=== PATIENT | male | born 1945 | race Caucasian/White ===

== ENCOUNTER → 2017-07-12 | Outpatient (CLI) | payer MEDICARE ==
[~2017-07-12] MED LIST: AMIO400T5 PO; AMLO10TA82; ASP81CT PO; CARV6.252 PO; ENAL20TA PO; FURO40TA4 PO; HYDR-3583 PO; LISI10TA PO; LISI20TA PO; METO-272 PO; METO100T5 PO; METO25TA2 PO; METR500T PO; OMEP-10 PO; OMEP20CA12 PO; POTA20TA15 PO; RANI150T90 PO; SIMV10TA3 PO; SIMV20TA3 PO; SMV20T PO; SULF1TAB38 PO; WRF5T; WRF5T PO
--- NOTE | 2017-07-12 14:45 | Diagnostic Imaging Report ---
PROCEDURE: MR imaging of the brain without contrast. TECHNIQUE: Multiplanar, multisequence MR imaging of the brain was performed without contrast. INDICATION: Behavioral changes. COMPARISON: No prior MRI studies are available for comparison. FINDINGS: The ventricles and sulci are prominent consistent with cerebral atrophy. Moderate periventricular and subcortical white matter changes are noted consistent with chronic microvascular ischemia. No diffusion restriction is identified to suggest acute ischemia. The normal expected flow voids within the carotid siphons are seen. No acute intra-axial or extra-axial hemorrhage is identified. The corpus callosum is unremarkable. The sella and parasellar structures are unremarkable. IMPRESSION: Cerebral atrophy and changes of chronic microvascular ischemia. No other significant abnormality is detected. Dictated by: Dictated on workstation # [id number]
== END ==
LOC: RAD 13:04
PROVIDERS: ATTEND Psychiatry & Neurology Neurology
DX: G93.1 Anoxic brain damage, not elsewhere classified (principal); G30.9 Alzheimer's disease, unspecified
CPT/HCPCS: 70551

== ENCOUNTER → 2017-08-13 | Outpatient (CLI) | payer MEDICARE ==
--- NOTE | 2017-08-13 18:03 | Diagnostic Imaging Report ---
INDICATION: Dementia. TECHNIQUE: Grayscale, color-flow and duplex Doppler evaluation of bilateral carotid systems was performed. FINDINGS: Mild plaquing is identified in the distal common carotid arteries and carotid bifurcations. Velocities are normal bilaterally. No high-grade stenosis or occlusion is identified. Both vertebral arteries demonstrate antegrade flow. IMPRESSION: Mild bilateral carotid plaque. There is no evidence of a hemodynamically significant stenosis. Dictated by: Dictated on workstation # [id number]
== END ==
LOC: RAD 12:16
PROVIDERS: ATTEND Psychiatry & Neurology Neurology
DX: I65.23 Occlusion and stenosis of bilateral carotid arteries (principal); F03.90 Unspecified dementia, unspecified severity, without behavioral disturbance, psychotic disturbance, mood disturbance, and anxiety; R40.1 Stupor
CPT/HCPCS: 93880

== ENCOUNTER 2018-02-20 15:31 | Outpatient (CLI) | payer MEDICARE ==
[~2018-02-20] VITALS: Ht 165.1 cm; Wt 63.5 kg
[2018-02-20] MEDS ORDERED: FURO20TA4 PO (15:40)
[2018-02-20] MEDS ORDERED: ASPI-808 PO (15:40)
[2018-02-20] MEDS ORDERED: CARV12.53 PO (15:40)
[2018-02-20] MEDS ORDERED: RIVA6CAP5 PO (15:40)
[2018-02-20] MEDS ORDERED: METF-397 PO (15:40)
[2018-02-20] MEDS ORDERED: POTA-51 PO (15:40)
[2018-02-20] MEDS ORDERED: ATOR80TA76 PO (15:40)
[2018-02-20] MEDS ORDERED: OMEP20CA12 PO (15:40)
[2018-02-20] MEDS ORDERED: VIT1CAPS5 PO (15:40)
[2018-02-20] MEDS ORDERED: LISI-552 PO (15:40)
[2018-02-20] MEDS ORDERED: MEMA28CA PO (15:40)
== END 2018-02-20 15:43 | disposition home or self-care (01) ==
LOC: PREOP 15:31
PROVIDERS: ATTEND Surgery
DX: Z01.818 Encounter for other preprocedural examination (principal)

== ENCOUNTER 2018-02-24 08:25 | Day surgery (SDC) | payer MEDICARE ==
[~2018-02-24] VITALS: Ht 165.1 cm; Wt 63.5 kg
[~2018-02-24 08:25] MED LIST changes: +ASPI-808 PO; +ATOR80TA76 PO; +CARV12.53 PO; +FURO20TA4 PO; +LISI-552 PO; +MEMA28CA PO; +METF-397 PO; +POTA-51 PO; +RIVA6CAP5 PO; +VIT1CAPS5 PO
--- OUTSIDE RECORDS SUMMARY | 2018-02-24 08:29 | XMS REPORT ---
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
--- OUTSIDE RECORDS SUMMARY | 2018-02-24 08:29 | XMS REPORT ---
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 Problem Pure hypercholesterolemia 272.0 Active Problem Alzheimers disease 331.0 Active Problem Alzheimers disease, unspecified G30.9 Active Problem Unspecified local infection of skin and subcutaneous tissue 686.9 Active Problem 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
--- OUTSIDE RECORDS SUMMARY | 2018-02-24 08:29 | XMS REPORT ---
Author Author ODN FAULKNER [facility] Address [address] [place] [address] Care Team Providers Care Metal Machinist Name Role Phone DON FAULKNER Unavailable PROBLEMS Type Condition ICD9-CM Code NII27-NL Code Onset Dates Condition Status SNOMED Code Problem Obstructive sleep apnea (adult) (pediatric) 327.23 Active 77991114 Problem Pure hypercholesterolemia 272.0 Active 359531984 Problem Other abnormal glucose 790.29 Active 856294236 Problem Type 2 diabetes mellitus without complications E11.9 Active 057446905 Problem Macular degeneration H35.30 Active 129990936 Problem Alzheimers disease, unspecified G30.9 Active 1011383063041 Problem 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 8938523 Problem Hypertension 401.9 Active 11514287 Problem Alzheimers disease 331.0 Active 47791289 Assessment Type 2 diabetes mellitus without complications E11.9 Feb, Active 236737074 Problem Other persistent mental disorders due to conditions classified elsewhere 294.8 Active 598048226 Problem Impacted cerumen 380.4 Active 30596305 Problem Diabetes mellitus without mention of complication, type II or unspecified type, not stated as uncontrolled 250.00 Active 108815954 Problem Memory loss 780.93 Active 03764293 Problem Unspecified local infection of skin and subcutaneous tissue 686.9 Active 63611761 Problem Other malaise and fatigue 780.79 Active 416919350 ALLERGIES Substance Reaction Event Type Date Status N.K.D.A. Unknown Non Drug Allergy Feb, Unknown SOCIAL HISTORY No smoking Hx information available PLAN OF CARE VITAL SIGNS Height 66 in 2016-02-16 Weight 137.6 lbs 2016-02-16 Heart Rate 66 bpm 2016-02-16 Respiratory Rate 18 2016-02-16 BMI 22.21 kg/m2 2016-02-16 Blood pressure systolic 144 mmHg 2016-02-16 Blood pressure diastolic 79 mmHg 2016-02-16 MEDICATIONS Medication Instructions Dosage Frequency Start Date End Date Duration Status Metformin HCl 500 MG Orally Twice a day 0.5 tablet with meals 12h Active Multivitamins Orally Once a day 1 capsule 24h Active Namenda XR 28 MG Orally Once a day per [place] Neuro 1 capsule May, Active Carvedilol Active Aspir-81 81 MG Orally Once a day 1 tablet 24h Active Rivastigmine Tartrate 6 MG Orally Twice a day 1 capsule with food 12h Active Lisinopril 20 MG Orally twice a day 1 tablet 12h Active Omeprazole Active RESULTS Name Result Date Reference Range A1C (IN HOUSE) 2016-02-16 A1C IN HOUSE 5.7 4.3 - 5.6 % Previous A1c 6.0 Lot [id number] Exp date PROCEDURES Procedure Date Ordered Related Diagnosis Body Site GLYCATED HEMOGLOBIN TEST Feb 16, 2016 [facility] VISIT ESTABLISHED PATIENT Feb 16, 2016 Office Visit, Est Pt., Level 3 Feb 16, 2016 IMMUNIZATIONS No Known Immunizations
--- OUTSIDE RECORDS SUMMARY | 2018-02-24 08:29 | XMS REPORT ---
Author Author DON FAULKNER Organization 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 [id number] [place] [address]84 Dec, [facility] [id number] [place] [address] 22029- 1078 Dec, Type 2 diabetes mellitus without complications E11.9 ; Hypokalemia E87.6 and Alzheimers disease, unspecified G30.9 [facility] [id number] [place] [address] 29859- 2957 Jul, Alzheimers disease, unspecified G30.9 [facility] [id number] [place] [address] 26628- 0342 Jul, [facility] [id number] [place] [address]116- 1471 Jul, [facility] [id number] [place] [address] 76750- 4405 Jun, [place] [address] [place] [address] 44373- 9621 Jun, Alzheimers disease, unspecified G30.9 ; Hypokalemia E87.6 and Behavioral change R46.89 [place] [id number] [place] [address] 13732- 0283 Jun, [place] [id number] [place] [address] 16798- 4387 May, [place] [id number] [place] [address] 29124- 3646 Feb, [place] [id number] [place] [address] 59028- 4567 Feb, Type 2 diabetes mellitus without complications E11.9 ; Hypokalemia E87.6 and Alzheimers disease, unspecified G30.9 [place] [id number] [place] [address] 15825- 8455 Feb, Type 2 diabetes mellitus without complications E11.9 ; Alzheimers disease, unspecified G30.9 and Hypokalemia E87.6 [place] [id number] [place] [address] 43472- 5144 October, [place] [address] [place] [address] 12074- 8444 October, Type 2 diabetes mellitus without complications E11.9 ; Hypokalemia E87.6 ; Rhonchi R09.89 and Bilateral impacted cerumen H61.23 [place] [address] [place] [address] 18142- 7259 October, Hypokalemia E87.6 ; Essential (primary) hypertension I10 and Type 2 diabetes mellitus without complications E11.9 [place] [address] [place] [address] 35406- 8861 October, Hypokalemia E87.6 ; Type 2 diabetes mellitus without complications E11.9 and Essential (primary) hypertension I10 [place] [id number] [place] [address] 42260- 9322 Jul, [address] E87.[address] [facility] [id number] [place] [address] 67769- 8801 Jun, Hyp[address]emia E87.6 [facility] [id number] [place] [address] 37677- 6881 Jun, Hyp[address]emia E87.6 [facility] [id number] [place] [address] 56979- 4967 May, Hypokalemia E87.6 [place] [id number] [place] [address] 90201- 1216 May, Type 2 diabetes mellitus without complications E11.9 and Hypokalemia E87.6 [place] [id number] [place] [address] 95741- 8347 Feb, Type 2 diabetes mellitus without complications E11.9 and Alzheimers disease, unspecified G30.9 [place] [id number] [place] [address] 97813- 2026 Jan, Hypokalemia E87.6 [place] [id number] [place] [address] 77800- 7650 Jan, Hypokalemia E87.6 [place] [id number] [place] [address] 64474- 4436 October, Type 2 diabetes mellitus without complications E11.9 ; Hypokalemia E87.6 ; Macular degeneration H35.30 ; Alzheimers disease, unspecified G30.9 and Essential hypertension I10 [place] [id number] [place] [address] 01422- 6945 October, Routine health maintenance Z00.00 and Type 2 diabetes mellitus without complications E11.9 [place] [id number] [place] [address] 76037- 2041 October, Routine health maintenance Z00.00 and Type 2 diabetes mellitus without complications E11.9 [facility] [address] [address]16 18 Jul, 2015 [facility] [id number] [place] [address] 60099 2546 17 Jul, 2015 Hypokalemia E87.6 ; Type 2 diabetes mellitus without complications E11.9 [address].89 [facility] [id number] [place] [address] 24104- 7790 15 Jul, 2015 Hypokalemia E87.6 ; Type 2 diabetes mellitus without complications E11.9 [address] Ab[address] CBC R79.89 [facility] [id number] [place] [address] 35510- 4766 Jul, [facility] [id number] [place] [address] 27409- 0082 08 Jul, 2015 Abnormal CBC R79.89 and Lymphadenopathy of head and neck region R59.9 [facility] [address] [place] [address] 19025- 1012 May, [facility] [id number] [place] [address] 42788- 8101 Apr, [facility] [id number] [place] [address] 44316- 4446 Apr, [facility] [address] [place] [address] 39304- 7595 Apr, [facility] [id number] [place] [address] 38182- 7942 Apr, [facility] [address] [place] [address] 89389- 8139 Mar, Hypokalemia E87.6 [facility] [address] [place] [address] 95330- 6570 Mar, [facility] [address] [place] [address] 02558- 4281 Mar, Hypokalemia E87.6 ; Type 2 diabetes mellitus without complications E11.[address] [facility] [id number] [place] [address] 95078- 1093 Jan, Hypokalemia 276.8 [facility] [id number] [place] [address] 45837- 8297 Jan, Hypertension 401.9 [facility] [id number] [place] [address] 79839- 1130 Jan, [facility] [id number] [place] [address] 80574- 4441 Nov, Diabetes mellitus without mention of complication, type II or unspecified type, not stated as uncontrolled 250.[address] [facility] [id number] [place] [address] 24744- 3406 Nov, [facility] [id number] [place] [address] 03860- 7428 Sep, [facility] [id number] [place] [address] 25568- 0557 Sep, [facility] [id number] [place] [address] 48426- 2330 Jun, [facility] [address] [address]- 7110 Jun, [facility] [address] [place] [address] 38592- 6525 Jan, [facility] [address] [address]- 8482 Jan, [facility] [id number] [place] [address] 50218- 1937 Jan, [facility] [address] [address] 0958 Jan, [facility] [id number] [place] [address] 44061- 2546 Jan, [facility] [place] [facility] [address] [id number] [place] [address]- 8397 Jan, [facility] [place] [facility] [address] [id number] [place] [address]- 7417 Dec, [facility] [place] [facility] [address] [id number] [place] [address]- 0652 Nov, [facility] [place] [facility] [address] [id number] [place] [address]- 2497 Nov, [facility] [place] [facility] [address] [id number] [place] [address]- 1590 Nov, [facility] [place] [facility] [address] [facility] [id number] [place] [address]- 7200 Nov, [facility] [place] [facility] [address] [facility] [id number] [place] [address]- 4800 October, [facility] [place] [facility] [address] [id number] [place] [address]- 4207 Jul, [facility] [place] [facility] [address] [id number] [place] [address]- 2936 Jul, [facility] [place] [facility] [address] [facility] [id number] [place] [address]- 1190 Jul, [facility] [place] [facility] [address] [id number] [place] [address]- 6180 Jul, [facility] [place] [facility] [address] [id number] [place] [address]- 4762 Jul, [facility] [place] [facility] [address] [id number] [place] [address]- 8164 Jul, [facility] [place] [facility] [address] [id number] [place] [address]- 5859 Jun, [facility] [place] [facility] [address] [facility] [id number] [place] [address]- 6949 Jun, [facility] [place] [facility] [address] [id number] [place] [address]- 7139 Jun, [facility] [place] [facility] [address] [id number] [place] [address]- 1490 Jun, [facility] [place] [facility] [address] [id number] [place] [address]- 8699 Jun, [facility] [place] [facility] [address] [id number] [place] [address]- 6505 Jun, [facility] [place] [facility] [address] [id number] [place] [address]- 2843 Jun, [facility] [place] [facility] [address] [id number] [place] [address]- 4219 Apr, [facility] [place] [facility] [address] [id number] [place] [address]- 5815 Apr, [facility] [place] [facility] [address] [id number] [place] [address]- 1847 Mar, [facility] [place] [facility] [address] [id number] [place] [address]- 0735 Mar, [facility] [place] [facility] [address] [id number] [place] [address]- 9441 Mar, [facility] [place] [facility] [address] [id number] [place] [address]- 9074 Mar, [facility] [place] [facility] [address] [id number] [place] [address]- 7995 Feb, [facility] [place] [facility] [address] [id number] [place] [address]- 7619 Feb, [facility] [place] [facility] [address] [id number] [place] [address]- 6781 Dec, [facility] [place] [facility] [address] [id number] [place] [address]- 9836 Aug, [facility] [place] [facility] [address] [id number] [place] [address]- 5536 Aug, [facility] [place] [facility] [address] [id number] [place] [address]- 8427 Aug, [facility] [place] [facility] [address] [id number] [place] [address]- 0840 Jul, [facility] [place] [facility] [address] [id number] [place] [address]- 1527 May, [facility] [place] [facility] [address] [id number] [place] [address]- 4053 May, [facility] [place] [facility] [address] [id number] [place] [address]- 8728 May, [facility] [place] [facility] [address] [id number] [place] [address]- 5983 May, [facility] [place] [facility] [address] [id number] [place] [address]- 8878 Mar, [facility] [place] [facility] [address] [id number] [place] [address]- 5060 Mar, [facility] [place] [facility] [address] [id number] [place] [address]- 1606 Sep, [facility] [place] [facility] [address] [id number] [place] [address]- 6770 Sep, [facility] [place] [facility] [address] [id number] [place] [address]- 6361 Jun, [facility] [place] [facility] [address] [id number] [place] [address]- 1135 May, [facility] [place] [facility] [address] [id number] [place] [address]- 9529 Apr, [facility] [place] [facility] [address] [id number] [place] [address]- 0571 Apr, [facility] [place] [facility] [address] [id number] [place] [address]- 4790 16 Apr, 2011 [facility] [place] [facility] [address] [address]- 9996 16 Apr, 2011 [facility] [address] [address] Mar, [facility] [address] [facility] [id number] [place] [address] 7205 Dec, [facility] [address] [place] [address] 12627- 5424 Nov, [facility] [address] [facility] [id number] [address] 9[address] Mar, [facility] [address] [place] [address] 40434- 4438 Jan, [facility] [address] [address]- 5543 Apr, [facility] [address] [place] [address] 55035- 0665 Apr, [facility] [address] [address]- 4561 Apr, [facility] [address] [address]- 9226 Apr, [facility] [address] [address]- 0950 Mar, [facility] [address] [address]- 4307 Mar, [facility] [address] [address]- 6543 Mar, [facility] [address] Mar, [facility] [address] [address]- 4140 Sep, IMMUNIZATIONS No Known Immunizations SOCIAL HISTORY Never Assessed REASON FOR VISIT Diabetes-MICHELE sandhu PLAN OF CARE Activity Details Follow Up 3 Months Reason:DM VITAL SIGNS Height 66 in 2017-12-30 Weight 133.2 lbs 2017-12-30 Temperature 97.9 degrees Fahrenheit 2017-12-30 Heart Rate 82 bpm 2017-12-30 Respiratory Rate 18 2017-12-30 BMI 21.50 kg/m2 2017-12-30 Blood pressure systolic 102 mmHg 2017-12-30 Blood pressure diastolic 62 mmHg 2017-12-30 MEDICATIONS Medication Instructions Dosage Frequency Start Date End Date Duration Status Atorvastatin Calcium 40 MG Orally Once a day 1 tablet 24h Active Aspirin EC 325 MG Orally Once a day 1 tablet 24h Active Namenda XR 28 MG Orally Once a day per [place] Neuro 1 capsule May, Active Lisinopril 20 MG Orally twice a day 1 tablet 12h Active Potassium Chloride Hanna ER 20 meq Orally 3 times a day 2.5 tablets 8h Active Multivitamins Orally Once a day 1 capsule 24h Active Rivastigmine Tartrate 6 MG Orally Twice a day 1 capsule with food 12h Active Carvedilol Active Metformin HCl 500 MG Orally Twice a day 0.5 tablet with meals 12h Active RESULTS Name Result Date Reference Range A1C (IN HOUSE) 2017-12-30 A1C IN HOUSE 6.2 4.3 - 5.6 % Previous A1c 6.0 Lot [id number] Exp date 08/2019 POTASSIUM 2017-12-30 POTASSIUM 3.7 3.5-5.3 PROCEDURES Procedure Date Ordered Result Body Site GLYCATED HEMOGLOBIN TEST December 30, 2017 [facility] 2017 [facility] VISIT ESTABLISHED PATIENT December 30, 2017 INSTRUCTIONS MEDICATIONS ADMINISTERED No Known Medications MEDICAL (GENERAL) HISTORY Type Description Date Medical History hypertension Medical History sleep apnea-CPAP 8cm [id number] Paykel Eson Nasal Mask Medical History hypokalemia Medical History heart disease-rupture AAA, intrarenal Medical History respiratory disorder 06/16/13 Medical History [place] filter, DVT Medical History hepatitis B Medical History dementia Medical History 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 Medical History Alzheimers disease, unspecified Medical History [facility] - Team 12 Dr. Lang Surgical History cardiothoracic surgery-triple bypass-[place] 12/2009 Surgical History Triple A 09/2006 Surgical History cholecystectomy Surgical History Bleeding ulcer Hospitalization History Hospitalization for surgery only Hospitalization History hypertension 10/2013 Hospitalization History Somewhere in [facility] May 2017
--- OUTSIDE RECORDS SUMMARY | 2018-02-24 08:29 | XMS REPORT ---
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 1830939 Problem Type 2 diabetes mellitus without complications E11.9 Active 991531228 Problem Macular degeneration H35.30 Active 626343488 ALLERGIES Unknown Allergies SOCIAL HISTORY No smoking Hx information available PLAN OF CARE VITAL SIGNS MEDICATIONS Medication Instructions Dosage Frequency Start Date End Date Duration Status Multivitamins Orally Once a day 1 capsule 24h Active Namenda XR 28 MG Orally Once a day per Kee Neuro 1 capsule May, Active Lisinopril 20 MG Orally twice a day 1 tablet 12h Active Potassium Chloride Hanna ER 20 MEQ Orally 3 times a day 2 tablets 8h Active Metformin HCl 500 MG Orally Twice a day 0.5 tablet with meals 12h Active Rivastigmine Tartrate 6 MG Orally Twice a day 1 capsule with food 12h Active Carvedilol Active Omeprazole Active Aspir-81 81 MG Orally Once a day 1 tablet 24h Active RESULTS No Results PROCEDURES No Known procedures IMMUNIZATIONS No Known Immunizations
--- OUTSIDE RECORDS SUMMARY | 2018-02-24 08:29 | XMS REPORT | Clinical Summary ---
Author Author [facility] Organization [facility] Address Unknown Phone Unavailable Care Team Providers Care Windshield Repair Technician Name Role Phone Vt Red Team PP Allergies No Known Allergies Current Medications No known medications Active Problems Not on file Social History Tobacco Use Types Packs/Day Years Used Date Never Smoker Smokeless Tobacco: Never Used Sex Assigned at Date Recorded Not on file Last Filed Vital Signs Vital Sign Reading Time Taken Blood Pressure 170/82 05/21/2017 2:30 AM ROOFING MACHINE TENDER Pulse 73 05/21/2017 2:30 AM ROOFING MACHINE TENDER Temperature 37.1 C (98.7 F) 05/21/2017 12:02 AM ROOFING MACHINE TENDER Respiratory Rate 18 05/21/2017 2:30 AM ROOFING MACHINE TENDER Oxygen Saturation 97% 05/21/2017 2:30 AM ROOFING MACHINE TENDER Inhaled Oxygen - - Concentration Weight 64.4 kg (142 lb) 05/21/2017 12:02 AM ROOFING MACHINE TENDER Height 162.6 cm (5' 4") 05/21/2017 12:02 AM ROOFING MACHINE TENDER Body Mass Index 24.37 05/21/2017 12:02 AM ROOFING MACHINE TENDER Plan of Treatment Health Maintenance Due Date Last Done Comments Annual Wellness Visit 1945 Hepatitis C Screening 1945 DTaP,Tdap,and Td Vaccines 1964 (1 - Tdap) Colon Cancer Screening 10/26/1995 Zoster Recombinant 10/26/1995 Vaccine (RZV,Shingrix) (1 of 2 - [facility] 2 Dose Standard) Pneumo-Adult (1 of 2 - 2010 PCV13) Results Not on filefrom Last 3 Months
--- OUTSIDE RECORDS SUMMARY | 2018-02-24 08:29 | XMS REPORT ---
Author Author DON FAULKNER Organization [employer] Address Unknown Phone Unavailable Care Team Providers Care Stud Beef Cattle Farmer Name Role Phone DON FAULKNER CP Unavailable [...]
[2018-02-24 08:30] VITALS: BP 144/78
[2018-02-24] MEDS ORDERED: NS IV 500 ML 500 ML ONE (08:30)
--- OUTSIDE RECORDS SUMMARY | 2018-02-24 08:30 | XMS REPORT ---
Author Author DON FAULKNER [facility] Address Unknown Phone Unavailable Care Team Providers Care Drip Box Tender Name Role Phone DON FAULKNER CP Unavailable Allergies, Adverse Reactions, Alerts Substance Reaction Event Type N.K.D.A. 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 Active Problem Unspecified local infection of skin and subcutaneous tissue 686.9 Active Assessment Hypokalemia E87.6 Active Problem Pure hypercholesterolemia 272.0 Active Problem Other abnormal glucose 790.29 Active Problem Hypertension 401.9 Active Problem Memory loss 780.93 Active Problem Impacted cerumen 380.4 Active Problem Obstructive sleep apnea (adult) (pediatric) 327.23 Active Problem Other malaise and fatigue 780.79 Active Medications Medication Code System Code Instructions Start Date End Date Status Dosage Multivitamins [facility] 05797-[address]73 Orally Once a day 1 capsule Lisinopril [facility] [address]-50 20 MG Orally twice a day 1 tablet Potassium Chloride ER [facility] [address]-06 20 MEQ Orally, 4 times a day JanOctober 09, 2015 1 capsule Aspir-81 [facility] [address]-94 81 MG Orally Once a day 1 tablet Metformin HCl [facility] [address]-12 500 MG Orally Twice a day 0.5 tablet with meals Rivastigmine Tartrate [facility] [address]-63 6 MG Orally Twice a day 1 capsule with food Procedures Procedure Coding System Code Date Office Visit, Est Pt., Level 3 CPT-4 27105 Apr 12, 2015 [facility] VISIT ESTABLISHED PATIENT CPT-4 G0467 Apr 12, 2015 Vital Signs Date/Time: Apr 12, 2015 Temperature 98.9 F Weight 145.2 lbs Height 66 in BMI 23.43 Index Blood Pressure Diastolic 90 mmHg Blood Pressure Systolic 160 mmHg Cardiac Monitoring Heart Rate 72 bpm Results No Known Results Summary Purpose [employer] Submission
--- OUTSIDE RECORDS SUMMARY | 2018-02-24 08:30 | XMS REPORT ---
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 4478963 Problem Hypercholesterolemia E78.00 Active 85318735 Problem Type 2 diabetes mellitus without complications E11.9 Active 910204890 Problem Macular degeneration H35.30 Active 969848890 ALLERGIES No Information SOCIAL HISTORY Never Assessed PLAN OF CARE VITAL SIGNS MEDICATIONS Unknown Medications RESULTS Name Result Date Reference Range A1C 2016-10-22 Hemoglobin A1c 6.0 4.8-5.6 CMP 2016-10-22 Glucose, Serum 116 65-99 BUN 14 8-27 Creatinine, Serum 0.76 0.76-1.27 eGFR If NonAfricn Am 92 >59 eGFR If Africn Am 107 >59 BUN/Creatinine Ratio 18 10-24 Sodium, Serum 146 134-144 Potassium, Serum 3.6 3.5-5.2 Chloride, Serum 101 96-106 Carbon Dioxide, Total 30 18-29 Calcium, Serum 9.3 8.6-10.2 Protein, Total, Serum 6.8 6.0-8.5 Albumin, Serum 4.1 3.5-4.8 Globulin, Total 2.7 1.5-4.5 A/G Ratio 1.5 1.2-2.2 Bilirubin, Total 0.7 0.0-1.2 Alkaline Phosphatase, S 68 39-117 AST (SGOT) 23 0-40 ALT (SGPT) 13 0-44 LIPID PANEL 2016-10-22 Cholesterol, Total 231 100-199 Triglycerides 64 0-149 HDL Cholesterol 51 >39 VLDL Cholesterol Denzel 13 5-40 LDL Cholesterol Calc 167 0-99 PROCEDURES Procedure Date Ordered Result Body Site [facility] October 22, 2016 GLYCATED HEMOGLOBIN TEST October 22, 2016 VENIPUNCT, ROUTINE* October 22, 2016 IMMUNIZATIONS No Known Immunizations MEDICAL (GENERAL) HISTORY Type Description Date Medical History hypertension Medical History sleep apnea-CPAP 8cm [id number] Paykel Eson Nasal Mask Medical History hypokalemia Medical History heart disease-rupture AAA, intrarenal Medical History respiratory disorder 06/16/13 Medical History Srini filter, DVT Medical History hepatitis B Medical History dementia Medical History 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 Medical History Alzheimers disease, unspecified Medical History [facility] - Team 12 Dr. Lang Surgical History cardiothoracic surgery-triple bypass-Kee 12/2009 Surgical History Triple A 09/2006 Surgical History cholecystectomy Surgical History Bleeding ulcer Hospitalization History Hospitalization for surgery only Hospitalization History hypertension 10/2013
--- OUTSIDE RECORDS SUMMARY | 2018-02-24 08:30 | XMS REPORT ---
Author Author DON FAULKNER [facility] [employer] Address Unknown Phone Unavailable Care Team Providers Care Professor Of Political Science Name Role Phone DON FAULKNER CP Unavailable [...] skin and subcutaneous tissue 686.9 Active Problem Pure hypercholesterolemia 272.0 Active Problem Other abnormal glucose 790.29 Active Problem Hypertension 401.9 Active Problem Memory loss 780.93 Active Problem Impacted cerumen 380.4 Active Problem Obstructive sleep apnea (adult) (pediatric) 327.23 Active Problem Other malaise and fatigue 780.79 Active Assessment Hypokalemia 276.8 Active Assessment Type 2 diabetes mellitus without complications E11.9 Active Assessment Hypokalemia E87.6 Active Medications Medication Code System Code Instructions Start Date End Date Status Dosage Rivastigmine Tartrate [facility] [address]-35 6 MG Orally Twice a day 1 capsule with food Lisinopril [facility] [address]-19 20 MG Orally twice a day 1 tablet Aspir-81 [facility] [address]-90 81 MG Orally Once a day 1 tablet Multivitamins [facility] [address] Orally Once a day 1 capsule Metformin HCl [facility] [address]-98 500 MG Orally Twice a day 0.5 tablet with meals Potassium Chloride ER [facility] [address]-26 20 MEQ Orally daily repeat labs in 2 weeks Feb 04, 2015 as directed Procedures Procedure Coding System Code Date [facility] VISIT ESTABLISHED PATIENT CPT-4 G0467 Mar 24, 2015 Office Visit, Est Pt., Level 3 CPT-4 21833 Mar 24, 2015 GLYCATED HEMOGLOBIN TEST CPT-4 96903 Mar 24, 2015 VENIPUNCT, ROUTINE* CPT-4 86613 Mar 24, 2015 [facility] CPT-4 NOBLL Mar 24, 2015 Vital Signs Date/Time: Mar 24, 2015 Temperature 98.9 F Weight 148 lbs Height 66 in BMI 23.89 Index Blood Pressure Diastolic 82 mmHg Blood Pressure Systolic 160 mmHg Cardiac Monitoring Heart Rate 72 bpm Results Name Result Date Reference Range Unit Abnormality Flag A1C (IN HOUSE) POTASSIUM Summary Purpose [employer] Submission
--- OUTSIDE RECORDS SUMMARY | 2018-02-24 08:30 | XMS REPORT ---
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 2714275 Problem Hypercholesterolemia E78.00 Active 10522418 Problem Type 2 diabetes mellitus without complications E11.9 Active 566721232 Problem Macular degeneration H35.30 Active 487123803 ALLERGIES No Known Allergies SOCIAL HISTORY Never Assessed PLAN OF CARE Activity Details Follow Up 3 Months Reason:hypokalemia VITAL SIGNS Height 66 in 2016-10-24 Weight 133 lbs 2016-10-24 Temperature 98.4 degrees Fahrenheit 2016-10-24 Heart Rate 62 bpm 2016-10-24 Respiratory Rate 18 2016-10-24 BMI 21.46 kg/m2 2016-10-24 Blood pressure systolic 130 mmHg 2016-10-24 Blood pressure diastolic 80 mmHg 2016-10-24 MEDICATIONS Medication Instructions Dosage Frequency Start Date End Date Duration Status Aspir-81 81 MG Orally Once a day 1 tablet 24h Active Rivastigmine Tartrate 6 MG Orally Twice a day 1 capsule with food 12h Active Metformin HCl 500 MG Orally Twice a day 0.5 tablet with meals 12h Active Carvedilol Active Lisinopril 20 MG Orally twice a day 1 tablet 12h Active Multivitamins Orally Once a day 1 capsule 24h Active Namenda XR 28 MG Orally Once a day per Kee Neuro 1 capsule May, Active Potassium Chloride Hanna ER 20 MEQ Orally 3 times a day 2 tablets 8h 90 days Active Omeprazole Active RESULTS No Results PROCEDURES Procedure Date Ordered Result Body Site CHEST X-RAY October 24, 2016 [facility] VISIT ESTABLISHED PATIENT October 24, 2016 IMMUNIZATIONS No Known Immunizations MEDICAL (GENERAL) HISTORY Type Description Date Medical History hypertension Medical History sleep apnea-CPAP 8cm [id number] Paykel Eson Nasal Mask Medical History hypokalemia Medical History heart disease-rupture AAA, intrarenal Medical History respiratory disorder 06/16/13 Medical History [place] filter, DVT Medical History hepatitis B Medical History dementia Medical History 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 Medical History Alzheimers disease, unspecified Medical History [facility] - Team 12 Dr. Lang Surgical History cardiothoracic surgery-triple bypass-Kee 12/2009 Surgical History Triple A 09/2006 Surgical History cholecystectomy Surgical History Bleeding ulcer Hospitalization History Hospitalization for surgery only Hospitalization History hypertension 10/2013
--- OUTSIDE RECORDS SUMMARY | 2018-02-24 08:30 | XMS REPORT ---
Author Author DON FAULKNER Organization [employer] Address Unknown Phone Unavailable Care Team Providers Care Dry Pan Operator Name Role Phone DON FAULKNER CP Unavailable Allergies No Known Allergies Problems Problem Type Condition Code Onset Dates Condition Status Problem Impacted cerumen 380.4 Active Problem Other malaise and fatigue 780.79 Active Problem Memory loss 780.93 Active Problem Alzheimers disease 331.0 Active Problem Alzheimers disease, unspecified G30.9 Active Problem Hypertension 401.9 Active Problem Other abnormal glucose 790.29 Active Problem Obstructive sleep apnea (adult) (pediatric) 327.23 Active Problem 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 Problem Pure hypercholesterolemia 272.0 Active Problem Diabetes mellitus without mention of complication, type II or unspecified type, not stated as uncontrolled 250.00 Active Problem Unspecified local infection of skin and subcutaneous tissue 686.9 Active Problem 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
--- OUTSIDE RECORDS SUMMARY | 2018-02-24 08:30 | XMS REPORT ---
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 0182661 Problem Hypercholesterolemia E78.00 Active 91366864 Problem Type 2 diabetes mellitus without complications E11.9 Active 735248393 Problem Macular degeneration H35.30 Active 972010426 ALLERGIES No Information SOCIAL HISTORY Never Assessed PLAN OF CARE VITAL SIGNS MEDICATIONS Unknown Medications RESULTS No Results PROCEDURES No Known procedures IMMUNIZATIONS No Known Immunizations MEDICAL (GENERAL) HISTORY Type Description Date Medical History hypertension Medical History sleep apnea-CPAP 8cm [id number] Paykel Eson Nasal Mask Medical History hypokalemia Medical History heart disease-rupture AAA, intrarenal Medical History respiratory disorder 06/16/13 Medical History Srini filter, DVT Medical History hepatitis B Medical History dementia Medical History 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 Medical History Alzheimers disease, unspecified Medical History [facility] - Team 12 Dr. Lang Surgical History cardiothoracic surgery-triple bypass-Kee 12/2009 Surgical History Triple A 09/2006 Surgical History cholecystectomy Surgical History Bleeding ulcer Hospitalization History Hospitalization for surgery only Hospitalization History hypertension 10/2013
--- OUTSIDE RECORDS SUMMARY | 2018-02-24 08:30 | XMS REPORT ---
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 Active Problem Unspecified local infection of skin and subcutaneous tissue 686.9 Active Assessment Hypokalemia 276.8 Active Problem Pure hypercholesterolemia 272.0 Active Problem Other abnormal glucose 790.29 Active Problem Hypertension 401.9 Active Problem Memory loss 780.93 Active Problem Impacted cerumen 380.4 Active Problem Obstructive sleep apnea (adult) (pediatric) 327.23 Active Problem Other malaise and fatigue 780.79 Active Medications Medication Code System Code Instructions Start Date End Date Status Dosage Potassium Chloride [facility] [address]-60 20 MEQ Orally daily repeat labs in 2 weeks Feb 04, 2015 as directed Results No Known Results Summary Purpose [employer] Submission
--- OUTSIDE RECORDS SUMMARY | 2018-02-24 08:30 | XMS REPORT ---
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 6479543 Problem Hypercholesterolemia E78.00 Active 78266073 Problem Type 2 diabetes mellitus without complications E11.9 Active 765781648 Problem Macular degeneration H35.30 Active 753741080 ALLERGIES No Known Allergies ENCOUNTERS Encounter Location Date Diagnosis [place] [address] [address] Jul, Alzheimers disease, unspecified G30.9 [place] [address] [place] [id number] [place] [address]19- 4073 Jul, [facility] [address] [address] Jul, [facility] [address] [place] [id number] [place] [address]80- 9396 Jun, [place] [address] [address]- [address] Jun, Alzheimers disease, unspecified G30.9 ; Hypokalemia E87.6 and Behavioral change R46.89 [facility] [address] [address] Jun, [place] [address], [place] [address] May, [place] [address] [place] [id number] [place] [address] 74356- 4449 Feb, [place] [address] [place] [id number] [place] [address] 21088- 8030 Feb, Type 2 diabetes mellitus without complications E11.9 ; Hypokalemia E87.6 and Alzheimers disease, unspecified G30.9 [place] [address] [place] [id number] [place] [address] 60187- 6176 20 Feb, 2017 Type 2 diabetes mellitus without complications E11.9 ; Alzheimers disease, unspecified G30.9 and Hypokalemia E87.6 [place] [address] [place] [id number] [place] [address] 95345- 6416 October, [place] [address] [place] [id number] [place] [address] 75334- 4259 October, Type 2 diabetes mellitus without complications E11.9 ; Hypokalemia E87.6 ; Rhonchi R09.89 and Bilateral impacted cerumen H61.23 [place] [address] [place] [id number] [place] [address] 76532- 1493 October, Hypokalemia E87.6 ; Essential (primary) hypertension I10 and Type 2 diabetes mellitus without complications E11.9 [place] [address] [place] [id number] [place] [address] 29940- 8419 October, Hypokalemia E87.6 ; Type 2 diabetes mellitus without complications E11.9 and Essential (primary) hypertension I10 [place] [address] [place] [id number] [place] [address] 35735- 7554 Jul, Hypokalemia E87.6 [place] [address] [place] [id number] [place] [address] 04308- 6299 Jun, Hypokalemia E87.6 [place] [address] [place] [id number] [place] [address] 36677- 7583 Jun, Hypokalemia E87.6 [place] [address], [place] [address] May, Hypokalemia E87.6 [place] [address] [place] [id number] [place] [address] 44515- 7101 May, Type 2 diabetes mellitus without complications E11.9 and Hypokalemia E87.6 [place] [address] [place] [id number] [place] [address] 39747- 7375 Feb, Type 2 diabetes mellitus without complications E11.9 and Alzheimers disease, unspecified G30.9 [place] [address] [place] [id number] [place] [address] 11423- 2582 Jan, Hypokalemia E87.6 [place] [address] [place] [id number] [place] [address] 97687- 1750 Jan, Hypokalemia E87.6 [place] [address] [place] [id number] [place] [address] 25024- 9102 October, Type 2 diabetes mellitus without complications E11.9 ; Hypokalemia E87.6 ; Macular degeneration H35.30 ; Alzheimers disease, unspecified G30.9 and Essential hypertension I10 [place] [address], [place] [address] October, Routine health maintenance Z00.00 and Type 2 diabetes mellitus without complications E11.9 [place] [id number] [place] [address] 94462- 7721 October, Routine health maintenance Z00.00 and Type 2 diabetes mellitus without complications E11.9 [place] [address] [place] [address] 51706- 3553 Jul, [place] [address] [place] [address] 37145- 9402 Jul, Hypokalemia E87.6 ; Type 2 diabetes mellitus without complications E11.9 and Abnormal CBC R79.89 [facility] [address], [place] [address] 2546 15 Jul, 2015 Hypokalemia E87.6 ; Type 2 diabetes mellitus without complications E11.9 and Abnormal CBC R79.89 [facility] [address], [place] [address] 2546 Jul, [facility] [address] [place] [id number] [place] [address] 54329 2546 Jul, Abnormal CBC R79.89 and Lymphadenopathy of head and neck region R59.9 [facility] [address] [place] [id number] [place] [address] 56094 2546 May, [facility] [address] [place] [id number] [place] [address] 39737 2546 Apr, [facility] [address] [place] [address] [id number] [place] [address] 43027 2546 Apr, [facility] [address] [place] [address] [id number] [place] [address] 05469 2546 Apr, [facility] [address] [place] [id number] [place] [address] 50435 2546 Apr, [facility] [address] [place] [address] 53098 2546 Mar, Hypokalemia E87.6 [facility] [address] [place] [address] 55292 2546 Mar, [facility] [address] [place] [address] 85405 2546 Mar, Hypokalemia E87.6 ; Type 2 diabetes mellitus without complications E11.9 and Hypokalemia 276.8 [facility] [address], [place] [address] 2546 Jan, Hypokalemia 276.8 [facility] [address] [place] [address] [id number]- 2725 Jan, Hypertension 401.9 [facility] [address] [facility] [id number] [place] [address]- 3276 Jan, [facility] [address], [place] [address] 1851 Nov, Diabetes mellitus without mention of complication, type II or unspecified type, not stated as uncontrolled 250.00 and Hypertension 401.9 [facility] [address] [facility] [id number], [place] [address] 5837 Nov, [facility] [address] [facility] [id number], [place] [address]- 9786 Sep, [facility] [address] [place] [id number], [place] [address] 8116 Sep, [facility] [address], [place] [address]- 7038 Jun, [facility] [address] [place] [id number], [place] [address] 6796 Jun, [facility] [address] [place] [id number] [address]- 20[address] Jan, [facility] [address] [place] [address] [id number] [address]- 8787 Jan, [facility] [address] [place] [address] [id number] [address]- 0578 Jan, [facility] [address] [place] [address] [id number] [address]- 5227 Jan, [facility] [address] [facility] [id number], [place] [address]- 2564 Jan, [facility] [address] [facility] [id number], [place] [address]- 8486 Jan, [facility] [address] [place] [address] [id number] [address]- 5860 Dec, [facility] [address] [place] [address] [id number], [place] [address]- 4708 Nov, [facility] [place] [facility] [address] [id number] [place] [address]- 6116 Nov, [facility] [place] [facility] [address] [id number] [place] [address]- 9536 Nov, [facility] [place] [facility] [address] [id number] [place] [address]- 6784 Nov, [facility] [place] [facility] [address] [id number] [place] [address]- 8281 October, [facility] [place] [facility] [address] [id number] [place] [address]- 8237 Jul, [facility] [place] [facility] [address] [id number] [place] [address]- 5438 Jul, [facility] [place] [facility] [address] [id number] [place] [address]- 2614 Jul, [facility] [place] [facility] [address] [id number] [place] [address]- 2547 Jul, [facility] [place] [facility] [address] [id number] [place] [address]- 1829 Jul, [facility] [place] [facility] [address] [id number] [place] [address]- 2020 Jul, [facility] [place] [facility] [address] [id number] [place] [address]- 9782 Jun, [facility] [place] [facility] [address] [id number] [place] [address]- 8398 Jun, [facility] [place] [facility] [address] [id number] [place] [address]- 3277 Jun, [facility] [place] [facility] [address] [id number] [place] [address]- 1563 Jun, [facility] [place] [facility] [address] [id number] [place] [address]- 6175 Jun, [facility] [place] [facility] [address] [id number] [place] [address]- 8549 Jun, [facility] [address] [id number] [place] [address]144 Jun, [facility] [address] [id number] [place] [address]- 5018 Apr, [facility] [place] [facility] [address] [id number] [place] [address]- 6134 Apr, [facility] [address] [id number] [place] [address]- 8587 Mar, [facility] [place] [facility] [address] [id number] [place] [address]- 0045 Mar, [facility] [address] [id number] [place] [address]64 Mar, [facility] [address] [id number] [place] [address]- 9569 Mar, [facility] [address] [id number] [place] [address]- 2992 Feb, [facility] [place] [facility] [address] [id number] [place] [address]- 8173 Feb, [facility] [place] [facility] [address] [id number] [place] [address]- 0521 Dec, [facility] [place] [facility] [address] [id number], [place] [address]- 1865 Aug, [facility] [place] [facility] [address] [id number] [place] [address]- 6587 Aug, [facility] [place] [facility] [address] [id number] [place] [address]- 8163 Aug, [facility] [place] [facility] [address] [id number], [place] [address]- 4653 Jul, [facility] [place] [facility] [address] [id number], [place] [address]- 6263 May, [facility] [place] [facility] [address] [id number] [place] [address]- 3740 May, [facility] [place] [facility] [address] [id number] [place] [address]45 May, [facility] [place] [facility] [address] [id number] [place] [address]- 3745 May, [facility] [place] [facility] [address] [id number] [place] [address]- 1951 Mar, [facility] [place] [facility] [address] [id number] [place] [address]- 8946 Mar, [facility] [place] [facility] [address] [id number] [place] [address]- 8042 Sep, [facility] [place] [facility] [address] [id number] [place] [address]- 1039 Sep, [facility] [place] [facility] [address] [id number] [place] [address]- 0977 Jun, [facility] [place] [facility] [address] [id number], [place] [address]- 0228 May, [facility] [place] [facility] [address] [id number], [place] [address]- 3277 Apr, [facility] [place] [facility] [address] [id number], [place] [address]- 5163 Apr, [facility] [place] [facility] [address] [id number], [place] [address]- 8728 Apr, [facility] [place] [facility] [address] [id number], [place] [address]- 3275 Apr, [facility] [place] [facility] [address] [id number], [place] [address]- 4350 Mar, [facility] [place] [facility] [address] [id number] [place] [address]- 4217 Dec, [facility] [place] [facility] [address], [place] [address]- 8882 Nov, [facility] [address], [place] [address]- 4493 Mar, [facility] [address], [place] [address]- 3964 Jan, [facility] [address] 2043 Apr, [facility] [address], [place] [address]- 7812 Apr, [facility] [address] [place] [address] 803029- 6445 Apr, [facility] [address], [place] [address]- 5387 Apr, [facility] [address] [place] [id number] [place] [address] 92499- 5540 Mar, [facility] [address], [place] [address]- 3776 Mar, [facility] [address], [place] [address]- 3694 Mar, [facility] [address], [place] [address]- 8012 Mar, [facility] [address], [place] [address]- 3985 Sep, IMMUNIZATIONS No Known Immunizations SOCIAL HISTORY Never Assessed REASON FOR VISIT Potassium f/u--Gee Cha MA PLAN OF CARE Activity Details Follow Up 3 Months Reason:hypokalemia VITAL SIGNS Height 66 in 2017-03-06 Weight 143.6 lbs 2017-03-06 Temperature 98.5 degrees Fahrenheit 2017-03-06 Heart Rate 68 bpm 2017-03-06 Respiratory Rate 18 2017-03-06 BMI 23.18 kg/m2 2017-03-06 Blood pressure systolic 132 mmHg 2017-03-06 Blood pressure diastolic 86 mmHg 2017-03-06 MEDICATIONS Medication Instructions Dosage Frequency Start Date End Date Duration Status Lisinopril 20 MG Orally twice a day 1 tablet 12h Active Metformin HCl 500 MG Orally Twice a day 0.5 tablet with meals 12h Active Rivastigmine Tartrate 6 MG Orally Twice a day 1 capsule with food 12h Active Aspir-81 81 MG Orally Once a day 1 tablet 24h Active Multivitamins Orally Once a day 1 capsule 24h Active Potassium Chloride Hanna ER 20 MEQ Orally 3 times a day 2 tablets 8h 90 days Active Carvedilol Active Namenda XR 28 MG Orally Once a day per [place] [facility] 1 capsule May, Active Omeprazole Active Simvastatin 80 MG Orally Once a day 1 tablet in the evening 24h Active RESULTS Name Result Date Reference Range A1C (IN HOUSE) 2017-03-06 A1C IN HOUSE 6.0 4.3 - 5.6 % Previous A1c 6.2 Lot [id number] Exp date MICROALBUMIN, URINE (IN HOUSE) 2017-03-06 MICROALBUMIN Normal Lot # [id number] Exp date 01/14/2018 Clarity clear Color yellow ALB CRE A:C (IN HOUSE) Control Control Lot # Exp date PROCEDURES Procedure Date Ordered Result Body Site GLYCATED HEMOGLOBIN TEST Mar 06, 2017 MICROALBUMIN, SEMIQUANT Mar 06, 2017 [facility] VISIT ESTABLISHED PATIENT Mar 06, 2017 INSTRUCTIONS MEDICATIONS ADMINISTERED No Known Medications MEDICAL (GENERAL) HISTORY Type Description Date Medical History hypertension Medical History sleep apnea-CPAP 8cm A8N-Swmmwr Paykel Eson Nasal Mask Medical History hypokalemia Medical History heart disease-rupture AAA, intrarenal Medical History respiratory disorder 06/16/13 Medical History Srini filter, DVT Medical History hepatitis B Medical History dementia Medical History 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 Medical History Alzheimers disease, unspecified Medical History [facility] - Team 12 Dr. Lang Surgical History cardiothoracic surgery-triple bypass-[place] 12/2009 Surgical History Triple A 09/2006 Surgical History cholecystectomy Surgical History Bleeding ulcer Hospitalization History Hospitalization for surgery only Hospitalization History hypertension 10/2013 Hospitalization History Somewhere in [facility] May 2017
--- OUTSIDE RECORDS SUMMARY | 2018-02-24 08:30 | XMS REPORT ---
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
--- OUTSIDE RECORDS SUMMARY | 2018-02-24 08:31 | XMS REPORT ---
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 6054052 Problem Hypercholesterolemia E78.00 Active 87040144 Problem Type 2 diabetes mellitus without complications E11.9 Active 587044789 Problem Macular degeneration H35.30 Active [id number] ALLERGIES No Information ENCOUNTERS Encounter Location Date Diagnosis [facility] [id number] [place] [address] 90177- 0104 Dec, [facility] [facility] [address] [address]47- [address] Jul, Alzheimers disease, unspecified G30.9 [facility] [id number] [place] [address] 45827- 1514 Jul, [facility] [id number] [place] [address] 61884- 5560 Jul, [facility] [facility] [address] 97534- 9076 Jun, [place] [address] 11957- 5701 Jun, Alzheimers disease, unspecified G30.9 ; Hypokalemia E87.6 and Behavioral change R46.89 [facility] [address], [place] [address] Jun, [facility] [id number] [place] [address] 85276- 4463 May, [facility] [id number] [place] [address] 96992- 1945 Feb, [place] [id number] [place] [address] 64487- 9402 Feb, Type 2 diabetes mellitus without complications E11.9 ; Hypokalemia E87.6 and Alzheimers disease, unspecified G30.9 [facility] [id number] [place] [address] 68130- 0333 Feb, Type 2 diabetes mellitus without complications E11.9 ; Alzheimers disease, unspecified G30.9 and Hypokalemia E87.6 [facility] [id number] [place] [address] 12245- 2464 October, [facility] [id number] [place] [address] 25902- 3077 October, Type 2 diabetes mellitus without complications E11.9 ; Hypokalemia E87.6 ; Rhonchi R09.89 and Bilateral impacted cerumen H61.23 [facility] [id number] [place] [address] 16567- 7964 October, Hypokalemia E87.6 ; Essential (primary) hypertension I10 and Type 2 diabetes mellitus without complications E11.9 [facility] [id number] [place] [address] 78900- 3691 October, Hypokalemia E87.6 ; Type 2 diabetes mellitus without complications E11.9 and Essential (primary) hypertension I10 [facility] [id number] [place] [address] 35747- 5154 Jul, Hypokalemia E87.6 [facility] [id number] [place] [address] 63509- 6189 Jun, Hypokalemia E87.6 [facility] [address], [place] [address] 9356 Jun, Hypokalemia E87.6 [facility] [id number] [place] [address] 24174- 2176 May, Hypokalemia E87.6 [facility] [id number] [place] [address] 78312- 0500 May, Type 2 diabetes mellitus without complications E11.9 and Hypokalemia E87.6 [facility] [id number] [place] [address] 88593- 1787 Feb, Type 2 diabetes mellitus without complications E11.9 and Alzheimers disease, unspecified G30.9 [facility] [id number] [place] [address] 36919- 2879 Jan, Hypokalemia E87.6 [facility] [id number] [place] [address] 47366- 6783 Jan, Hypokalemia E87.6 [facility] [id number] [place] [address] 53596- 9458 October, Type 2 diabetes mellitus without complications E11.9 ; Hypokalemia E87.6 ; Macular degeneration H35.30 ; Alzheimers disease, unspecified G30.9 and Essential hypertension I10 [facility] [id number] [place] [address] 21621- 4327 October, Routine health maintenance Z00.00 and Type 2 diabetes mellitus without complications E11.9 [facility] [address], [place] [address]- 1675 October, Routine health maintenance Z00.00 and Type 2 diabetes mellitus without complications E11.9 [facility] [address], [place] [address]- 6577 Jul, [facility] [id number] [place] [address] 48085- 2712 Jul, Hypokalemia E87.6 ; Type 2 diabetes mellitus without complications E11.9 and Abnormal CBC R79.89 [facility] [id number] [place] [address] 48564- 6787 Jul, Hypokalemia E87.6 ; Type 2 diabetes mellitus without complications E11.9 and Abnormal CBC R79.89 [facility] [id number] [place] [address] 04339- 7286 Jul, [facility] [id number] [place] [address] 29568- 254 Jul, Abnormal CBC R79.89 and Lymphadenopathy of head and neck region R59.9 [facility] [id number] [place] [address] 94819- 6605 May, [facility] [id number] [place] [address] 97197- 5455 Apr, [facility] [id number] [place] [address] 35673- 3252 Apr, [facility] [id number] [place] [address] 93555- 8921 Apr, [facility] [id number] [place] [address] 88220- 0969 Apr, [facility] [id number] [place] [address] 74501- 8959 Mar, Hypokalemia E87.6 [facility] [id number] [place] [address] 79088- 2952 Mar, [facility] [id number] [place] [address] 00407- 2495 Mar, Hypokalemia E87.6 ; Hypokalemia 276.8 and Type 2 diabetes mellitus without complications E11.9 [facility] [id number] [place] [address] 41082- 9950 Jan, Hypokalemia 276.8 [facility] [address] [id number], [place] [address]- 9626 Jan, Hypertension 401.9 [facility] [address] [id number] [place] [address]- 5788 Jan, [facility] [id number] [address]- 3278 Nov, Diabetes mellitus without mention of complication, type II or unspecified type, not stated as uncontrolled 250.00 and Hypertension 401.9 [facility] [address] [id number] [place] [address]- 5570 Nov, [facility] [address] [facility] [id number], [place] [address]- 0511 Sep, [facility] [id number] [address]- 7937 Sep, [facility] [address] [facility] [id number], [place] [address]- 7530 Jun, [facility] [id number] [address]- 6716 Jun, [facility] [id number] [address]- 9712 Jan, [facility] [id number] [address]- 5550 Jan, [facility] [address] [facility] [id number], [place] [address]- 1253 Jan, [facility] [address] [facility] [id number], [place] [address]- 4587 Jan, [facility] [address] [facility] [id number], [place] [address]- 6095 Jan, [facility] [address] [facility] [id number], [place] [address]- 9696 Jan, [facility] [id number] [address]- 6555 Dec, [facility] [place] [facility] [address] [id number] [place] [address]- 5246 Nov, [facility] [place] [facility] [address] [id number] [place] [address]- 3447 Nov, [facility] [place] [facility] [address] [facility] [id number] [place] [address]- 1637 Nov, [facility] [place] [facility] [address] [id number] [place] [address]- 7498 Nov, [facility] [place] [facility] [address] [id number] [place] [address]- 0902 October, [facility] [place] [facility] [address] [id number] [place] [address]- 3497 Jul, [facility] [place] [facility] [address] [facility] [id number] [place] [address]- 8791 Jul, [facility] [place] [facility] [address] [facility] [id number] [place] [address]- 5054 Jul, [facility] [place] [facility] [address] [facility] [id number] [place] [address]- 8316 Jul, [facility] [place] [facility] [address] [facility] [id number] [place] [address]- 0704 Jul, [facility] [place] [facility] [address] [facility] [id number] [place] [address]- 5723 Jul, [facility] [place] [facility] [address] [id number], [place] [address]- 7983 Jun, [facility] [place] [facility] [address] [id number] [place] [address]- 6976 Jun, [facility] [place] [facility] [address] [facility] [id number] [place] [address]- 0530 Jun, [facility] [place] [facility] [address] [facility] [id number], [place] [address]- 6360 Jun, [facility] [place] [facility] [address] [id number] [place] [address]- 2517 Jun, [facility] [place] [facility] [address] [id number] [place] [address]- 5937 Jun, [facility] [place] [facility] [address] [id number] [place] [address]- 2845 Jun, [facility] [address] [id number] [place] [address]- 1077 Apr, [facility] [address] [id number] [place] [address]- 0816 Apr, [facility] [place] [facility] [address] [id number] [place] [address]- 5753 Mar, [facility] [address] [id number] [place] [address]- 0874 Mar, [facility] [address] [id number] [place] [address]- 8740 Mar, [facility] [address] [id number] [place] [address]- 1780 Mar, [facility] [address] [id number] [place] [address]- 4440 Feb, [facility] [place] [facility] [address] [id number] [place] [address]- 6765 Feb, [facility] [place] [facility] [address] [id number] [place] [address]- 3000 Dec, [facility] [place] [facility] [address] [id number] [place] 2702 Aug, [facility] [place] [facility] [address] [id number] [place] [address]- 3085 Aug, [facility] [place] [facility] [address] [id number] [place] [address]- 6672 18 Aug, 2012 [facility] [place] [facility] [address] [id number] [place] [address]- 0550 Jul, [facility] [place] [facility] [address] [id number] [place] [address]- 9627 May, [facility] [place] [facility] [address] [id number] [place] 6742 May, [facility] [place] [facility] [address] [id number] [place] [address]- 3181 May, [facility] [place] [facility] [address] [id number] [place] [address]- 4356 May, [facility] [place] [facility] [address] [id number] [place] [address]- 6556 Mar, [facility] [place] [facility] [address] [id number] [place] [address]- 0704 Mar, [facility] [place] [facility] [address] [id number] [place] [address]- 6249 Sep, [facility] [place] [facility] [address] [id number] [place] [address]- 1977 Sep, [facility] [place] [facility] [address] [id number], [place] [address]- 9574 Jun, [facility] [place] [facility] [address] [id number] [place] [address]- 7452 May, [facility] [place] [facility] [address] [id number], [place] [address]- 9245 Apr, [facility] [place] [facility] [address] [id number], [place] [address]- 8641 Apr, [facility] [place] [facility] [address] [id number] [place] [address]- 0506 Apr, [facility] [place] [facility] [address] [id number] [place] [address]- 7669 Apr, [facility] [place] [facility] [address] [id number] [place] [address]- 9425 Mar, [facility] [place] [facility] [address], [place] [address]- 2532 Dec, [facility] [address], [place] [address]- 8836 Nov, [facility] [address], [place] [address]- 4763 Mar, [facility] [address], [place] [address]- 3609 Jan, [facility] [address], [place] [address]- 2340 Apr, [facility] [address] [place] [address] 477735- 0011 Apr, [facility] [address], [place] [address]- 8958 Apr, [facility] [address], [place] [address]- 0617 Apr, [facility] [address], [place] [address]- 6611 Mar, [facility] [address], [place] [address]- 4880 Mar, [facility] [address], [place] [address]- 1196 Mar, [facility] [id number], [place] [address]- 4394 Mar, [facility] [id number], [place] [address]- 0432 Sep, IMMUNIZATIONS No Known Immunizations SOCIAL HISTORY Never Assessed REASON FOR VISIT FY only PLAN OF CARE VITAL SIGNS MEDICATIONS Unknown Medications RESULTS No Results PROCEDURES No Known procedures INSTRUCTIONS MEDICATIONS ADMINISTERED No Known Medications MEDICAL (GENERAL) HISTORY Type Description Date Medical History hypertension Medical History sleep apnea-CPAP 8cm G7Z-Iyygzy [employer] Eson Nasal Mask Medical History hypokalemia Medical History heart disease-rupture AAA, intrarenal Medical History respiratory disorder 06/16/13 Medical History [place] filter, DVT Medical History hepatitis B Medical History dementia Medical History 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 Medical History Alzheimers disease, unspecified Medical History [facility] - Team 12 Dr. Lang Surgical History cardiothoracic surgery-triple bypass-Kee 12/2009 Surgical History Triple A 09/2006 Surgical History cholecystectomy Surgical History Bleeding ulcer Hospitalization History Hospitalization for surgery only Hospitalization History hypertension 10/2013 Hospitalization History Somewhere in [facility] May 2017
--- OUTSIDE RECORDS SUMMARY | 2018-02-24 08:31 | XMS REPORT ---
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 9988090 Problem Hypercholesterolemia E78.00 Active 13908415 Problem Type 2 diabetes mellitus without complications E11.9 Active 307858052 Problem Macular degeneration H35.30 Active 667212018 ALLERGIES No Information ENCOUNTERS Encounter Location Date Diagnosis [place] [address] [address] Dec, [place] [address] [address] Jul, Alzheimers disease, unspecified G30.9 [place] [address] [place] [id number] [place] [address]05- 5479 Jul, [place] [address] [place] [id number] [place] [address] 89934- 3595 Jul, [place] [address] [address] Jun, [place] [address] [address] Jun, Alzheimers disease, unspecified G30.9 ; Hypokalemia E87.6 and Behavioral change R46.89 [place] [address] [address] Jun, [facility] [address] [place] [id number] [place] [address] 23160- 9556 May, [facility] [address] [place] [id number] [place] [address] 20808- 9038 Feb, [place] [address] [place] [id number] [place] [address] 95781- 9092 Feb, Type 2 diabetes mellitus without complications E11.9 ; Hypokalemia E87.6 and Alzheimers disease, unspecified G30.9 [place] [address] [place] [id number] [place] [address] 93632- 5286 Feb, Type 2 diabetes mellitus without complications E11.9 ; Alzheimers disease, unspecified G30.9 and Hypokalemia E87.6 [place] [address] [place] [id number] [place] [address] 34479- 5174 October, [place] [address] [place] [id number] [place] [address] 72467- 2800 October, Type 2 diabetes mellitus without complications E11.9 ; Hypokalemia E87.6 ; Rhonchi R09.89 and Bilateral impacted cerumen H61.23 [place] [address] [place] [id number] [place] [address] 93575- 8607 October, Hypokalemia E87.6 ; Essential (primary) hypertension I10 and Type 2 diabetes mellitus without complications E11.9 [place] [address] [place] [id number] [place] [address] 97162- 2990 October, Hypokalemia E87.6 ; Type 2 diabetes mellitus without complications E11.9 and Essential (primary) hypertension I10 [place] [address] [place] [id number] [place] [address] 59007- 3381 Jul, Hypokalemia E87.6 [place] [address] [place] [id number] [place] [address] 93169- 1070 Jun, Hypokalemia E87.6 [facility] [address], [place] [address] 7862 Jun, Hypokalemia E87.6 [facility] [address] [place] [id number] [place] [address] 69611- 0379 May, Hypokalemia E87.6 [facility] [address] [place] [id number] [place] [address] 93857- 2135 May, Type 2 diabetes mellitus without complications E11.9 and Hypokalemia E87.6 [facility] [address] [place] [id number] [place] [address] 47997- 4949 Feb, Type 2 diabetes mellitus without complications E11.9 and Alzheimers disease, unspecified G30.9 [place] [address] [place] [id number] [place] [address] 14871- 5425 Jan, Hypokalemia E87.6 [facility] [address] [place] [id number] [place] [address] 75090- 3783 Jan, Hypokalemia E87.6 [facility] [address] [place] [id number] [place] [address] 98615- 6733 October, Type 2 diabetes mellitus without complications E11.9 ; Hypokalemia E87.6 ; Macular degeneration H35.30 ; Alzheimers disease, unspecified G30.9 and Essential hypertension I10 [facility] [id number] [place] [address] 37172- 8882 October, Routine health maintenance Z00.00 and Type 2 diabetes mellitus without complications E11.9 [facility] [address], [place] [address] 8647 October, Routine health maintenance Z00.00 and Type 2 diabetes mellitus without complications E11.9 [facility] [address], [place] [address] Jul, [facility] [address] [place] [id number] [place] [address] 96554- 1280 Jul, Hypokalemia E87.6 ; Type 2 diabetes mellitus without complications E11.9 and Abnormal CBC R79.89 [facility] [address] [place] [id number] [place] [address] 59477- 5603 Jul, Hypokalemia E87.6 ; Type 2 diabetes mellitus without complications E11.9 and Abnormal CBC R79.89 [facility] [address] [place] [id number] [place] [address] 30116- 8866 Jul, [facility] [address] [place] [id number] [place] [address] 95709- 2545 Jul, Abnormal CBC R79.89 and Lymphadenopathy of head and neck region R59.9 [facility] [address] [place] [id number] [place] [address] 81246- 4067 May, [facility] [address] [place] [id number] [place] [address] 47476- 8519 Apr, [facility] [address] [place] [id number] [place] [address] 12218- 0916 Apr, [facility] [address] [place] [id number] [place] [address] 37156- 4622 Apr, [facility] [address] [place] [id number] [place] [address] 70843- 5204 Apr, [facility] [address] [place] [id number] [place] [address] 15300- 2620 Mar, Hypokalemia E87.6 [facility] [address] [place] [id number] [place] [address] 02730- 5593 Mar, [facility] [address] [place] [id number] [place] [address] 35876- 3382 Mar, Hypokalemia E87.6 ; Type 2 diabetes mellitus without complications E11.9 and Hypokalemia 276.8 [facility] [address] [place] [id number] [place] [address] 87567- 9615 Jan, Hypokalemia 276.8 [facility] [address] [id number], [place] [address]39 Jan, Hypertension 401.9 [facility] [address] [id number] [place] [address]- 7242 Jan, [facility] [address] [place] [id number] [address]- 9821 Nov, Diabetes mellitus without mention of complication, type II or unspecified type, not stated as uncontrolled 250.00 and Hypertension 401.9 [facility] [address] [id number] [place] [address]- 1108 Nov, [facility] [address] [facility] [id number], [place] [address]- 0605 Sep, [facility] [address] [place] [id number], [place] [address]- 6997 Sep, [facility] [address] [facility] [id number], [place] [address]- 4637 Jun, [facility] [address] [place] [id number], [place] [address]- 6826 Jun, [facility] [address] [place] [id number], [place] [address]- 9979 Jan, [facility] [address] [place] [id number], [place] [address]- 5460 Jan, [facility] [address] [facility] [id number], [place] [address]- 3226 Jan, [facility] [address] [facility] [id number], [place] [address]- 9075 Jan, [facility] [address] [facility] [id number], [place] [address]- 0640 Jan, [facility] [address] [facility] [id number], [place] [address]- 5891 Jan, [facility] [address] [place] [id number], [place] [address]- 0353 Dec, [facility] [place] [facility] [address] [id number] [place] [address]- 0103 Nov, [facility] [place] [facility] [address] [id number] [place] [address]- 7878 Nov, [facility] [place] [facility] [address] [facility] [id number] [place] [address]- 8246 Nov, [facility] [place] [facility] [address] [id number] [place] [address]- 6598 Nov, [facility] [place] [facility] [address] [id number] [place] [address]- 8866 October, [facility] [place] [facility] [address] [id number] [place] [address]- 0315 Jul, [facility] [place] [facility] [address] [facility] [id number] [place] [address]- 6017 Jul, [facility] [place] [facility] [address] [facility] [id number] [place] [address]- 5046 Jul, [facility] [place] [facility] [address] [facility] [id number] [place] [address]- 0874 Jul, [facility] [place] [facility] [address] [facility] [id number] [place] [address]- 4423 Jul, [facility] [place] [facility] [address] [facility] [id number] [place] [address]- 3194 Jul, [facility] [place] [facility] [address] [id number], [place] [address]- 2662 Jun, [facility] [place] [facility] [address] [id number] [place] [address]- 4414 Jun, [facility] [place] [facility] [address] [facility] [id number] [place] [address]- 4525 Jun, [facility] [place] [facility] [address] [facility] [id number], [place] [address]- 9819 Jun, [facility] [place] [facility] [address] [id number] [place] [address]- 6803 Jun, [facility] [place] [facility] [address] [id number] [place] [address]- 9123 Jun, [facility] [place] [facility] [address] [id number] [place] [address]- 9345 Jun, [facility] [address] [id number] [place] [address]- 4587 Apr, [facility] [address] [id number] [place] [address]- 4789 Apr, [facility] [place] [facility] [address] [id number] [place] [address]- 4159 Mar, [facility] [address] [id number] [place] [address]- 5659 Mar, [facility] [address] [id number] [place] [address]- 8885 Mar, [facility] [address] [id number] [place] [address]- 1780 Mar, [facility] [address] [id number] [place] [address]- 0385 Feb, [facility] [place] [facility] [address] [id number] [place] [address]- 3592 Feb, [facility] [place] [facility] [address] [id number] [place] [address]- 9061 Dec, [facility] [place] [facility] [address] [id number] [place] [address]142 Aug, [facility] [place] [facility] [address] [id number] [place] [address]- 8065 Aug, [facility] [place] [facility] [address] [id number] [place] [address]- 0767 18 Aug, 2012 [facility] [place] [facility] [address] [id number] [place] [address]- 8119 Jul, [facility] [place] [facility] [address] [id number] [place] [address]- 5287 May, [facility] [place] [facility] [address] [id number] [place] 1155 May, [facility] [place] [facility] [address] [id number] [place] [address]- 4257 May, [facility] [place] [facility] [address] [id number] [place] [address]- 9836 May, [facility] [place] [facility] [address] [id number] [place] [address]- 8111 Mar, [facility] [place] [facility] [address] [id number] [place] [address]- 9597 Mar, [facility] [place] [facility] [address] [id number] [place] [address]- 6835 Sep, [facility] [place] [facility] [address] [id number] [place] [address]- 9519 Sep, [facility] [place] [facility] [address] [id number], [place] [address]- 7545 Jun, [facility] [place] [facility] [address] [id number] [place] [address]- 4259 May, [facility] [place] [facility] [address] [id number], [place] [address]- 6932 Apr, [facility] [place] [facility] [address] [id number], [place] [address]- 1366 Apr, [facility] [place] [facility] [address] [id number] [place] [address]- 8507 Apr, [facility] [place] [facility] [address] [id number] [place] [address]- 8275 Apr, [facility] [place] [facility] [address] [id number] [place] [address]- 6196 Mar, [facility] [place] [facility] [address], [place] [address]- 8482 Dec, [facility] [address], [place] [address]- 4721 Nov, [facility] [address], [place] [address]- 3096 Mar, [facility] [address], [place] [address]- 8314 Jan, [facility] [address], [place] [address]- 6093 Apr, [facility] [id number] [place] [address] 129020- 0002 Apr, [facility] [address], [place] [address]- 8091 Apr, [facility] [address], [place] [address]- 7131 Apr, [facility] [address], [place] [address]- 7435 Mar, [facility] [address], [place] [address]- 7301 Mar, [facility] [address], [place] [address]- 5785 Mar, [facility] [address], [place] [address]- 2929 Mar, [facility] [address] [id number], [place] [address]- 1925 Sep, IMMUNIZATIONS No Known Immunizations SOCIAL HISTORY Never Assessed REASON FOR VISIT FY only PLAN OF CARE VITAL SIGNS MEDICATIONS Unknown Medications RESULTS No Results PROCEDURES No Known procedures INSTRUCTIONS MEDICATIONS ADMINISTERED No Known Medications MEDICAL (GENERAL) HISTORY Type Description Date Medical History hypertension Medical History sleep apnea-CPAP 8cm N6J-Xfonom Touch[employer] Eson Nasal Mask Medical History hypokalemia Medical History heart disease-rupture AAA, intrarenal Medical History respiratory disorder 06/16/13 Medical History [facility], DVT Medical History hepatitis B Medical History dementia Medical History 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 Medical History Alzheimers disease, unspecified Medical History [facility] - Team 12 Dr. Lang Surgical History cardiothoracic surgery-triple bypass-Kee 12/2009 Surgical History Triple A 09/2006 Surgical History cholecystectomy Surgical History Bleeding ulcer Hospitalization History Hospitalization for surgery only Hospitalization History hypertension 10/2013 Hospitalization History [facility] May 2017
--- OUTSIDE RECORDS SUMMARY | 2018-02-24 08:31 | XMS REPORT ---
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 2485827 Problem Hypercholesterolemia E78.00 Active 45815805 Problem Type 2 diabetes mellitus without complications E11.9 Active 718008991 Problem Macular degeneration H35.30 Active 924228716 ALLERGIES No Information ENCOUNTERS Encounter Location Date Diagnosis [place] [address] [address] Dec, [place] [address] [address] 14 Jul, 2017 Alzheimers disease, unspecified G30.9 [place] [address] [place] [id number] [place] [address]- 6418 Jul, [place] [address] [place] [id number] [place] [address] 15750- 5867 Jul, [place] [address] [address] Jun, [place] [address] [address] Jun, Alzheimers disease, unspecified G30.9 ; Hypokalemia E87.6 and Behavioral change R46.89 [place] [address], [place] [address] Jun, [facility] [address] [place] [id number] [place] [address] 55451- 5284 May, [facility] [address] [place] [id number] [place] [address] 72924- 0725 Feb, [place] [address] [place] [id number] [place] [address] 71809- 9529 Feb, Type 2 diabetes mellitus without complications E11.9 ; Hypokalemia E87.6 and Alzheimers disease, unspecified G30.9 [place] [address] [place] [id number] [place] [address] 29014- 1346 Feb, Type 2 diabetes mellitus without complications E11.9 ; Alzheimers disease, unspecified G30.9 and Hypokalemia E87.6 [place] [address] [place] [id number] [place] [address] 51245- 4412 October, [place] [address] [place] [id number] [place] [address] 24568- 2672 October, Type 2 diabetes mellitus without complications E11.9 ; Hypokalemia E87.6 ; Rhonchi R09.89 and Bilateral impacted cerumen H61.23 [place] [address] [place] [id number] [place] [address] 23566- 8917 October, Hypokalemia E87.6 ; Essential (primary) hypertension I10 and Type 2 diabetes mellitus without complications E11.9 [place] [address] [place] [id number] [place] [address] 57709- 1713 October, Hypokalemia E87.6 ; Type 2 diabetes mellitus without complications E11.9 and Essential (primary) hypertension I10 [place] [address] [place] [id number] [place] [address] 70791- 7492 Jul, Hypokalemia E87.6 [place] [address] [place] [id number] [place] [address] 40039- 0233 Jun, Hypokalemia E87.6 [facility] [address], [place] [address] 237[address] Jun, Hypokalemia E87.6 [facility] [address] [place] [id number] [place] [address] 20253- 3595 May, Hypokalemia E87.6 [facility] [address] [place] [id number] [place] [address] 28024- 1093 May, Type 2 diabetes mellitus without complications E11.9 and Hypokalemia E87.6 [facility] [address] [place] [id number] [place] [address] 39124- 7939 Feb, Type 2 diabetes mellitus without complications E11.9 and Alzheimers disease, unspecified G30.9 [place] [address] [place] [id number] [place] [address] 45563- 1853 Jan, Hypokalemia E87.6 [facility] [address] [place] [id number] [place] [address] 72222- 5912 Jan, Hypokalemia E87.6 [facility] [address] [place] [id number] [place] [address] 70902- 7607 October, Type 2 diabetes mellitus without complications E11.9 ; Hypokalemia E87.6 ; Macular degeneration H35.30 ; Alzheimers disease, unspecified G30.9 and Essential hypertension I10 [facility] [address] [place] [address] 95193- 5194 October, Routine health maintenance Z00.00 and Type 2 diabetes mellitus without complications E11.9 [facility] [address], [place] [address] 69[address] October, Routine health maintenance Z00.00 and Type 2 diabetes mellitus without complications E11.9 [facility] [address], [place] [address]- 44[address] Jul, [facility] [address] [place] [id number] [place] [address] 66206- 8357 Jul, Hypokalemia E87.6 ; Type 2 diabetes mellitus without complications E11.9 and Abnormal CBC R79.89 [facility] [address] [place] [id number] [place] [address] 86417- 7971 Jul, Hypokalemia E87.6 ; Type 2 diabetes mellitus without complications E11.9 and Abnormal CBC R79.89 [facility] [address] [place] [id number] [place] [address] 13919- 9366 Jul, [facility] [address] [place] [id number] [place] [address] 90449- 2542 Jul, Abnormal CBC R79.89 and Lymphadenopathy of head and neck region R59.9 [facility] [address] [place] [id number] [place] [address] 47875- 4443 May, [facility] [address] [place] [id number] [place] [address] 20393- 1434 Apr, [facility] [address] [place] [id number] [place] [address] 72759- 0906 Apr, [facility] [address] [place] [id number] [place] [address] 39473- 9370 Apr, [facility] [address] [place] [id number] [place] [address] 68806- 8377 Apr, [facility] [address] [place] [id number] [place] [address] 49613- 5859 Mar, Hypokalemia E87.6 [facility] [address] [place] [id number] [place] [address] 91169- 1431 Mar, [facility] [address] [place] [id number] [place] [address] 02633- 8750 Mar, Hypokalemia E87.6 ; Hypokalemia 276.8 and Type 2 diabetes mellitus without complications E11.9 [facility] [address] [place] [id number] [place] [address] 96099- 8003 Jan, Hypokalemia 276.8 [facility] [address] [id number], [place] [address]- 2456 Jan, Hypertension 401.9 [facility] [address] [id number] [place] [address]- 9164 Jan, [facility] [address] [place] [id number] [address] Nov, Diabetes mellitus without mention of complication, type II or unspecified type, not stated as uncontrolled 250.00 and Hypertension 401.9 [facility] [address] [id number] [place] [address]- 5265 Nov, [facility] [address] [facility] [id number], [place] [address]- 8845 Sep, [facility] [address] [place] [id number] [address]- 2959 Sep, [facility] [address] [facility] [id number], [place] [address]- 0699 Jun, [facility] [address] [place] [id number] [address] 8557 Jun, [facility] [address] [place] [id number] [address]- 6089 Jan, [facility] [address] [place] [id number] [address]- 6793 Jan, [facility] [address] [facility] [id number], [place] [address]- 7963 Jan, [facility] [address] [facility] [id number], [place] [address]- 4642 Jan, [facility] [address] [facility] [id number], [place] [address]- 34[address] Jan, [facility] [address] [facility] [id number], [place] [address]- 1659 Jan, [facility] [address] [place] [id number] [address]- 0442 Dec, [facility] [place] [facility] [address] [id number] [place] [address]- 0111 Nov, [facility] [place] [facility] [address] [id number] [place] [address]- 1029 Nov, [facility] [place] [facility] [address] [facility] [id number] [place] [address]- 3735 Nov, [facility] [place] [facility] [address] [id number] [place] [address]- 0986 Nov, [facility] [place] [facility] [address] [id number] [place] [address]- 5263 October, [facility] [place] [facility] [address] [id number] [place] [address]- 8621 Jul, [facility] [place] [facility] [address] [facility] [id number] [place] [address]- 5895 Jul, [facility] [place] [facility] [address] [facility] [id number] [place] [address]- 9968 Jul, [facility] [place] [facility] [address] [facility] [id number] [place] [address]- 1901 Jul, [facility] [place] [facility] [address] [facility] [id number] [place] [address]- 7918 Jul, [facility] [place] [facility] [address] [facility] [id number] [place] [address]- 8261 Jul, [facility] [place] [facility] [address] [id number] [address]- 7938 Jun, [facility] [place] [facility] [address] [id number] [place] [address]- 0313 Jun, [facility] [place] [facility] [address] [facility] [id number] [place] [address]- 3864 Jun, [facility] [place] [facility] [address] [facility] [id number], [place] [address]- 6262 Jun, [facility] [place] [facility] [address] [id number] [place] [address]- 4701 Jun, [facility] [place] [facility] [address] [id number] [place] [address]- 7297 Jun, [facility] [place] [facility] [address] [id number] [place] [address]- 2612 Jun, [facility] [address] [id number] [place] [address]- 2364 Apr, [facility] [address] [id number] [place] [address]- 2121 Apr, [facility] [place] [facility] [address] [id number] [place] [address]- 5694 Mar, [facility] [address] [id number] [place] [address]- 8549 Mar, [facility] [address] [id number] [place] [address]- 6179 Mar, [facility] [address] [id number] [place] [address]- 2426 Mar, [facility] [address] [id number] [place] [address]- 2137 Feb, [facility] [place] [facility] [address] [id number] [place] [address]- 1561 Feb, [facility] [place] [facility] [address] [id number] [place] [address]- 1531 Dec, [facility] [place] [facility] [address] [id number] [place] [address]8 Aug, [facility] [place] [facility] [address] [id number] [place] [address]- 5031 Aug, [facility] [place] [facility] [address] [id number] [place] [address]- 6603 18 Aug, 2012 [facility] [place] [facility] [address] [id number] [place] [address]- 5253 Jul, [facility] [place] [facility] [address] [id number] [place] [address]- 0210 May, [facility] [place] [facility] [address] [id number] [place] [address] May, [facility] [place] [facility] [address] [id number] [place] [address]- 3019 May, [facility] [place] [facility] [address] [id number] [place] [address]- 5682 May, [facility] [place] [facility] [address] [id number] [place] [address]- 4707 Mar, [facility] [place] [facility] [address] [id number] [place] [address]- 8890 Mar, [facility] [place] [facility] [address] [id number] [place] [address]- 4427 Sep, [facility] [place] [facility] [address] [id number] [place] [address]- 6056 Sep, [facility] [place] [facility] [address] [id number], [place] [address]- 1636 Jun, [facility] [place] [facility] [address] [id number] [place] [address]- 0232 May, [facility] [place] [facility] [address] [id number], [place] [address]- 8308 Apr, [facility] [place] [facility] [address] [id number], [place] [address]- 6819 Apr, [facility] [place] [facility] [address] [id number] [place] [address]- 2479 Apr, [facility] [place] [facility] [address] [id number] [place] [address]- 3579 Apr, [facility] [place] [facility] [address] [id number] [place] [address]- 7193 Mar, [facility] [place] [facility] [address], [place] [address]- 7727 Dec, [facility] [address], [place] [address]- 0405 Nov, [facility] [address], [place] [address]- 8787 Mar, [facility] [address] 9862 Jan, [facility] [address], [place] [address]- 9928 Apr, [facility] [address] [place] [address] 056601- 0758 Apr, [facility] [address], [place] [address]- 2792 Apr, [facility] [address] [place] [address] 23303- 8689 Apr, [facility] [address], [place] [address]- 3117 Mar, [facility] [address], [place] [address]- 4478 Mar, [facility] [address], [place] [address]- 1731 Mar, [facility] [address], [place] [address]- 7348 Mar, [facility] [address] [place] [id number], [place] [address]- 6568 Sep, IMMUNIZATIONS No Known Immunizations SOCIAL HISTORY Never Assessed REASON FOR VISIT Requests return call PLAN OF CARE VITAL SIGNS MEDICATIONS Medication Instructions Dosage Frequency Start Date End Date Duration Status Metformin HCl 500 MG Orally Twice a day 0.5 tablet with meals 12h Active Lisinopril 20 MG Orally twice a day 1 tablet 12h Active Namenda XR 28 MG Orally Once a day per Chilango [place] 1 capsule May, Active Rivastigmine Tartrate 6 MG Orally Twice a day 1 capsule with food 12h Active Multivitamins Orally Once a day 1 capsule 24h Active Atorvastatin Calcium 40 MG Orally Once a day 1 tablet 24h Active Potassium Chloride Hanna ER 20 MEQ Orally 3 times a day 2 tablets 8h 90 days Active Omeprazole Unknown Carvedilol Active Aspir-81 81 MG Orally Once a day 1 tablet 24h Active RESULTS No Results PROCEDURES No Known procedures INSTRUCTIONS MEDICATIONS ADMINISTERED No Known Medications MEDICAL (GENERAL) HISTORY Type Description Date Medical History hypertension Medical History sleep apnea-CPAP 8cm P1F-HcgmjlAndigilog Eson Nasal Mask Medical History hypokalemia Medical History heart disease-rupture AAA, intrarenal Medical History respiratory disorder 06/16/13 Medical History [place] filter, DVT Medical History hepatitis B Medical History dementia Medical History 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 Medical History Alzheimers disease, unspecified Medical History [facility] - Team 12 Dr. Lang Surgical History cardiothoracic surgery-triple bypass-Kee 12/2009 Surgical History Triple A 09/2006 Surgical History cholecystectomy Surgical History Bleeding ulcer Hospitalization History Hospitalization for surgery only Hospitalization History hypertension 10/2013 Hospitalization History Somewhere in [facility] May 2017
--- OUTSIDE RECORDS SUMMARY | 2018-02-24 08:31 | XMS REPORT ---
Author Author DON FAULKNER Organization [employer] Address Unknown Phone Unavailable Care Team Providers Care Off Premise Service Representative Name Role Phone DON FAULKNER CP Unavailable [...] loss 780.93 Active Medications No Known Medications Procedures Procedure Coding System Code Date VENIPUNCT, ROUTINE* CPT-4 33412 Feb 15, 2016 [facility] CPT-4 NOBLL Feb 15, 2016 Results No Known Results Summary Purpose [employer] Submission
--- OUTSIDE RECORDS SUMMARY | 2018-02-24 08:32 | XMS REPORT ---
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 Medications Medication Code System Code Instructions Start Date End Date Status Dosage Lisinopril [facility] [address]-05 20 MG Orally twice a day 1 tablet Rivastigmine Tartrate [facility] [address]-19 6 MG Orally Twice a day 1 capsule with food Metformin HCl [facility] [address]-95 500 MG Orally Twice a day 0.5 tablet with meals Multivitamins [facility] [address]387 Orally Once a day 1 capsule Aspir-81 [facility] [address]-50 81 MG Orally Once a day 1 tablet Namenda XR [facility] [address]-36 28 MG Orally Once a day per Chilango Neuro Jun 14, 2015 1 capsule Procedures Procedure Coding System Code Date RBC SED RATE, NONAUTOMATED CPT-4 94067 Jul 25, 2015 VENIPUNCT, ROUTINE* CPT-4 42767 Jul 25, 2015 LAB NOT BILLED BY [facility] CPT-4 NOBLL Jul 25, 2015 Office Visit, Est Pt., Level 3 CPT-4 08743 Jul 25, 2015 [facility] VISIT ESTABLISHED PATIENT CPT-4 G0467 Jul 25, 2015 Vital Signs Date/Time: Jul 25, 2015 Temperature 97.4 F Weight 141.8 lbs Height 66 in BMI 22.88 Index Blood Pressure Diastolic 90 mmHg Blood Pressure Systolic 180 mmHg Cardiac Monitoring Heart Rate 64 bpm Results Name Result Date Reference Range Unit Abnormality Flag ESR/SED RATE (IN HOUSE) ----Exp Date 11/15/2015 [id number] 0 - 20 ----SED/ESR RATE 9 [id number] ----Lot # [id number] ROUTINE VENIPUNCTURE CBC ----MCHC 33.6 38280430 31.5-35.7 g/dL ----MCH 29.1 92910661 26.6-33.0 pg ----Platelets 234 [id number] 150-379 x10E3/uL ----RDW 13.5 21805031 12.3-15.4 % ----Immature Granulocytes 0 81420746 % ----Immature Grans (Abs) 0.0 [id number] 0.0-0.1 x10E3/uL ----Lymphs 36 57996816 % ----Monocytes 11 32000152 % ----Neutrophils 49 94757711 % ----Neutrophils (Absolute) 3.8 29775853 1.4-7.0 x10E3/uL ----Hematocrit 43.4 69521149 37.5-51.0 % ----Lymphs (Absolute) 2.8 24159772 0.7-3.1 x10E3/uL ----MCV 87 55761231 79-97 fL ----RBC 5.02 97275294 4.14-5.80 x10E6/uL ----Eos 3 76129493 % ----Basos 1 03799712 % ----Hemoglobin 14.6 90165603 12.6-17.7 g/dL ----Baso (Absolute) 0.1 [id number] 0.0-0.2 x10E3/uL ----WBC 7.8 78083000 3.4-10.8 x10E3/uL ----Monocytes(Absolute) 0.9 02105924 0.1-0.9 x10E3/uL ----Eos (Absolute) 0.3 [id number] 0.0-0.4 x10E3/uL Summary Purpose [employer] Submission
--- OUTSIDE RECORDS SUMMARY | 2018-02-24 08:32 | XMS REPORT ---
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 8989357 Problem Hypercholesterolemia E78.00 Active 72753286 Problem Type 2 diabetes mellitus without complications E11.9 Active 772274308 Problem Macular degeneration H35.30 Active 164288604 ALLERGIES No Information SOCIAL HISTORY Never Assessed PLAN OF CARE VITAL SIGNS MEDICATIONS Medication Instructions Dosage Frequency Start Date End Date Duration Status Potassium Chloride Hanna ER 20 MEQ Orally 3 times a day 2 tablets 8h 90 days Active RESULTS No Results PROCEDURES No Known procedures IMMUNIZATIONS No Known Immunizations MEDICAL (GENERAL) HISTORY Type Description Date Medical History hypertension Medical History sleep apnea-CPAP 8cm T1X-Hewepm Paykel Eson Nasal Mask Medical History hypokalemia Medical History heart disease-rupture AAA, intrarenal Medical History respiratory disorder 06/16/13 Medical History [place] filter, DVT Medical History hepatitis B Medical History dementia Medical History 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 Medical History Alzheimers disease, unspecified Medical History [facility] - Team 12 Dr. Lang Surgical History cardiothoracic surgery-triple bypass-Kee 12/2009 Surgical History Triple A 09/2006 Surgical History cholecystectomy Surgical History Bleeding ulcer Hospitalization History Hospitalization for surgery only Hospitalization History hypertension 10/2013
--- OUTSIDE RECORDS SUMMARY | 2018-02-24 08:32 | XMS REPORT ---
Author Author DON FAULKNER Organization 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 6122306 Problem Hypercholesterolemia E78.00 Active 89124677 Problem Type 2 diabetes mellitus without complications E11.9 Active 474376654 Problem Macular degeneration H35.30 Active 660704981 ALLERGIES No Information SOCIAL HISTORY Never Assessed PLAN OF CARE VITAL SIGNS MEDICATIONS Medication Instructions Dosage Frequency Start Date End Date Duration Status Simvastatin 80 MG Orally Once a day 1 tablet in the evening 24h Active RESULTS No Results PROCEDURES No Known procedures IMMUNIZATIONS No Known Immunizations MEDICAL (GENERAL) HISTORY Type Description Date Medical History hypertension Medical History sleep apnea-CPAP 8cm F5E-Zeqaey Paykel Eson Nasal Mask Medical History hypokalemia Medical History heart disease-rupture AAA, intrarenal Medical History respiratory disorder 06/16/13 Medical History [place] filter, DVT Medical History hepatitis B Medical History dementia Medical History 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 Medical History Alzheimers disease, unspecified Medical History [facility] - Team 12 Dr. Lang Surgical History cardiothoracic surgery-triple bypass-Kee 12/2009 Surgical History Triple A 09/2006 Surgical History cholecystectomy Surgical History Bleeding ulcer Hospitalization History Hospitalization for surgery only Hospitalization History hypertension 10/2013
--- OUTSIDE RECORDS SUMMARY | 2018-02-24 08:32 | XMS REPORT ---
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 9805314 Problem Hypercholesterolemia E78.00 Active 12276806 Problem Type 2 diabetes mellitus without complications E11.9 Active 035228559 Problem Macular degeneration H35.30 Active [id number] ALLERGIES No Information ENCOUNTERS Encounter Location Date Diagnosis [place] [address] [address] Dec, [place] [address] [address]- [address] Jul, Alzheimers disease, unspecified G30.9 [place] [address] [place] [id number] [place] [address]113- 2080 Jul, [place] [address] [place] [id number] [place] [address] 13245- 2653 Jul, [place] [address] 17388- 2499 Jun, [place] [address] 16[address]- 3511 Jun, Alzheimers disease, unspecified G30.9 ; Hypokalemia E87.6 and Behavioral change R46.89 [place] [address] [address] Jun, [facility] [address] [place] [id number] [place] [address] 98390- 8903 May, [facility] [address] [place] [id number] [place] [address] 79784- 7331 Feb, [place] [address] [place] [id number] [place] [address] 88284- 3526 Feb, Type 2 diabetes mellitus without complications E11.9 ; Hypokalemia E87.6 and Alzheimers disease, unspecified G30.9 [place] [address] [place] [id number] [place] [address] 47973- 7924 Feb, Type 2 diabetes mellitus without complications E11.9 ; Alzheimers disease, unspecified G30.9 and Hypokalemia E87.6 [place] [address] [place] [id number] [place] [address] 35867- 0950 October, [place] [address] [place] [id number] [place] [address] 09781- 0094 October, Type 2 diabetes mellitus without complications E11.9 ; Hypokalemia E87.6 ; Rhonchi R09.89 and Bilateral impacted cerumen H61.23 [place] [address] [place] [id number] [place] [address] 08202- 9111 October, Hypokalemia E87.6 ; Essential (primary) hypertension I10 and Type 2 diabetes mellitus without complications E11.9 [place] [address] [place] [id number] [place] [address] 71328- 5359 October, Hypokalemia E87.6 ; Type 2 diabetes mellitus without complications E11.9 and Essential (primary) hypertension I10 [place] [address] [place] [id number] [place] [address] 17501- 3190 Jul, Hypokalemia E87.6 [place] [address] [place] [id number] [place] [address] 18869- 9588 Jun, Hypokalemia E87.6 [facility] [address] [address] 0836 Jun, Hypokalemia E87.6 [facility] [address] [place] [id number] [place] [address] 38352- 2521 May, Hypokalemia E87.6 [facility] [address] [place] [id number] [place] [address] 99606- 0651 May, Type 2 diabetes mellitus without complications E11.9 and Hypokalemia E87.6 [facility] [address] [place] [id number] [place] [address] 14408- 2682 Feb, Type 2 diabetes mellitus without complications E11.9 and Alzheimers disease, unspecified G30.9 [place] [address] [place] [id number] [place] [address] 46428- 1456 Jan, Hypokalemia E87.6 [facility] [address] [place] [id number] [place] [address] 80836- 9778 Jan, Hypokalemia E87.6 [facility] [address] [place] [id number] [place] [address] 10104- 9339 October, Type 2 diabetes mellitus without complications E11.9 ; Hypokalemia E87.6 ; Macular degeneration H35.30 ; Alzheimers disease, unspecified G30.9 and Essential hypertension I10 [facility] [id number] [place] [address] 08900- 3454 October, Routine health maintenance Z00.00 and Type 2 diabetes mellitus without complications E11.9 [facility] [address] [address] 4902 October, Routine health maintenance Z00.00 and Type 2 diabetes mellitus without complications E11.9 [facility] [address] [address]- 6090 Jul, [facility] [address] [place] [id number] [place] [address] 28200- 6208 Jul, Hypokalemia E87.6 ; Type 2 diabetes mellitus without complications E11.9 and Abnormal CBC R79.89 [facility] [address] [place] [id number] [place] [address] 37688- 8481 Jul, Hypokalemia E87.6 ; Type 2 diabetes mellitus without complications E11.9 and Abnormal CBC R79.89 [facility] [address] [place] [id number] [place] [address] 55497- 0246 Jul, [facility] [address] [place] [id number] [place] [address] 11041- 2547 Jul, Abnormal CBC R79.89 and Lymphadenopathy of head and neck region R59.9 [facility] [address] [place] [id number] [place] [address] 00059- 8836 May, [facility] [address] [place] [id number] [place] [address] 11541- 3724 Apr, [facility] [address] [place] [id number] [place] [address] 01785- 5565 Apr, [facility] [address] [place] [id number] [place] [address] 62805- 9203 Apr, [facility] [address] [place] [id number] [place] [address] 84637- 3255 Apr, [facility] [address] [place] [id number] [place] [address] 22895- 3912 Mar, Hypokalemia E87.6 [facility] [address] [place] [id number] [place] [address] 89051- 6353 Mar, [facility] [address] [place] [id number] [place] [address] 48391- 7944 Mar, Hypokalemia E87.6 ; Type 2 diabetes mellitus without complications E11.9 and Hypokalemia 276.8 [facility] [address] [place] [id number] [place] [address] 00012- 8900 Jan, Hypokalemia 276.8 [facility] [address] [id number] [address]- 4340 Jan, Hypertension 401.9 [facility] [address] [id number] [place] [address]- 1342 Jan, [facility] [address] [place] [id number] [address]- 7097 Nov, Diabetes mellitus without mention of complication, type II or unspecified type, not stated as uncontrolled 250.00 and Hypertension 401.9 [facility] [address] [id number] [place] [address]- 0901 Nov, [facility] [address] [facility] [id number] [address]- 8207 Sep, [facility] [address] [place] [id number] [address]- 6314 Sep, [facility] [address] [facility] [id number], [place] [address]- 5949 Jun, [facility] [address] [place] [id number] [address]- 6835 Jun, [facility] [address] [place] [id number] [address]- 0419 Jan, [facility] [address] [place] [id number] [address]- 5666 Jan, [facility] [address] [facility] [id number], [place] [address]- 4506 Jan, [facility] [address] [facility] [id number], [place] [address]- 9237 Jan, [facility] [address] [facility] [id number], [place] [address]- 0741 Jan, [facility] [address] [facility] [id number] [address]- 5483 Jan, [facility] [address] [place] [id number] [address]- 4508 Dec, [facility] [place] [facility] [address] [id number] [place] [address]- 9217 Nov, [facility] [place] [facility] [address] [id number] [place] [address]- 8430 Nov, [facility] [place] [facility] [address] [facility] [id number] [place] [address]- 2993 Nov, [facility] [place] [facility] [address] [id number] [place] [address]- 9356 Nov, [facility] [place] [facility] [address] [id number] [place] [address]- 0070 October, [facility] [place] [facility] [address] [id number] [place] [address]- 0205 Jul, [facility] [place] [facility] [address] [facility] [id number] [place] [address]- 4240 Jul, [facility] [place] [facility] [address] [facility] [id number] [place] [address]- 6672 Jul, [facility] [place] [facility] [address] [facility] [id number] [place] [address]- 1126 Jul, [facility] [place] [facility] [address] [facility] [id number] [place] [address]- 3072 Jul, [facility] [place] [facility] [address] [facility] [id number] [place] [address]- 6734 Jul, [facility] [place] [facility] [address] [id number], [place] [address]- 9325 Jun, [facility] [place] [facility] [address] [id number] [place] [address]- 3147 Jun, [facility] [place] [facility] [address] [facility] [id number] [place] [address]- 1884 Jun, [facility] [place] [facility] [address] [facility] [id number], [place] [address]- 0901 Jun, [facility] [place] [facility] [address] [id number] [place] [address]- 1871 Jun, [facility] [place] [facility] [address] [id number] [place] [address]- 0769 Jun, [facility] [place] [facility] [address] [id number] [place] [address]- 0831 Jun, [facility] [address] [id number] [place] [address]- 9935 Apr, [facility] [address] [id number] [place] [address]- 6480 Apr, [facility] [place] [facility] [address] [id number] [place] [address]- 8397 Mar, [facility] [address] [id number] [place] [address]- 5456 Mar, [facility] [address] [id number] [place] [address]- 6749 Mar, [facility] [address] [id number] [place] [address]- 7536 Mar, [facility] [address] [id number] [place] [address]- 0715 Feb, [facility] [place] [facility] [address] [id number] [place] [address]- 1530 Feb, [facility] [place] [facility] [address] [id number] [place] [address]- 9357 Dec, [facility] [place] [facility] [address] [id number] [place] 8645 Aug, [facility] [place] [facility] [address] [id number] [place] [address]- 6781 Aug, [facility] [place] [facility] [address] [id number] [place] [address]- 1873 18 Aug, 2012 [facility] [place] [facility] [address] [id number] [place] [address]- 2645 Jul, [facility] [place] [facility] [address] [id number] [place] [address]- 8763 May, [facility] [place] [facility] [address] [id number] [place] 8792 May, [facility] [place] [facility] [address] [id number] [place] [address]- 3002 May, [facility] [place] [facility] [address] [id number] [place] [address]- 9351 May, [facility] [place] [facility] [address] [id number] [place] [address]- 7377 Mar, [facility] [place] [facility] [address] [id number] [place] [address]- 8998 Mar, [facility] [place] [facility] [address] [id number] [place] [address]- 2911 Sep, [facility] [place] [facility] [address] [id number] [place] [address]- 9182 Sep, [facility] [place] [facility] [address] [id number] [address]- 4024 Jun, [facility] [place] [facility] [address] [id number] [place] [address]- 9530 May, [facility] [place] [facility] [address] [id number], [place] [address]- 0818 Apr, [facility] [place] [facility] [address] [id number], [place] [address]- 1424 Apr, [facility] [place] [facility] [address] [id number] [place] [address]- 3035 Apr, [facility] [place] [facility] [address] [id number] [place] [address]- 9534 Apr, [facility] [place] [facility] [address] [id number] [place] [address]- 4495 Mar, [facility] [place] [facility] [address] [address]- 4577 Dec, [facility] [address], [place] [address]- 5438 Nov, [facility] [address], [place] [address]- 7875 Mar, [facility] [address], [place] [address]- 7253 Jan, [facility] [address] [address]- 4868 Apr, [facility] [id number] [place] [address] 764722- 6790 Apr, [facility] [address], [place] [address]- 2336 Apr, [facility] [id number] [place] [address] 96936- 9381 Apr, [facility] [address], [place] [address]- 7172 Mar, [facility] [address] [address]- 6350 Mar, [facility] [address] [address]- 3410 Mar, [facility] [address], [place] [address]- 0019 Mar, [facility] [address] [place] [id number] [address]- 6066 Sep, IMMUNIZATIONS No Known Immunizations SOCIAL HISTORY Never Assessed REASON FOR VISIT Multiple Issues PLAN OF CARE VITAL SIGNS MEDICATIONS Unknown Medications RESULTS No Results PROCEDURES No Known procedures INSTRUCTIONS MEDICATIONS ADMINISTERED No Known Medications MEDICAL (GENERAL) HISTORY Type Description Date Medical History hypertension Medical History sleep apnea-CPAP 8cm O9H-Fhhnre Paykel Eson Nasal Mask Medical History hypokalemia Medical History heart disease-rupture AAA, intrarenal Medical History respiratory disorder 06/16/13 Medical History [place] filter, DVT Medical History hepatitis B Medical History dementia Medical History 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 Medical History Alzheimers disease, unspecified Medical History [facility] - Team 12 Dr. Lang Surgical History cardiothoracic surgery-triple bypass-Kee 12/2009 Surgical History Triple A 09/2006 Surgical History cholecystectomy Surgical History Bleeding ulcer Hospitalization History Hospitalization for surgery only Hospitalization History hypertension 10/2013 Hospitalization History Somewhere in [facility] May 2017
--- OUTSIDE RECORDS SUMMARY | 2018-02-24 08:32 | XMS REPORT ---
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 6717511 Problem Hypercholesterolemia E78.00 Active 02944656 Problem Type 2 diabetes mellitus without complications E11.9 Active 498913520 Problem Macular degeneration H35.30 Active 951146952 ALLERGIES No Information ENCOUNTERS Encounter Location Date Diagnosis [place] [address] [address] Dec, [place] [address] [address]- [address] Jul, Alzheimers disease, unspecified G30.9 [place] [address] [place] [id number] [place] [address]160- 6295 Jul, [place] [address] [place] [id number] [place] [address] 75289- 4070 Jul, [place] [address] [address]- [address] Jun, [place] [address] [address]- [address] Jun, Alzheimers disease, unspecified G30.9 ; Hypokalemia E87.6 and Behavioral change R46.89 [place] [address], [place] [address] Jun, [facility] [address] [place] [id number] [place] [address] 88607- 3115 May, [facility] [address] [place] [id number] [place] [address] 14489- 1514 Feb, [place] [address] [place] [id number] [place] [address] 51959- 2203 Feb, Type 2 diabetes mellitus without complications E11.9 ; Hypokalemia E87.6 and Alzheimers disease, unspecified G30.9 [place] [address] [place] [id number] [place] [address] 24535- 9385 Feb, Type 2 diabetes mellitus without complications E11.9 ; Alzheimers disease, unspecified G30.9 and Hypokalemia E87.6 [place] [address] [place] [id number] [place] [address] 78293- 6847 October, [place] [address] [place] [id number] [place] [address] 28076- 5171 October, Type 2 diabetes mellitus without complications E11.9 ; Hypokalemia E87.6 ; Rhonchi R09.89 and Bilateral impacted cerumen H61.23 [place] [address] [place] [id number] [place] [address] 42391- 4655 October, Hypokalemia E87.6 ; Essential (primary) hypertension I10 and Type 2 diabetes mellitus without complications E11.9 [place] [address] [place] [id number] [place] [address] 46794- 1101 October, Hypokalemia E87.6 ; Type 2 diabetes mellitus without complications E11.9 and Essential (primary) hypertension I10 [place] [address] [place] [id number] [place] [address] 40006- 1130 Jul, Hypokalemia E87.6 [place] [address] [place] [id number] [place] [address] 42491- 1798 Jun, Hypokalemia E87.6 [facility] [address], [place] [address]- 0283 Jun, Hypokalemia E87.6 [facility] [address] [place] [id number] [place] [address] 46493- 0880 May, Hypokalemia E87.6 [facility] [address] [place] [id number] [place] [address] 20038- 0609 May, Type 2 diabetes mellitus without complications E11.9 and Hypokalemia E87.6 [facility] [address] [place] [id number] [place] [address] 90590- 5060 Feb, Type 2 diabetes mellitus without complications E11.9 and Alzheimers disease, unspecified G30.9 [place] [address] [place] [id number] [place] [address] 58955- 3656 Jan, Hypokalemia E87.6 [facility] [address] [place] [id number] [place] [address] 12337- 9657 Jan, Hypokalemia E87.6 [facility] [address] [place] [id number] [place] [address] 90893- 3405 October, Type 2 diabetes mellitus without complications E11.9 ; Hypokalemia E87.6 ; Macular degeneration H35.30 ; Alzheimers disease, unspecified G30.9 and Essential hypertension I10 [facility] [address] [place] [address] 90204- 1278 October, Routine health maintenance Z00.00 and Type 2 diabetes mellitus without complications E11.9 [facility] [address], [place] [address] 4123 October, Routine health maintenance Z00.00 and Type 2 diabetes mellitus without complications E11.9 [facility] [address], [place] [address]- 2137 Jul, [facility] [address] [place] [id number] [place] [address] 38707- 7381 Jul, Hypokalemia E87.6 ; Type 2 diabetes mellitus without complications E11.9 and Abnormal CBC R79.89 [facility] [address] [place] [id number] [place] [address] 85663- 3665 Jul, Hypokalemia E87.6 ; Type 2 diabetes mellitus without complications E11.9 and Abnormal CBC R79.89 [facility] [address] [place] [id number] [place] [address] 57691- 1676 Jul, [facility] [address] [place] [id number] [place] [address] 73799- 2549 Jul, Abnormal CBC R79.89 and Lymphadenopathy of head and neck region R59.9 [facility] [address] [place] [id number] [place] [address] 15322- 0072 May, [facility] [address] [place] [id number] [place] [address] 86337- 1724 Apr, [facility] [address] [place] [id number] [place] [address] 37872- 7870 Apr, [facility] [address] [place] [id number] [place] [address] 62035- 6577 Apr, [facility] [address] [place] [id number] [place] [address] 50481- 2933 Apr, [facility] [address] [place] [id number] [place] [address] 40376- 7900 Mar, Hypokalemia E87.6 [facility] [address] [place] [id number] [place] [address] 50515- 2994 Mar, [facility] [address] [place] [id number] [place] [address] 51621- 8936 Mar, Hypokalemia E87.6 ; Type 2 diabetes mellitus without complications E11.9 and Hypokalemia 276.8 [facility] [address] [place] [id number] [place] [address] 42527- 4006 Jan, Hypokalemia 276.8 [facility] [address] [id number], [place] [address] 9650 Jan, Hypertension 401.9 [facility] [address] [id number] [place] [address]- 2632 Jan, [facility] [address] [place] [id number] [address]- 4683 Nov, Diabetes mellitus without mention of complication, type II or unspecified type, not stated as uncontrolled 250.00 and Hypertension 401.9 [facility] [address] [id number] [place] [address]- 5575 Nov, [facility] [address] [facility] [id number], [place] [address]- 2307 Sep, [facility] [address] [place] [id number], [place] [address]- 1335 Sep, [facility] [address] [facility] [id number], [place] [address]- 5952 Jun, [facility] [address] [place] [id number] [address]- 3191 Jun, [facility] [address] [place] [id number] [address]- 5623 Jan, [facility] [address] [place] [id number] [address]- 1403 Jan, [facility] [address] [facility] [id number], [place] [address]- 0819 Jan, [facility] [address] [facility] [id number], [place] [address]- 5712 Jan, [facility] [address] [facility] [id number], [place] [address]- 7126 Jan, [facility] [address] [facility] [id number], [place] [address]- 0236 Jan, [facility] [address] [place] [id number], [place] [address]- 9626 Dec, [facility] [place] [facility] [address] [id number] [place] [address]- 9014 Nov, [facility] [place] [facility] [address] [id number] [place] [address]- 0448 Nov, [facility] [place] [facility] [address] [facility] [id number] [place] [address]- 5693 Nov, [facility] [place] [facility] [address] [id number] [place] [address]- 5927 Nov, [facility] [place] [facility] [address] [id number] [place] [address]- 6635 October, [facility] [place] [facility] [address] [id number] [place] [address]- 2428 Jul, [facility] [place] [facility] [address] [facility] [id number] [place] [address]- 3998 Jul, [facility] [place] [facility] [address] [facility] [id number] [place] [address]- 1423 Jul, [facility] [place] [facility] [address] [facility] [id number] [place] [address]- 0821 Jul, [facility] [place] [facility] [address] [facility] [id number] [place] [address]- 3152 Jul, [facility] [place] [facility] [address] [facility] [id number] [place] [address]- 7581 Jul, [facility] [place] [facility] [address] [id number], [place] [address]- 9874 Jun, [facility] [place] [facility] [address] [id number] [place] [address]- 1478 Jun, [facility] [place] [facility] [address] [facility] [id number] [place] [address]- 2824 Jun, [facility] [place] [facility] [address] [facility] [id number], [place] [address]- 8333 Jun, [facility] [place] [facility] [address] [id number] [place] [address]- 5007 Jun, [facility] [place] [facility] [address] [id number] [place] [address]- 2392 Jun, [facility] [place] [facility] [address] [id number] [place] [address]- 0107 Jun, [facility] [address] [id number] [place] [address]- 4895 Apr, [facility] [address] [id number] [place] [address]- 2705 Apr, [facility] [place] [facility] [address] [id number] [place] [address]- 2675 Mar, [facility] [address] [id number] [place] [address]- 2113 Mar, [facility] [address] [id number] [place] [address]- 7698 Mar, [facility] [address] [id number] [place] [address]- 2706 Mar, [facility] [address] [id number] [place] [address]- 8480 Feb, [facility] [place] [facility] [address] [id number] [place] [address]- 6065 Feb, [facility] [place] [facility] [address] [id number] [place] [address]- 9237 Dec, [facility] [place] [facility] [address] [id number] [place] 0428 Aug, [facility] [place] [facility] [address] [id number] [place] [address]- 6220 Aug, [facility] [place] [facility] [address] [id number] [place] [address]- 5009 18 Aug, 2012 [facility] [place] [facility] [address] [id number] [place] [address]- 3846 Jul, [facility] [place] [facility] [address] [id number] [place] [address]- 2726 May, [facility] [place] [facility] [address] [id number] [place] [address]44 May, [facility] [place] [facility] [address] [id number] [place] [address]- 7046 May, [facility] [place] [facility] [address] [id number] [place] [address]- 1999 May, [facility] [place] [facility] [address] [id number] [place] [address]- 0903 Mar, [facility] [place] [facility] [address] [id number] [place] [address]- 7039 Mar, [facility] [place] [facility] [address] [id number] [place] [address]- 2714 Sep, [facility] [place] [facility] [address] [id number] [place] [address]- 2313 Sep, [facility] [place] [facility] [address] [id number], [place] [address]- 6269 Jun, [facility] [place] [facility] [address] [id number] [place] [address]- 3353 May, [facility] [place] [facility] [address] [id number], [place] [address]- 6952 Apr, [facility] [place] [facility] [address] [id number], [place] [address]- 2639 Apr, [facility] [place] [facility] [address] [id number] [place] [address]- 7977 Apr, [facility] [place] [facility] [address] [id number] [place] [address]- 4839 Apr, [facility] [place] [facility] [address] [id number] [place] [address]- 5592 Mar, [facility] [place] [facility] [address], [place] [address]- 5896 Dec, [facility] [address], [place] [address]- 5667 Nov, [facility] [address], [place] [address]- 0427 Mar, [facility] [address], [place] [address]- 6331 Jan, [facility] [address], [place] [address]- 3173 Apr, [facility] [address] [place] [address] 481867- 2767 Apr, [facility] [address], [place] [address]- 1877 Apr, [facility] [address] [place] [address] 04381- 1150 Apr, [facility] [address], [place] [address]- 7853 Mar, [facility] [address], [place] [address]- 4392 Mar, [facility] [address], [place] [address]- 2196 Mar, [facility] [address], [place] [address]- 7577 Mar, [facility] [address] [place] [id number], [place] [address]- 1494 Sep, IMMUNIZATIONS No Known Immunizations SOCIAL HISTORY Never Assessed REASON FOR VISIT Concerns PLAN OF CARE VITAL SIGNS MEDICATIONS Unknown Medications RESULTS No Results PROCEDURES No Known procedures INSTRUCTIONS MEDICATIONS ADMINISTERED No Known Medications MEDICAL (GENERAL) HISTORY Type Description Date Medical History hypertension Medical History sleep apnea-CPAP 8cm [id number] Paykel Eson Nasal Mask Medical History hypokalemia Medical History heart disease-rupture AAA, intrarenal Medical History respiratory disorder 06/16/13 Medical History Hammond filter, DVT Medical History hepatitis B Medical History dementia Medical History 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 Medical History Alzheimers disease, unspecified Medical History [facility] - Team 12 Dr. Lang Surgical History cardiothoracic surgery-triple bypass-[facility] 12/2009 Surgical History Triple A 09/2006 Surgical History cholecystectomy Surgical History Bleeding ulcer Hospitalization History Hospitalization for surgery only Hospitalization History hypertension 10/2013 Hospitalization History Somewhere in [facility] May 2017
--- OUTSIDE RECORDS SUMMARY | 2018-02-24 08:32 | XMS REPORT ---
Author Author DON FAULKNER Organization [employer] Address Unknown Phone Unavailable Care Team Providers Care Studio Coordinator Name Role Phone DON FAULKNER CP Unavailable [...] sleep apnea (adult) (pediatric) 327.23 Active Medications Medication Code System Code Instructions Start Date End Date Status Dosage Namenda Titration [facility] [address]-76 5 (28)-10 (21) MG Orally Started by [facility] May 04, 2015 as directed Results No Known Results Summary Purpose [employer] Submission
--- OUTSIDE RECORDS SUMMARY | 2018-02-24 08:33 | XMS REPORT ---
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 Problem Unspecified local infection of skin and subcutaneous tissue 686.9 Active Assessment Hypertension 401.9 Active Problem Pure hypercholesterolemia 272.0 Active Problem Other abnormal glucose 790.29 Active Problem Hypertension 401.9 Active Problem Memory loss 780.93 Active Problem Impacted cerumen 380.4 Active Problem Obstructive sleep apnea (adult) (pediatric) 327.23 Active Problem Other malaise and fatigue 780.79 Active Medications No Known Medications Procedures Procedure Coding System Code Date VENIPUNCT, ROUTINE* CPT-4 16033 Feb 02, 2015 [facility] NOBLL Feb 02, 2015 Results Name Result Date Reference Range Unit Abnormality Flag ROUTINE VENIPUNCTURE CBC Summary Purpose [employer] Submission
--- OUTSIDE RECORDS SUMMARY | 2018-02-24 08:33 | XMS REPORT ---
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 6902300 Problem Hypercholesterolemia E78.00 Active 98056728 Problem Type 2 diabetes mellitus without complications E11.9 Active 247286153 Problem Macular degeneration H35.30 Active 915088516 ALLERGIES Unknown Allergies SOCIAL HISTORY No smoking Hx information available PLAN OF CARE VITAL SIGNS MEDICATIONS Unknown Medications RESULTS Name Result Date Reference Range [facility] 2016-06-22 Glucose, Serum 113 65-99 BUN 21 8-27 Creatinine, Serum 0.92 0.76-1.27 eGFR If NonAfricn Am 84 >59 eGFR If Africn Am 97 >59 BUN/Creatinine Ratio 23 10-22 Sodium, Serum 147 134-144 Potassium, Serum 3.6 3.5-5.2 Chloride, Serum 103 96-106 Carbon Dioxide, Total 31 18-29 Calcium, Serum 9.3 8.6-10.2 PROCEDURES Procedure Date Ordered Related Diagnosis Body Site LAB NOT BILLED BY [facility] Jun 22, 2016 VENIPUNCT, ROUTINE* Jun 22, 2016 IMMUNIZATIONS No Known Immunizations
--- OUTSIDE RECORDS SUMMARY | 2018-02-24 08:33 | XMS REPORT ---
Author Author DON FAULKNER Organization [employer] Address Unknown Phone Unavailable Care Team Providers Care Green Building Materials Distributor Name Role Phone DON FAULKNER CP Unavailable [...] End Date Status Dosage Potassium Chloride ER [facility] [address]-45 20 MEQ Orally, 4 times a day JanMay 26, 2015 1 capsule Results No Known Results Summary Purpose [employer] Submission
--- OUTSIDE RECORDS SUMMARY | 2018-02-24 08:33 | XMS REPORT ---
Author Author DON FAULKNER Organization [employer] Address Unknown Phone Unavailable Care Team Providers Care Claims Support Specialist Name Role Phone DON FAULKNER CP Unavailable [...] fatigue 780.79 Active Medications No Known Medications Results No Known Results Summary Purpose [employer] Submission
--- OUTSIDE RECORDS SUMMARY | 2018-02-24 08:33 | XMS REPORT ---
Author Author DON FAULKNER 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 Unknown Non Drug Allergy May, Unknown SOCIAL HISTORY No smoking Hx information available PLAN OF CARE Activity Details Follow Up 4 Months Reason:DM VITAL SIGNS Height 66 in 2016-05-30 Weight 138.5 lbs 2016-05-30 Temperature 98.0 degrees Fahrenheit 2016-05-30 Heart Rate 64 bpm 2016-05-30 Respiratory Rate 18 2016-05-30 BMI 22.35 kg/m2 2016-05-30 Blood pressure systolic 170 mmHg 2016-05-30 Blood pressure diastolic 90 mmHg 2016-05-30 MEDICATIONS Medication Instructions Dosage Frequency Start Date End Date Duration Status Omeprazole Active Carvedilol Active Aspir-81 81 MG Orally Once a day 1 tablet 24h Active Rivastigmine Tartrate 6 MG Orally Twice a day 1 capsule with food 12h Active Namenda XR 28 MG Orally Once a day per [facility] 1 capsule May, Active Multivitamins Orally Once a day 1 capsule 24h Active Metformin HCl 500 MG Orally Twice a day 0.5 tablet with meals 12h Active Lisinopril 20 MG Orally twice a day 1 tablet 12h Active RESULTS Name Result Date Reference Range A1C (IN HOUSE) 2016-05-30 A1C IN HOUSE 6.2 4.3 - 5.6 % Previous A1c 5.7 Lot [id number] Exp date 02/2018 MICROALBUMIN, URINE (IN HOUSE) 2016-05-30 MICROALBUMIN Normal Lot # [id number] Exp date 02/2018 Clarity clear Color yellow ALB 10mg/L CRE 200mg/dl A:C (IN HOUSE) <30mg/g Control Control Lot # Exp date BMP 2016-05-30 Glucose, Serum 94 65-99 BUN 15 8-27 Creatinine, Serum 0.85 0.76-1.27 eGFR If NonAfricn Am 88 >59 eGFR If Africn Am 102 >59 BUN/Creatinine Ratio 18 10-22 Sodium, Serum 145 134-144 Potassium, Serum 3.2 3.5-5.2 Chloride, Serum 102 96-106 Carbon Dioxide, Total 30 18-29 Calcium, Serum 9.1 8.6-10.2 PROCEDURES Procedure Date Ordered Related Diagnosis Body Site GLYCATED HEMOGLOBIN TEST May 30, 2016 MICROALBUMIN, SEMIQUANT May 30, 2016 [facility] VISIT ESTABLISHED PATIENT May 30, 2016 [facility] May 30, 2016 VENIPUNCT, ROUTINE* May 30, 2016 Office Visit, Est Pt., Level 3 May 30, 2016 IMMUNIZATIONS No Known Immunizations
--- OUTSIDE RECORDS SUMMARY | 2018-02-24 08:33 | XMS REPORT ---
Author Author DON FAULKNER Organization [employer] Address Unknown Phone Unavailable Care Team Providers Care Financial Assistance Advisor Name Role Phone DON FAULKNER CP Unavailable [...] End Date Status Dosage Potassium Chloride ER [facility] [address]-63 20 MEQ Orally, 1.5 tabs in am, 1 tab at noon and 1.5 in the evening Three times a day Feb 04, 2015 1 capsule Results No Known Results Summary Purpose [employer] Submission
--- OUTSIDE RECORDS SUMMARY | 2018-02-24 08:34 | XMS REPORT | Continuity of Care Document ---
Author Author [facility] Address Unknown Phone Unavailable Allergies Active Description Code Type Severity Reaction Onset Reported/Identified Relationship to Patient Clinical Status Yes NO NAME AVAILABLE 18752 DRUG N/ A N/A Yes NKANo Known Allergies NKA Miscellaneous Allergy Unknown N/A 09/26/2006 Medications There is no data. Problems Date Dx Coded Attending Type Code Diagnosis Diagnosed By 12/24/2007 DON FAULKNER APRN S 294.9 OR COG DIS NOS 12/24/2007 EVA FAULKNER APRNA S 300.00 An Anxiety Unspec 12/24/2007 294.9 OR COG DIS NOS 12/24/2007 300.00 An Anxiety Unspec 12/24/2007 294.9 OR COG DIS NOS 12/24/2007 300.00 An Anxiety Unspec 12/24/2007 RADHA RIZO PHD 294.9 OR COG DIS NOS 12/24/2007 RADHA RIZO PHD 300.00 An Anxiety Unspec 12/24/2007 RADHA RIZO PHD 294.9 OR COG DIS NOS 12/24/2007 RADHA RIZO PHD 300.00 An Anxiety Unspec 12/24/2007 RADHA RIZO PHD 294.9 OR COG DIS NOS 12/24/2007 RADHA RIZO PHD 300.00 An Anxiety Unspec 12/24/2007 EVA FAULKNER APRNA S 294.9 OR COG DIS NOS 12/24/2007 EVA FAULKNER APRNA S 300.00 An Anxiety Unspec 12/24/2007 LIDIA FAULKNER APRNNDA S 294.9 OR COG DIS NOS 12/24/2007 LIDIA FAULKNER APRNNDA S 300.00 An Anxiety Unspec 12/24/2007 LUCIE PADILLA DON S 294.9 OR COG DIS NOS 12/24/2007 LIDIA FAULKNER APRNNDA S 300.00 An Anxiety Unspec 12/24/2007 LIDIA FAULKNER APRNNDA S 294.9 OR COG DIS NOS 12/24/2007 DON FAULKNER APRN S 300.00 An Anxiety Unspec 12/24/2007 MAJANO DOJAYSONA K 294.9 OR COG DIS NOS 12/24/2007 MAJANO DOJAYSONA K 300.00 An Anxiety Unspec 01/14/2008 EVA FAULKNER APRNA S V58.61 Long-term (current) Use Of Anticoagulants 01/14/2008 V58.61 Long-term ( current) Use Of Anticoagulants 01/14/2008 V58.61 Long-term ( current) Use Of Anticoagulants 01/14/2008 RADHA RIZO PHD V58.61 Long-term (current) Use Of Anticoagulants 01/14/2008 RADHA RIZO PHD V58.61 Long-term (current) Use Of Anticoagulants 01/14/2008 RADHA RIZO PHD V58.61 Long-term (current) Use Of Anticoagulants 01/14/2008 EVA FAULKNER APRNA S V58.61 Long-term (current) Use Of Anticoagulants 01/14/2008 EVA FAULKNER APRNA S V58.61 Long-term (current) Use Of Anticoagulants 01/14/2008 LIDIA FAULKNER APRNNDA S V58.61 Long-term (current) Use Of Anticoagulants 01/14/2008 LIDIA FAULKNER APRNNDA S V58.61 Long-term (current) Use Of Anticoagulants 01/14/2008 MATT MAJANO DO K V58.61 Long-term (current) Use Of Anticoagulants 01/30/2008 DON FAULKNER APRN S 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 01/30/2008 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 01/30/2008 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 01/30/2008 RADHA RIZO PHD 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 01/30/2008 RADHA RIZO PHD 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 01/30/2008 RADHA RIZO PHD 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 01/30/2008 LIDIA FAULKENR APRNNDA S 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1 ESSENTIAL HYPERTENSION BENIGN 03/09/2008 RADHA RIZO PHD V58.69 Taking High-risk Medication 03/09/2008 RADHA RIZO PHD 401.1 ESSENTIAL HYPERTENSION BENIGN 03/09/2008 RADHA RIZO PHD V58.69 Taking High-risk Medication 03/09/2008 RADHA RIZO PHD 401.1 ESSENTIAL HYPERTENSION BENIGN 03/09/2008 RADHA RIZO PHD V58.69 Taking High-risk Medication 03/09/2008 DON FAULKNER APRN S 401.1 ESSENTIAL HYPERTENSION BENIGN 03/09/2008 EVA FAULKNER APRNA S V58.69 Taking High-risk Medication 03/09/2008 DON FAULKNER APRN S 401.1 ESSENTIAL HYPERTENSION BENIGN 03/09/2008 DON FAULKNER APRN S V58.69 Taking High-risk Medication 03/09/2008 DON FAULKNER APRN S 401.1 ESSENTIAL HYPERTENSION BENIGN 03/09/2008 EVA FAULKNER APRNA S V58.69 Taking High-risk Medication 03/09/2008 DON FAULKNER APRN S 401.1 ESSENTIAL HYPERTENSION BENIGN 03/09/2008 EVA FAULKNER APRNA S V58.69 Taking High-risk Medication 03/09/2008 MAJANO DO MATT K 401.1 ESSENTIAL HYPERTENSION BENIGN 03/09/2008 MAJANO DO, MATT K V58.69 Taking High-risk Medication 01/27/2009 DON FAULKNER APRN S 309.81 An Ptsd 01/27/2009 DON FAULKNER APRN S 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 01/27/2009 309.81 An Ptsd 01/27/2009 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 01/27/2009 309.81 An Ptsd 01/27/2009 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 01/27/2009 RADHA RIZO PHD 309.81 An Ptsd 01/27/2009 RADHA RIZO PHD 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 01/27/2009 RADHA RIZO PHD 309.81 An Ptsd 01/27/2009 RADHA RIZO PHD 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 01/27/2009 RADHA RIZO PHD 309.81 An Ptsd 01/27/2009 RADHA RIZO PHD 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 01/27/2009 LIDIA FAULKNER APRNNDA S 309.81 An Ptsd 01/27/2009 LIDIA FAULKNER APRNNDA S 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 01/27/2009 LIDIA FAULKNER APRNNDA S 309.81 An Ptsd 01/27/2009 LUCIE GOLDBEATER, DON S 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 01/27/2009 LUCIE GOLDBEATER, DON S 309.81 An Ptsd 01/27/2009 LUCIE GOLDBEATER, DON S 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 01/27/2009 LUCIE PADILLA DON S 309.81 An Ptsd 01/27/2009 LUCIE PADILLA DON S 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 01/27/2009 MAJANO DO MATT K 309.81 An Ptsd 01/27/2009 MAJANO DO MATT K 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 02/15/2009 LIDIA FAULKNER APRNNDA S 401.9 Unspecified Essential Hypertension 02/15/2009 401.9 Unspecified Essential Hypertension 02/15/2009 401.9 Unspecified Essential Hypertension 02/15/2009 RADHA RIZO PHD 401.9 Unspecified Essential Hypertension 02/15/2009 RADHA RIZO PHD 401.9 Unspecified Essential Hypertension 02/15/2009 RADHA RIZO PHD 401.9 Unspecified Essential Hypertension 02/15/2009 EVA FAULKNER APRNA S 401.9 Unspecified Essential Hypertension 02/15/2009 LIDIA FAULKNER APRNNDA S 401.9 Unspecified Essential Hypertension 02/15/2009 LIDIA FAULKNER APRNNDA S 401.9 Unspecified Essential Hypertension 02/15/2009 LIDIA FAULKNER APRNNDA S 401.9 Unspecified Essential Hypertension 02/15/2009 MATT MAJANO DO K 401.9 Unspecified Essential Hypertension 12/27/2009 Ot 272.4 HYPERLIPIDEMIA NEC/NOS 12/27/2009 Ot 276.8 HYPOPOTASSEMIA 12/27/2009 Ot 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.1 AC POSTHEMORRHAG ANEMIA 12/27/2009 Ot 401.9 HYPERTENSION NOS 12/27/2009 Ot 414.00 CORON ATHEROSCLER NOS TYPE VESSEL, NATIV 12/27/2009 Ot 427.31 ATRIAL FIBRILLATION 12/27/2009 Ot 496 CHR AIRWAY OBSTRUCT NEC 12/27/2009 Ot 530.83 ESOPHAGEAL LEUKOPLAKIA 12/27/2009 Ot 532.40 CHR DUODEN ULCER W HEM 12/27/2009 Ot 790.92 COAGULATION PROFILE, ABNORMAL 12/27/2009 Ot V12.51 HX-VENOUS THROMBOSIS EMBOLISM 12/27/2009 Ot V15.82 HISTORY OF TOBACCO USE 12/27/2009 Ot V45.81 AORTOCORONARY BYPASS 12/27/2009 Ot V58.61 ANTICOAGULANTS,LT,CURRENT USE 01/10/2010 EVA FAULKNER APRNA S 414.01 CAD 01/10/2010 414.01 CAD 01/10/2010 414.01 CAD 01/10/2010 SALLIE PHD, RADHA Mathur 414.01 CAD 01/10/2010 SALLIE PHD, RADHA Mathur 414.01 CAD 01/10/2010 SALLIE PHD, RADHA Mathur 414.01 CAD 01/10/2010 LIDIA FAULKNER APRNNDA S 414.01 CAD 01/10/2010 LIDIA FAULKNER APRNNDA S 414.01 CAD 01/10/2010 LIDIA FAULKNER APRNNDA S 414.01 CAD 01/10/2010 LIDIA FAULKNER APRNNDA S 414.01 CAD 01/10/2010 MAJANO MATT LESTER K 414.01 CAD 01/19/2010 LIDIA FAULKNER APRNNDA S 327.26 Sleep Related Hypoventilation/hypoxemia In Conditions Classifiable Elsewhere 01/19/2010 327.26 Sleep Related Hypoventilation/hypoxemia In Conditions Classifiable Elsewhere 01/19/2010 327.26 Sleep Related Hypoventilation/hypoxemia In Conditions Classifiable Elsewhere 01/19/2010 RADHA RIZO PHD 327.26 Sleep Related Hypoventilation/hypoxemia In Conditions Classifiable Elsewhere 01/19/2010 RADHA RIZO PHD 327.26 Sleep Related Hypoventilation/hypoxemia In Conditions Classifiable Elsewhere 01/19/2010 RADHA RIZO PHD 327.26 Sleep Related Hypoventilation/hypoxemia In Conditions Classifiable Elsewhere 01/19/2010 DON FAULKNER APRN S 327.26 Sleep Related Hypoventilation/hypoxemia In Conditions Classifiable Elsewhere 01/19/2010 EVA FAULKNER APRNA S 327.26 Sleep Related Hypoventilation/hypoxemia In Conditions Classifiable Elsewhere 01/19/2010 DON FAULKNER APRN S 327.26 Sleep Related Hypoventilation/hypoxemia In Conditions Classifiable Elsewhere 01/19/2010 EVA FAULKNER APRNA S 327.26 Sleep Related Hypoventilation/hypoxemia In Conditions Classifiable Elsewhere 01/19/2010 MATT MAJANO DO 327.26 Sleep Related Hypoventilation/hypoxemia In Conditions Classifiable Elsewhere 01/30/2010 DON FAULKNER APRN S 276.8 HYPOKALEMIA 01/30/2010 DON FAULKNER APRN S 799.02 Hypoxemia 01/30/2010 276.8 HYPOKALEMIA 01/30/2010 799.02 Hypoxemia 01/30/2010 276.8 HYPOKALEMIA 01/30/2010 799.02 Hypoxemia 01/30/2010 RADHA RIZO PHD 276.8 HYPOKALEMIA 01/30/2010 RADHA RIZO PHD 799.02 Hypoxemia 01/30/2010 RADHA RIZO PHD 276.8 HYPOKALEMIA 01/30/2010 RADHA RIZO PHD 799.02 Hypoxemia 01/30/2010 RADHA RIZO PHD 276.8 HYPOKALEMIA 01/30/2010 RADHA RIZO PHD 799.02 Hypoxemia 01/30/2010 DON FAULKNER APRN S 276.8 HYPOKALEMIA 01/30/2010 DON FAULKNER APRN S 799.02 Hypoxemia 01/30/2010 DON FAULKNER APRN S 276.8 HYPOKALEMIA 01/30/2010 LUCIE DUCKWORTHN, DON S 799.02 Hypoxemia 01/30/2010 LUCIE GOLDBEATER, DON S 276.8 HYPOKALEMIA 01/30/2010 LUCIE GOLDBEATER, DON S 799.02 Hypoxemia 01/30/2010 LUCIE DUCKWORTHN, DON S 276.8 HYPOKALEMIA 01/30/2010 LUCIE PADILLA, DON S 799.02 Hypoxemia 01/30/2010 MAJANO JAYSON LESTERA K 276.8 HYPOKALEMIA 01/30/2010 MAJANO DO, MATT K 799.02 Hypoxemia 11/27/2010 ULCIE PADILLA, DON S 573.3 Hepatitis Unspecified 11/27/2010 573.3 Hepatitis Unspecified 11/27/2010 573.3 Hepatitis Unspecified 11/27/2010 RADHA RIZO PHD 573.3 Hepatitis Unspecified 11/27/2010 RADHA RIZO PHD 573.3 Hepatitis Unspecified 11/27/2010 RADHA RIZO PHD 573.3 Hepatitis Unspecified 11/27/2010 LUCIE DUCKWORTHN, DON S 573.3 Hepatitis Unspecified 11/27/2010 LUCIE GOLDBEATER, DON S 573.3 Hepatitis Unspecified 11/27/2010 LUCIE GOLDBEATER, DON S 573.3 Hepatitis Unspecified 11/27/2010 LUCIE GOLDBEATER, DON S 573.3 Hepatitis Unspecified 11/27/2010 MAJANO DO MATT K 573.3 Hepatitis Unspecified 07/13/2011 LIDIA FAULKNER APRNNDA S 686.9 UNSPECIFIED LOCAL INFECTION OF SKIN AND SUBCUTANEOUS TISSUE 07/13/2011 LIDIA FAULKNER APRNNDA S V06.1 TDAP DX 07/13/2011 686.9 UNSPECIFIED LOCAL INFECTION OF SKIN AND SUBCUTANEOUS TISSUE 07/13/2011 V06.1 TDAP DX 07/13/2011 686.9 UNSPECIFIED LOCAL INFECTION OF SKIN AND SUBCUTANEOUS TISSUE 07/13/2011 V06.1 TDAP DX 07/13/2011 RADHA RIZO PHD 686.9 UNSPECIFIED LOCAL INFECTION OF SKIN AND SUBCUTANEOUS TISSUE 07/13/2011 RADHA RIZO PHD V06.1 TDAP DX 07/13/2011 RADHA RIZO PHD 686.9 UNSPECIFIED LOCAL INFECTION OF SKIN AND SUBCUTANEOUS TISSUE 07/13/2011 SALLIE ANDERSON, RADAH Mathur V06.1 TDAP DX 07/13/2011 RADHA RIZO PHD 686.9 UNSPECIFIED LOCAL INFECTION OF SKIN AND SUBCUTANEOUS TISSUE 07/13/2011 RADHA RIZO PHD V06.1 TDAP DX 07/13/2011 LUCIE GOLDBEATER, DON S 686.9 UNSPECIFIED LOCAL INFECTION OF SKIN AND SUBCUTANEOUS TISSUE 07/13/2011 LUCIE GOLDBEATER, DON S V06.1 TDAP DX 07/13/2011 LUCIE GOLDBEATER, DON S 686.9 UNSPECIFIED LOCAL INFECTION OF SKIN AND SUBCUTANEOUS TISSUE 07/13/2011 LUCIE GOLDBEATER, DON S V06.1 TDAP DX 07/13/2011 LUCIE GOLDBEATER, DON S 686.9 UNSPECIFIED LOCAL INFECTION OF SKIN AND SUBCUTANEOUS TISSUE 07/13/2011 LUCIE GOLDBEATER, DON S V06.1 TDAP DX 07/13/2011 LUCIE GOLDBEATER, DON S 686.9 UNSPECIFIED LOCAL INFECTION OF SKIN AND SUBCUTANEOUS TISSUE 07/13/2011 LUCIE GOLDBEATER, DON S V06.1 TDAP DX 07/13/2011 JAYSON MAJANO DOA K 686.9 UNSPECIFIED LOCAL INFECTION OF SKIN AND SUBCUTANEOUS TISSUE 07/13/2011 JAYSON MAJANO DOA K V06.1 TDAP DX 05/19/2012 LUCIE PADILLA, DON S 272.0 PURE HYPERCHOLESTEROLEMIA 05/19/2012 272.0 PURE HYPERCHOLESTEROLEMIA 05/19/2012 272.0 PURE HYPERCHOLESTEROLEMIA 05/19/2012 SALLIE ANDERSON, RADHA Mathur 272.0 PURE HYPERCHOLESTEROLEMIA 05/19/2012 SALLIE ANDERSON, RADHA Mathur 272.0 PURE HYPERCHOLESTEROLEMIA 05/19/2012 RADHA RIZO PHD 272.0 PURE HYPERCHOLESTEROLEMIA 05/19/2012 LUCIE PADILLA, DON S 272.0 PURE HYPERCHOLESTEROLEMIA 05/19/2012 LUCIE PADILLA, DON S 272.0 PURE HYPERCHOLESTEROLEMIA 05/19/2012 LUCIE PADILLA, DON S 272.0 PURE HYPERCHOLESTEROLEMIA 05/19/2012 LUCIE PADILLA, DON S 272.0 PURE HYPERCHOLESTEROLEMIA 05/19/2012 MAJANO DO, MATT K 272.0 PURE HYPERCHOLESTEROLEMIA 09/08/2012 380.4 IMPACTED CERUMEN 09/08/2012 SALLIE ANDERSON, RADHA Mathur 380.4 IMPACTED CERUMEN 09/08/2012 ASLLIE ANDERSON, RADHA Mathur 380.4 IMPACTED CERUMEN 09/08/2012 SALLIE ANDERSON, RADHA Mathur 380.4 IMPACTED CERUMEN 09/08/2012 LUCIE GOLDBEATER, DON S 380.4 IMPACTED CERUMEN 09/08/2012 LUCIE GOLDBEATER, DON S 380.4 IMPACTED CERUMEN 09/08/2012 LUCIE GOLDBEATER, DON S 380.4 IMPACTED CERUMEN 09/08/2012 LUCIE GOLDBEATER, DON S 380.4 IMPACTED CERUMEN 09/08/2012 MATT MAJANO DO K 380.4 IMPACTED CERUMEN 01/08/2013 RADHA RIZO PHD 780.93 MEMORY LOSS 01/08/2013 RADHA RIZO PHD 780.93 MEMORY LOSS 01/08/2013 RADHA RIZO PHD 780.93 MEMORY LOSS 01/08/2013 LUCIE GOLDBEATER, DON S 780.93 MEMORY LOSS 01/08/2013 LUCIE GOLDBEATER, DON S 780.93 MEMORY LOSS 01/08/2013 LUCIE GOLDBEATER, DON S 780.93 MEMORY LOSS 01/08/2013 LUCIE GOLDBEATER, DON S 780.93 MEMORY LOSS 01/08/2013 MATT MAJANO DO K 780.93 MEMORY LOSS 03/11/2013 RADHA RIZO PHD 294.8 OR DEMENTIA NOS 03/11/2013 RADHA RIZO PHD 294.8 OR DEMENTIA NOS 03/11/2013 RADHA RIZO PHD 294.8 OR DEMENTIA NOS 03/11/2013 LUCIE GOLDBEATER, DON S 294.8 OR DEMENTIA NOS 03/11/2013 LUCIE GOLDBEATER, DON S 294.8 OR DEMENTIA NOS 03/11/2013 LUCIE GOLDBEATER, DON S 294.8 OR DEMENTIA NOS 03/11/2013 LUCIE GOLDBEATER, DON S 294.8 OR DEMENTIA NOS 03/11/2013 MAJANO DOMTAT K 294.8 OR DEMENTIA NOS 04/09/2013 LUCIE GOLDBEATER, DON S 780.79 fatigue 04/09/2013 DON FAULKNER APRN S 780.79 fatigue 04/09/2013 DON FAULKNER APRN S 780.79 fatigue 04/09/2013 DON FAULKNER APRN S 780.79 fatigue 04/09/2013 MATT MAJANO DO 780.79 fatigue 06/16/2013 DON FAULKNER ANALYTICAL RESEARCH CHEMIST Ot 327.23 OBSTRUCTIVE SLEEP APNEA (ADULT) (PEDIATR 07/06/2013 DON FAULKNER APRN S 327.23 OBSTRUCTIVE SLEEP APNEA (ADULT) (PEDIATRIC) 07/06/2013 DON FAULKNER APRN S 327.23 OBSTRUCTIVE SLEEP APNEA (ADULT) (PEDIATRIC) 07/06/2013 DON FAULKNER APRN S 327.23 OBSTRUCTIVE SLEEP APNEA (ADULT) (PEDIATRIC) 07/06/2013 MATT MAJANO DO 327.23 OBSTRUCTIVE SLEEP APNEA (ADULT) (PEDIATRIC) 11/07/2013 ARNOLDO RAMON MD Ot 276.8 HYPOPOTASSEMIA 11/07/2013 ARNOLDO RAMON MD Ot 294.20 DEMENTIA, UNSPECIFIED, WITHOUT BEHAVIORA 11/07/2013 ARNOLDO RAMON MD Ot 401.0 MALIGNANT HYPERTENSION 11/07/2013 ARNOLDO RAMON MD Ot 780.4 DIZZINESS AND GIDDINESS 11/07/2013 ARNOLDO RAMON MD Ot 780.79 OTH MALAISE FATIGUE 11/07/2013 ARNOLDO RAMON MD Ot 784.59 OTHER SPEECH DISTURBANCE 11/07/2013 ARNOLDO RAMON MD Ot V45.81 AORTOCORONARY BYPASS 01/25/2014 MATT MAJANO DO 790.29 OTHER ABNORMAL GLUCOSE 06/14/2014 BLANKENSHIP DO, HANNA Ot 250.00 06/14/2014 BLANKENSHIP DO, HANNA Ot 272.4 06/14/2014 BLANKENSHIP DO, HANNA Ot 285.9 06/14/2014 BLANKENSHIP DO, HANNA Ot 401.9 06/14/2014 BLANKENSHIP DO, HANNA Ot V70.0 06/16/2014 Ot 250.00 06/16/2014 Ot 276.8 01/22/2015 NANNETTE CAMERON APRN Ot 327.23 OBSTRUCTIVE SLEEP APNEA (ADULT) (PEDIATR 01/12/2016 EDELMIRA CHRISTIN BOONE Ot K40.90 UNIL INGUINAL HERNIA, W/O OBST OR GANGR, 01/12/2016 CHRISTIN HICKEY MD Ot R10.31 RIGHT LOWER QUADRANT PAIN 01/13/2016 CHRISTIN HICKEY MD Ot K40.90 UNIL INGUINAL HERNIA, W/O OBST OR GANGR, 01/13/2016 CHRISTIN HICKEY MD Ot R10.31 RIGHT LOWER QUADRANT PAIN 06/17/2016 Ot 790.6 ABN BLOOD CHEMISTRY NEC 02/15/2017 Ot 414.01 CORONARY ATHEROSCLEROSIS OF [place] CORON 02/15/2017 Ot 427.31 ATRIAL FIBRILLATION 02/15/2017 Ot V58.61 ANTICOAGULANTS,LT,CURRENT USE 05/21/2017 ELIN VENTURA V [id number] Psychiatric Evaluation ELIN VENTURA 05/21/2017 ELIN VENTURA V E87.6 Hypokalemia ELIN VENTURA 05/21/2017 ELIN VENTURA V F03.90 Unspecified dementia without behavioral disturbance ELIN VENTURA 08/02/2017 JULIO CÉSAR CERVANTES MD Ot G30.9 ALZHEIMER'S DISEASE, UNSPECIFIED 08/02/2017 JULIO CÉSAR CERVANTES MD Ot 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, 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 08/07/2017 JULIO CÉSAR CERVANTES MD Ot G30.9 ALZHEIMER'S DISEASE, UNSPECIFIED 08/07/2017 JULIO CÉSAR CERVANTES MD Ot 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, 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 08/12/2017 JULIO CÉSAR CERVANTES MD Ot R40.4 TRANSIENT ALTERATION OF AWARENESS 08/12/2017 KORINA BOONE, CALIXTO Loya Ot 276.8 HYPOPOTASSEMIA 08/12/2017 Ot V58.69 OTH MED,LT, CURRENT USE 08/12/2017 Ot V58.83 ENCOUNTER FOR THERAPEUTIC DRUG MONITORIN 08/12/2017 BLANKENSHIP DO, HANNA Ot 250.00 DIAB JEREMIAH WO COMPL, TYPE II OR UNSPEC TY 08/12/2017 BLANKENSHIP DO, HANNA Ot 272.4 HYPERLIPIDEMIA NEC/NOS 08/12/2017 BLANKENSHIP DO, HANNA Ot 285.9 ANEMIA NOS 08/12/2017 BLANKENSHIP DO, HANNA Ot 401.9 HYPERTENSION NOS 08/12/2017 BLANKENSHIP DO, HANNA Ot V70.0 ROUTINE MEDICAL EXAM 08/12/2017 Ot 250.00 DIAB JEREMIAH WO COMPL, TYPE II OR UNSPEC TY 08/12/2017 Ot 276.8 HYPOPOTASSEMIA 08/12/2017 JULIO CÉSAR CERVANTES MD, Ot G30.9 ALZHEIMER'S DISEASE, UNSPECIFIED 08/12/2017 JULIO CÉSAR CERVANTES MD, Ot 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, 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 09/03/2017 JULIO CÉSAR CERVANTES MD, Ot R40.1 STUPOR 09/11/2017 JULIO CÉSAR CERVANTES MD, Ot F03.90 UNSPECIFIED DEMENTIA WITHOUT BEHAVIORAL 09/11/2017 JULIO CÉSAR CERVANTES MD Ot 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 09/11/2017 JULIO CÉSAR CERVANTES MD, Ot R40.1 STUPOR Procedures Code Description Performed By Performed On 45.16 ESOPHAGOGASTRODUODENOSCOPY [ EGD] W/CLOSE 12/24/2009 71192 ROUTINE VENIPUNCTURE 05/19/2012 36697 CBC 05/19/2012 26703 CMP 05/19/2012 [id number] GFR CALC (RESULT ONLY) 05/19/2012 97978 LIPID PANEL 05/19/2012 63022 EAR LAVAGE 09/08/2012 51915 PSYCH DIAGNOSTIC EVALUATION 03/12/2013 45770 PSYCHO TESTING 1 HR W TECH 03/23/2013 73371 PSYTX PT&/FAMILY 30 MINUTES 03/24/2013 83794 SLEEP STUDY 05/07/2013 98661 ROUTINE VENIPUNCTURE 07/23/2013 46417 T4 FREE 07/23/2013 84376 TSH 07/23/2013 81834 VIT B 12 07/23/2013 17621 HOMOCYSTINE 07/23/2013 24942 SYPHILLIS TEST 07/24/2013 22829 METHYLMELONIC 07/29/2013 88306 ROUTINE VENIPUNCTURE 01/25/2014 [id number] GFR CALC (RESULT ONLY) 01/25/2014 31341 BMP 01/25/2014 Results Test Result Range Basic Metabolic Panel (8) - 02/15/16 16:18 Glucose, Serum 116 mg/dL 65-99 BUN 17 mg/dL 8-27 Creatinine, Serum 0.93 mg/dL 0.76-1.27 eGFR If NonAfricn Am 83 mL/min/1.73 >59 eGFR If Africn Am 96 mL/min/1.73 >59 BUN/Creatinine Ratio 18 10-22 Sodium, Serum 145 mmol/L 134-144 Potassium, Serum 3.5 mmol/L 3.5-5.2 Chloride, Serum 103 mmol/L 97-108 Carbon Dioxide, Total 22 mmol/L 18-29 Calcium, Serum 8.5 mg/dL 8.6-10.2 Basic Metabolic Panel (8) - 05/30/16 11:31 Glucose, Serum 94 mg/dL 65-99 BUN 15 mg/dL 8-27 Creatinine, Serum 0.85 mg/dL 0.76-1.27 eGFR If NonAfricn Am 88 mL/min/1.73 >59 eGFR If Africn Am 102 mL/min/1.73 >59 BUN/Creatinine Ratio 18 10-22 Sodium, Serum 145 mmol/L 134-144 Potassium, Serum 3.2 mmol/L 3.5-5.2 Chloride, Serum 102 mmol/L 96-106 Carbon Dioxide, Total 30 mmol/L 18-29 Calcium, Serum 9.1 mg/dL 8.6-10.2 Basic Metabolic Panel (8) - 06/22/16 08:36 Glucose, Serum 113 mg/dL 65-99 BUN 21 mg/dL 8-27 Creatinine, Serum 0.92 mg/dL 0.76-1.27 eGFR If NonAfricn Am 84 mL/min/1.73 >59 eGFR If Africn Am 97 mL/min/1.73 >59 BUN/Creatinine Ratio 23 10-22 Sodium, Serum 147 mmol/L 134-144 Potassium, Serum 3.6 mmol/L 3.5-5.2 Chloride, Serum 103 mmol/L 96-106 Carbon Dioxide, Total 31 mmol/L 18-29 Calcium, Serum 9.3 mg/dL 8.6-10.2 Comp. Metabolic Panel (14) - 10/22/16 09:08 Glucose, Serum 116 mg/dL 65-99 BUN 14 mg/dL 8-27 Creatinine, Serum 0.76 mg/dL 0.76-1.27 eGFR If NonAfricn Am 92 mL/min/1.73 >59 eGFR If Africn Am 107 mL/min/1.73 >59 BUN/Creatinine Ratio 18 10-24 Sodium, Serum 146 mmol/L 134-144 Potassium, Serum 3.6 mmol/L 3.5-5.2 Chloride, Serum 101 mmol/L 96-106 Carbon Dioxide, Total 30 mmol/L 18-29 Calcium, Serum 9.3 mg/dL 8.6-10.2 Protein, Total, Serum 6.8 g/dL 6.0-8.5 Albumin, Serum 4.1 g/dL 3.5-4.8 Globulin, Total 2.7 g/dL 1.5-4.5 A/G Ratio 1.5 1.2-2.2 Bilirubin, Total 0.7 mg/dL 0.0-1.2 Alkaline Phosphatase, S 68 IU/L 39-117 AST (SGOT) 23 IU/L 0-40 ALT (SGPT) 13 IU/L 0-44 Lipid Panel - 10/22/16 09:08 Cholesterol, Total 231 mg/dL 100-199 Triglycerides 64 mg/dL 0-149 HDL Cholesterol 51 mg/dL >39 VLDL Cholesterol Denzel 13 mg/dL 5-40 LDL Cholesterol Calc 167 mg/dL 0-99 Hemoglobin A1c - 10/22/16 09:08 Hemoglobin A1c 6.0 % 4.8-5.6 CMP - 03/14/17 09:06 Glucose, Serum 118 mg/dL 65-99 BUN 12 mg/dL 8-27 Creatinine, Serum 0.75 mg/dL 0.76-1.27 eGFR If NonAfricn Am 92 mL/min/1.73 >59 eGFR If Africn Am 107 mL/min/1.73 >59 BUN/Creatinine Ratio 16 10-24 Sodium, Serum 145 mmol/L 134-144 Potassium, Serum 4.1 mmol/L 3.5-5.2 Chloride, Serum 102 mmol/L 96-106 Carbon Dioxide, Total 30 mmol/L 18-29 Calcium, Serum 9.3 mg/dL 8.6-10.2 Protein, Total, Serum 7.2 g/dL 6.0-8.5 Albumin, Serum 4.0 g/dL 3.5-4.8 Globulin, Total 3.2 g/dL 1.5-4.5 A/G Ratio 1.3 1.2-2.2 Bilirubin, Total 0.7 mg/dL 0.0-1.2 Alkaline Phosphatase, S 81 IU/L 39-117 AST (SGOT) 23 IU/L 0-40 ALT (SGPT) 15 IU/L 0-44 Comp. Metabolic Panel (14) - 03/14/17 09:06 Glucose, Serum 118 mg/dL 65-99 BUN 12 mg/dL 8-27 Creatinine, Serum 0.75 mg/dL 0.76-1.27 eGFR If NonAfricn Am 92 mL/min/1.73 >59 eGFR If Africn Am 107 mL/min/1.73 >59 BUN/Creatinine Ratio 16 10-24 Sodium, Serum 145 mmol/L 134-144 Potassium, Serum 4.1 mmol/L 3.5-5.2 Chloride, Serum 102 mmol/L 96-106 Carbon Dioxide, Total 30 mmol/L 18-29 Calcium, Serum 9.3 mg/dL 8.6-10.2 Protein, Total, Serum 7.2 g/dL 6.0-8.5 Albumin, Serum 4.0 g/dL 3.5-4.8 Globulin, Total 3.2 g/dL 1.5-4.5 A/G Ratio 1.3 1.2-2.2 Bilirubin, Total 0.7 mg/dL 0.0-1.2 Alkaline Phosphatase, S 81 IU/L 39-117 AST (SGOT) 23 IU/L 0-40 ALT (SGPT) 15 IU/L 0-44 Lipid Panel - 03/14/17 09:06 Cholesterol, Total 185 mg/dL 100-199 Triglycerides 89 mg/dL 0-149 HDL Cholesterol 46 mg/dL >39 VLDL Cholesterol Denzel 18 mg/dL 5-40 LDL Cholesterol Calc 121 mg/dL 0-99 CBC WITH AUTO DIFFERENTIAL - 05/21/17 00:41 BASOPHILS RELATIVE PERCENT 0.5 % 0.0-2.5 EOSINOPHILS RELATIVE PERCENT 1.9 % <=5.0 HEMATOCRIT 44.5 % 38.8-50.0 HEMOGLOBIN 14.9 g/dL 13.5-17.5 LYMPHOCYTES RELATIVE PERCENT 13.6 % 22.0-49.0 MEAN CORPUSCULAR HEMOGLOBIN 29.7 pg 26.0-34.0 MEAN CORPUSCULAR HEMOGLOBIN CONC 33.5 g/dL 31.0-37.0 MEAN CORPUSCULAR VOLUME 88.6 fL 81.2-95.1 MONOCYTES RELATIVE PERCENT 10.0 % 2.0-9.0 NEUTROPHILS RELATIVE PERCENT 74.0 % 40.0-75.0 NUCLEATED RED BLOOD CELLS 0 /100 <=0 PLATELET COUNT 187 10E9/L 150-450 RED BLOOD CELL COUNT 5.02 10E12/L 4.32-5.72 RED CELL DISTRIBUTION WIDTH 13.3 % 11.8-15.6 [id number] 13.3 10E9/L 3.5-10.5 [id number] 1.80 10E9/L 0.90-2.90 [id number] 1.33 10E9/L 0.30-0.90 [id number] 0.25 10E9/L 0.05-0.50 [id number] 9.82 10E9/L 1.70-7.00 [id number] 0.06 10E9/L 0.00-0.30 [id number] 0 % COMPREHENSIVE METABOLIC PANEL - 05/21/17 00:41 ALBUMIN 4.1 g/dL 3.4-4.8 ALKALINE PHOSPHATASE 83 U/L 29-122 ALT 17 U/L 10-46 ANION GAP 7 AST 24 U/L 16-37 BILIRUBIN,TOTAL 0.8 mg/dL 0.0-1.2 BUN BLOOD 19 mg/dL 6-20 CALCIUM 9.2 mg/dL 8.7-10.5 CHLORIDE 107 mmol/L 99-111 CO2 28 mmol/L 20-36 CREATININE 0.88 mg/dL 0.60-1.20 EGFR > mL/min >59 GLUCOSE 157 mg/dL 74-106 POTASSIUM 2.8 mmol/L 3.6-4.9 PROTEIN TOTAL 7.2 g/dL 6.4-8.3 SODIUM 142 mmol/L 136-145 CMP - 07/08/17 11:32 GLUCOSE 111 mg/dL 65-99 UREA NITROGEN (BUN) 18 mg/dL 7-25 CREATININE 0.78 mg/dL 0.70-1.18 eGFR NON-AFR. CENTRAL AFRICAN 91 mL/min/1.73m2 > OR=60 eGFR 105 mL/min/1.73m2 > OR=60 BUN/CREATININE RATIO NOT APPLICABLE (calc) 6-22 SODIUM 147 mmol/L 135-146 POTASSIUM 3.5 mmol/L 3.5-5.3 CHLORIDE 107 mmol/L 98-110 CARBON DIOXIDE 32 mmol/L 20-31 CALCIUM 9.3 mg/dL 8.6-10.3 PROTEIN, TOTAL 6.8 g/dL 6.1-8.1 ALBUMIN 3.8 g/dL 3.6-5.1 GLOBULIN 3.0 g/dL (calc) 1.9-3.7 ALBUMIN/GLOBULIN RATIO 1.3 (calc) 1.0-2.5 BILIRUBIN, TOTAL 0.5 mg/dL 0.2-1.2 ALKALINE PHOSPHATASE 74 U/L 40-115 AST 20 U/L 10-35 ALT 13 U/L 9-46 POTASSIUM - 12/30/17 14:20 POTASSIUM 3.7 mmol/L 3.5-5.3 Encounters ACCT No. Visit Date/Time Discharge Status Pt. Type Provider Facility Loc./Unit Complaint [id number] 01/25/2014 08:56:00 01/25/2014 23:59:59 CLS Outpatient MAJANO MATT LESTER [id number] 11/23/2013 10:24:00 11/23/2013 23:59:59 CLS Outpatient DON FAULKNER APRN [id number] 07/23/2013 13:33:00 07/23/2013 23:59:59 CLS Outpatient DON FAULKNER APRN [id number] 07/06/2013 14:24:00 07/06/2013 23:59:59 CLS Outpatient DON FAULKNER APRN [id number] 04/09/2013 12:26:00 04/09/2013 23:59:59 CLS Outpatient DON FAULKNER APRN [id number] 03/23/2013 15:47:00 03/23/2013 23:59:59 CLS Outpatient RADHA RIZO PHD [id number] 03/20/2013 09:48:00 03/20/2013 23:59:59 CLS Outpatient RADHA RIZO PHD [id number] 03/11/2013 08:41:00 03/11/2013 23:59:59 CLS Outpatient RADHA RIZO PHD [id number] 09/08/2012 13:02:00 09/08/2012 23:59:59 CLS Outpatient [id number] 09/02/2012 13:28:00 09/02/2012 23:59:59 CLS Outpatient [id number] 05/19/2012 14:13:00 05/19/2012 23:59:59 CLS Outpatient DON FAULKNER APRN [id number] 10/23/2016 10:10:00 Document Registration [id number] 06/23/2016 07:06:00 Document Registration [id number] 05/21/2017 00:07:44 05/21/2017 03:11:00 DIS [facility] ELIN VENTURA [facility] [id number] 05/31/2016 07:05:00 Document Registration [id number] 02/16/2016 07:06:00 Document Registration [id number] 07/31/2017 13:00:00 07/31/2017 23:59:59 CLS Outpatient DON FAULKNER APRN [facility] [id number] 12/30/2017 13:00:00 Document Registration [id number] 07/08/2017 10:20:00 Document Registration [id number] 03/14/2017 08:40:00 Document Registration [id number] 08/13/2017 13:30:00 08/13/2017 23:59:59 CLS Preadmit JULIO CÉSAR CERVANTES MD [facility] CARD DEMENTIA [id number] 08/13/2017 12:16:00 08/13/2017 23:59:59 CLS Outpatient JULIO CÉSAR CERVANTES MD [facility] RAD DEMENTIA [id number] 07/12/2017 13:04:00 07/12/2017 23:59:59 CLS Outpatient JULIO CÉSAR CERVANTES MD [facility] RAD ANOXIC BRAIN DAMAGE, ALZHEIMERS DISEASE [id number] 07/08/2017 14:19:00 07/08/2017 23:59:59 CLS Preadmit DON FAULKNER [facility] RAD BEHAVIORAL CHANGE [id number] 01/12/2016 14:05:00 01/12/2016 15:31:00 DIS Emergency EDELMIRA BOONE, CHRISTIN Mathur [facility] ER LOWER ABD PAIN [id number] 01/21/2015 21:10:00 01/22/2015 06:00:00 DIS Outpatient NANNETTE CAMERON APRN [facility] SLEEP STEPHON [id number] 04/16/2014 07:13:00 04/16/2014 23:59:59 CLS Outpatient HANNA BLANKENSHIP DO [facility] LAB HEALTH SCREENING MEDICATION MONITORING DM HLP HTN [id number] 12/14/2013 08:48:00 12/14/2013 23:59:59 CLS Outpatient KORINA BOONE, CALIXTO Loya [facility] LAB HYPOPOTASSEMIA [id number] 11/06/2013 19:35:00 11/07/2013 12:10:00 DIS Inpatient ARNOLDO RAMON MD [facility] CSD MALIGNANT HYPERTENSION DIZZINESS [id number] 06/15/2013 21:14:00 06/16/2013 05:05:00 DIS Outpatient DON FAULKNER [facility] SLEEP ISCHEMIC HEART DISEASE,HTN,EXCESSIVE DAYTIME SLEEP [id number] 02/24/2018 10:30:00 PEN Preadfeng MILLER MD, BONNIE Mccord [facility] ENDO SCREENING [id number] 08/12/2017 18:55:00 Document Registration [id number] 05/25/2014 10:42:00 Document Registration [id number] 12/28/2013 08:41:00 Document Registration [id number] 12/23/2009 19:18:00 Document Registration [id number] 12/22/2009 10:45:00 Document Registration [id number] 12/22/2009 10:45:00 Document Registration [id number] 03/15/2017 09:12:00 Document Registration
[2018-02-24] MEDS ORDERED: fentaNYL INJECTION 100 MCG/2 ML AMP IVP ONE (08:45)
[2018-02-24] MEDS ORDERED: MIDAZOLAM 2 MG/2 ML (VERSED) VIAL IVP ONE (08:45)
[2018-02-24] MEDS ORDERED: NS IV 500 ML 500 ML IV PRN (09:28)
--- NOTE | 2018-02-24 10:19 | History & Physicial ---
History of Present Illness History of Present Illness Reason for visit/HPI to undergo screening colonoscopy Date of Admission 02/24/18 Date Seen by Provider: Feb 24, 2018 Time Seen by Provider: 10:16 I consulted on this patient on 02/24/18 10:16 Attending Physician Bonnie Miller MD Admitting Physician Cammie Whitley DO Consult Allergies and Home Medications Allergies Coded Allergies: NKANo Known Allergies (Verified Allergy, Unknown, 09/26/06) Home Medications Aspirin 325 Mg Tablet, 325 MG PO DAILY, (Reported) Atorvastatin Calcium 80 Mg Tablet, 40 MG PO HS, (Reported) take 1/2 of 80mg tab Carvedilol 12.5 Mg Tablet, 6.25 MG PO BID, (Reported) take 1/2 12.5mg tab Furosemide 20 Mg Tablet, 20 MG PO DAILY, (Reported) Lisinopril 20 Mg Tablet, 20 MG PO DAILY, (Reported) Memantine HCl 28 Mg Cap.spr.24, 28 MG PO DAILY, (Reported) Metformin HCl 500 Mg Tablet, 250 MG PO DAILY, (Reported) take 1/2 of 500mg Omeprazole 20 Mg Capsule.dr, 20 MG PO BID, (Reported) Potassium Chloride 20 Meq Tablet.er, 60 MEQ PO TID, (Reported) take 3 (20meq) tabs Rivastigmine Tartrate 6 Mg Capsule, 6 MG PO BID, (Reported) Vit A/C/E/Zinc/Co 1 Cap Capsule, 1 CAP PO BID, (Reported) Patient Home Medication List Home Medication List Reviewed: Yes Past Akqeemu-Axchnb-Atuslc Hx Patient Social History Marrital Status: Employed/Student: retired Alcohol Use: Denies Use Recreational Drug Use: No Smoking Status: Former Smoker Former Smoker, Quit: Dec 15, 2006 Recent Foreign Travel: No Contact w/other who traveled: No Recent Hopitalizations: No Recent Infectious Disease Expo: No Seasonal Allergies Seasonal Allergies: No Surgeries Yes Gallbladder Respiratory Yes Currently Using CPAP: Yes Cardiovascular Yes Aneurysm, Hypertension Neurological Yes Dementia Reproductive System Hx Reproductive Disorders: No Gastrointestinal Yes Gastrointestinal Bleed, Hepatitis, Polyps, Ulcer Musculoskeletal No Endocrine History of Endocrine Disorders: Yes Family Medical History Significant Family History: No Pertinent Family Hx Review of Systems Constitutional: no symptoms reported EENTM: no symptoms reported Respiratory: no symptoms reported Cardiovascular: no symptoms reported Gastrointestinal: no symptoms reported Genitourinary: no symptoms reported Musculoskeletal: no symptoms reported Skin: no symptoms reported Psychiatric/Neurological: No Symptoms Reported Physical Exam Vital Signs Vital Signs - First Documented 02/24/18 08:30 Temp 99.1 Pulse 110 Resp 20 B/P (MAP) 144/78 (100) Pulse Ox 93 O2 Delivery Room Air Capillary Refill : Height, Weight, BMI Height: 5'5.00" Weight: 140lbs. 0.0oz. [id number]; 23.3 BMI Method:Stated General Appearance: No Apparent Distress Neck: Normal Inspection Respiratory: Lungs Clear Cardiovascular: Regular Rate, Rhythm Gastrointestinal: Non Tender, Soft Rectal: Deferred Extremity: Normal Inspection Neurologic/Psychiatric: Alert, Oriented x3 Skin: Warm/Dry Assessment/Plan Assessment and Plan For screening colonoscopy Admission Diagnosis Admission Status: Other (Outpt Proc) BONNIE MILLER MD Feb 24, 2018 10:19
--- NOTE | 2018-02-24 10:20 | Conscious Sedation/ASA ---
Conscious Sedation Pre-Proced Time Reviewed: 10:19 ASA Class: 2 Airway Mallampati Classification: ([place] appropriate class) I. II. III, IV Lungs Heart ASA score ASA 1: a normal healthy patient ASA 2: a patient with a mild systemic disease (mid diabetes, controlled hypertension, obesity ASA 3: a patient with a severe systemic disease that limits activity (angina , COPD, prior Myocardial infarction) ASA 4: a patient with an incapacitating disease that is a constant threat to life (CHF, renal failure) ASA 5: a moribund patient not expected to survive 24 hrs. (ruptured aneurysm) ASA 6: a declared brain patient whose organs are being harvested. For emergent operations, add the letter E after the classification Grade 2 Sedation Plan: Discussed options with patient/fam Note The patient is an appropriate candidate to undergo the planned procedure, sedation, and anesthesia. The patient immediately re-assessed prior to indication. BONNIE MILLER MD Feb 24, 2018 10:20
[2018-02-24] MEDS ORDERED: fentaNYL INJECTION 100 MCG/2 ML AMP ONE (10:33)
[2018-02-24] MEDS ORDERED: MIDAZOLAM 2 MG/2 ML (VERSED) VIAL ONE ×4 (10:33→10:34)
--- NOTE | 2018-02-24 11:04 | Endo Procedure Record ---
Endo Procedure Report Date of Procedure Last Colonoscopy: Yes Feb 24, 2018 Surgeon (s) BONNIE MILLER MD Post Procedure/Op Diagnosis very few sigmoid diverticula Procedure Performed colonoscopy to cecum Description of Procedure Anesthesia Type: Conscious Sedation Specimen(s) collected/removed None Description of the Procedure Indication for the procedure: This gentleman came in for screening colonoscopy. He reported personal history of polyps but 15 years ago. Informed consent was obtained after reviewing the procedure in detail. Description of procedure: He was placed in left lateral decubitus position and his vital signs were monitored. Conscious sedation was achieved using Versed and fentanyl. Digital rectal examination was unremarkable. The colonoscope was then introduced in the rectum and advanced all the way up to the cecum. Scope was then withdrawn slowly and the mucosa examined in a systematic fashion Findings: Very few sigmoid diverticulae. No recurrent polyps were found He tolerated the procedure well and was taken back to the nursing area in a stable condition. Impression: Polyp surveillance. No recurrence. Recommend repeating in 5 years. Copy Copies To 1: MATT MAJANO XAVIER M MD Feb 24, 2018 11:04
--- NOTE | 2018-02-24 11:06 | Discharge Inst-Simple/Standard ---
Discharge Inst-Standard Discharge Medications New, Converted or Re-Newed RX: Other Patient Instructions/Follow Up Plan of Care/Instructions/FU: repeat colonoscopy in 5 Activity as Tolerated: Yes Discharge Diet: No Restrictions BONNIE MILLER MD Feb 24, 2018 11:06
[2018-02-24 11:25] VITALS: BP 171/83
[2018-02-24 11:55] VITALS: BP 156/93
[2018-02-24 12:40] VITALS: BP 156/93
== END 2018-02-24 12:40 | disposition home or self-care (01) ==
LOC: ENDO 08:25
PROVIDERS: ATTEND Surgery
DX: Z12.11 Encounter for screening for malignant neoplasm of colon (principal); Z86.010 Personal history of colon polyps; K57.30 Diverticulosis of large intestine without perforation or abscess without bleeding; I10 Essential (primary) hypertension; Z87.891 Personal history of nicotine dependence; Z79.84 Long term (current) use of oral hypoglycemic drugs; Z79.899 Other long term (current) drug therapy; F03.90 Unspecified dementia, unspecified severity, without behavioral disturbance, psychotic disturbance, mood disturbance, and anxiety; Z86.79 Personal history of other diseases of the circulatory system
CPT/HCPCS: 82962

== ENCOUNTER 2018-06-03 11:31 | Emergency (ER) | payer MEDICARE ==
[~2018-06-03] VITALS: Ht 165.1 cm; Wt 60.3 kg
--- OUTSIDE RECORDS SUMMARY | 2018-06-03 11:36 | XMS REPORT | Clinical Summary ---
Author Author [facility] Organization [facility] Address Unknown Phone Unavailable Care Team Providers Care Butcher Meat Name Role Phone Beti Red Team PP Allergies No Known Allergies Current Medications No known medications Active Problems Not on file Social History Tobacco Use Types Packs/Day Years Used Date Never Smoker Smokeless Tobacco: Never Used Sex Assigned at Date Recorded Not on file Last Filed Vital Signs Vital Sign Reading Time Taken Blood Pressure 170/82 05/21/2017 2:30 AM [employer] Pulse 73 05/21/2017 2:30 AM [employer] Temperature 37.1 C (98.7 F) 05/21/2017 12:02 AM [employer] Respiratory Rate 18 05/21/2017 2:30 AM [employer] Oxygen Saturation 97% 05/21/2017 2:30 AM [employer] Inhaled Oxygen - - Concentration Weight 64.4 kg (142 lb) 05/21/2017 12:02 AM [employer] Height 162.6 cm (5' 4") 05/21/2017 12:02 AM [employer] Body Mass Index 24.37 05/21/2017 12:02 AM [employer] [facility] Plan of Treatment Health Maintenance Due Date Last Done Comments Annual Wellness Visit 1945 Hepatitis C Screening 1945 DTaP,Tdap,and Td Vaccines 1964 (1 - Tdap) Colon Cancer Screening 10/26/1995 Zoster Recombinant 10/26/1995 Vaccine (RZV,Shingrix) (1 of 2 - [facility] 2 Dose Standard) Pneumo-Adult (1 of 2 - 2010 PCV13) Influenza Vaccine (#1) 2018 Results Not on filefrom Last 3 Months
--- OUTSIDE RECORDS SUMMARY | 2018-06-03 11:37 | XMS REPORT ---
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 3775871 Problem Hypercholesterolemia E78.00 Active 81376572 Problem Type 2 diabetes mellitus without complications E11.9 Active 164007813 Problem Macular degeneration H35.30 Active 516292164 ALLERGIES No Information ENCOUNTERS Encounter Location Date Diagnosis [place] [id number] [place] [address]52- 0034 Apr, Type 2 diabetes mellitus without complications E11.9 and Alzheimers disease, unspecified G30.9 [place] [id number] [place] [address] 12402- 3520 Dec, [place] [id number] [place] [address] 80859- 6809 Dec, Type 2 diabetes mellitus without complications E11.9 ; Hypokalemia E87.6 and Alzheimers disease, unspecified G30.9 [place] [address] [id number] [place] [address] 41040- 1126 14 Jul, 2017 Alzheimers disease, unspecified G30.9 [place] [id number] [place] [address] 80183- 2135 06 Jul, 2017 [place] [address] [place] [address] Jul, [place] [address] [address]- [address]14 Jun, [place] [address] 58108- 8936 Jun, Alzheimers disease, unspecified G30.9 ; Hypokalemia E87.6 and Behavioral change R46.89 [place] [address] 97903- 2411 Jun, [place] [address] 0[address]10- 5010 May, [place] [address] 9[address]16- 8867 Feb, [place] [address] 01923- 3690 Feb, Type 2 diabetes mellitus without complications E11.9 ; Hypokalemia E87.6 and Alzheimers disease, unspecified G30.9 [place] [id number] [place] [address] 69822- 0904 Feb, Type 2 diabetes mellitus without complications E11.9 ; Alzheimers disease, unspecified G30.9 and Hypokalemia E87.6 [place] [id number] [place] [address] 02473- 0852 October, [place] [address] [address]- 3772 October, Type 2 diabetes mellitus without complications E11.9 ; Hypokalemia E87.6 ; Rhonchi R09.89 and Bilateral impacted cerumen H61.23 [place] [id number] [place] [address] 93656- 3778 October, Hypokalemia E87.6 ; Essential (primary) hypertension I10 and Type 2 diabetes mellitus without complications E11.9 [place] [id number] [place] [address] 50259- 5449 October, Hypokalemia E87.6 ; Type 2 diabetes mellitus without complications E11.9 and Essential (primary) hypertension I10 [place] [address] [place] [address] 87[address] Jul, Hypokalemia E87.6 [facility] [address] [place] [address] 1704 Jun, Hypokalemia E87.6 [place] [address] [place] [address] 1659 Jun, Hypokalemia E87.6 [place] [id number] [place] [address] 36461- 7263 May, Hypokalemia E87.6 [place] [address] [address] 4511 May, Type 2 diabetes mellitus without complications E11.9 and Hypokalemia E87.6 [place] [address] [place] [address] 69[address] Feb, Type 2 diabetes mellitus without complications E11.9 and Alzheimers disease, unspecified G30.9 [place] [address], [place] [address] 3809 Jan, Hypokalemia E87.6 [place] [address] [place] [address]- 8405 Jan, Hypokalemia E87.6 [facility] [address] [place] [address] 1801 October, Type 2 diabetes mellitus without complications E11.9 ; Hypokalemia E87.6 ; Macular degeneration H35.30 ; Alzheimers disease, unspecified G30.9 and Essential hypertension I10 [facility] [address], [place] [address] 9282 October, Routine health maintenance Z00.00 and Type 2 diabetes mellitus without complications E11.9 [facility] [id number] [place] [address] 78664- 7276 October, Routine health maintenance Z00.00 and Type 2 diabetes mellitus without complications E11.9 [facility] [id number] [place] [address] 82538- 4556 18 Jul, 2015 [facility] [id number] [place] [address] 09778- 7941 Jul, Hypokalemia E87.6 ; Type 2 diabetes mellitus without complications E11.9 and Abnormal CBC R79.89 [facility] [id number] [place] [address] 09588- 9440 15 Jul, 2015 Hypokalemia E87.6 ; Type 2 diabetes mellitus without complications E11.9 and Abnormal CBC R79.89 [facility] [id number] [place] [address] 26041- 0342 Jul, [facility] [id number] [place] [address] 37408- 5470 Jul, Abnormal CBC R79.89 and Lymphadenopathy of head and neck region R59.9 [facility] [id number] [place] [address] 32179- 6096 May, [facility] [id number] [place] [address] 98361- 2517 Apr, [facility] [id number] [place] [address] 77214- 5937 Apr, [facility] [id number] [place] [address] 16462- 8698 Apr, [facility] [id number] [place] [address] 05770- 1293 Apr, [facility] [id number] [place] [address] 33086- 9910 Mar, Hypokalemia E87.6 [facility] [address] [place] [address]- 1682 15 Mar, 2015 [facility] [address], [place] [address]- 9991 Mar, Hypokalemia E87.6 ; Type 2 diabetes mellitus without complications E11.9 and Hypokalemia 276.8 [facility] [address], [place] [address]- 2683 Jan, Hypokalemia 276.8 [facility] [id number] [place] [address] 46871- 3655 Jan, Hypertension 401.9 [facility] [id number] [place] [address] 80651- 7661 Jan, [facility] [address], [place] [address]- 5882 Nov, Diabetes mellitus without mention of complication, type II or unspecified type, not stated as uncontrolled 250.00 and Hypertension 401.9 [facility] [address], [place] [address]- 4880 Nov, [facility] [address], [place] [address]- 1033 Sep, [facility] [address], [place] [address]- 8251 Sep, [facility] [address], [place] [address]- 1926 Jun, [facility] [address], [place] [address]- 6112 Jun, [facility] [address], [place] [address]- 4015 Jan, [facility] [address], [place] [address]- 1548 Jan, [facility] [address], [place] [address]- 5873 Jan, [facility] [place] [facility] [address] [id number] [place] [address]- 9870 Jan, [facility] [place] [facility] [address] [id number] [place] [address]- 7609 Jan, [facility] [place] [facility] [address] [id number] [place] [address]- 7697 Jan, [facility] [place] [facility] [address] [id number] [place] [address]- 4067 Dec, [facility] [place] [facility] [address] [id number] [place] [address]- 6318 Nov, [facility] [place] [facility] [address] [id number] [place] [address]- 1880 Nov, [facility] [place] [facility] [address] [id number] [place] [address]- 0036 Nov, [facility] [place] [facility] [address] [id number] [place] [address]- 6470 Nov, [facility] [place] [facility] [address] [id number] [place] [address]- 7751 October, [facility] [place] [facility] [address] [id number] [place] [address]- 6344 Jul, [facility] [place] [facility] [address] [id number] [place] [address]- 8541 Jul, [facility] [place] [facility] [address] [id number] [place] [address]- 7265 Jul, [facility] [place] [facility] [address] [id number] [place] [address]- 9710 Jul, [facility] [place] [facility] [address] [id number] [place] [address]- 5006 Jul, [facility] [place] [facility] [address] [id number] [place] [address]- 5971 Jul, [facility] [place] [facility] [address] [id number] [place] [address]- 2375 Jun, [facility] [address] [id number] [place] [address]- 2324 Jun, [facility] [place] [facility] [address] [id number] [place] [address]- 8495 Jun, [facility] [place] [facility] [address] [id number] [place] [address]- 6192 Jun, [facility] [place] [facility] [address] [id number] [place] [address]- 2838 Jun, [facility] [place] [facility] [address] [id number] [place] [address]- 1054 Jun, [facility] [place] [facility] [address] [id number] [place] [address]- 5897 Jun, [facility] [place] [facility] [address] [id number] [place] [address]- 0367 Apr, [facility] [place] [facility] [address] [id number] [place] [address]- 9416 Apr, [facility] [place] [facility] [address] [id number] [place] [address]- 3084 Mar, [facility] [place] [facility] [address] [id number] [place] [address]- 1793 Mar, [facility] [place] [facility] [address] [id number] [place] [address]- 8684 Mar, [facility] [place] [facility] [address] [id number], [place] [address]- 9847 Mar, [facility] [place] [facility] [address] [id number] [place] [address]- 3322 Feb, [facility] [place] [facility] [address] [id number] [place] [address]- 0860 Feb, [facility] [place] [facility] [address] [id number], [place] [address]- 0423 Dec, [facility] [place] [facility] [address] [id number] [place] [address]- 3043 Aug, [facility] [place] [facility] [address] [id number] [place] [address]- 3663 Aug, [facility] [place] [facility] [address] [id number] [place] [address]- 0631 Aug, [facility] [place] [facility] [address] [id number] [place] [address]- 9181 Jul, [facility] [place] [facility] [address] [id number] [place] [address]- 6466 May, [facility] [place] [facility] [address] [id number] [place] [address]- 3562 May, [facility] [place] [facility] [address] [id number] [place] [address] May, [facility] [place] [facility] [address] [id number] [place] [address]- 4534 May, [facility] [place] [facility] [address] [id number] [place] [address]- 0344 Mar, [facility] [place] [facility] [address] [id number] [place] [address]- 5033 Mar, [facility] [place] [facility] [address] [id number] [place] [address]- 7458 Sep, [facility] [place] [facility] [address] [id number] [place] [address]- 2863 Sep, [facility] [place] [facility] [address] [id number] [place] [address]- 0103 Jun, [facility] [place] [facility] [address] [id number] [place] [address]- 6308 May, [facility] [place] [facility] [address] [id number] [place] [address]- 5613 Apr, [facility] [place] [facility] [address] [id number] [place] [address]- 5517 Apr, [facility] [place] [facility] [address] [id number] [place] [address]- 4118 16 Apr, 2011 [facility] [place] [facility] [address] [id number], [place] [address]- 6319 16 Apr, 2011 [facility] [place] [facility] [address] [id number] [place] [address]- 5384 Mar, [facility] [place] [facility] [address] [id number], [place] [address]- 3726 Dec, [facility] [place] [facility] [address] [id number] [place] [address]- 6978 Nov, [facility] [place] [facility] [address] [id number], [place] [address]- 5954 Mar, [facility] [place] [facility] [address] [id number], [place] [address]- 1383 Jan, [facility] [place] [facility] [address] [id number], [place] [address]- 6588 24 Apr, 2009 [facility] [place] [facility] [address] [id number], [place] [address]- 8164 Apr, [facility] [place] [facility] [address] [id number], [place] [address]- 8317 Apr, [facility] [place] [facility] [address] [id number], [place] [address]- 7143 Apr, [facility] [place] [facility] [address] [id number], [place] [address]- 1452 Mar, [facility] [place] [facility] [address] [id number], [place] [address]- 1544 Mar, [facility] [place] [facility] [address] [facility] [id number], [place] [address]- 4503 Mar, [facility] [place] [facility] [address] [id number], [place] [address]- 4659 Mar, [facility] [place] [facility] [address] [facility] [id number] [place] 9378 Sep, IMMUNIZATIONS No Known Immunizations SOCIAL HISTORY Never Assessed REASON FOR VISIT diabetic check PLAN OF CARE Activity Details Follow Up 4 Months Reason:DM VITAL SIGNS Height 66 in 2018-05-14 Weight 133.9 lbs 2018-05-14 Temperature 97.8 degrees Fahrenheit 2018-05-14 Heart Rate 72 bpm 2018-05-14 Respiratory Rate 18 2018-05-14 BMI 21.61 kg/m2 2018-05-14 Blood pressure systolic 122 mmHg 2018-05-14 Blood pressure diastolic 64 mmHg 2018-05-14 MEDICATIONS Medication Instructions Dosage Frequency Start Date End Date Duration Status Lisinopril 20 MG Orally twice a day 1 tablet 12h Active Metformin HCl 500 MG Orally Twice a day 0.5 tablet with meals 12h Active Multivitamins Orally Once a day 1 capsule 24h Active Potassium Chloride Hanna ER 20 meq Orally 3 times a day 3 tablets 8h Active Namenda XR 28 MG Orally Once a day per Kee Neuro 1 capsule May, Active Rivastigmine Tartrate 6 MG Orally Twice a day 1 capsule with food 12h Active Carvedilol Active Atorvastatin Calcium 40 MG Orally Once a day 1 tablet 24h Active Aspirin EC 325 MG Orally Once a day 1 tablet 24h Active RESULTS Name Result Date Reference Range A1C (IN HOUSE) 2018-05-14 A1C IN HOUSE 6.3 4.3 - 5.6 % Previous A1c 6.2 Lot [id number] Exp date 08/2019 MICROALBUMIN, URINE (IN HOUSE) 2018-05-14 MICROALBUMIN normal Lot # [id number] Exp date 06/16/2018 Clarity clear Color yellow ALB 30 mg/L CRE 200 mg/dL A:C (IN HOUSE) <30 mg/g Control Control Lot # Exp date PROCEDURES Procedure Date Ordered Result Body Site GLYCATED HEMOGLOBIN TEST May 14, 2018 MICROALBUMIN, SEMIQUANT May 14, 2018 [facility] VISIT ESTABLISHED PATIENT May 14, 2018 INSTRUCTIONS MEDICATIONS ADMINISTERED No Known Medications MEDICAL (GENERAL) HISTORY Type Description Date Medical History hypertension Medical History sleep apnea-CPAP 8cm [id number]-Dtyeul Paykel Eson Nasal Mask Medical History hypokalemia [...] hypertension 10/2013 Hospitalization History Somewhere in [facility] May 2017
--- OUTSIDE RECORDS SUMMARY | 2018-06-03 11:41 | XMS REPORT | Continuity of Care Document ---
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 01/30/2008 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 01/30/2008 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 01/30/2008 RADHA RIZO PHD 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 01/30/2008 RADHA RIZO PHD 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 01/30/2008 RADHA RIZO PHD 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 01/30/2008 LIDIA FUALKNER APRNNDA S 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 01/30/2008 LIDIA FAULKNER APRNNDA S 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 01/30/2008 LIDIA FAULKNER APRNNDA S 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 01/30/2008 DON FAULKNER APRN S 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 01/30/2008 MAJANO DO, MATT K 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 03/09/2008 DON FAULKNER APRN S 401.1 ESSENTIAL HYPERTENSION BENIGN 03/09/2008 DON FAULKENR APRN S V58.69 Taking High-risk Medication 03/09/2008 [...] APRNNDA S 309.81 An Ptsd 01/27/2009 LUCIE STOCK ROOM MANAGER, DON S 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 01/27/2009 LUCIE STOCK ROOM MANAGER, DON S 309.81 An Ptsd 01/27/2009 LUCIE STOCK ROOM MANAGER, DON S 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 01/27/2009 LUCIE PADILLA DON S 309.81 An Ptsd 01/27/2009 LUCIE PADILLA DON S 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 01/27/2009 MAJANO DO MATT K 309.81 An Ptsd 01/27/2009 MAJANO DO MATT K 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 02/15/2009 LIDIA FAULKNRE APRNNDA S 401.9 Unspecified Essential Hypertension 02/15/2009 401.9 Unspecified Essential Hypertension 02/15/2009 401.9 Unspecified Essential Hypertension 02/15/2009 RADHA RIZO PHD 401.9 Unspecified Essential Hypertension 02/15/2009 RDAHA RIZO PHD 401.9 Unspecified Essential Hypertension 02/15/2009 [...] DUCKWORTHN, DON S 799.02 Hypoxemia 01/30/2010 LUCIE STOCK ROOM MANAGER, DON S 276.8 HYPOKALEMIA 01/30/2010 LUCIE STOCK ROOM MANAGER, DON S 799.02 Hypoxemia 01/30/2010 LUCIE DUCKWORTHN, DON S 276.8 HYPOKALEMIA 01/30/2010 LUCIE PADILLA, DON S 799.02 Hypoxemia 01/30/2010 MAJANO JAYSON LESTERA K 276.8 HYPOKALEMIA 01/30/2010 MAJANO DO, MATT K 799.02 Hypoxemia 11/27/2010 LUCIE PADILLA, DON S 573.3 Hepatitis Unspecified 11/27/2010 573.3 Hepatitis Unspecified 11/27/2010 573.3 Hepatitis Unspecified 11/27/2010 RADHA RIZO PHD 573.3 Hepatitis Unspecified 11/27/2010 RADHA RIZO PHD 573.3 Hepatitis Unspecified 11/27/2010 RADHA RIZO PHD 573.3 Hepatitis Unspecified 11/27/2010 LUCIE DUCKWORTHN, DON S 573.3 Hepatitis Unspecified 11/27/2010 LUCIE STOCK ROOM MANAGER, DON S 573.3 Hepatitis Unspecified 11/27/2010 LUCIE STOCK ROOM MANAGER, DON S 573.3 Hepatitis Unspecified 11/27/2010 LUCIE STOCK ROOM MANAGER, DON S 573.3 Hepatitis Unspecified 11/27/2010 MAJANO [...] SKIN AND SUBCUTANEOUS TISSUE 07/13/2011 SALLIE ANDERSON, RADHA Mathur V06.1 TDAP DX 07/13/2011 RADHA RIZO PHD 686.9 UNSPECIFIED LOCAL INFECTION OF SKIN AND SUBCUTANEOUS TISSUE 07/13/2011 RADHA RIZO PHD V06.1 TDAP DX 07/13/2011 LUCIE STOCK ROOM MANAGER, DON S 686.9 UNSPECIFIED LOCAL INFECTION OF SKIN AND SUBCUTANEOUS TISSUE 07/13/2011 LUCIE STOCK ROOM MANAGER, DON S V06.1 TDAP DX 07/13/2011 LUCIE STOCK ROOM MANAGER, DON S 686.9 UNSPECIFIED LOCAL INFECTION OF SKIN AND SUBCUTANEOUS TISSUE 07/13/2011 LUCIE STOCK ROOM MANAGER, DON S V06.1 TDAP DX 07/13/2011 LUCIE STOCK ROOM MANAGER, DON S 686.9 UNSPECIFIED LOCAL INFECTION OF SKIN AND SUBCUTANEOUS TISSUE 07/13/2011 LUCIE STOCK ROOM MANAGER, DON S V06.1 TDAP DX 07/13/2011 LUCIE STOCK ROOM MANAGER, DON S 686.9 UNSPECIFIED LOCAL INFECTION OF SKIN AND SUBCUTANEOUS TISSUE 07/13/2011 LUCIE STOCK ROOM MANAGER, DON S V06.1 TDAP DX 07/13/2011 JAYSON [...] RADHA Mathur 380.4 IMPACTED CERUMEN 09/08/2012 LUCIE STOCK ROOM MANAGER, DON S 380.4 IMPACTED CERUMEN 09/08/2012 LUCIE STOCK ROOM MANAGER, DON S 380.4 IMPACTED CERUMEN 09/08/2012 LUCIE STOCK ROOM MANAGER, DON S 380.4 IMPACTED CERUMEN 09/08/2012 LUCIE STOCK ROOM MANAGER, DON S 380.4 IMPACTED CERUMEN 09/08/2012 MATT MAJANO DO K 380.4 IMPACTED CERUMEN 01/08/2013 RADHA RIZO PHD 780.93 MEMORY LOSS 01/08/2013 RADHA RIZO PHD 780.93 MEMORY LOSS 01/08/2013 RADHA RIZO PHD 780.93 MEMORY LOSS 01/08/2013 LUCIE STOCK ROOM MANAGER, DON S 780.93 MEMORY LOSS 01/08/2013 LUCIE STOCK ROOM MANAGER, DON S 780.93 MEMORY LOSS 01/08/2013 LUCIE STOCK ROOM MANAGER, DON S 780.93 MEMORY LOSS 01/08/2013 LUCIE STOCK ROOM MANAGER, DON S 780.93 MEMORY LOSS 01/08/2013 MATT MAJANO DO K 780.93 MEMORY LOSS 03/11/2013 RADHA RIZO PHD 294.8 OR DEMENTIA NOS 03/11/2013 RADHA RIZO PHD 294.8 OR DEMENTIA NOS 03/11/2013 RADHA RIZO PHD 294.8 OR DEMENTIA NOS 03/11/2013 LUCIE STOCK ROOM MANAGER, DON S 294.8 OR DEMENTIA NOS 03/11/2013 LUCIE STOCK ROOM MANAGER, DON S 294.8 OR DEMENTIA NOS 03/11/2013 LUCIE STOCK ROOM MANAGER, DON S 294.8 OR DEMENTIA NOS 03/11/2013 LUCIE STOCK ROOM MANAGER, DON S 294.8 OR DEMENTIA NOS 03/11/2013 MAJANO DOMATT K 294.8 OR DEMENTIA NOS 04/09/2013 LUCIE STOCK ROOM MANAGER, DON S 780.79 fatigue 04/09/2013 DON FAULKNER APRN S 780.79 fatigue 04/09/2013 DON FAULKNER APRN S 780.79 fatigue 04/09/2013 DON FAULKNER APRN S 780.79 fatigue 04/09/2013 MATT MAJANO DO 780.79 fatigue 06/16/2013 DON FAULKNER LANDSCAPER HELPER Ot 327.23 OBSTRUCTIVE SLEEP APNEA (ADULT) (PEDIATR [...] NEC 02/15/2017 Ot 414.01 CORONARY ATHEROSCLEROSIS OF LITTLE SHELL TRIBE CORON 02/15/2017 Ot 427.31 ATRIAL FIBRILLATION 02/15/2017 Ot V58.61 ANTICOAGULANTS,LT,CURRENT USE 05/21/2017 ELIN VENTURA V 373189 Psychiatric Evaluation ELIN VENTURA 05/21/2017 ELIN VENTURA [...] Ot 276.8 HYPOPOTASSEMIA 08/12/2017 JULIO CÉSAR CERVANTES MD Ot G30.9 ALZHEIMER'S DISEASE, UNSPECIFIED 08/12/2017 JULIO CÉSAR CERVANTES MD Ot 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, 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 08/12/2017 JULIO CÉSAR CERVANTES MD Ot R40.4 TRANSIENT ALTERATION OF AWARENESS 08/13/2017 JULIO CÉSAR CERVANTES MD Ot R40.4 TRANSIENT ALTERATION OF AWARENESS 08/13/2017 JULIO CÉSAR CERVANTES MD Ot R40.4 TRANSIENT ALTERATION OF AWARENESS 08/13/2017 JULIO CÉSAR CERVANTES MD Ot F03.90 UNSPECIFIED DEMENTIA WITHOUT BEHAVIORAL 08/13/2017 JULIO CÉSAR CERVANTES MD Ot 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 08/13/2017 JULIO CÉSAR CERVANTES MD Ot R40.1 STUPOR 09/03/2017 JULIO CÉSAR CERVANTES MD, Ot F03.90 UNSPECIFIED DEMENTIA WITHOUT BEHAVIORAL 09/03/2017 JULIO CÉSAR CERVANTES MD Ot 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 09/03/2017 JULIO CÉSAR CERVANTES MD Ot R40.1 STUPOR 09/11/2017 JULIO CÉSAR CERVANTES MD Ot F03.90 UNSPECIFIED DEMENTIA WITHOUT BEHAVIORAL 09/11/2017 JULIO CÉSAR CERVANTES MD Ot 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 09/11/2017 JULIO CÉSAR CERVANTES MD Ot R40.1 STUPOR 02/19/2018 BONNIE MILLER MD Ot Z01.818 ENCOUNTER FOR OTHER PREPROCEDURAL EXAMIN 02/20/2018 BONNIE MILLER MD Ot Z01.818 ENCOUNTER FOR OTHER PREPROCEDURAL EXAMIN 02/20/2018 BONNIE MILLER MD Ot Z01.818 ENCOUNTER FOR OTHER PREPROCEDURAL EXAMIN 02/24/2018 KORINA BOONE, CALIXTO Loya Ot 276.8 HYPOPOTASSEMIA 02/24/2018 Ot V58.69 [facility],LT, CURRENT USE 02/24/2018 Ot V58.83 ENCOUNTER FOR THERAPEUTIC DRUG MONITORIN 02/24/2018 BLANKENSHIP DO, HANNA Ot 250.00 DIAB JEREMIAH WO COMPL, TYPE II OR UNSPEC TY 02/24/2018 BLANKENSHIP DO, HANNA Ot 272.4 HYPERLIPIDEMIA NEC/NOS 02/24/2018 BLANKENSHIP DO, HANNA Ot 285.9 ANEMIA NOS 02/24/2018 BLANKENSHIP DO, HANNA Ot 401.9 HYPERTENSION NOS 02/24/2018 BLANKENSHIP DO, HANNA Ot V70.0 ROUTINE MEDICAL EXAM 02/24/2018 Ot 250.00 DIAB JEREMIAH WO COMPL, TYPE II OR UNSPEC TY 02/24/2018 Ot 276.8 HYPOPOTASSEMIA 02/24/2018 JULIO CÉSAR CERVANTES MD Ot G30.9 ALZHEIMER'S DISEASE, UNSPECIFIED 02/24/2018 JULIO CÉSAR CERVANTES MD Ot 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, 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 02/24/2018 JULIO CÉSAR CERVANTES MD, Ot F03.90 UNSPECIFIED DEMENTIA WITHOUT BEHAVIORAL 02/24/2018 JULIO CÉSAR CERVANTES MD Ot 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 02/24/2018 JULIO CÉSAR CERVANTES MD Ot R40.1 STUPOR 02/24/2018 BONNIE MILLER MD, Ot F03.90 UNSPECIFIED DEMENTIA WITHOUT BEHAVIORAL 02/24/2018 BONNIE MILLER MD, Ot I10 ESSENTIAL (PRIMARY) HYPERTENSION 02/24/2018 BONNIE MILLER MD, Ot K57.30 DVRTCLOS OF LG INT W/O PERFORATION OR AB 02/24/2018 BONNIE MILLER MD Ot Z12.11 ENCOUNTER FOR SCREENING FOR MALIGNANT NE 02/24/2018 BONNIE MILLER MD Ot Z79.84 CUSTODIAL (CURRENT) USE OF ORAL HYPOGLYC 02/24/2018 BONNIE MILLER MD, Ot Z79.899 OTHER CUSTODIAL (CURRENT) DRUG THERAPY 02/24/2018 BONNIE MILLER MD, Ot Z86.010 PERSONAL HISTORY OF COLONIC POLYPS 02/24/2018 OBNNIE MILLER MD, Ot Z86.79 PERSONAL HISTORY OF OTHER DISEASES OF TH 02/24/2018 BONNIE MILLER MD, Ot Z87.891 PERSONAL HISTORY OF NICOTINE DEPENDENCE 02/25/2018 BONNIE MILLER MD, Ot F03.90 UNSPECIFIED DEMENTIA WITHOUT BEHAVIORAL 02/25/2018 BONNIE MILLER MD, Ot I10 ESSENTIAL (PRIMARY) HYPERTENSION 02/25/2018 BONNIE MILLER MD, Ot K57.30 DVRTCLOS OF LG INT W/O PERFORATION OR AB 02/25/2018 BONNIE MILLER MD, Ot Z12.11 ENCOUNTER FOR SCREENING FOR MALIGNANT NE 02/25/2018 BONNIE MILLER MD, Ot Z79.84 HAIR OR BEAUTY SALON MANAGER (CURRENT) USE OF ORAL HYPOGLYC 02/25/2018 BONNIE MILLER MD, Ot Z79.899 OTHER CUSTODIAL (CURRENT) DRUG THERAPY 02/25/2018 BONNIE MILLER MD, Ot Z86.010 PERSONAL HISTORY OF COLONIC POLYPS 02/25/2018 BONNIE MILLER MD, Ot Z86.79 PERSONAL HISTORY OF OTHER DISEASES OF TH 02/25/2018 BONNIE MILLER MD, Ot Z87.891 PERSONAL HISTORY OF NICOTINE DEPENDENCE 03/10/2018 JULIO CÉSAR CERVANTES MD, Ot F03.90 UNSPECIFIED DEMENTIA WITHOUT BEHAVIORAL 03/10/2018 JULIO CÉSAR CERVANTES MD Ot 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 03/10/2018 JULIO CÉSAR CERVANTES MD, Ot R40.1 STUPOR Procedures Code Description Performed By Performed On 45.16 ESOPHAGOGASTRODUODENOSCOPY [ EGD] W/CLOSE 12/24/2009 60423 ROUTINE VENIPUNCTURE 05/19/2012 71117 CBC 05/19/2012 44734 CMP 05/19/2012 8650659 GFR CALC (RESULT ONLY) 05/19/2012 78139 LIPID PANEL 05/19/2012 32541 EAR LAVAGE 09/08/2012 91830 PSYCH DIAGNOSTIC EVALUATION 03/12/2013 14901 PSYCHO TESTING 1 HR W TECH 03/23/2013 30505 PSYTX PT&/FAMILY 30 MINUTES 03/24/2013 53566 SLEEP STUDY 05/07/2013 49274 ROUTINE VENIPUNCTURE 07/23/2013 65699 T4 FREE 07/23/2013 12839 TSH 07/23/2013 57829 VIT B 12 07/23/2013 67467 HOMOCYSTINE 07/23/2013 65073 SYPHILLIS TEST 07/24/2013 06786 METHYLMELONIC 07/29/2013 89088 ROUTINE VENIPUNCTURE 01/25/2014 [id number] GFR CALC (RESULT ONLY) 01/25/2014 04023 BMP 01/25/2014 Results Test Result Range Basic [...] RED CELL DISTRIBUTION WIDTH 13.3 % 11.8-15.6 4448543 13.3 10E9/L 3.5-10.5 9493480 1.80 10E9/L 0.90-2.90 5294299 1.33 10E9/L 0.30-0.90 5506887 0.25 10E9/L 0.05-0.50 4760320 9.82 10E9/L 1.70-7.00 3485638 0.06 10E9/L 0.00-0.30 2603093 0 % COMPREHENSIVE METABOLIC PANEL - 05/21/17 [...] 7.2 g/dL 6.4-8.3 SODIUM 142 mmol/L 136-145 [facility] - 07/08/17 11:32 GLUCOSE 111 mg/dL 65-99 UREA NITROGEN (BUN) 18 mg/dL 7-25 CREATININE 0.78 mg/dL 0.70-1.18 eGFR NON-AFR. SOMALI 91 mL/min/1.73m2 > OR=60 eGFR 105 mL/min/1.73m2 [...] - 12/30/17 14:20 POTASSIUM 3.7 mmol/L 3.5-5.3 Capillary blood glucose measurement by glucometer (mass/volume) - 02/24/18 08: 52 Capillary blood glucose measurement by glucometer (mass/volume) 137 mg/dL 70-110 Encounters ACCT No. Visit Date/Time Discharge Status Pt. Type Provider Facility Loc./Unit Complaint [id number] 01/25/2014 08:56:00 01/25/2014 23:59:59 [facility] Outpatient MELECIO LESTERMATT Ozzy [id number] 11/23/2013 10:24:00 11/23/2013 23:59:59 [facility] Outpatient DON FAULKNER APRN [id number] 07/23/2013 13:33:00 07/23/2013 23:59:59 CLS Outpatient DON FAULKNER APRN [id number] 07/06/2013 14:24:00 07/06/2013 23:59:59 CLS Outpatient DON FAULKNER APRN [id number] 04/09/2013 12:26:00 04/09/2013 23:59:59 [facility] Outpatient DON FAULKNER APRN [id number] 03/23/2013 15:47:00 03/23/2013 23:59:59 CLS Outpatient RADHA RIZO PHD [id number] 03/20/2013 09:48:00 03/20/2013 23:59:59 CLS Outpatient RADHA RIZO PHD [id number] 03/11/2013 08:41:00 03/11/2013 23:59:59 CLS Outpatient RADHA RIZO PHD [id number] 09/08/2012 13:02:00 09/08/2012 23:59:59 CLS Outpatient [id number] 09/02/2012 13:28:00 09/02/2012 23:59:59 CLS Outpatient [id number] 05/19/2012 14:13:00 05/19/2012 23:59:59 CLS Outpatient DON FAULKNER APRN [id number] 10/23/2016 10:10:00 Document Registration [id number] 06/23/2016 07:06:00 Document Registration [id number] 05/21/2017 00:07:44 05/21/2017 03:11:00 DIS Emergency EDENELIN [facility] [id number] 05/31/2016 07:05:00 Document Registration [id number] 02/16/2016 07:06:00 Document Registration [id number] 05/14/2018 10:00:00 05/14/2018 23:59:59 CLS Outpatient DON FAULKNER APRN [facility] [id number] 12/30/2017 13:00:00 Document Registration [id number] 07/08/2017 10:20:00 Document Registration [id number] 03/14/2017 08:40:00 Document Registration [id number] 02/24/2018 08:25:00 02/24/2018 12:40:00 DIS Outpatient BONNIE MILLER MD [facility] ENDO SCREENING [id number] 02/20/2018 15:31:00 02/20/2018 15:43:00 DIS Outpatient BONNIE MILLER MD [facility] PREOP COLONOSCOPY [id number] 08/13/2017 13:30:00 08/13/2017 23:59:59 CLS Preadmit JULIO CÉSAR CERVANTES MD [facility] CARD DEMENTIA [id number] 08/13/2017 12:16:00 08/13/2017 23:59:59 CLS Outpatient JULIO CÉSAR CERVANTES MD [facility] RAD DEMENTIA [id number] 07/12/2017 13:04:00 07/12/2017 23:59:59 CLS Outpatient JULIO CÉSAR CERVANTES MD [facility] RAD ANOXIC BRAIN DAMAGE, ALZHEIMERS DISEASE [id number] 07/08/2017 14:19:00 07/08/2017 23:59:59 CLS Preadmit DON FAULKNER [facility] RAD BEHAVIORAL CHANGE [id number] 01/12/2016 14:05:00 01/12/2016 15:31:00 DIS Emergency EDELMIRA BOONE, CHRISTIN Mathur [facility] ER LOWER ABD PAIN [id number] 01/21/2015 21:10:00 01/22/2015 06:00:00 DIS Outpatient NANNETTE CAMERON APRN [facility] SLEEP STEPHON [id number] 04/16/2014 07:13:00 04/16/2014 23:59:59 CLS Outpatient HANNA BLANKENSHIP DO [facility] LAB HEALTH SCREENING MEDICATION MONITORING DM HLP HTN [id number] 12/14/2013 08:48:00 12/14/2013 23:59:59 CLS Outpatient CALIXTO HUI MD [facility] LAB HYPOPOTASSEMIA [id number] 11/06/2013 19:35:00 11/07/2013 12:10:00 DIS Inpatient ARNOLDO RAMON MD [facility] CSD MALIGNANT HYPERTENSION DIZZINESS [id number] 06/15/2013 21:14:00 06/16/2013 05:05:00 DIS Outpatient DON FAULKNER Via [facility] SLEEP ISCHEMIC HEART DISEASE,HTN,EXCESSIVE DAYTIME SLEEP [id number] 08/12/2017 18:55:00 Document Registration [id number] 05/25/2014 10:42:00 Document Registration [id number] 12/28/2013 08:41:00 Document Registration [id number] 12/23/2009 19:18:00 Document Registration [id number] 12/22/2009 10:45:00 Document Registration [id number] 12/22/2009 10:45:00 Document Registration [id number] 03/15/2017 09:12:00 Document Registration
--- NOTE | 2018-06-03 12:23 | ED GU-Male ---
General Chief Complaint: -Male Stated Complaint: GROIN PAIN Nursing Triage Note: Pt reports R testicle swelling starting yesterday Source: patient, spouse Exam Limitations: no limitations History of Present Illness Date Seen by Provider: Jun 03, 2018 Time Seen by Provider: 12:13 Initial Comments Patient presents to ER by private conveyance with chief complaint of a large mass in his scrotum. He is not having significant pain or discomfort. He has a history of right inguinal hernia which is known about but is always been reducible in the past. He is not having any fevers chills nausea vomiting abdominal pain or diarrhea. He's had a bowel movement yesterday. He has no history of abdominal surgery or hernia surgery. He is not on blood thinners but he does take aspirin. 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 Allergies and Home Medications Allergies Coded Allergies: NKANo Known Allergies (Verified Allergy, Unknown, 09/26/06) Home Medications Aspirin 325 Mg Tablet, 325 MG PO DAILY, (Reported) Atorvastatin Calcium 80 Mg Tablet, 40 MG PO HS, (Reported) take 1/2 of 80mg tab Carvedilol 12.5 Mg Tablet, 6.25 MG PO BID, (Reported) take 1/2 12.5mg tab Furosemide 20 Mg Tablet, 20 MG PO DAILY, (Reported) Lisinopril 20 Mg Tablet, 20 MG PO DAILY, (Reported) Memantine HCl 28 Mg Cap.spr.24, 28 MG PO DAILY, (Reported) Metformin HCl 500 Mg Tablet, 250 MG PO DAILY, (Reported) take 1/2 of 500mg Omeprazole 20 Mg Capsule.dr, 20 MG PO BID, (Reported) Potassium Chloride 20 Meq Tablet.er, 60 MEQ PO TID, (Reported) take 3 (20meq) tabs Rivastigmine Tartrate 6 Mg Capsule, 6 MG PO BID, (Reported) Vit A/C/E/Zinc/Co 1 Cap Capsule, 1 CAP PO BID, (Reported) Patient Home Medication List Home Medication List Reviewed: Yes Review of Systems Review of Systems Constitutional: No chills, No diaphoresis EENTM: No hearing loss, No ear pain Respiratory: No cough, No short of breath Cardiovascular: No chest pain Gastrointestinal: see HPI; No abdominal pain, No constipation, No diarrhea, No nausea Past Psnzuqu-Sveysu-Yfbuic Hx Patient Social History Alcohol Use: Denies Use Recreational Drug Use: No Smoking Status: Former Smoker Former Smoker, Quit: Dec 15, 2006 Recent Foreign Travel: No Contact w/Someone Who Travel: No Recent Infectious Disease Expo: No Recent Hopitalizations: No Seasonal Allergies Seasonal Allergies: No Past Medical History Surgeries: Yes (TRIPPLE A, TRIPPLE BYPASS) Gallbladder Respiratory: Yes Sleep Apnea Currently Using CPAP: Yes Cardiac: Yes Aneurysm, Hypertension Neurological: Yes Dementia Reproductive Disorders: No Gastrointestinal: Yes Gastrointestinal Bleed, Hepatitis, Polyps, Ulcer Musculoskeletal: No Endocrine: Yes HEENT: No Cancer: No Psychosocial: No Integumentary: No Blood Disorders: No Family Medical History No Pertinent Family Hx Physical Exam Vital Signs Vital Signs - First Documented 06/03/18 11:47 Temp 97.9 Pulse 78 Resp 18 B/P (MAP) 114/70 (85) Pulse Ox 96 O2 Delivery Room Air Capillary Refill : Less Than 3 Seconds Height, Weight, BMI Height: 5'5.00" Weight: 133lbs. 0.0oz. 60.272975au; 23.3 BMI Method:Stated General Appearance: WD/WN, no apparent distress HEENT: PERRL/EOMI, pharynx normal Cardiovascular: normal peripheral pulses, regular rate, rhythm, no edema Respiratory: no respiratory distress, no accessory muscle use Gastrointestinal: normal bowel sounds, non tender, soft Male: other (left testicle palpable right testicle cannot be found easily. There is a large mass starting in the right inguinal him going down into the scrotum consistent with an inguinal hernia. Not reducible, tender, erythematous or nodular.) Neurologic/Psychiatric: alert, oriented x 3 Skin: normal color, warm/dry Progress/Results/Core Measures Suspected Sepsis Recent Fever Within 48 Hours: No Infection Criteria Present: None New/Unexplained Altered Menta: No Sepsis Screen: No Definite Risk SIRS Temperature:97.9 Pulse: 78 Respiratory Rate: 18 Laboratory Tests 06/03/18 12:30: White Blood Count 10.6 Blood Pressure 114 /70 Mean: 85 Laboratory Tests 06/03/18 12:30: Creatinine 0.94, Platelet Count 212, Total Bilirubin 1.1H Results/Orders Lab Results Laboratory Tests Test 06/03/18 12:30 Range/Units White Blood Count 10.6 4.3-11.0 10^3/uL Red Blood Count 5.34 4.35-5.85 10^6/uL Hemoglobin 15.2 13.3-17.7 G/DL Hematocrit 45 40-54 % Mean Corpuscular Volume 85 80-99 FL Mean Corpuscular Hemoglobin 29 25-34 PG Mean Corpuscular Hemoglobin Concent 34 32-36 G/DL Red Cell Distribution Width 14.5 10.0-14.5 % Platelet Count 212 130-400 10^3/uL Mean Platelet Volume 9.9 7.4-10.4 FL Neutrophils (%) (Auto) 70 42-75 % Lymphocytes (%) (Auto) 19 12-44 % Monocytes (%) (Auto) 11 0-12 % Eosinophils (%) (Auto) 1 0-10 % Basophils (%) (Auto) 0 0-10 % Neutrophils # (Auto) 7.4 1.8-7.8 X 10^3 Lymphocytes # (Auto) 2.0 1.0-4.0 X 10^3 Monocytes # (Auto) 1.1 H 0.0-1.0 X 10^3 Eosinophils # (Auto) 0.1 0.0-0.3 10^3/uL Basophils # (Auto) 0.0 0.0-0.1 10^3/uL Sodium Level 143 135-145 MMOL/L Potassium Level 3.1 L 3.6-5.0 MMOL/L Chloride Level 105 98-107 MMOL/L Carbon Dioxide Level 26 21-32 MMOL/L Anion Gap 12 5-14 MMOL/L Blood Urea Nitrogen 16 7-18 MG/DL Creatinine 0.94 0.60-1.30 MG/DL Estimat Glomerular Filtration Rate > 60 BUN/Creatinine Ratio 17 Glucose Level 114 H 70-105 MG/DL Calcium Level 9.2 8.5-10.1 MG/DL Corrected Calcium 9.3 8.5-10.1 MG/DL Magnesium Level 1.9 1.8-2.4 MG/DL Total Bilirubin 1.1 H 0.1-1.0 MG/DL Aspartate Amino Transf (AST/SGOT) 26 5-34 U/L Alanine Aminotransferase (ALT/SGPT) 20 0-55 U/L Alkaline Phosphatase 81 40-136 U/L Total Protein 7.4 6.4-8.2 GM/DL Albumin 3.9 3.2-4.5 GM/DL My Orders Orders - GENESIS BARRAGAN Cbc With Automated Diff (06/03/18 12:17) Comprehensive Metabolic Panel (06/03/18 12:17) Magnesium (06/03/18 12:17) Morphine Injection (Morphine Injection (06/03/18 12:32) Morphine Injection (Morphine Injection (06/03/18 12:45) Morphine Injection (Morphine Injection (06/03/18 12:45) Medications Given in ED Current Medications Medications Dose Ordered Sig/Don Route Start Time Stop Time Status Last Admin Dose Admin Morphine Sulfate 2 mg ONCE ONCE SC 06/03/18 12:45 06/03/18 12:46 DC 06/03/18 12:35 2 MG Vital Signs/I&O 06/03/18 11:47 Temp 97.9 Pulse 78 Resp 18 B/P (MAP) 114/70 (85) Pulse Ox 96 O2 Delivery Room Air Capillary Refill : Less Than 3 Seconds Blood Pressure Mean: 85 Progress Note : Time: 12:22 Progress Note Right inguinal hernia not easily reduced. We will have General Surgery come take a look at him. He's already known to Dr. England in the past. We'll obtain an ultrasound to look at the blood vessels and look for evidence of strangulation versus incarceration. Diagnostic Imaging Diagonstic Imaging: Ultrasound Plain Films/CT/US/NM/MRI: other (scrotum) Reviewed: Reviewed by Me Consults Consults : Consulting Physician: LIV ENGLAND DO Consults Notes Dr. England presented to the ER and after using some IM morphine was able to reduce the hernia. He wants follow-up in the clinic. Departure Impression Primary Impression: Right inguinal hernia Disposition: 01 HOME, SELF-CARE Condition: Improved Departure-Patient Inst. Decision time for Depature: 13:14 Referrals: MATT MAJANO DO (PCP) Primary Care Physician DON FAULKNER (Family) Primary Care Physician LIV ENGLAND DO Patient Instructions: Groin Hernia (DC) Add. Discharge Instructions: Please call Dr. England's office and make an appointment for the following week or so to follow-up for your right inguinal hernia. If it starts to come out again applied gentle pressure and try to reduce it back into your body. Okay to use heat, Tylenol, Motrin. If you cannot get it reduced her having severe pain you should return to the ER. All discharge instructions reviewed with patient and/or family. Voiced understanding. GENESIS BARRAGAN Jun 03, 2018 12:22
[2018-06-03] MEDS ORDERED: morphine INJ 10 MG/ML 1ML (SYR OR VIAL) ONE (12:32)
[2018-06-03 12:45] LABS: BASOPHILS % (AUTO) 0 % (0-10); EOSINOPHILS # (AUTO) 0.1 10^3/uL (0.0-0.3); EOSINOPHILS % (AUTO) 1 % (0-10); HEMATOCRIT 45 % (40-54); HEMOGLOBIN 15.2 G/DL (13.3-17.7); LYMPHOCYTES % (AUTO) 19 % (12-44); MEAN CORPUSCULAR HEMOGLOBIN 29 PG (25-34); MEAN CORPUSCULAR HGB CONC 34 G/DL (32-36); MEAN CORPUSCULAR VOLUME 85 FL (80-99); MEAN PLATELET VOLUME 9.9 FL (7.4-10.4); MONOCYTES # (AUTO) 1.1 X 10^3 (0.0-1.0); MONOCYTES % (AUTO) 11 % (0-12); NEUTROPHILS # (AUTO) 7.4 X 10^3 (1.8-7.8); NEUTROPHILS % (AUTO) 70 % (42-75); PLATELET COUNT 212 10^3/uL (130-400); RED BLOOD COUNT 5.34 10^6/uL (4.35-5.85); RED CELL DISTRIBUTION WIDTH 14.5 % (10.0-14.5); WHITE BLOOD COUNT 10.6 10^3/uL (4.3-11.0)
[2018-06-03] MEDS ORDERED: morphine INJ 10 MG/ML 1ML (SYR OR VIAL) IVP ONE (12:45)
[2018-06-03] MEDS ORDERED: morphine INJ 10 MG/ML 1ML (SYR OR VIAL) SC ONE (12:45)
[2018-06-03 13:07] LABS: ALANINE AMINOTRANSFERASE 20 U/L (0-55); ALBUMIN 3.9 GM/DL (3.2-4.5); ALKALINE PHOSPHATASE 81 U/L (40-136); BILIRUBIN,TOTAL 1.1 MG/DL (0.1-1.0); BUN/CREATININE RATIO 17; CALCIUM 9.2 MG/DL (8.5-10.1); CARBON DIOXIDE 26 MMOL/L (21-32); CHLORIDE 105 MMOL/L (98-107); CREATININE SERUM 0.94 MG/DL (0.60-1.30); GFR ESTIMATED > 60; GLUCOSE 114 MG/DL (70-105); MAGNESIUM 1.9 MG/DL (1.8-2.4); POTASSIUM 3.1 MMOL/L (3.6-5.0); SODIUM 143 MMOL/L (135-145); TOTAL PROTEIN 7.4 GM/DL (6.4-8.2)
[2018-06-03 17:29] VITALS: BP 154/94
--- NOTE | 2018-06-03 20:36 | Consultation ---
History of Present Illness History of Present Illness Patient Consulted On(zoraida/time) 06/03/18 20:30 Date Seen by Provider: Jun 03, 2018 Time Seen by Provider: 12:25 History of Present Illness Consult requested by Dr. Mckee for right inguinal hernia Patient is 72-year-old male who was seen and evaluated in emergency department. Patient has history of right inguinal hernia that is typically able to be reduced without difficulty. Patient states that he is doing some slight activity yesterday and felt it pop out again. He did not try to reduce it immediately. Patient states that it continued to stay out but it seemed to get larger as he continue to do more activity. Patient states that today that is to continue to be out he tried to reduce it and was unable to do so himself. He is not really having any pain or tenderness to the area. Patient states is just uncomfortable due to the mass in the scrotum. Activity makes worse. Nothing was seems to make a better at this time. He has no nausea or vomiting. He denies any fever sweats chills shortness of breath or chest pain. Allergies and Home Medications Allergies Coded Allergies: ANIANo Known Allergies (Verified Allergy, Unknown, 09/26/06) Home Medications Aspirin 325 Mg Tablet, 325 MG PO DAILY, (Reported) Atorvastatin Calcium 80 Mg Tablet, 40 MG PO HS, (Reported) take 1/2 of 80mg tab Carvedilol 12.5 Mg Tablet, 6.25 MG PO BID, (Reported) take 1/2 12.5mg tab Furosemide 20 Mg Tablet, 20 MG PO DAILY, (Reported) Lisinopril 20 Mg Tablet, 20 MG PO DAILY, (Reported) Memantine HCl 28 Mg Cap.spr.24, 28 MG PO DAILY, (Reported) Metformin HCl 500 Mg Tablet, 250 MG PO DAILY, (Reported) take 1/2 of 500mg Omeprazole 20 Mg Capsule.dr, 20 MG PO BID, (Reported) Potassium Chloride 20 Meq Tablet.er, 60 MEQ PO TID, (Reported) take 3 (20meq) tabs Rivastigmine Tartrate 6 Mg Capsule, 6 MG PO BID, (Reported) Vit A/C/E/Zinc/Co 1 Cap Capsule, 1 CAP PO BID, (Reported) Patient Home Medication List Home Medication List Reviewed: Yes Past Rqphxbt-Xrvupe-Bfdgyz Hx Patient Social History Alcohol Use: Denies Use Recreational Drug Use: No Smoking Status: Former Smoker Former Smoker, Quit: Dec 15, 2006 Recent Foreign Travel: No Contact w/Someone Who Travel: No Recent Infectious Disease Expo: No Recent Hopitalizations: No Seasonal Allergies Seasonal Allergies: No Surgeries History of Surgeries: Yes (TRIPPLE A, TRIPPLE BYPASS) Surgeries: Gallbladder Respiratory History of Respiratory Disorde: Yes Respiratory Disorders: Sleep Apnea Cardiovascular History of Cardiac Disorders: Yes Cardiac Disorders: Aneurysm, Hypertension Neurological History of Neurological Disord: Yes Neurological Disorders: Dementia Reproductive System Hx Reproductive Disorders: No Gastrointestinal History of Gastrointestinal Di: Yes Gastrointestinal Disorders: Gastrointestinal Bleed, Hepatitis, Polyps, Ulcer Musculoskeletal History of Musculoskeletal Dis: No Endocrine History of Endocrine Disorders: Yes HEENT History of HEENT Disorders: No Cancer History of Cancer: No Psychosocial History of Psychiatric Problem: No Integumentary History of Skin or Integumenta: No Blood Transfusions History of Blood Disorders: No Family Medical History Significant Family History: No Pertinent Family Hx Review of Systems-General Constitutional: no symptoms reported EENTM: no symptoms reported Respiratory: no symptoms reported Cardiovascular: no symptoms reported Gastrointestinal: see HPI Genitourinary: no symptoms reported Musculoskeletal: no symptoms reported Skin: no symptoms reported Psychiatric/Neurological: No Symptoms Reported Physical Exam-General Problems Physical Exam Vital Signs Vital Signs - First Documented 06/03/18 11:47 Temp 97.9 Pulse 78 Resp 18 B/P (MAP) 114/70 (85) Pulse Ox 96 O2 Delivery Room Air Capillary Refill : Less Than 3 Seconds General Appearance: no apparent distress HEENT: PERRL/EOMI Neck: non-tender, supple Respiratory: chest non-tender, no respiratory distress, no accessory muscle use Cardiovascular: regular rate, rhythm Gastrointestinal: normal bowel sounds, non tender, soft, hernia (Right inguinal extending down into the scrotum. No significant tenderness on palpation but when trying to reduce he does begin to have some slight discomfort. Able to frog-leg the right lower extremity and reduce right inguinal hernia) Rectal: deferred Back: normal inspection Extremities: non-tender, normal inspection Neurologic/Psychiatric: geospatial imagery intelligence analyst II-XII nml as tested, no motor/sensory deficits, alert, normal mood/affect, oriented x 3 Skin: normal color, warm/dry Lymphatic: no adenopathy Data Review Labs Laboratory Tests 06/03/18 12:30: White Blood Count 10.6, Red Blood Count 5.34, Hemoglobin 15.2, Hematocrit 45, Mean Corpuscular Volume 85, Mean Corpuscular Hemoglobin 29, Mean Corpuscular Hemoglobin Concent 34, Red Cell Distribution Width 14.5, Platelet Count 212, Mean Platelet Volume 9.9, Neutrophils (%) (Auto) 70, Lymphocytes (%) (Auto) 19, Monocytes (%) (Auto) 11, Eosinophils (%) (Auto) 1, Basophils (%) (Auto) 0, Neutrophils # (Auto) 7.4, Lymphocytes # (Auto) 2.0, Monocytes # (Auto) 1.1H, Eosinophils # (Auto) 0.1, Basophils # (Auto) 0.0, Sodium Level 143, Potassium Level 3.1L, Chloride Level 105, Carbon Dioxide Level 26, Anion Gap 12, Blood Urea Nitrogen 16, Creatinine 0.94, Estimat Glomerular Filtration Rate > 60, BUN/ Creatinine Ratio 17, Glucose Level 114H, Calcium Level 9.2, Corrected Calcium 9.3, Magnesium Level 1.9, Total Bilirubin 1.1H, Aspartate Amino Transf (AST/SGOT ) 26, Alanine Aminotransferase (ALT/SGPT) 20, Alkaline Phosphatase 81, Total Protein 7.4, Albumin 3.9 Assessment/Plan Assessment/Plan Assessment/Plan Right inguinal hernia I was able to reduce the right inguinal hernia without any significant difficulty. We did give him 2 mg of morphine IM just for the discomfort. After reduce patient not having any pain or discomfort. Patient recommended to follow with me outpatient to reexamine to discuss surgical intervention. Patient and understand and patient instructed if it recurs to hold gentle pressure to reduce the hernia if unable to reduce it to be evaluated at that time. If he has any recurring pain he should be reevaluated at that time. Patient in agreement with plan. Patient okay to [place] home ENGLANDLIV PRABHAKAR DO Jun 03, 2018 20:36
[2018-06-06] MEDS ORDERED: DOCU-143 PO (07:47)
[2018-06-06] MEDS ORDERED: ACHD5005 PO (07:47)
== END 2018-06-03 13:40 | disposition home or self-care (01) ==
LOC: EDUNIT# 11:31 → ER 11:32
DX: K40.90 Unilateral inguinal hernia, without obstruction or gangrene, not specified as recurrent (principal); G47.30 Sleep apnea, unspecified; I10 Essential (primary) hypertension; F03.90 Unspecified dementia, unspecified severity, without behavioral disturbance, psychotic disturbance, mood disturbance, and anxiety; E78.00 Pure hypercholesterolemia, unspecified; Z95.1 Presence of aortocoronary bypass graft; Z86.010 Personal history of colon polyps; Z87.19 Personal history of other diseases of the digestive system; Z79.82 Long term (current) use of aspirin; Z79.84 Long term (current) use of oral hypoglycemic drugs; Z87.891 Personal history of nicotine dependence; Z98.890 Other specified postprocedural states
CPT/HCPCS: 36415; 80053; 83735; 85025

== ENCOUNTER 2018-06-04 13:27 | Outpatient (CLI) | payer MEDICARE ==
[~2018-06-04] VITALS: Ht 167.6 cm; Wt 60.3 kg
[2018-06-05] MEDS ORDERED: VIT1TABL26 PO (16:25)
[2018-06-05] MEDS ORDERED: SIMV80TA5 PO (16:25)
== END 2018-06-04 13:50 | disposition home or self-care (01) ==
LOC: PREOP 13:27
PROVIDERS: ATTEND Surgery
DX: Z01.818 Encounter for other preprocedural examination (principal)

== ENCOUNTER 2018-06-05 08:09 | Inpatient (IN) | payer MEDICARE ==
[~2018-06-05] VITALS: Ht 167.6 cm; Wt 60.3 kg
--- OUTSIDE RECORDS SUMMARY | 2018-06-05 08:13 | XMS REPORT | Clinical Summary ---
Author Author [facility] Organization [facility] Address Unknown Phone Unavailable Care Team Providers Care Turbine Attendant Name Role Phone Beti Red Team PP Allergies No Known Allergies Current Medications No known medications Active Problems Not on file Social History Tobacco Use Types Packs/Day Years Used Date Never Smoker Smokeless Tobacco: Never Used Sex Assigned at Date Recorded Not on file Last Filed Vital Signs Vital Sign Reading Time Taken Blood Pressure 170/82 05/21/2017 2:30 AM SEISMOLOGY TECHNICAL OFFICER Pulse 73 05/21/2017 2:30 AM SEISMOLOGY TECHNICAL OFFICER Temperature 37.1 C (98.7 F) 05/21/2017 12:02 AM SEISMOLOGY TECHNICAL OFFICER Respiratory Rate 18 05/21/2017 2:30 AM SEISMOLOGY TECHNICAL OFFICER Oxygen Saturation 97% 05/21/2017 2:30 AM SEISMOLOGY TECHNICAL OFFICER Inhaled Oxygen - - Concentration Weight 64.4 kg (142 lb) 05/21/2017 12:02 AM SEISMOLOGY TECHNICAL OFFICER Height 162.6 cm (5' 4") 05/21/2017 12:02 AM SEISMOLOGY TECHNICAL OFFICER Body Mass Index 24.37 05/21/2017 12:02 AM SEISMOLOGY TECHNICAL OFFICER Plan of Treatment Health Maintenance Due Date Last Done Comments Annual Wellness Visit 1945 Hepatitis C Screening 1945 DTaP,Tdap,and Td Vaccines 1964 (1 - Tdap) Colon Cancer Screening 10/26/1995 Zoster Recombinant 10/26/1995 Vaccine (RZV,Shingrix) (1 of 2 - [facility] 2 Dose Standard) Pneumo-Adult (1 of 2 - 2010 PCV13) Influenza Vaccine (#1) 2018 Results Not on filefrom Last 3 Months
[2018-06-05 08:15] VITALS: BP 147/85
--- OUTSIDE RECORDS SUMMARY | 2018-06-05 08:18 | XMS REPORT | Continuity of Care Document ---
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 01/27/2009 [employer] CHIEF, DON S 309.81 An Ptsd 01/27/2009 [employer]E [employer] CHIEF, DON S 310.1 Personality Change Due To [...] FAULKNER APRNNDA S 414.01 CAD 01/10/2010 LIDIA FAUKLNER APRNNDA S 414.01 CAD 01/10/2010 LIDIA FAULKNER [...] DUCKWORTHN, DON S 799.02 Hypoxemia 01/30/2010 LU[employer]E [employer] CHIEF, DON S 276.8 HYPOKALEMIA 01/30/2010 LUCIE SUR[employer]Y CHIEF, DON S 799.02 Hypoxemia 01/30/2010 LUCIE DUCKWORTHN, [...] DON S 573.3 Hepatitis Unspecified 11/27/2010 [employer]E [employer] CHIEF, DON S 573.3 Hepatitis Unspecified 11/27/2010 LU[employer]E [employer] CHIEF, DON S 573.3 Hepatitis Unspecified 11/27/2010 LUCIE SUR[employer]Y CHIEF, DON S 573.3 Hepatitis Unspecified 11/27/2010 MAJANO [...] RIZO PHD V06.1 TDAP DX 07/13/2011 [employer] CHIEF, DON S 686.9 UNSPECIFIED LOCAL INFECTION OF SKIN AND SUBCUTANEOUS TISSUE 07/13/2011 LUCIE SUR[employer]Y CHIEF, DON S V06.1 TDAP DX 07/13/2011 LUCIE SUR[employer]Y PARTY CHIEF, DON S 686.9 UNSPECIFIED LOCAL INFECTION OF SKIN AND SUBCUTANEOUS TISSUE 07/13/2011 LUCIE SURVE[employer] PARTY CHIEF, DON S V06.1 TDAP DX 07/13/2011 LUCIE SURVEY PARTY CHIEF, DON S 686.9 UNSPECIFIED LOCAL INFECTION OF SKIN AND SUBCUTANEOUS TISSUE 07/13/2011 LUCIE SURVEY PARTY CHIEF, DON S V06.1 TDAP DX 07/13/2011 LUCIE SURVEY PARTY CHIEF, DON S 686.9 UNSPECIFIED LOCAL INFECTION OF SKIN AND SUBCUTANEOUS TISSUE 07/13/2011 LUCIE SUR[employer] PARTY CHIEF, DON S V06.1 TDAP DX 07/13/2011 JAYSON [...] RADHA Mathur 380.4 IMPACTED CERUMEN 09/08/2012 LUCIE SUR[employer]Y CHIEF, DON S 380.4 IMPACTED CERUMEN 09/08/2012 LUCIE SURVEY PARTY CHIEF, DON S 380.4 IMPACTED CERUMEN 09/08/2012 LUCIE SURVEY PARTY CHIEF, DON S 380.4 IMPACTED CERUMEN 09/08/2012 LUCIE SURVEY PARTY CHIEF, DON S 380.4 IMPACTED CERUMEN 09/08/2012 MATT MAJANO DO K 380.4 IMPACTED CERUMEN 01/08/2013 RADHA RIZO PHD 780.93 MEMORY LOSS 01/08/2013 RADHA RIZO PHD 780.93 MEMORY LOSS 01/08/2013 RADHA RIZO PHD 780.93 MEMORY LOSS 01/08/2013 LUCIE SUR[employer]Y PARTY CHIEF, DON S 780.93 MEMORY LOSS 01/08/2013 LUCIE SURVEY PARTY CHIEF, DON S 780.93 MEMORY LOSS 01/08/2013 LUCIE SURVEY PARTY CHIEF, DON S 780.93 MEMORY LOSS 01/08/2013 LUCIE SURVEY PARTY CHIEF, DON S 780.93 MEMORY LOSS 01/08/2013 MATT MAJANO DO K 780.93 MEMORY LOSS 03/11/2013 RADHA RIZO PHD 294.8 OR DEMENTIA NOS 03/11/2013 RADHA RIZO PHD 294.8 OR DEMENTIA NOS 03/11/2013 RADHA RIZO PHD 294.8 OR DEMENTIA NOS 03/11/2013 LUCIE SURVEY PARTY CHIEF, DON S 294.8 OR DEMENTIA NOS 03/11/2013 LUCIE SURVEY PARTY CHIEF, DON S 294.8 OR DEMENTIA NOS 03/11/2013 LUCIE SURVEY PARTY CHIEF, DON S 294.8 OR DEMENTIA NOS 03/11/2013 LUCIE SUR[employer]Y PARTY CHIEF, DON S 294.8 OR DEMENTIA NOS 03/11/2013 MAJANO DOMATT K 294.8 OR DEMENTIA NOS 04/09/2013 LUCIE [employer]Y CHIEF, DON S 780.79 fatigue 04/09/2013 DON FAULKNER APRN S 780.79 fatigue 04/09/2013 DON FAULKNER APRN S 780.79 fatigue 04/09/2013 DON FAULKNER APRN S 780.79 fatigue 04/09/2013 MATT MAJANO DO 780.79 fatigue 06/16/2013 DON FAULKNER HOGSHEAD ROLLER Ot 327.23 OBSTRUCTIVE SLEEP APNEA (ADULT) (PEDIATR [...] NEC 02/15/2017 Ot 414.01 CORONARY ATHEROSCLEROSIS OF [place] CORON 02/15/2017 Ot 427.31 ATRIAL FIBRILLATION 02/15/2017 Ot V58.61 ANTICOAGULANTS,LT,CURRENT USE 05/21/2017 ELIN VENTURA V 490635 Psychiatric Evaluation ELIN VENTURA 05/21/2017 ELIN VENTURA [...] Loya Ot 276.8 HYPOPOTASSEMIA 02/24/2018 Ot V58.69 [facility] MED,LT, CURRENT USE 02/24/2018 Ot V58.83 ENCOUNTER [...] NE 02/24/2018 BONNIE MILLER MD Ot Z79.84 MCC (CURRENT) USE OF ORAL HYPOGLYC 02/24/2018 BONNIE MILLER MD, Ot Z79.899 OTHER MCC (CURRENT) DRUG THERAPY 02/24/2018 BONNIE MILLER MD, Ot Z86.010 PERSONAL HISTORY OF COLONIC POLYPS 02/24/2018 BONNIE MILLER MD, Ot Z86.79 PERSONAL HISTORY OF OTHER DISEASES OF TH 02/24/2018 BONNIE MILLER MD, Ot Z87.891 PERSONAL HISTORY OF NICOTINE DEPENDENCE 02/25/2018 BONNIE MILLER MD, Ot F03.90 UNSPECIFIED DEMENTIA WITHOUT BEHAVIORAL 02/25/2018 BONNIE MILLER MD, Ot I10 ESSENTIAL (PRIMARY) HYPERTENSION 02/25/2018 BONNIE MILLER MD, Ot K57.30 DVRTCLOS OF LG INT W/O PERFORATION OR AB 02/25/2018 BONNIE MILLER MD Ot Z12.11 ENCOUNTER FOR SCREENING FOR MALIGNANT NE 02/25/2018 BONNIE MILLER MD Ot Z79.84 ELECTRICAL SYSTEMS DESIGN ENGINEER (CURRENT) USE OF ORAL HYPOGLYC 02/25/2018 BONNIE MILLER MD Ot Z79.899 OTHER MCC (CURRENT) DRUG THERAPY 02/25/2018 BONNIE MILLER MD, Ot Z86.010 PERSONAL HISTORY OF COLONIC POLYPS 02/25/2018 BONNIE MILLER MD Ot Z86.79 PERSONAL HISTORY OF OTHER DISEASES OF TH 02/25/2018 BONNIE MILLER MD, Ot Z87.891 PERSONAL HISTORY OF NICOTINE DEPENDENCE 03/10/2018 JULIO CÉSAR CERVANTES MD, Ot F03.90 UNSPECIFIED DEMENTIA WITHOUT BEHAVIORAL 03/10/2018 JULIO CÉSAR CERVANTES MD Ot 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 03/10/2018 JULIO CÉSAR CERVANTES MD Ot R40.1 STUPOR 06/03/2018 KORINA BOONE, CALIXTO Loya Ot 276.8 HYPOPOTASSEMIA 06/03/2018 Ot V58.69 OT MED,LT, CURRENT USE 06/03/2018 Ot V58.83 ENCOUNTER FOR THERAPEUTIC DRUG MONITORIN 06/03/2018 BLANKENSHIP DO, HANNA Ot 250.00 DIAB JEREMIAH WO COMPL, TYPE II OR UNSPEC TY 06/03/2018 BLANKENSHIP DO, HANNA Ot 272.4 HYPERLIPIDEMIA NEC/NOS 06/03/2018 BLANKENSHIP DO, HANNA Ot 285.9 ANEMIA NOS 06/03/2018 BLANKENSHIP DO, HANNA Ot 401.9 HYPERTENSION NOS 06/03/2018 BLANKENSHIP DO, HANNA Ot V70.0 ROUTINE MEDICAL EXAM 06/03/2018 Ot 250.00 DIAB JEREMIAH WO COMPL, TYPE II OR UNSPEC TY 06/03/2018 Ot 276.8 HYPOPOTASSEMIA 06/03/2018 JULIO CÉSAR CERVANTES MD Ot G30.9 ALZHEIMER'S DISEASE, UNSPECIFIED 06/03/2018 JULIO CÉSAR CERVANTES MD Ot 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, 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 06/03/2018 JULIO CÉSAR CERVANTES MD Ot F03.90 UNSPECIFIED DEMENTIA WITHOUT BEHAVIORAL 06/03/2018 JULIO CÉSAR CERVANTES MD Ot 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 06/03/2018 JULIO CÉSAR CERVANTES MD Ot R40.1 STUPOR 06/05/2018 GENESIS BARRAGAN MD Ot E78.00 PURE HYPERCHOLESTEROLEMIA, UNSPECIFIED 06/05/2018 GENESIS BARRAGAN MD Ot F03.90 UNSPECIFIED DEMENTIA WITHOUT BEHAVIORAL 06/05/2018 GENESIS BARRAGAN MD Ot G47.30 SLEEP APNEA, UNSPECIFIED 06/05/2018 GENESIS BARRAGAN MD Ot I10 ESSENTIAL (PRIMARY) HYPERTENSION 06/05/2018 GENESIS BARRAGAN MD Ot K40.90 UNIL INGUINAL HERNIA, W/O OBST OR GANGR, 06/05/2018 GENESIS BARRAGAN MD Ot N50.89 OTHER SPECIFIED DISORDERS OF THE MALE GE 06/05/2018 GENESIS BARRAGAN MD Ot Z79.82 ELECTRICAL SYSTEMS DESIGN ENGINEER (CURRENT) USE OF ASPIRIN 06/05/2018 GENESIS BARRAGAN MD Ot Z79.84 ELECTRICAL SYSTEMS DESIGN ENGINEER (CURRENT) USE OF ORAL HYPOGLYC 06/05/2018 GENESIS BARRAGAN MD Ot Z86.010 PERSONAL HISTORY OF COLONIC POLYPS 06/05/2018 GENESIS BARRAGAN MD Ot Z87.19 PERSONAL HISTORY OF OTHER DISEASES OF TH 06/05/2018 GENESIS BARRAGAN MD Ot Z87.891 PERSONAL HISTORY OF NICOTINE DEPENDENCE 06/05/2018 GENESIS BARRAGAN MD Ot Z95.1 PRESENCE OF AORTOCORONARY BYPASS GRAFT 06/05/2018 GENESIS BARRAGAN MD Ot Z98.890 OTHER SPECIFIED POSTPROCEDURAL STATES Procedures Code Description Performed By Performed On 45.16 ESOPHAGOGASTRODUODENOSCOPY [ EGD] W/CLOSE 12/24/2009 80340 ROUTINE VENIPUNCTURE 05/19/2012 34228 CBC 05/19/2012 68375 CMP 05/19/2012 9658055 GFR CALC (RESULT ONLY) 05/19/2012 53557 LIPID PANEL 05/19/2012 43604 EAR LAVAGE 09/08/2012 63803 PSYCH DIAGNOSTIC EVALUATION 03/12/2013 63570 PSYCHO TESTING 1 HR W TECH 03/23/2013 06270 PSYTX PT&/FAMILY 30 MINUTES 03/24/2013 74580 SLEEP STUDY 05/07/2013 24713 ROUTINE VENIPUNCTURE 07/23/2013 26873 T4 FREE 07/23/2013 03361 TSH 07/23/2013 61474 VIT B 12 07/23/2013 25818 HOMOCYSTINE 07/23/2013 70940 SYPHILLIS TEST 07/24/2013 71269 METHYLMELONIC 07/29/2013 66429 ROUTINE VENIPUNCTURE 01/25/2014 1833231 GFR CALC (RESULT ONLY) 01/25/2014 63452 BMP 01/25/2014 Results Test Result Range Basic [...] RED CELL DISTRIBUTION WIDTH 13.3 % 11.8-15.6 3474328 13.3 10E9/L 3.5-10.5 8964284 1.80 10E9/L 0.90-2.90 2362149 1.33 10E9/L 0.30-0.90 4701960 0.25 10E9/L 0.05-0.50 2742840 9.82 10E9/L 1.70-7.00 3830154 0.06 10E9/L 0.00-0.30 9838409 0 % COMPREHENSIVE METABOLIC PANEL - 05/21/17 [...] 7-25 CREATININE 0.78 mg/dL 0.70-1.18 eGFR NON-AFR. JAPANESE 91 mL/min/1.73m2 > OR=60 eGFR 105 mL/min/1.73m2 [...] measurement by glucometer (mass/volume) 137 mg/dL 70-110 Complete blood count (CBC) with automated white blood cell (WBC) differential - 06/03/18 12:30 Blood leukocytes automated count (number/volume) 10.6 10*3/uL 4.3-11.0 Blood erythrocytes automated count (number/volume) 5.34 10*6/uL 4.35-5.85 Venous blood hemoglobin measurement (mass/volume) 15.2 g/dL 13.3-17.7 Blood hematocrit (volume fraction) 45 % 40-54 Automated erythrocyte mean corpuscular volume 85 [foz_us] 80-99 Automated erythrocyte mean corpuscular hemoglobin (mass per erythrocyte) 29 pg 25-34 Automated erythrocyte mean corpuscular hemoglobin concentration measurement ( mass/volume) 34 g/dL 32-36 Automated erythrocyte distribution width ratio 14.5 % 10.0-14.5 Automated blood platelet count (count/volume) 212 10*3/uL 130-400 Automated blood platelet mean volume measurement 9.9 [foz_us] 7.4-10.4 Automated blood neutrophils/100 leukocytes 70 % 42-75 Automated blood lymphocytes/100 leukocytes 19 % 12-44 Blood monocytes/100 leukocytes 11 % 0-12 Automated blood eosinophils/100 leukocytes 1 % 0-10 Automated blood basophils/100 leukocytes 0 % 0-10 Blood neutrophils automated count (number/volume) 7.4 10*3 1.8-7.8 Blood lymphocytes automated count (number/volume) 2.0 10*3 1.0-4.0 Blood monocytes automated count (number/volume) 1.1 10*3 0.0-1.0 Automated eosinophil count 0.1 10*3/uL 0.0-0.3 Automated blood basophil count (count/volume) 0.0 10*3/uL 0.0-0.1 Comprehensive metabolic panel - 06/03/18 12:30 Serum or plasma sodium measurement (moles/volume) 143 mmol/L 135-145 Serum or plasma potassium measurement (moles/volume) 3.1 mmol/L 3.6-5.0 Serum or plasma chloride measurement (moles/volume) 105 mmol/L 98-107 Carbon dioxide 26 mmol/L 21-32 Serum or plasma anion gap determination (moles/volume) 12 mmol/L 5-14 Serum or plasma urea nitrogen measurement (mass/volume) 16 mg/dL 7-18 Serum or plasma creatinine measurement (mass/volume) 0.94 mg/dL 0.60-1.30 Serum or plasma urea nitrogen/creatinine mass ratio 17 NRG Serum or plasma creatinine measurement with calculation of estimated glomerular filtration rate > NRG Serum or plasma glucose measurement (mass/volume) 114 mg/dL 70-105 Serum or plasma calcium measurement (mass/volume) 9.2 mg/dL 8.5-10.1 Serum or plasma total bilirubin measurement (mass/volume) 1.1 mg/dL 0.1-1.0 Serum or plasma alkaline phosphatase measurement (enzymatic activity/volume) 81 U/L 40-136 Serum or plasma aspartate aminotransferase measurement (enzymatic activity/ volume) 26 U/L 5-34 Serum or plasma alanine aminotransferase measurement (enzymatic activity/volume ) 20 U/L 0-55 Serum or plasma protein measurement (mass/volume) 7.4 g/dL 6.4-8.2 Serum or plasma albumin measurement (mass/volume) 3.9 g/dL 3.2-4.5 CALCIUM CORRECTED 9.3 mg/dL 8.5-10.1 Magnesium - 06/03/18 12:30 Magnesium 1.9 mg/dL 1.8-2.4 Encounters ACCT No. Visit Date/Time Discharge Status Pt. Type Provider Facility Loc./Unit Complaint [id number] 01/25/2014 08:56:00 01/25/2014 23:59:59 CLS Outpatient MATT MAJANO DO [id number] 11/23/2013 10:24:00 11/23/2013 23:59:59 CLS Outpatient DON FAULKNER APRN [id number] 07/23/2013 13:33:00 07/23/2013 23:59:59 CLS Outpatient DON FAULKNER APRN [id number] 07/06/2013 14:24:00 07/06/2013 23:59:59 CLS Outpatient DON FAULKNER APRN [id number] 04/09/2013 12:26:00 04/09/2013 23:59:59 CLS Outpatient DON FAULKNER APRN [id number] 03/23/2013 15:47:00 03/23/2013 23:59:59 CLS Outpatient RADHA RIZO PHD [id number] 03/20/2013 09:48:00 03/20/2013 23:59:59 CLS Outpatient RADHA RIZO PHD [id number] 03/11/2013 08:41:00 03/11/2013 23:59:59 CLS Outpatient RADHA RIZO PHD [id number] 09/08/2012 13:02:00 09/08/2012 23:59:59 CLS Outpatient [id number] 09/02/2012 13:28:00 09/02/2012 23:59:59 CLS Outpatient [id number] 05/19/2012 14:13:00 05/19/2012 23:59:59 CLS Outpatient DON FAULKNER APRN [id number] 10/23/2016 10:10:00 Document Registration [id number] 06/23/2016 07:06:00 Document Registration [id number] 05/21/2017 00:07:44 05/21/2017 03:11:00 DIS ELIN Turcios [facility] [id number] 05/31/2016 07:05:00 Document Registration [id number] 02/16/2016 07:06:00 Document Registration [id number] 05/14/2018 10:00:00 05/14/2018 23:59:59 CLS Outpatient DON FAULKNER APRN [facility] [id number] 12/30/2017 13:00:00 Document Registration [id number] 07/08/2017 10:20:00 Document Registration [id number] 03/14/2017 08:40:00 Document Registration [id number] 06/03/2018 11:32:00 06/03/2018 13:40:00 DIS Outpatient GENESIS BARRAGAN MD [facility] ER GROIN PAIN [id number] 02/24/2018 08:25:00 02/24/2018 12:40:00 DIS Outpatient BONNIE MILLER MD [facility] ENDO SCREENING [id number] 02/20/2018 15:31:00 02/20/2018 15:43:00 DIS Outpatient BONNIE MILLER MD [facility] PREOP COLONOSCOPY [id number] 08/13/2017 13:30:00 08/13/2017 23:59:59 CLS Preadmit JULIO CÉSAR CERVANTES MD [facility] CARD DEMENTIA [id number] 08/13/2017 12:16:00 08/13/2017 23:59:59 CLS Outpatient JULIO CÉSAR CERVANTES MD [facility] RAD DEMENTIA [id number] 07/12/2017 13:04:00 07/12/2017 23:59:59 CLS Outpatient JULIO CÉSAR CERVANTES MD [facility] RAD ANOXIC BRAIN DAMAGE, ALZHEIMERS DISEASE [id number] 07/08/2017 14:19:00 07/08/2017 23:59:59 CLS Preadmit DON FAULKNER [facility] RAD BEHAVIORAL CHANGE [id number] 01/12/2016 14:05:00 01/12/2016 15:31:00 DIS Emergency CHRISTIN HICKEY MD [facility] ER LOWER ABD PAIN [id number] 01/21/2015 21:10:00 01/22/2015 06:00:00 DIS Outpatient NANNETTE CAMERON APRN [facility] SLEEP STEPHON [id number] 04/16/2014 07:13:00 04/16/2014 23:59:59 CLS Outpatient HANNA BLANKENSHIP DO [facility] LAB HEALTH SCREENING MEDICATION MONITORING DM HLP HTN [id number] 12/14/2013 08:48:00 12/14/2013 23:59:59 CLS Outpatient CALIXTO HUI MD [facility] LAB HYPOPOTASSEMIA [id number] 11/06/2013 19:35:00 11/07/2013 12:10:00 DIS Inpatient ARNOLDO RAMON MD [facility] CSD MALIGNANT HYPERTENSION DIZZINESS [id number] 06/15/2013 21:14:00 06/16/2013 05:05:00 DIS Outpatient DON FAULKNER [facility] SLEEP ISCHEMIC HEART DISEASE,HTN,EXCESSIVE DAYTIME SLEEP [id number] 06/05/2018 08:09:00 ACT Outpatient LIV ENGLAND DO [facility] SDC RIGHT INGUINAL HERNIA [id number] 08/12/2017 18:55:00 Document Registration [id number] 05/25/2014 10:42:00 Document Registration [id number] 12/28/2013 08:41:00 Document Registration [id number] 12/23/2009 19:18:00 Document Registration [id number] 12/22/2009 10:45:00 Document Registration [id number] 12/22/2009 10:45:00 Document Registration [id number] 03/15/2017 09:12:00 Document Registration
[2018-06-05] MEDS: LACTATED RINGERS 1,000 ML IV PRN ×2 (08:30→11:50)
[2018-06-05] MEDS ORDERED: BUPIVACAINE 0.5% 30 ML (SENSORCAINE) VIAL ONE (08:48)
[2018-06-05] MEDS ORDERED: LIDOCAINE 1% INJ 20 ML 20 ML VIAL ONE (08:48)
[2018-06-05] MEDS ORDERED: ceFAZolin INJECTION 1,000 MG in NS (IVPB) 50 ML IV ONE (09:15)
--- NOTE | 2018-06-05 09:16 | Progress Note-Pre Operative ---
Pre-Operative Progress Note H&P Reviewed The H&P was reviewed, patient examined and no changes noted. Date Seen by Provider: Jun 05, 2018 Time Seen by Provider: 09:15 Date H&P Reviewed: Jun 05, 2018 Time H&P Reviewed: 09:16 Pre-Operative Diagnosis: right inguinal hernia LIV ENGLAND DO Jun 05, 2018 09:16
[2018-06-05] MEDS ORDERED: fentaNYL INJECTION 100 MCG/2 ML AMP ONE ×2 (09:48→10:51)
[2018-06-05] MEDS ORDERED: ONDANSETRON 4 MG/2 ML (SDV) Z0FRAN ONE (10:31)
[2018-06-05] MEDS ORDERED: proPOfol 200 MG/20 ML (DIPRIVAN) VIAL IV ONE (10:31)
[2018-06-05] MEDS ORDERED: LIDOCAINE PF 2% 5 ML (XYLOCAINE) VIAL ONE (10:31)
[2018-06-05] MEDS ORDERED: SEVOFLURANE (ULTANE) 15 ML INHAL SOLN ONE ×3 (10:50→10:51)
[2018-06-05] MEDS ORDERED: metroNIDAZOLE 500MG/100ML IVPB 100 ML IV ONE (11:15)
--- NOTE | 2018-06-05 11:33 | Progress Note-Post Operative ---
Post-Operative Progess Note Surgeon (s)/Broadcast Maintenance Technician (s) Surgeon LIV ENGLAND DO Broadcast Maintenance Technician: Dr. Colvin Pre-Operative Diagnosis right inguinal hernia Post-Operative Diagnosis strangulated right inguinal hernia Procedure & Operative Findings Date of Procedure 06/05/18 Procedure Performed/Findings open right inguinal hernia, right colon resection Anesthesia Type general Estimated Blood Loss Estimated blood loss (mL): min Specimens/Packing Specimens Removed right colon, hernia sac LIV ENGLAND DO Jun 05, 2018 11:33
[2018-06-05] MEDS ORDERED: HYDROcodone/APAP 5 MG/325 MG (LORTAB) TAB PO PRN (11:45)
[2018-06-05] MEDS ORDERED: morphine INJ 10 MG/ML 1ML (SYR OR VIAL) IVP PRN (11:45)
[2018-06-05] MEDS ORDERED: ONDANSETRON 4 MG/2 ML (SDV) Z0FRAN IVP PRN ×2 (11:45→12:00)
[2018-06-05] MEDS ORDERED: HYDROmorphone 2 MG/ML VIAL (DILAUDID) ONE (11:48)
[2018-06-05] MEDS ORDERED: HYDROmorphone 2 MG/ML VIAL (DILAUDID) IV ONE (12:00)
[2018-06-05 13:00] VITALS: BP 105/71
[2018-06-05] MEDS: LACTATED RINGERS 1,000 ML IV SCH (13:57)
--- NOTE | 2018-06-05 15:09 | Physical Therapy Evaluation ---
PT Evaluation-General Medical Diagnosis Admission Date June 05, 2018 Medical Diagnosis: right inguinal hernia /colon resection Onset Date: Jun 05, 2018 Therapy Diagnosis Therapy Diagnosis: general debility Height/Weight Height (Feet): 5 Height (Inches): 6.00 Weight (Pounds): 133 Weight (Ounces): 0.0 Precautions Precautions/Isolations: Fall Prevention, Standard Precautions Weight Bear Status Right Lower Extremity: Right Full Weight Bearing Left Lower Extremity: Left Full Weight Bearing Referral Physician: Stan Reason for Referral: Evaluation/Treatment Medical History Pertinent Medical History: CABG, Dementia, HTN Current History ED with right testicular swelling/mass Reviewed History: Yes Social History Home: Single Level Current Living Status: Spouse Prior/Core FIM Prior Level of Function Therapy Code Descriptions/Definitions Functional Wolcott Measure: 0=Not Assessed/NA 4=Minimal Assistance 1=Total Assistance 5=Supervision or Setup 2=Maximal Assistance 6=Modified [place] 3=Moderate Assistance 7=Complete Wol[place] Therapy Quality Codes: 6 Independent with activity with or without an assistive device 5 Patient requires set up or clean up by helper. Patient completes activity by themselves 4 Supervision or touching assist (CGA). Cable provide cues , steadying assist 3 The helper provides less than half the effort to complete the activity 2 The helper provides more than half the effort to complete the activity 1 Dependent. The helper does all the effort to complete an activity 7 Patient refused to complete or attempt activity 9 The patient did not perform the activity before the current illness or injury 88 Not attempted due to Medical conditions or safety concerns Functional Abilities and Goals: Independent: Patient completed the activities by him/herself, with or without an assistive device, with no assistance from a helper. Needed Some Help: Patient needed partial assistance from another person to complete activities. Dependent: A helper completed the activities for the patient. Unknown: Not Applicable: Bed Mobility: 7 Transfers (B,C,W/C) (FIM): 7 Gait: 7 Indoor Mobility (Ambulation): Independent Stairs: Independent Prior Devices Use: None PT Evaluation-Current Subjective Patient agrees to PT. Pain Numeric Pain Scale: 0-No Pain Location: No Pain Reported Objective Patient Orientation: Person Problem Solving: Fair Attachments: Oxygen, Cho Catheter, IV ROM/Strength ROM Lower Extremities bilateral LE WFL Strength Lower Extremities 4/5 grossly bilateral LE Integumentary/Posture Integumentary refer to nursing notes Bladder Incontinence: Cho Cath Posture WFL Neuromuscular (Tone, Coordination, Reflexes) grossly intact Sensory Vision: Wears Glasses Hearing: Functional Sensation Right Lower Extremit: Intact Sensation Left Lower Extremity: Intact Transfers Therapy Code Descriptions/Definitions Functional Wolcott Measure: 0=Not Assessed/NA 4=Minimal Assistance 1=Total Assistance 5=Supervision or Setup 2=Maximal Assistance 6=Modified [place] 3=Moderate Assistance 7=Complete Wol[place] Transfers (B, C, W/C) (FIM): 5 Scootin Rollin Supine to/from Sit: 5 Sit to/from Stand: 5 Gait Mode of Locomotion: Walk Anticipated Mode of Locomotion: Walk Gait (FIM): 1 Distance (FIM): 1=up to 49 ft Distance: 5' Gait Level of Assist: 5 Gait Assistive Device: None Balance Sitting Static: Normal Sitting Dynamic: Normal Standing Static: Normal Standing Dynamic: Normal Assessment/Needs 72 y.o. male, will be seen short term by skilled PT to address functional mobility to ensure safe return to home with spouse at maximum LOF. Rehab Potential: Fair PT Short Term Goals Short Term Goals Time Frame: Jun 07, 2018 Transfers (B,C,W/C) (FIM): 7 Gait (FIM): 7 Distance (FIM): 3=150 ft Gait Distance Comment: 150' Gait Level of Assist: 7 Gait Assistive Device: None PT Plan Treatment/Plan Treatment Plan: Continue Plan of Care Treatment Plan: Education, Functional Activity Parmjit, Functional Strength, Gait , Safety, Transfers Treatment Duration: Jun 07, 2018 Frequency: 2 times per week Estimated Hrs Per Day: .25 hour per day Patient and/or Family Agrees t: Yes Discharge Recommendations Therapy D/C Recommendations: Home w/ Family Support Time/GCodes Time In: 1440 Time Out: 1451 Total Billed Treatment Time: 11 Total Billed Treatment 1 visit EVLowC 11 min G Codes Necessary: Yes PT/OT Therapy GCodes Therapy Functional Limitation: Physical Therapy Test(s)/Tool used to determine: Level of Assistance Scale Functional Limitation-Current Charge Code: JARRODCUOlvin Modifier: EPIFANIO Functional Limitation-Goal Charge Code: TIMOTHY Modifier: RAFFAELE PAULA PT Jun 05, 2018 15:09
--- NOTE | 2018-06-05 15:25 | Discharge Inst-Simple/Standard ---
Discharge Inst-Standard Discharge Medications New, Converted or Re-Newed RX: RX on Chart Patient Instructions/Follow Up Plan of Care/Instructions/FU: 2 WEEKS ENGLAND Activity as Tolerated: No Discharge Diet: Soft Diet Other Inst to Patient Follow up Appt: Make appointment for 2 week. Instructions: No lifting greater than 10 pounds. No strenuous activity. May shower in 24 hours, no tub bath or soaking. Use incentive spirometer at home as directed. No Smoking Skin/Wound Care: You have special glue over incision it will fall off on its own. Symptoms to Report: Appetite Changes, Extremity Discoloration, Numbness/Tingling, Swelling Increased , Bleeding Excessive, Eyesight Changes, Pain Increased, Urine Color Change, Constipation(Persistent), Fever over 101 degree F, Pain/Pressure in chest, Urinating Difficulty, Cough Up/Vomit Blood, Heart Beat Irreg/Pounding, Pain/ Pressure in jaw, Vaginal Bleeding Increase, Cramps in feet or legs, Lightheadedness, Pain/Pressure in shoulder, Diarrhea(Persistent), Memory Changes Suddenly, Questions/Concerns, Weight gain consecutive days, Dizziness/ Fainting, Nausea/Vomiting, Shortness of Breath, Weight gain over 2 pounds If questions or concerns contact your physician Or seek help at emergency department. LIV ENGLAND DO Jun 05, 2018 15:25
[2018-06-05 16:05] VITALS: BP 114/66
[2018-06-05] MEDS ORDERED: VIT1TABL26 PO (16:25)
[2018-06-05] MEDS ORDERED: SIMV80TA5 PO (16:25)
[2018-06-05] MEDS: ceFAZolin INJECTION 1,000 MG in NS (IVPB) 50 ML IV SCH (17:10)
[2018-06-05] MEDS: metroNIDAZOLE 500MG/100ML IVPB 100 ML IV SCH (18:10)
[2018-06-05 19:15] VITALS: BP 137/75
--- NOTE | 2018-06-05 22:03 | OPERATIVE REPORT ---
DATE OF SERVICE: 06/05/2018 PREOPERATIVE DIAGNOSIS: Right inguinal hernia. POSTOPERATIVE DIAGNOSIS: Strangulated right inguinal hernia. PROCEDURE: Open right inguinal hernia repair with right colon resection. ANESTHESIA: General. SURGEON: Liv Pierce DO SOCIAL MEDIA DEVELOPER: Dr. Colvin, assisted in retraction, dissection and closure. ESTIMATED BLOOD LOSS: Minimal. COMPLICATIONS: None. SPECIMENS: Right colon and hernia sac. INDICATIONS: The patient is a 72-year-old male who presented with a large right inguinal hernia. This has been going in and out over the last couple of days. He was seen in the office yesterday and discussed risks and benefits of procedure and wished to proceed with procedure. Consent was signed on the chart. DESCRIPTION OF PROCEDURE: The patient was taken to the operating suite, was prepped and draped in sterile fashion. Surgical pause was performed. Local anesthetic was infiltrated into the right lower abdomen. A 15 blade scalpel was used to make a skin incision and dissection was taken down to the external oblique. The external oblique was then opened and encountered a large hernia sac with contents in it. The hernia sac was then opened. Omental fat and bowel and right colon was within this. The bowel had compromise appearance. This was a strangulated. The bowel was then brought out further through the defect and a hemostat was used to dissect around the terminal portion of the ileum. A FIORDALIZA stapler was fired across the ileum and was tagged to where it would retract. The right colon was then dissected around in similar fashion and a FIORDALIZA stapler was then placed around the distal portion of the right colon and this area was viable in appearance. This was then stapled off. A Jeison was placed on to hold it from retracting back into the stomach. A LigaSure was then used to dissect the mesentery from the bowel and specimen was obtained. The terminal ileum and the right colon was then brought together for a [id number] anastomosis. Each limb was opened up and the GI stapler was placed down each limb and FIORDALIZA stapler was fired making a [id number] anastomosis. A crotch stitch was placed. Once the stapler was removed, a TA stapler was then used to finish the side to side anastomosis. This was then inserted back through the hernia defect and this was monitored for some time and this continued to appear viable. The hernia sac was then dissected off of the cord and a [place] drain was placed around the cord. The hernia sac then had pursestring placed at the base and then tied off and the excess sac was removed. At this point, a Phasix mesh was then cut to size and was secured to Doni's ligament to transversalis fascia and also to the shelving edge and incorporated around the cord. This was all placed under the external oblique muscle. The wound was then irrigated with copious amounts of irrigation. The external oblique was then closed using 3-0 Vicryl in a running fashion, recreating the external ring. Wound was irrigated again and the subcutaneous tissues were then reapproximated and the skin was then closed using 4-0 Monocryl in a running subcuticular fashion. The patient tolerated the procedure well without any complications, taken to recovery room in stable condition. Job ID: [id number] DocumentID: [id number] Dictated Date: 06/05/2018 14:26:03 Packaging Clerk Date: 06/05/2018 22:02:27 Dictated By: LIV PIERCE DO
[2018-06-06] VITALS: BP 122/70
[2018-06-06] MEDS: LACTATED RINGERS 1,000 ML IV SCH ×3 (00:52→18:30)
[2018-06-06] MEDS: ceFAZolin INJECTION 1,000 MG in NS (IVPB) 50 ML IV SCH (02:52)
[2018-06-06] MEDS: metroNIDAZOLE 500MG/100ML IVPB 100 ML IV SCH (03:51)
[2018-06-06 04:26] VITALS: BP 130/67
[2018-06-06 06:05] LABS: RED BLOOD COUNT 4.9 10^6/uL (4.35-5.85)
[2018-06-06 06:29] LABS: BUN/CREATININE RATIO 18; CALCIUM 8.6 MG/DL (8.5-10.1); CARBON DIOXIDE 22 MMOL/L (21-32); CHLORIDE 110 MMOL/L (98-107); CREATININE SERUM 0.77 MG/DL (0.60-1.30); GFR ESTIMATED > 60; GLUCOSE 121 MG/DL (70-105); MAGNESIUM 1.6 MG/DL (1.8-2.4); POTASSIUM 3.1 MMOL/L (3.6-5.0); SODIUM 145 MMOL/L (135-145)
[2018-06-06] MEDS ORDERED: MAGNESIUM 1 GM/100 ML IVPB 100 ML IV NR (07:30)
--- NOTE | 2018-06-06 07:35 | Progress Note ---
Subjective Date Seen by a Provider: Jun 06, 2018 Time Seen by a Provider: 07:31 Subjective/Events-last exam patient pain controlled. tolerating liquids. No flatus or bm. fever overnight but normal now. pain rated at 2 and just at incision. denies n/v fever sweats chills shortness of breath or chest pain at this time. potassium and magnesium low Objective Exam Vital Signs Date Time Temp Pulse Resp B/P (MAP) Pulse Ox O2 Delivery O2 Flow Rate FiO2 06/06/18 04:26 99.7 119 20 130/67 (88) 94 Nasal Cannula 3.00 06/06/18 00:53 99.4 06/06/18 00:23 101.3 06/06/18 00:00 101.3 120 22 122/70 (87) 92 Nasal Cannula 3.00 06/05/18 20:00 Nasal Cannula 3.00 06/05/18 19:50 Nasal Cannula 3.00 06/05/18 19:15 99.8 122 20 137/75 (95) 96 Nasal Cannula 3.00 06/05/18 16:05 99.0 109 18 114/66 (82) 100 Nasal Cannula 3.00 06/05/18 13:00 98.0 93 16 105/71 (82) 95 Nasal Cannula 3.00 06/05/18 13:00 Nasal Cannula 3.00 06/05/18 08:15 97.2 73 16 147/85 (105) 97 I & O 06/06/18 07:00 Intake Total 460 ml Output Total 1500 ml Balance -1040 ml Capillary Refill : General Appearance: No Apparent Distress HEENT: PERRL/EOMI Neck: Non Tender, Supple Respiratory: Chest Non Tender, No Accessory Muscle Use, No Respiratory Distress Cardiovascular: Regular Rate, Rhythm Gastrointestinal: non tender, soft (incision echymosis around it no signs of infection) Extremity: Non Tender Neurologic/Psychiatric: Alert, No Motor/Sensory Deficits, Normal Mood/Affect, automatic dispenser mechanic II-XII Norm as Tested Skin: Warm/Dry, Ecchymosis Lymphatic: No Adenopathy Results Lab Laboratory Tests 06/05/18 08:46: Glucometer 118H 06/05/18 09:00: Potassium Level 3.7 06/06/18 05:50: Potassium Level 3.1L, White Blood Count 15.0H, Red Blood Count 4.90, Hemoglobin 14.0, Hematocrit 43, Mean Corpuscular Volume 87, Mean Corpuscular Hemoglobin 29 , Mean Corpuscular Hemoglobin Concent 33, Red Cell Distribution Width 15.0H, Platelet Count 210, Mean Platelet Volume 10.0, Sodium Level 145, Chloride Level 110H, Carbon Dioxide Level 22, Anion Gap 13, Blood Urea Nitrogen 14, Creatinine 0.77, Estimat Glomerular Filtration Rate > 60, BUN/Creatinine Ratio 18, Glucose Level 121H, Calcium Level 8.6, Magnesium Level 1.6L Assessment/Plan Assessment/Plan Assessment/Plan strangulated right inguinal hernia s/p right inguinal hernia repair and right colon resection hypomagnesemia, hypokalemia- replace repeat labs in am clear liquid diet, advance when bowel function returns (flatus or bm) incentive spirometer PT working with patient SCD's for dvt prophylaxis LIV Ocampo DO Jun 06, 2018 07:35
[2018-06-06] MEDS ORDERED: ACHD5005 PO (07:47)
[2018-06-06] MEDS ORDERED: DOCU-143 PO (07:47)
--- NOTE | 2018-06-06 07:59 | Physical Therapy Daily Note ---
PT Daily Note-Current Subjective Patient rates abdominal pain 2/10 with meds issued. Pain Numeric Pain Scale: 2 Location: Right, Lower Location Body Site: Abdomen Pain Description: Acute Mental Status Patient Orientation: Confused Attachments: IV Transfers Therapy Code Descriptions/Definitions Functional Lyman Measure: 0=Not Assessed/NA 4=Minimal Assistance 1=Total Assistance 5=Supervision or Setup 2=Maximal Assistance 6=Modified L[place] 3=Moderate Assistance 7=Complete Lyman Therapy Quality Codes: 6 Independent with activity with or without an assistive device 5 Patient requires set up or clean up by helper. Patient completes activity by themselves 4 Supervision or touching assist (CGA). [place] provide cues , steadying assist 3 The helper provides less than half the effort to complete the activity 2 The helper provides more than half the effort to complete the activity 1 Dependent. The helper does all the effort to complete an activity 7 Patient refused to complete or attempt activity 9 The patient did not perform the activity before the current illness or injury 88 Not attempted due to Medical conditions or safety concerns Transfers (B, C, W/C) (FIM): 7 Scootin Rollin Supine to/from Sit: 7 Sit to/from Stand: 7 Bed to/from Chair: 7 Weight Bearing Right Lower Extremity: Right Full Weight Bearing Left Lower Extremity: Left Full Weight Bearing Gait Training Gait (FIM): 6 Distance (FIM): 3=150 ft Distance: 250' Gait Level of Assist: 6 Gait Assistive Device: FWW steady/patient utilizes FWW at home PRN Assessment Patient is currently at [facility] with all gross motor skills. Nursing to ambulate with patient PRN in hallway. Patient educated by this PT on incentive spirometer with patient demonstrating proper use. PT to dismiss patient from services at this time. PT Short Term Goals Short Term Goals Time Frame: Jun 07, 2018 Transfers (B,C,W/C) (FIM): 7 Gait (FIM): 7 Distance (FIM): 3=150 ft Gait Distance Comment: 150' Gait Level of Assist: 7 Gait Assistive Device: None PT Plan Treatment/Plan Treatment Plan: Discontinue PT, goals met Treatment Plan: Education, Functional Activity Parmjit, Functional Strength, Gait , Safety, Transfers Treatment Duration: Jun 07, 2018 Frequency: 2 times per week Estimated Hrs Per Day: .25 hour per day Patient and/or Family Agrees t: Yes Time/GCodes Time In: 725 Time Out: 734 Total Billed Treatment Time: 9 Total Billed Treatment 1 visit FA 9 min G Codes Necessary: Yes PT/OT Therapy GCodes Therapy Functional Limitation: Physical Therapy Test(s)/Tool used to determine: Level of Assistance Scale Functional Limitation-Current Charge Code: MOBCUR Modifier: CJ Functional Limitation-Goal Charge Code: MOBGOAL Modifier: CH Functional Limitation-D/C Charge Codes: MOBDC Modifier: RAFFAELE JONES PT Jun 06, 2018 07:59
[2018-06-06 08:00] VITALS: BP 147/73
[2018-06-06] MEDS: ENOXAPARIN 40 MG/0.4 ML (LOVENOX) SYR SC SCH (09:09)
--- NOTE | 2018-06-06 09:29 | Consultation-Hospitalist ---
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 Pierce with an uncomplicated procedure yesterday. He is tolerating clear liquids. Denies any pain. Confusion is noted but that is baseline. Source: patient Exam Limitations: other (dementia) Date Seen 06/06/18 Attending Physician Gwyn Pierce DO PCP Cammie Whitley DO Referring Physician Date of Admission Home Medications & Allergies Home Medications Reviewed patient Home Medication Reconciliation performed by pharmacy medication reconciliations quality control lab technician and/or nursing. Patients Allergies have been reviewed. Allergies Allergies Coded Allergies No Known Drug Allergies (Qtgrayuoyh15/19/18) Past Uyxxslk-Gaqksz-Gblvip Hx Past Med/Social Hx: Reviewed Nursing Past Med/Soc Hx, Reviewed and Corrections made Patient Social History Marrital Status: Employed/Student: retired Alcohol Use: Denies Use Recreational Drug Use: No Smoking Status: Former Smoker Former Smoker, Quit: Dec 15, 2006 Recent Foreign Travel: No Contact w/other who traveled: No Recent Hopitalizations: No Recent Infectious Disease Expo: No Immunizations Up To Date Date of Pneumonia Vaccine: Mar 26, 2016 Date of Influenza Vaccine: Mar 24, 2018 Seasonal Allergies Seasonal Allergies: No Past Medical History Surgeries: CABG, Gallbladder, Vascular Surgery Currently Using CPAP: Yes Cardiac: Aneurysm, Hypertension Neurological: Dementia Reproductive: No Gastrointestinal: Gastrointestinal Bleed, Hepatitis, Polyps, Ulcer History of Blood Disorders: No Adverse Reaction to Blood Lucas: No (HAS HAD BLOOD WITH NO REACTION) Family History No Pertinent Family Hx Review of Systems Constitutional: see HPI EENTM: no symptoms reported Respiratory: no symptoms reported Cardiovascular: no symptoms reported Gastrointestinal: loss of appetite Genitourinary: no symptoms reported Musculoskeletal: no symptoms reported Skin: no symptoms reported Psychiatric/Neurological: No Symptoms Reported All Other Systems Reviewed Negative Unless Noted: Yes Physical Exam Physical Exam Vital Signs Vital Signs - First Documented 06/05/18 08:15 Temp 97.2 Pulse 73 Resp 16 B/P (MAP) 147/85 (105) Pulse Ox 97 Capillary Refill : Height, Weight, BMI Height: 5'6.00" Weight: 133lbs. 0.0oz. [id number]; 21.5 BMI Method:Stated General Appearance: No Apparent Distress, WD/WN, Chronically ill Eyes: Bilateral Eye Normal Inspection, Bilateral Eye PERRL HEENT: PERRL/EOMI, Normal ENT Inspection, Pharynx Normal Neck: Full Range of Motion, Normal Inspection, Non Tender, Supple, Carotid Bruit Respiratory: Chest Non Tender, Lungs Clear, Normal Breath Sounds, No Accessory Muscle Use, No Respiratory Distress Cardiovascular: Regular Rate, Rhythm, No Edema, No Gallop, No JVD, Normal Peripheral Pulses, Systolic Murmur Gastrointestinal: Normal Bowel Sounds, No Organomegaly, No Pulsatile Mass, Non Tender, Soft Back: Normal Inspection, No CVA Tenderness, No Vertebral Tenderness Extremity: Normal Capillary Refill, Normal Inspection, Normal Range of Motion, Non Tender, No Calf Tenderness, No Pedal Edema Neurologic/Psychiatric: Alert, Oriented x3, No Motor/Sensory Deficits, Normal Mood/Affect Skin: Normal Color, Warm/Dry Lymphatic: No Adenopathy Results Results/Procedures Labs Laboratory Tests 06/05/18 09:00 06/06/18 05:50 Patient resulted labs reviewed. Assessment/Plan Assessment and Plan Assess & Plan/Chief Complaint Assessment: Right inguinal hernia repair POD # 1 Hypertension Diabetes mellitus Obstructive sleep apnea Dementia Chronic debility Plan: Pain control Advance diet Ambulation Home meds restarted Diagnosis/Problems Diagnosis/Problems (1) Right inguinal hernia Status: Acute (2) Hypokalemia Status: Acute (3) Hypertension Status: Chronic Qualifiers: Hypertension type: essential hypertension Qualified Codes: I10 - Essential (primary) hypertension (4) Diabetes mellitus Status: Chronic Qualifiers: Diabetes mellitus type: type 2 Diabetes mellitus computational physicist insulin use: without penitentiary use Diabetes mellitus complication status: with circulatory complication Diabetes mellitus complication detail: with other circulatory complications Qualified Codes: E11.59 - Type 2 diabetes mellitus with other circulatory complications (5) Hx of CABG Status: Chronic ROMÁN ANDRES MED STUDENT 06/06/18 1101: HPI History of Present Illness: HPI/Chief Complaint CC: s/p R inguinal hernia repair POD #1 HPI: 72 yo M who was admitted to general floor for s/p R inguinal hernia repair POD #0. Pt has reportedly had the hernia since 2007 but it just recently became a problem 2 days ago when it was no longer reducible. Went to the ER where they were able to reduce the hernia temporarily. Denies any N/V/D, constipation, or fevers leading up to the repair. No prior hx of hernia repair. Pain has been adequately managed since surgery. Ambulating well. AM CBC showed leukocytosis 15.0, hypokalemia 3.1 Febrile overnight- 101.3. Tachycardic ~120bpm Source: patient, family Review of Systems Constitutional: no symptoms reported Respiratory: no symptoms reported Cardiovascular: no symptoms reported Musculoskeletal: no symptoms reported Skin: no symptoms reported Physical Exam Physical Exam General Appearance: Chronically ill, Thin Respiratory: Chest Non Tender, Lungs Clear Cardiovascular: Regular Rate, Rhythm, Systolic Murmur Extremity: No Calf Tenderness, No Pedal Edema Neurologic/Psychiatric: Alert, Oriented x3 Skin: Normal Color, Warm/Dry Assessment/Plan Assessment and Plan Assess & Plan/Chief Complaint Assessment: s/p R inguinal hernal repair POD #1 Hypokalemia HTN DM Sleep apnea Hx AAA repair Hx CABG x3 Plan: Bowel rest Restart home meds Continue PT Pain mgmt Diagnosis/Problems Diagnosis/Problems (1) Right inguinal hernia Status: Acute (2) Hypokalemia Status: Acute (3) Hypertension Status: Chronic Qualifiers: Hypertension type: essential hypertension Qualified Codes: I10 - Essential (primary) hypertension (4) Diabetes mellitus Status: Chronic Qualifiers: Diabetes mellitus type: type 2 Diabetes mellitus computational physicist insulin use: without penitentiary use Diabetes mellitus complication status: with circulatory complication Diabetes mellitus complication detail: with other circulatory complications Qualified Codes: E11.59 - Type 2 diabetes mellitus with other circulatory complications (5) Hx of CABG Status: Chronic HANNA BLANKENSHIP DO Jun 06, 2018 09:29 ROMÁN ANDRES STUDENT Jun 06, 2018 11:01
[2018-06-06] MEDS: POTASSIUM CL 10MEQ/50ML IVPB 50 ML IV SCH ×4 (10:14→14:07)
[2018-06-06 12:00] VITALS: BP_SYST 126; BP_SYST 138; BP_DIAS 65; BP_DIAS 68
[2018-06-06] MEDS: KCL 20 MEQ TAB (K-DUR) PO SCH ×2 (14:12→18:26)
[2018-06-06] MEDS: MEMANTINE 10 MG (NAMENDA) TABLET PO SCH ×2 (14:12→22:04)
[2018-06-06] MEDS: ASPIRIN 325 MG (5 GR) TABLET PO SCH (14:12)
[2018-06-06 16:00] VITALS: BP 133/66
[2018-06-06] MEDS: MULTIVIT W/MINERALS TAB (THERAGRAN M) PO SCH (18:27)
[2018-06-06 20:00] VITALS: BP 150/64
[2018-06-06] MEDS ORDERED: ACETAMINOPHEN 325 MG TABLET PO PRN (21:15)
[2018-06-06 21:37] LABS: BILIRUBIN,URINE NEGATIVE (NEGATIVE); CLARITY,URINE VERY CLOUDY; COLOR,URINE RED; GLUCOSE, URINE (UA) NEGATIVE (NEGATIVE); KETONES,URINE 2+ (NEGATIVE); LEUKOCYTE ESTERASE ,URINE 3+ (NEGATIVE); NITRITE,URINE NEGATIVE (NEGATIVE); PH,URINE 8 (5-9); PROTEIN,URINE 3+ (NEGATIVE); UROBILINOGEN,URINE NORMAL (NORMAL)
[2018-06-06 21:47] LABS: RBC,URINE TNTC /HPF
[2018-06-06] MEDS ORDERED: ACETAMINOPHEN 325 MG TABLET ONE (21:55)
[2018-06-06] MEDS ORDERED: PIPERACILLIN/TAZO 4.5 GM VIAL (ZOSYN) IV ONE (21:56)
[2018-06-06] MEDS ORDERED: NS (IVPB) 100 ML ONE (21:56)
[2018-06-06] MEDS ORDERED: PIPERACILLIN SODIUM/TAZOBACTAM 4.5 GM in NS (IVPB) 100 ML IV ONE (22:00)
[2018-06-06] MEDS: RIVASTIGMINE 1.5 MG (EXELON) CAP PO SCH (22:04)
[2018-06-06] MEDS: SIMvastatin 40 MG (ZOCOR) TAB PO SCH (22:04)
[2018-06-06] MEDS: CARVEDILOL 6.25 MG (COREG) TAB PO SCH (22:04)
[2018-06-06] MEDS: PANTOPRAZOLE 20 MG TABLET (PROTONIX) PO SCH (22:04)
--- NOTE | 2018-06-06 22:04 | Diagnostic Imaging Report ---
INDICATION: Increased temperature, decreased oxygen saturations. COMPARISON: November 06, 2013. TECHNIQUE: Single frontal radiograph of the chest dated June 06, 2018. FINDINGS: Postsurgical changes of a CABG. The cardiac silhouette is within normal limits in size. No significant pulmonary vascular congestion. Calcified granuloma is again noted overlying the left upper chest. Mild left perihilar interstitial opacities. Additional new opacities are seen within the right lung base. No significant pleural effusion. No pneumothorax. No acute osseous abnormality. IMPRESSION: 1. New opacities within the right lung base concerning for infiltrate such as pneumonia within the right lung base. Recommend followup radiographs 10-14 days after appropriate therapy. 2. Left perihilar scarring in/or atelectasis. 3. Additional postsurgical and chronic findings as above. Dictated by: Dictated on workstation # [id number]
[2018-06-06] MEDS ORDERED: LORazepam 0.5 MG (ATIVAN) TABLET ONE (23:35)
[2018-06-06] MEDS ORDERED: LORazepam 0.5 MG (ATIVAN) TABLET PO ONE (23:45)
[2018-06-07 08:11] LABS: BASOPHILS % (AUTO) 0 % (0-10); EOSINOPHILS # (AUTO) 0.2 10^3/uL (0.0-0.3); EOSINOPHILS % (AUTO) 1 % (0-10); HEMATOCRIT 40 % (40-54); HEMOGLOBIN 13.1 G/DL (13.3-17.7); LYMPHOCYTES # (AUTO) 1.3 X 10^3 (1.0-4.0); LYMPHOCYTES % (AUTO) 8 % (12-44); MEAN CORPUSCULAR HEMOGLOBIN 29 PG (25-34); MEAN CORPUSCULAR HGB CONC 33 G/DL (32-36); MEAN CORPUSCULAR VOLUME 88 FL (80-99); MEAN PLATELET VOLUME 10.1 FL (7.4-10.4); MONOCYTES # (AUTO) 1.2 X 10^3 (0.0-1.0); MONOCYTES % (AUTO) 7 % (0-12); NEUTROPHILS % (AUTO) 83 % (42-75); PLATELET COUNT 211 10^3/uL (130-400); RED BLOOD COUNT 4.56 10^6/uL (4.35-5.85); RED CELL DISTRIBUTION WIDTH 15.2 % (10.0-14.5); WHITE BLOOD COUNT 15.8 10^3/uL (4.3-11.0)
[2018-06-07 08:23] VITALS: BP 156/76
[2018-06-07 08:27] LABS: BUN/CREATININE RATIO 20; CALCIUM 8.6 MG/DL (8.5-10.1); CARBON DIOXIDE 27 MMOL/L (21-32); CHLORIDE 113 MMOL/L (98-107); GFR ESTIMATED > 60; GLUCOSE 132 MG/DL (70-105); POTASSIUM 3.8 MMOL/L (3.6-5.0); SODIUM 149 MMOL/L (135-145)
[2018-06-07] MEDS: KCL 20 MEQ TAB (K-DUR) PO SCH ×3 (09:30→17:03)
[2018-06-07] MEDS: metFORMIN 500 MG (GLUCOPHAGE) TAB PO SCH (09:31)
[2018-06-07] MEDS: ENOXAPARIN 40 MG/0.4 ML (LOVENOX) SYR SC SCH (09:32)
[2018-06-07] MEDS: RIVASTIGMINE 1.5 MG (EXELON) CAP PO SCH ×2 (09:32→21:26)
[2018-06-07] MEDS: CARVEDILOL 6.25 MG (COREG) TAB PO SCH ×2 (09:32→21:26)
[2018-06-07] MEDS: lisINopril 20 MG (PRINIVIL) TABLET PO SCH (09:33)
[2018-06-07] MEDS: MEMANTINE 10 MG (NAMENDA) TABLET PO SCH ×2 (09:33→21:26)
[2018-06-07] MEDS: PANTOPRAZOLE 20 MG TABLET (PROTONIX) PO SCH ×2 (09:33→21:26)
[2018-06-07] MEDS: MULTIVIT W/MINERALS TAB (THERAGRAN M) PO SCH ×2 (09:33→17:03)
[2018-06-07] MEDS: FUROSEMIDE 20 MG (LASIX) TAB PO SCH (09:33)
--- NOTE | 2018-06-07 09:41 | Progress Note (SOAP) ---
Subjective Subjective/Events-last exam Febrile yesterday evening, likely delirium noted overnight with agitation- patient wanting to go home and pulling at lines and trying to get out of bed, although not clearly more disoriented than baseline. This morning he states he is feeling well and denies any pain or shortness of breath. Review of Systems Date Seen by Provider: Jun 07, 2018 Time Seen by Provider: 08:50 Objective Exam Last Set of Vital Signs Vital Signs Date Time Temp Pulse Resp B/P (MAP) Pulse Ox O2 Delivery O2 Flow Rate FiO2 06/07/18 08:23 98.9 102 14 156/76 (102) 95 Nasal Cannula 3.00 Capillary Refill : Less Than 3 Seconds I&O Intake and Output 06/07/18 00:00 Intake Total 1680 ml Output Total 1550 ml Balance 130 ml Intake Oral 1280 ml IV Total 400 ml Output Urine Total 1550 ml Bladder Scan Volume Amount 449 ml 566 ml General: Alert, No Acute Distress Lungs: Clear to Auscultation, Normal Air Movement Heart: Regular Rate, Other (4/6 systolic murmur loudest at mitral area) Abdomen: Normal Bowel Sounds, Soft Psych/Mental Status: Other (alert, oriented to self and knows he is in the hospital but not date or reason for hospitalization) Results/Procedures Lab Laboratory Tests 06/06/18 21:27: Urine Color REDH, Urine Clarity VERY CLOUDYH, Urine pH 8, Urine Specific [place] 1.010L, Urine Protein 3+H, Urine Glucose (UA) NEGATIVE, Urine Ketones 2+ H, Urine Nitrite NEGATIVE, Urine Bilirubin NEGATIVE, Urine Urobilinogen NORMAL, Urine Leukocyte Esterase 3+H, Urine RBC (Auto) 5+H, Urine RBC TNTCH, Urine WBC 10-25H, Urine Crystals NONE, Urine Bacteria NONE, Urine Casts NONE, Urine Mucus NEGATIVE, Urine Culture Indicated YES 06/07/18 07:50: White Blood Count 15.8H, Red Blood Count 4.56, Hemoglobin 13.1L, Hematocrit 40, Mean Corpuscular Volume 88, Mean Corpuscular Hemoglobin 29, Mean Corpuscular Hemoglobin Concent 33, Red Cell Distribution Width 15.2H, Platelet Count 211, Mean Platelet Volume 10.1, Neutrophils (%) (Auto) 83H, Lymphocytes (%) (Auto) 8L , Monocytes (%) (Auto) 7, Eosinophils (%) (Auto) 1, Basophils (%) (Auto) 0, Neutrophils # (Auto) 13.0H, Lymphocytes # (Auto) 1.3, Monocytes # (Auto) 1.2H, Eosinophils # (Auto) 0.2, Basophils # (Auto) 0.0, Sodium Level 149H, Potassium Level 3.8, Chloride Level 113H, Carbon Dioxide Level 27, Anion Gap 9, Blood Urea Nitrogen 14, Creatinine 0.70, Estimat Glomerular Filtration Rate > 60, BUN/ Creatinine Ratio 20, Glucose Level 132H, Calcium Level 8.6, Magnesium Level 2.0 Microbiology 06/05/18 MRSA Screen - Final, Complete MRSA not isolated Assessment/Plan Assessment/Plan (1) Right inguinal hernia Status: Acute Assessment & Plan: s/p surgical repair, management per Dr. Pierce. (2) Fever Status: Acute Assessment & Plan: Possibly infection related- no evidence of surgical site infection, CXR concerning for possible right lower lobe infiltrate, received one dose of Zosyn yesterday evening. Leukocytosis stable this am and no further fever. Consider aspiration, atelectasis. If fever recurs will resume antibiotics. Urine culture pending. (3) Hypoxia Status: Acute Assessment & Plan: Post op. Wean as tolerated. Encourage IS. (4) Hypomagnesemia Status: Resolved Assessment & Plan: Replace and recheck (5) Hypernatremia Status: Acute Assessment & Plan: Patient with minimal intake while confused, encourage increased water oral intake today. (6) Dementia Status: Chronic Assessment & Plan: With suspected delirium overnight, responded to 0.5 mg of lorazepam. Will order prn. Minimize lines, provide frequent reorientation. Continue home memantine and rivastigmine. (7) Hypokalemia Status: Resolved Assessment & Plan: Replace and recheck. (8) Hypertension Status: Chronic Assessment & Plan: Resume home medications. Qualifiers: Qualified Codes: I10 - Essential (primary) hypertension ROSA MERCADO MD Jun 07, 2018 09:41
[2018-06-07 12:00] VITALS: BP 151/78
--- NOTE | 2018-06-07 12:09 | Progress Note ---
Subjective Time Seen by a Provider: 11:05 Subjective/Events-last exam Pt seen and examined, in the room. She states he got up and had a BM. He also is much calmer and more alert today. Pt denies abdominal pain, has a shipley in place. Pt denies SOB and looks comfortable. Review of Systems General: Chills, Night Sweats, Fatigue Pulmonary: No Dyspnea; Cough Cardiovascular: No: Chest Pain, Palpitations Objective Exam Vital Signs Date Time Temp Pulse Resp B/P (MAP) Pulse Ox O2 Delivery O2 Flow Rate FiO2 06/07/18 10:54 90 Nasal Cannula 2.00 06/07/18 08:23 98.9 102 14 156/76 (102) 95 Nasal Cannula 3.00 06/07/18 08:00 Nasal Cannula 3.00 06/07/18 06:51 94 Nasal Cannula 3.00 06/07/18 02:30 93 Nasal Cannula 3.00 06/06/18 22:00 92 Nasal Cannula 3.00 06/06/18 21:59 101.4 06/06/18 20:00 94 Nasal Cannula 3.00 06/06/18 20:00 101.2 116 22 150/64 (92) 90 06/06/18 16:00 100.8 113 21 133/66 (88) 84 Nasal Cannula 3.00 I & O 06/07/18 07:00 Intake Total 1830 ml Output Total 1825 ml Balance 5 ml Capillary Refill : Less Than 3 Seconds General Appearance: No Apparent Distress, WD/WN HEENT: PERRL/EOMI, Pharynx Normal Respiratory: Chest Non Tender, Lungs Clear, Normal Breath Sounds, No Accessory Muscle Use, No Respiratory Distress Cardiovascular: Regular Rate, Rhythm, No Edema, No Gallop, No JVD, Normal Peripheral Pulses, Systolic Murmur Gastrointestinal: soft (incision echymosis around it no signs of infection); No distended, No guarding, No rebound; tenderness (mild RLQ tenderness with deep palpation) Extremity: No Calf Tenderness, No Pedal Edema Neurologic/Psychiatric: Alert Skin: Normal Color, Warm/Dry Lymphatic: No Adenopathy (neck, axilla or groin) Results Lab Laboratory Tests 06/06/18 21:27: Urine Color REDH, Urine Clarity VERY CLOUDYH, Urine pH 8, Urine Specific [place] 1.010L, Urine Protein 3+H, Urine Glucose (UA) NEGATIVE, Urine Ketones 2+ H, Urine Nitrite NEGATIVE, Urine Bilirubin NEGATIVE, Urine Urobilinogen NORMAL, Urine Leukocyte Esterase 3+H, Urine RBC (Auto) 5+H, Urine RBC TNTCH, Urine WBC 10-25H, Urine Crystals NONE, Urine Bacteria NONE, Urine Casts NONE, Urine Mucus NEGATIVE, Urine Culture Indicated YES 06/07/18 07:50: White Blood Count 15.8H, Red Blood Count 4.56, Hemoglobin 13.1L, Hematocrit 40, Mean Corpuscular Volume 88, Mean Corpuscular Hemoglobin 29, Mean Corpuscular Hemoglobin Concent 33, Red Cell Distribution Width 15.2H, Platelet Count 211, Mean Platelet Volume 10.1, Neutrophils (%) (Auto) 83H, Lymphocytes (%) (Auto) 8L , Monocytes (%) (Auto) 7, Eosinophils (%) (Auto) 1, Basophils (%) (Auto) 0, Neutrophils # (Auto) 13.0H, Lymphocytes # (Auto) 1.3, Monocytes # (Auto) 1.2H, Eosinophils # (Auto) 0.2, Basophils # (Auto) 0.0, Sodium Level 149H, Potassium Level 3.8, Chloride Level 113H, Carbon Dioxide Level 27, Anion Gap 9, Blood Urea Nitrogen 14, Creatinine 0.70, Estimat Glomerular Filtration Rate > 60, BUN/ Creatinine Ratio 20, Glucose Level 132H, Calcium Level 8.6, Magnesium Level 2.0 Microbiology 06/05/18 MRSA Screen - Final, Complete MRSA not isolated Assessment/Plan Assessment/Plan Assessment/Plan 1. Urninary Retention - plan to D/C shipley and bladder scan tonight; would like to try and get pt home without indwelling shipley. 2. Penumonia (per CXR) - pt on Zosyn, WBC still elevated, will treat for one more day with IV ABX and then switch to oral. Still waiting on cultures 3, Hypomagnesemia - resolved per labs today, recheck labs tomorrow s/p right inguinal hernia repair and right colon resection (for strangulated bowel) advance to soft diet, Easy pap because pt not using incentive spirometer. SCD's and lovenox for dvt prophylaxis LANCE MONTEMAYOR DO Jun 07, 2018 12:09
[2018-06-07] MEDS ORDERED: LIDOCAINE UROJET 2% GEL 10 ML PKG TOP PRN (12:15)
[2018-06-07] MEDS: LORazepam 0.5 MG (ATIVAN) TABLET PO PRN (14:10)
[2018-06-07] MEDS: ASPIRIN 325 MG (5 GR) TABLET PO SCH (15:25)
[2018-06-07 16:00] VITALS: BP 142/76
[2018-06-07 20:00] VITALS: BP 121/65
[2018-06-07] MEDS: SIMvastatin 40 MG (ZOCOR) TAB PO SCH (21:26)
[2018-06-08] VITALS: BP 163/70
[2018-06-08] MEDS: LORazepam 0.5 MG (ATIVAN) TABLET PO PRN (00:32)
[2018-06-08 04:00] VITALS: BP 148/81
[2018-06-08] MEDS: KCL 20 MEQ TAB (K-DUR) PO SCH ×2 (06:06→11:20)
[2018-06-08] MEDS: metFORMIN 500 MG (GLUCOPHAGE) TAB PO SCH (06:08)
[2018-06-08] MEDS: MULTIVIT W/MINERALS TAB (THERAGRAN M) PO SCH (06:08)
[2018-06-08 07:59] LABS: HEMOGLOBIN 12.5 G/DL (13.3-17.7); MEAN PLATELET VOLUME 9.7 FL (7.4-10.4); RED BLOOD COUNT 4.32 10^6/uL (4.35-5.85); RED CELL DISTRIBUTION WIDTH 15.1 % (10.0-14.5); WHITE BLOOD COUNT 12.2 10^3/uL (4.3-11.0)
[2018-06-08 08:00] VITALS: BP 108/55
[2018-06-08] MEDS: MEMANTINE 10 MG (NAMENDA) TABLET PO SCH (08:00)
[2018-06-08] MEDS: lisINopril 20 MG (PRINIVIL) TABLET PO SCH (08:00)
[2018-06-08] MEDS: RIVASTIGMINE 1.5 MG (EXELON) CAP PO SCH (08:00)
[2018-06-08] MEDS: CARVEDILOL 6.25 MG (COREG) TAB PO SCH (08:00)
[2018-06-08] MEDS: ENOXAPARIN 40 MG/0.4 ML (LOVENOX) SYR SC SCH (08:00)
[2018-06-08] MEDS: PANTOPRAZOLE 20 MG TABLET (PROTONIX) PO SCH (08:01)
[2018-06-08] MEDS: FUROSEMIDE 20 MG (LASIX) TAB PO SCH (08:01)
[2018-06-08 08:27] LABS: ALANINE AMINOTRANSFERASE 21 U/L (0-55); ALBUMIN 3.3 GM/DL (3.2-4.5); ALKALINE PHOSPHATASE 104 U/L (40-136); BILIRUBIN,TOTAL 1.1 MG/DL (0.1-1.0); BUN/CREATININE RATIO 23; CALCIUM 9.1 MG/DL (8.5-10.1); CARBON DIOXIDE 24 MMOL/L (21-32); CHLORIDE 112 MMOL/L (98-107); CREATININE SERUM 0.73 MG/DL (0.60-1.30); GFR ESTIMATED > 60; GLUCOSE 138 MG/DL (70-105); SODIUM 146 MMOL/L (135-145); TOTAL PROTEIN 6.6 GM/DL (6.4-8.2)
[2018-06-08] MEDS ORDERED: AMOX-358 PO (11:29)
[2018-06-08] MEDS ORDERED: FLUC150T PO (11:29)
--- NOTE | 2018-06-08 11:40 | Progress Note ---
Subjective Time Seen by a Provider: 11:01 Subjective/Events-last exam Pt seen and examined, sitting up in chair and eating regular diet. He states he is urinating and having BM's. Denied abdominal pain or SOB. Review of Systems General: No Chills, No Night Sweats Pulmonary: No Dyspnea, No Cough Cardiovascular: No: Chest Pain, Palpitations Objective Exam Vital Signs Date Time Temp Pulse Resp B/P (MAP) Pulse Ox O2 Delivery O2 Flow Rate FiO2 06/08/18 08:00 97.0 100 16 108/55 (72) 98 Room Air 06/08/18 08:00 94 Room Air 06/08/18 06:55 93 Room Air 06/08/18 04:00 97.5 102 16 148/81 (103) 93 Room Air 06/08/18 00:00 98.5 92 16 163/70 (101) 94 Room Air 06/07/18 21:42 90 Room Air 06/07/18 20:00 98.7 91 18 121/65 (83) 95 Room Air 06/07/18 20:00 94 Room Air 06/07/18 18:39 92 Room Air 06/07/18 16:00 98.7 97 17 142/76 (98) 93 Room Air 06/07/18 14:38 90 Nasal Cannula 2.00 06/07/18 12:00 98.6 105 16 151/78 (102) 95 Nasal Cannula 3.00 I & O 06/08/18 07:00 Intake Total 2360 ml Output Total 900 ml Balance 1460 ml Capillary Refill : Less Than 3 Seconds General Appearance: No Apparent Distress, WD/WN HEENT: PERRL/EOMI, Pharynx Normal Respiratory: Chest Non Tender, Lungs Clear, Normal Breath Sounds, No Accessory Muscle Use, No Respiratory Distress Cardiovascular: Regular Rate, Rhythm, No Edema, No Gallop, No JVD, Normal Peripheral Pulses, Systolic Murmur Gastrointestinal: soft (incision echymosis around it no signs of infection); No distended, No guarding, No rebound; tenderness (mild RLQ tenderness with deep palpation) Extremity: No Calf Tenderness, No Pedal Edema Neurologic/Psychiatric: Alert Skin: Normal Color, Warm/Dry Lymphatic: No Adenopathy (neck, axilla or groin) Results Lab Laboratory Tests 06/08/18 07:50: White Blood Count 12.2H, Red Blood Count 4.32L, Hemoglobin 12.5L, Hematocrit 38L , Mean Corpuscular Volume 88, Mean Corpuscular Hemoglobin 29, Mean Corpuscular Hemoglobin Concent 33, Red Cell Distribution Width 15.1H, Platelet Count 232, Mean Platelet Volume 9.7, Sodium Level 146H, Potassium Level 4.0, Chloride Level 112H, Carbon Dioxide Level 24, Anion Gap 10, Blood Urea Nitrogen 17, Creatinine 0.73, Estimat Glomerular Filtration Rate > 60, BUN/Creatinine Ratio 23, Glucose Level 138H, Calcium Level 9.1, Corrected Calcium 9.7, Total Bilirubin 1.1H, Aspartate Amino Transf (AST/SGOT) 21, Alanine Aminotransferase ( ALT/SGPT) 21, Alkaline Phosphatase 104, Total Protein 6.6, Albumin 3.3 Microbiology 06/06/18 Blood Culture - Preliminary, Resulted No growth 06/05/18 MRSA Screen - Final, Complete MRSA not isolated 06/06/18 Urine Culture - Final, Complete YEAST Assessment/Plan Assessment/Plan Assessment/Plan 1. Urninary Retention - doing well without shipley 2. UTI with yeast - will send pt home on Diflucan 3. Penumonia (per CXR) - will switch to Augmentin, WBC coming down 4. Hypomagnesemia - resolved s/p right inguinal hernia repair and right colon resection (for strangulated bowel) advance to soft diet, Easy pap because pt not using incentive spirometer. SCD's and lovenox for dvt prophylaxis LANCE MONTEMAYOR DO Jun 08, 2018 11:40
[2018-06-08 12:20] VITALS: BP 108/55
[2018-06-08] MEDS ORDERED: MEMANTINE 28 MG PO SCH (15:00)
--- OUTSIDE RECORDS SUMMARY | 2018-06-12 10:37 | XMS REPORT | Clinical Summary ---
Author Author [facility] Organization [facility] Address Unknown Phone Unavailable Care Team Providers Care Fire Lieutenant Name Role Phone Beti Red Team PP Allergies No Known Allergies Current Medications No known medications Active Problems Not on file Social History Tobacco Use Types Packs/Day Years Used Date Never Smoker Smokeless Tobacco: Never Used Sex Assigned at Date Recorded Not on file Last Filed Vital Signs Vital Sign Reading Time Taken Blood Pressure 170/82 05/21/2017 2:30 AM [employer]ING [employer] Pulse 73 05/21/2017 2:30 AM [employer]PECTING [employer]YOR Temperature 37.1 C (98.7 F) 05/21/2017 12:02 AM [employer]OSPECTING SUR[employer]YOR Respiratory Rate 18 05/21/2017 2:30 AM [employer]OSPECTING SUR[employer]YOR Oxygen Saturation 97% 05/21/2017 2:30 AM [employer]OSPECTING SUR[employer]YOR Inhaled Oxygen - - Concentration Weight 64.4 kg (142 lb) 05/21/2017 12:02 AM [employer]OSPECTING SURVEYOR Height 162.6 cm (5' 4") 05/21/2017 12:02 AM [employer]OSPECTING SUR[employer]YOR Body Mass Index 24.37 05/21/2017 12:02 AM [employer]OSPECTING SUR[employer]YOR Plan of Treatment Health Maintenance Due Date Last Done Comments Annual Wellness Visit 1945 Hepatitis C Screening 1945 DTaP,Tdap,and Td Vaccines 1964 (1 - Tdap) Colon Cancer Screening 10/26/1995 Zoster Recombinant 10/26/1995 Vaccine (RZV,Shingrix) (1 of 2 - [facility] 2 Dose Standard) Pneumo-Adult (1 of 2 - 2010 PCV13) Influenza Vaccine (#1) 2018 Results Not on filefrom Last 3 Months
--- OUTSIDE RECORDS SUMMARY | 2018-06-12 10:42 | XMS REPORT | Continuity of Care Document ---
Author Author [facility] Address Unknown Phone Unavailable Allergies Active Description Code Type Severity Reaction Onset Reported/Identified Relationship to Patient Clinical Status Yes NO NAME AVAILABLE 49547 DRUG N/ A N/A Yes NKANo Known Allergies NKA Miscellaneous Allergy Unknown N/A 09/26/2006 Yes No Known Drug Allergies [id number] Drug Allergy Unknown N/A 06/04/2018 Medications There is no data. Problems Date Dx Coded Attending Type Code Diagnosis Diagnosed By 12/24/2007 DON FAULKNER APRN S 294.9 OR COG DIS NOS 12/24/2007 DON FAULKNER APRN S 300.00 An Anxiety Unspec 12/24/2007 294.9 [...] RIZO PHD 300.00 An Anxiety Unspec 12/24/2007 DON FAULKNER APRN S 294.9 OR COG DIS NOS 12/24/2007 DON FAULKNER APRN S 300.00 An Anxiety Unspec 12/24/2007 DON FAULKNER APRN S 294.9 OR COG DIS NOS 12/24/2007 DON FAULKNER APRN S 300.00 An Anxiety Unspec 12/24/2007 DON FAULKNER APRN S 294.9 OR COG DIS NOS 12/24/2007 DON FAULKNER APRN S 300.00 An Anxiety Unspec 12/24/2007 DON FAULKNER APRN S 294.9 OR COG DIS NOS 12/24/2007 LIDIA FAULKNER APRNNDA S 300.00 An Anxiety Unspec 12/24/2007 MAJANO MATT LESTER K 294.9 OR COG DIS NOS 12/24/2007 MAJANO DO, MATT K 300.00 An Anxiety Unspec 01/14/2008 LIDIA FAULKNER APRNNDA S V58.61 Long-term (current) Use Of Anticoagulants 01/14/2008 V58.61 Long-term ( current) Use Of Anticoagulants 01/14/2008 V58.61 Long-term ( current) Use Of Anticoagulants 01/14/2008 SALLIE ANDERSON, RADHA Mathur V58.61 Long-term (current) Use Of Anticoagulants 01/14/2008 [...] V58.61 Long-term (current) Use Of Anticoagulants 01/30/2008 EVA FAULKNER APRNA S 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 01/30/2008 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 01/30/2008 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 01/30/2008 SALLIE PHD, RADHA Mathur 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 01/30/2008 SALLIE ANDERSON, RADHA Mathur 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 01/30/2008 SALLIE ANDERSON, RADHA Mathur 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 01/30/2008 LIDIA FAULKNER APRNNDA S 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 01/30/2008 LIDIA FAULKNER APRNNDA S 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 01/30/2008 EVA FAULKNER APRNA S 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 01/30/2008 EVA FAULKNER APRNA S 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 01/30/2008 MAJANO DO, MATT K 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 03/09/2008 EVA FAULKNER APRNA S 401.1 ESSENTIAL HYPERTENSION BENIGN 03/09/2008 EVA FAULKNER APRNA S V58.69 Taking High-risk Medication 03/09/2008 401.1 [...] RIZO PHD V58.69 Taking High-risk Medication 03/09/2008 EVA FAULKNER APRNA S 401.1 ESSENTIAL HYPERTENSION BENIGN 03/09/2008 EVA FAULKNER APRNA S V58.69 Taking High-risk Medication 03/09/2008 EVA FAULKNER APRNA S 401.1 ESSENTIAL HYPERTENSION BENIGN 03/09/2008 EVA FAULKNRE APRNA S V58.69 Taking High-risk Medication 03/09/2008 EVA FAULKNER APRNA S 401.1 ESSENTIAL HYPERTENSION BENIGN 03/09/2008 EVA FAULKNER APRNA S V58.69 Taking High-risk Medication 03/09/2008 LIDIA FAULKNER APRNNDA S 401.1 ESSENTIAL HYPERTENSION BENIGN 03/09/2008 LIDIA FAULKNER APRNNDA S V58.69 Taking High-risk Medication 03/09/2008 MAJANO DO MATT K 401.1 ESSENTIAL HYPERTENSION BENIGN 03/09/2008 MAJANO DO MATT K V58.69 Taking High-risk Medication 01/27/2009 DON FAULKNER APRN S 309.81 An Ptsd 01/27/2009 LIDIA FAULKNER [...] APRNNDA S 309.81 An Ptsd 01/27/2009 LUCIE PADILLA DON S 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 01/27/2009 LIDIA FAULKNER APRNNDA S 309.81 An Ptsd 01/27/2009 LIDIA FAULKNER APRNNDA S 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 01/27/2009 MAJANO DO, MATT K 309.81 An Ptsd 01/27/2009 MAJANO DO, MATT K 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 02/15/2009 EVA FAULKNER APRNA S 401.9 Unspecified Essential Hypertension 02/15/2009 401.9 Unspecified Essential Hypertension 02/15/2009 401.9 Unspecified Essential Hypertension 02/15/2009 RADHA RIZO PHD 401.9 Unspecified Essential Hypertension 02/15/2009 RADHA RIZO PHD 401.9 Unspecified Essential Hypertension 02/15/2009 RADHA RIZO PHD 401.9 Unspecified Essential Hypertension 02/15/2009 LIDIA FAULKNER APRNNDA S 401.9 Unspecified Essential Hypertension 02/15/2009 LIDIA FAULKNER APRNNDA S 401.9 Unspecified Essential Hypertension 02/15/2009 LIDIA FAULKNER APRNNDA S 401.9 Unspecified Essential Hypertension 02/15/2009 LIDIA FAULKNER APRNNDA S 401.9 Unspecified Essential Hypertension 02/15/2009 MAJANO DO, MATT K 401.9 Unspecified Essential Hypertension 12/27/2009 Ot [...] 414.01 CAD 01/10/2010 414.01 CAD 01/10/2010 SALLIE ANDERSON, RADHA Mathur 414.01 CAD 01/10/2010 SALLIE ANDERSON, RADHA Mathur 414.01 CAD 01/10/2010 SALLIE ANDERSON, RADHA Mathur 414.01 CAD 01/10/2010 LIDIA FAULKNER APRNNDA S 414.01 CAD 01/10/2010 LIDIA FAULKNER APRNNDA S 414.01 CAD 01/10/2010 LIDIA FAULKNER APRNNDA S 414.01 CAD 01/10/2010 LIDIA FAULKNER APRNNDA S 414.01 CAD 01/10/2010 MAJANO DOMATT K 414.01 CAD 01/19/2010 LIDIA FAULKNER APRNNDA [...] Conditions Classifiable Elsewhere 01/19/2010 DON FAULKNER APRN 327.26 Sleep Related Hypoventilation/hypoxemia In Conditions Classifiable Elsewhere 01/19/2010 DON FAULKNER APRN 327.26 Sleep Related Hypoventilation/hypoxemia In Conditions Classifiable Elsewhere 01/19/2010 DON FAULKNER APRN 327.26 Sleep Related Hypoventilation/hypoxemia In Conditions Classifiable Elsewhere 01/19/2010 DON FAULKNER APRN 327.26 Sleep Related Hypoventilation/hypoxemia In Conditions Classifiable Elsewhere 01/19/2010 MATT MAJANO DO 327.26 Sleep Related Hypoventilation/hypoxemia In Conditions Classifiable Elsewhere 01/30/2010 DON FAULKNER APRN 276.8 HYPOKALEMIA 01/30/2010 DON FAULKNER APRN 799.02 Hypoxemia 01/30/2010 276.8 HYPOKALEMIA 01/30/2010 799.02 Hypoxemia 01/30/2010 276.8 HYPOKALEMIA 01/30/2010 799.02 Hypoxemia 01/30/2010 RADHA RIZO PHD 276.8 HYPOKALEMIA 01/30/2010 RADHA RIZO PHD 799.02 Hypoxemia 01/30/2010 RADHA RIZO PHD 276.8 HYPOKALEMIA 01/30/2010 RADHA RIZO PHD 799.02 Hypoxemia 01/30/2010 RADHA RIZO PHD 276.8 HYPOKALEMIA 01/30/2010 RADHA RIZO PHD 799.02 Hypoxemia 01/30/2010 DON FAULKNER APRN 276.8 HYPOKALEMIA 01/30/2010 DON FAULKNER APRN 799.02 Hypoxemia 01/30/2010 LUCIE INSPECTOR BALL POINTS, DON S 276.8 HYPOKALEMIA 01/30/2010 LUCIE INSPECTOR BALL POINTS, DON S 799.02 Hypoxemia 01/30/2010 LUCIE INSPECTOR BALL POINTS, DON S 276.8 HYPOKALEMIA 01/30/2010 LUCIE INSPECTOR [employer]ALL POINTS, DON S 799.02 Hypoxemia 01/30/2010 LUCIE INSPECTOR BALL POINTS, DON S 276.8 HYPOKALEMIA 01/30/2010 LUCIE INSPECTOR [employer]ALL POINTS, DON S 799.02 Hypoxemia 01/30/2010 MAJANO DO, MATT K 276.8 HYPOKALEMIA 01/30/2010 MAJANO DO, MATT K 799.02 Hypoxemia 11/27/2010 LIDIA FAULKNER APRNNDA S 573.3 Hepatitis Unspecified 11/27/2010 573.3 Hepatitis Unspecified 11/27/2010 573.3 Hepatitis Unspecified 11/27/2010 RADHA RIZO PHD 573.3 Hepatitis Unspecified 11/27/2010 RADHA RIZO PHD 573.3 Hepatitis Unspecified 11/27/2010 RADHA RIZO PHD 573.3 Hepatitis Unspecified 11/27/2010 LUCIE INSPECTOR [employer] POINTS, DON S 573.3 Hepatitis Unspecified 11/27/2010 LUCIE DUCKWORTHN, DON S 573.3 Hepatitis Unspecified 11/27/2010 LUCIE INSPECTOR [employer] POINTS DON S 573.3 Hepatitis Unspecified 11/27/2010 LIDIA FAULKNER APRNNDA S 573.3 Hepatitis Unspecified 11/27/2010 MELECIO LESTER MATT K 573.3 Hepatitis Unspecified 07/13/2011 LUCIE DUCKWORTHNLIDIADON S 686.9 UNSPECIFIED LOCAL INFECTION OF SKIN AND SUBCUTANEOUS TISSUE 07/13/2011 LIDIA FAULKNER APRNNDA S V06.1 TDAP DX 07/13/2011 686.9 UNSPECIFIED LOCAL INFECTION OF SKIN AND SUBCUTANEOUS TISSUE 07/13/2011 V06.1 TDAP DX 07/13/2011 686.9 UNSPECIFIED LOCAL INFECTION OF SKIN AND SUBCUTANEOUS TISSUE 07/13/2011 V06.1 TDAP DX 07/13/2011 SALLIE ANDERSON, RADHA Mathur 686.9 UNSPECIFIED LOCAL INFECTION OF SKIN AND SUBCUTANEOUS TISSUE 07/13/2011 SALLIE ANDERSON, RADHA Mathur V06.1 TDAP DX 07/13/2011 RADHA RIZO PHD 686.9 UNSPECIFIED LOCAL INFECTION OF SKIN AND SUBCUTANEOUS TISSUE 07/13/2011 SALLIE ANDERSON, RADHA Mathur V06.1 TDAP DX 07/13/2011 RADHA RIZO PHD 686.9 UNSPECIFIED LOCAL INFECTION OF SKIN AND SUBCUTANEOUS TISSUE 07/13/2011 RADHA RIZO PHD V06.1 TDAP DX 07/13/2011 LUCIE INSPECTOR [employer]ALL POINTS, DON S 686.9 UNSPECIFIED LOCAL INFECTION OF SKIN AND SUBCUTANEOUS TISSUE 07/13/2011 LUCIE INSPECTOR [employer]ALL POINTS, DON S V06.1 TDAP DX 07/13/2011 LUCIE INSPECTOR BALL POINTS, DON S 686.9 UNSPECIFIED LOCAL INFECTION OF SKIN AND SUBCUTANEOUS TISSUE 07/13/2011 LUCIE INSPECTOR [employer]ALL POINTS, DON S V06.1 TDAP DX 07/13/2011 LUCIE PADILLA DON S 686.9 UNSPECIFIED LOCAL INFECTION OF SKIN AND SUBCUTANEOUS TISSUE 07/13/2011 LUCIE PADILLA DON S V06.1 TDAP DX 07/13/2011 LUCIE INSPECTOR BALL POINTS, DON S 686.9 UNSPECIFIED LOCAL INFECTION OF SKIN AND SUBCUTANEOUS TISSUE 07/13/2011 LUCIE PADILLA DON S V06.1 TDAP DX 07/13/2011 MAJANO DO, MATT K 686.9 UNSPECIFIED LOCAL INFECTION OF SKIN AND SUBCUTANEOUS TISSUE 07/13/2011 MAJANO DO, MATT K V06.1 TDAP DX 05/19/2012 LIDIA FAULKNER APRNNDA S 272.0 PURE HYPERCHOLESTEROLEMIA 05/19/2012 272.0 PURE HYPERCHOLESTEROLEMIA 05/19/2012 272.0 PURE HYPERCHOLESTEROLEMIA 05/19/2012 SALLIE ANDERSON, RADHA Mathur 272.0 PURE HYPERCHOLESTEROLEMIA 05/19/2012 RADHA RIZO PHD 272.0 PURE HYPERCHOLESTEROLEMIA 05/19/2012 RADHA RIZO PHD 272.0 PURE HYPERCHOLESTEROLEMIA 05/19/2012 LIDIA FAULKNER APRNNDA S 272.0 PURE HYPERCHOLESTEROLEMIA 05/19/2012 LUCIE PADILLA DON S 272.0 PURE HYPERCHOLESTEROLEMIA 05/19/2012 LIDIA FAULKNER APRNNDA S 272.0 PURE HYPERCHOLESTEROLEMIA 05/19/2012 LUCIE INSPECTOR [employer]ALL POINTS, DON S 272.0 PURE HYPERCHOLESTEROLEMIA 05/19/2012 MAJANO DO, MATT K 272.0 PURE HYPERCHOLESTEROLEMIA 09/08/2012 380.4 IMPACTED CERUMEN 09/08/2012 RADHA RIZO PHD 380.4 IMPACTED CERUMEN 09/08/2012 RADHA RIZO PHD 380.4 IMPACTED CERUMEN 09/08/2012 SALLIE ANDERSON, RADHA Mathur 380.4 IMPACTED CERUMEN 09/08/2012 LUCIE INSPECTOR [employer]ALL POINTS, DON S 380.4 IMPACTED CERUMEN 09/08/2012 LUCIE INSPECTOR BALL POINTS, DON S 380.4 IMPACTED CERUMEN 09/08/2012 LUCIE INSPECTOR BALL POINTS, DON S 380.4 IMPACTED CERUMEN 09/08/2012 LUCIE INSPECTOR [employer]ALL POINTS, DON S 380.4 IMPACTED CERUMEN 09/08/2012 MAJANO DO, MATT K 380.4 IMPACTED CERUMEN 01/08/2013 RADHA RIZO PHD 780.93 MEMORY LOSS 01/08/2013 RADHA RIZO PHD 780.93 MEMORY LOSS 01/08/2013 RADHA RIZO PHD 780.93 MEMORY LOSS 01/08/2013 LUCIE INSPECTOR [employer]INTS, DON S 780.93 MEMORY LOSS 01/08/2013 LUCIE INSPECTOR [employer]ALL POINTS, DON S 780.93 MEMORY LOSS 01/08/2013 LUCIE INSPECTOR [employer]ALL POINTS, DON S 780.93 MEMORY LOSS 01/08/2013 LUCIE INSPECTOR [employer]ALL POINTS, DON S 780.93 MEMORY LOSS 01/08/2013 MAJANO DO, MATT K 780.93 MEMORY LOSS 03/11/2013 RADHA RIZO PHD 294.8 OR DEMENTIA NOS 03/11/2013 RADHA RIZO PHD 294.8 OR DEMENTIA NOS 03/11/2013 RADHA RIZO PHD 294.8 OR DEMENTIA NOS 03/11/2013 LUCIE INSPECTOR [employer]ALL POINTS, DON S 294.8 OR DEMENTIA NOS 03/11/2013 LUCIE INSPECTOR BALL POINTS, DNO S 294.8 OR DEMENTIA NOS 03/11/2013 LUCIE INSPECTOR BALL POINTS, DON S 294.8 OR DEMENTIA NOS 03/11/2013 LUCIE PADILLA, DON S 294.8 OR DEMENTIA NOS 03/11/2013 MAJANO DOJAYSONA K 294.8 OR DEMENTIA NOS 04/09/2013 LIDIA FAULKNER APRNNDA S 780.79 fatigue 04/09/2013 LIDIA FAULKNER APRNNDA S 780.79 fatigue 04/09/2013 LUCIE PADILLA, DON S 780.79 fatigue 04/09/2013 LUCIE PADILLA, DON S 780.79 fatigue 04/09/2013 MATT MAJANO DO 780.79 fatigue 06/16/2013 DON FAULKNER ELEVATOR MECHANIC APPRENTICE Ot 327.23 OBSTRUCTIVE SLEEP APNEA (ADULT) (PEDIATR 07/06/2013 EVA FAULKNER APRNA S 327.23 OBSTRUCTIVE SLEEP APNEA (ADULT) (PEDIATRIC) 07/06/2013 EVA FAULKNER APRNA S 327.23 OBSTRUCTIVE SLEEP APNEA (ADULT) (PEDIATRIC) 07/06/2013 EVA FAULKNER APRNA S 327.23 OBSTRUCTIVE SLEEP APNEA (ADULT) (PEDIATRIC) [...] V45.81 AORTOCORONARY BYPASS 01/25/2014 MATT MAJANO DO K 790.29 OTHER ABNORMAL GLUCOSE 06/14/2014 BLANKENSHIP DO, HANNA Ot 250.00 06/14/2014 BLANKENSHIP DO, HANNA Ot 272.4 06/14/2014 BLANKENSHIP DO, HANNA Ot 285.9 06/14/2014 BLANKENSHIP DO, HANNA Ot 401.9 06/14/2014 BLANKENSHIP DO, HANNA Ot V70.0 06/16/2014 Ot 250.00 06/16/2014 Ot 276.8 01/22/2015 NISHA, NANNETTE R INSPECTOR BALL POINTS Ot 327.23 OBSTRUCTIVE SLEEP APNEA (ADULT) (PEDIATR 01/12/2016 CHRISTIN HICKEY MD Ot K40.90 UNIL INGUINAL HERNIA, W/O OBST OR GANGR, 01/12/2016 CHRISTIN HICKEY MD Ot R10.31 RIGHT LOWER QUADRANT PAIN 01/13/2016 CHRISTIN HICKEY MD Ot K40.90 UNIL INGUINAL HERNIA, W/O OBST OR GANGR, 01/13/2016 CHRISTIN HICKEY MD Ot R10.31 RIGHT LOWER QUADRANT PAIN 06/17/2016 Ot 790.6 ABN BLOOD CHEMISTRY NEC 02/15/2017 Ot 414.01 CORONARY ATHEROSCLEROSIS OF [place] CORON 02/15/2017 Ot 427.31 ATRIAL FIBRILLATION 02/15/2017 Ot V58.61 ANTICOAGULANTS,LT,CURRENT USE 05/21/2017 ELIN VENTURA V 123391 Psychiatric Evaluation ELIN VENTURA 05/21/2017 ELIN VENTURA [...] V58.83 ENCOUNTER FOR THERAPEUTIC DRUG MONITORIN 08/12/2017 HANNA BLANKENSHIP DO Ot 250.00 DIAB JEREMIAH WO COMPL, TYPE II OR UNSPEC TY 08/12/2017 HANNA BLANKENSHIP DO Ot 272.4 HYPERLIPIDEMIA NEC/NOS 08/12/2017 ZACHARIAH BLANKENSHIP DOI Ot 285.9 ANEMIA NOS 08/12/2017 HANNA BLANKENSHIP DO Ot 401.9 HYPERTENSION NOS 08/12/2017 BLANKENSHIP DO, [...] Ot R40.1 STUPOR 09/03/2017 JULIO CÉSAR CERVANTES MD Ot F03.90 UNSPECIFIED DEMENTIA WITHOUT BEHAVIORAL 09/03/2017 JULIO CÉSAR CERVANTES MD Ot 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 09/03/2017 JULIO CÉSAR CERVANTES MD Ot R40.1 STUPOR 09/11/2017 JULIO CÉSAR CERVANTES MD Ot F03.90 UNSPECIFIED DEMENTIA WITHOUT BEHAVIORAL 09/11/2017 JULIO CÉSAR CERVANTES MD Ot 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 09/11/2017 JULIO CÉSAR CERVANTES MD Ot R40.1 STUPOR 02/19/2018 ANGELA BOONE, BONNIE Mccord Ot Z01.818 ENCOUNTER FOR OTHER PREPROCEDURAL EXAMIN 02/20/2018 ANGELA BOONE, BONNIE Mccord Ot Z01.818 ENCOUNTER FOR OTHER PREPROCEDURAL EXAMIN 02/20/2018 ANGELA BOONE, BONNIE Mccord Ot Z01.818 ENCOUNTER FOR OTHER PREPROCEDURAL EXAMIN 02/24/2018 KORINA BOONE, CALIXTO Loya Ot 276.8 HYPOPOTASSEMIA 02/24/2018 Ot V58.69 OT MED,LT, CURRENT USE 02/24/2018 Ot V58.83 ENCOUNTER [...] NE 02/24/2018 BONNIE MILLER MD Ot Z79.84 BUSINESS APPLICATIONS DEVELOPER (CURRENT) USE OF ORAL HYPOGLYC 02/24/2018 BONNIE MILLER MD, Ot Z79.899 OTHER [facility] (CURRENT) DRUG THERAPY 02/24/2018 BONNIE MILLER MD, Ot Z86.010 PERSONAL HISTORY OF COLONIC POLYPS 02/24/2018 BONNIE MILLER MD, Ot Z86.79 PERSONAL HISTORY OF OTHER DISEASES OF TH 02/24/2018 BONNIE MILLER MD, Ot Z87.891 PERSONAL HISTORY OF NICOTINE DEPENDENCE 02/25/2018 BONNIE MILLER MD, Ot F03.90 UNSPECIFIED DEMENTIA WITHOUT BEHAVIORAL 02/25/2018 BONNIE MILLER MD Ot I10 ESSENTIAL (PRIMARY) HYPERTENSION 02/25/2018 BONNIE MILLER MD, Ot K57.30 DVRTCLOS OF LG INT W/O PERFORATION OR AB 02/25/2018 BONNIE MILLER MD, Ot Z12.11 ENCOUNTER FOR SCREENING FOR MALIGNANT NE 02/25/2018 BONNIE MILLER MD Ot Z79.84 MCFP (CURRENT) USE OF ORAL HYPOGLYC 02/25/2018 BONNIE MILLER MD, Ot Z79.899 OTHER BUSINESS APPLICATIONS DEVELOPER (CURRENT) DRUG THERAPY 02/25/2018 BONNIE MILLER MD, Ot Z86.010 PERSONAL HISTORY OF COLONIC POLYPS 02/25/2018 BONNIE MILLER MD, Ot Z86.79 PERSONAL HISTORY OF OTHER DISEASES OF TH 02/25/2018 BONNIE MILLER MD, Ot Z87.891 PERSONAL HISTORY OF NICOTINE DEPENDENCE 03/10/2018 JULIO CÉSAR CERVANTES MD Ot F03.90 UNSPECIFIED DEMENTIA WITHOUT BEHAVIORAL 03/10/2018 JULIO CÉSAR CERVANTES MD Ot 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 03/10/2018 JULIO CÉSAR CERVANTES MD Ot R40.1 STUPOR 06/03/2018 KORINA BOONE, CALIXTO Loya Ot 276.8 HYPOPOTASSEMIA 06/03/2018 Ot V58.69 OTH MED,LT, CURRENT USE 06/03/2018 Ot V58.83 ENCOUNTER FOR THERAPEUTIC DRUG MONITORIN 06/03/2018 BLANKENSHIP DO, HANNA Ot 250.00 DIAB JEREMIAH WO COMPL, TYPE II OR UNSPEC TY 06/03/2018 BLANKENSHIP DO, HANNA Ot 272.4 HYPERLIPIDEMIA NEC/NOS 06/03/2018 BLANKENSHIP DO, HANNA Ot 285.9 ANEMIA NOS 06/03/2018 KRZYSZTOF DO, HANNA Ot 401.9 HYPERTENSION NOS 06/03/2018 KRZYSZTOF DO, HANNA Ot V70.0 ROUTINE MEDICAL EXAM [...] OCCLUSION AND STENOSIS OF BILATERAL YOUNG 06/03/2018 HELEN BOONE JULIO CÉSAR Ot R40.1 STUPOR 06/04/2018 Ot Z01.818 ENCOUNTER FOR OTHER PREPROCEDURAL EXAMIN 06/05/2018 GENESIS BARRAGAN MD Ot E78.00 PURE [...] GE 06/05/2018 GENESIS BARRAGAN MD Ot Z79.82 BUSINESS APPLICATIONS DEVELOPER (CURRENT) USE OF ASPIRIN 06/05/2018 GENESIS BARRAGAN MD Ot Z79.84 BUSINESS APPLICATIONS DEVELOPER (CURRENT) USE OF ORAL HYPOGLYC 06/05/2018 GENESIS BARRAGAN MD Ot Z86.010 PERSONAL HISTORY OF COLONIC POLYPS 06/05/2018 GENESIS BARRAGAN MD Ot Z87.19 PERSONAL HISTORY OF OTHER DISEASES OF TH 06/05/2018 GENESIS BARRAGAN MD Ot Z87.891 PERSONAL HISTORY OF NICOTINE DEPENDENCE 06/05/2018 GENESIS BARRAGAN MD Ot Z95.1 PRESENCE OF AORTOCORONARY BYPASS GRAFT 06/05/2018 GENESIS BARRAGAN MD Ot Z98.890 OTHER SPECIFIED POSTPROCEDURAL STATES 06/05/2018 Ot Z01.818 ENCOUNTER FOR OTHER PREPROCEDURAL EXAMIN Procedures Code Description Performed By Performed On 45.16 ESOPHAGOGASTRODUODENOSCOPY [ EGD] W/CLOSE 12/24/2009 47039 ROUTINE VENIPUNCTURE 05/19/2012 98369 CBC 05/19/2012 87393 CMP 05/19/2012 [id number] GFR CALC (RESULT ONLY) 05/19/2012 34162 LIPID PANEL 05/19/2012 84483 EAR LAVAGE 09/08/2012 14527 PSYCH DIAGNOSTIC EVALUATION 03/12/2013 73323 PSYCHO TESTING 1 HR W TECH 03/23/2013 11214 PSYTX PT&/FAMILY 30 MINUTES 03/24/2013 39052 SLEEP STUDY 05/07/2013 94698 ROUTINE VENIPUNCTURE 07/23/2013 65739 T4 FREE 07/23/2013 27348 TSH 07/23/2013 28360 VIT B 12 07/23/2013 31021 HOMOCYSTINE 07/23/2013 45244 SYPHILLIS TEST 07/24/2013 32943 METHYLMELONIC 07/29/2013 54101 ROUTINE VENIPUNCTURE 01/25/2014 [id number] GFR CALC (RESULT ONLY) 01/25/2014 64771 BMP 01/25/2014 Results Test Result Range Basic [...] RED CELL DISTRIBUTION WIDTH 13.3 % 11.8-15.6 3056778 13.3 10E9/L 3.5-10.5 6819791 1.80 10E9/L 0.90-2.90 5562581 1.33 10E9/L 0.30-0.90 9921107 0.25 10E9/L 0.05-0.50 5417685 9.82 10E9/L 1.70-7.00 9055371 0.06 10E9/L 0.00-0.30 7583883 0 % COMPREHENSIVE METABOLIC PANEL - 05/21/17 [...] 7-25 CREATININE 0.78 mg/dL 0.70-1.18 eGFR NON-AFR. DJIBOUTIAN 91 mL/min/1.73m2 > OR=60 eGFR 105 mL/min/1.73m2 [...] - 06/03/18 12:30 Magnesium 1.9 mg/dL 1.8-2.4 Methicillin resistant Staphylococcus aureus (MRSA) screening culture - 08:24 Methicillin resistant Staphylococcus aureus (MRSA) screening culture NEG NRG Capillary blood glucose measurement by glucometer (mass/volume) - 06/05/18 08: 46 Capillary blood glucose measurement by glucometer (mass/volume) 118 mg/dL 70-110 Serum or plasma potassium measurement (moles/volume) - 06/05/18 09:00 Serum or plasma potassium measurement (moles/volume) 3.7 mmol/L 3.6-5.0 Automated blood complete blood count (hemogram) panel - 06/06/18 05:50 Blood leukocytes automated count (number/volume) 15.0 10*3/uL 4.3-11.0 Blood erythrocytes automated count (number/volume) 4.90 10*6/uL 4.35-5.85 Venous blood hemoglobin measurement (mass/volume) 14.0 g/dL 13.3-17.7 Blood hematocrit (volume fraction) 43 % 40-54 Automated erythrocyte mean corpuscular volume 87 [foz_us] 80-99 Automated erythrocyte mean corpuscular hemoglobin (mass per erythrocyte) 29 pg 25-34 Automated erythrocyte mean corpuscular hemoglobin concentration measurement ( mass/volume) 33 g/dL 32-36 Automated erythrocyte distribution width ratio 15.0 % 10.0-14.5 Automated blood platelet count (count/volume) 210 10*3/uL 130-400 Automated blood platelet mean volume measurement 10.0 [foz_us] 7.4-10.4 Whole blood basic metabolic panel - 06/06/18 05:50 Serum or plasma sodium measurement (moles/volume) 145 mmol/L 135-145 Serum or plasma potassium measurement (moles/volume) 3.1 mmol/L 3.6-5.0 Serum or plasma chloride measurement (moles/volume) 110 mmol/L 98-107 Carbon dioxide 22 mmol/L 21-32 Serum or plasma anion gap determination (moles/volume) 13 mmol/L 5-14 Serum or plasma urea nitrogen measurement (mass/volume) 14 mg/dL 7-18 Serum or plasma creatinine measurement (mass/volume) 0.77 mg/dL 0.60-1.30 Serum or plasma urea nitrogen/creatinine mass ratio 18 NRG Serum or plasma creatinine measurement with calculation of estimated glomerular filtration rate > NRG Serum or plasma glucose measurement (mass/volume) 121 mg/dL 70-105 Serum or plasma calcium measurement (mass/volume) 8.6 mg/dL 8.5-10.1 Magnesium - 06/06/18 05:50 Magnesium 1.6 mg/dL 1.8-2.4 Complete urinalysis with reflex to culture - 06/06/18 21:27 Urine color determination RED NRG Urine clarity determination VERY CLOUDY NRG Urine pH measurement by test strip 8 5-9 Specific gravity of urine by test strip 1.010 1.016- 1.022 Urine protein assay by test strip, semi-quantitative 3+ NEGATIVE Urine glucose detection by automated test strip NEGATIVE NEGATIVE Erythrocytes detection in urine sediment by light microscopy 5+ NEGATIVE Urine ketones detection by automated test strip 2+ NEGATIVE Urine nitrite detection by test strip NEGATIVE NEGATIVE Urine total bilirubin detection by test strip NEGATIVE NEGATIVE Urine urobilinogen measurement by automated test strip (mass/volume) NORMAL NORMAL Urine leukocyte esterase detection by dipstick 3+ NEGATIVE Automated urine sediment erythrocyte count by microscopy (number/high power field) TNTC NRG Automated urine sediment leukocyte count by microscopy (number/high power field ) [HPF] NRG Bacteria detection in urine sediment by light microscopy NONE NRG Crystals detection in urine sediment by light microscopy NONE NRG Casts detection in urine sediment by light microscopy NONE NRG Mucus detection in urine sediment by light microscopy NEGATIVE NRG Complete urinalysis with reflex to culture YES NRG Bacterial urine culture - 06/06/18 21:27 Bacterial urine culture YEAST NRG COLONY COUNT 20,000 CFU/ML NRG Bacterial blood culture - 06/06/18 21:47 Bacterial blood culture NG NRG Complete blood count (CBC) with automated white blood cell (WBC) differential - 06/07/18 07:50 Blood leukocytes automated count (number/volume) 15.8 10*3/uL 4.3-11.0 Blood erythrocytes automated count (number/volume) 4.56 10*6/uL 4.35-5.85 Venous blood hemoglobin measurement (mass/volume) 13.1 g/dL 13.3-17.7 Blood hematocrit (volume fraction) 40 % 40-54 Automated erythrocyte mean corpuscular volume 88 [foz_us] 80-99 Automated erythrocyte mean corpuscular hemoglobin (mass per erythrocyte) 29 pg 25-34 Automated erythrocyte mean corpuscular hemoglobin concentration measurement ( mass/volume) 33 g/dL 32-36 Automated erythrocyte distribution width ratio 15.2 % 10.0-14.5 Automated blood platelet count (count/volume) 211 10*3/uL 130-400 Automated blood platelet mean volume measurement 10.1 [foz_us] 7.4-10.4 Automated blood neutrophils/100 leukocytes 83 % 42-75 Automated blood lymphocytes/100 leukocytes 8 % 12-44 Blood monocytes/100 leukocytes 7 % 0-12 Automated blood eosinophils/100 leukocytes 1 % 0-10 Automated blood basophils/100 leukocytes 0 % 0-10 Blood neutrophils automated count (number/volume) 13.0 10*3 1.8-7.8 Blood lymphocytes automated count (number/volume) 1.3 10*3 1.0-4.0 Blood monocytes automated count (number/volume) 1.2 10*3 0.0-1.0 Automated eosinophil count 0.2 10*3/uL 0.0-0.3 Automated blood basophil count (count/volume) 0.0 10*3/uL 0.0-0.1 Whole blood basic metabolic panel - 06/07/18 07:50 Serum or plasma sodium measurement (moles/volume) 149 mmol/L 135-145 Serum or plasma potassium measurement (moles/volume) 3.8 mmol/L 3.6-5.0 Serum or plasma chloride measurement (moles/volume) 113 mmol/L 98-107 Carbon dioxide 27 mmol/L 21-32 Serum or plasma anion gap determination (moles/volume) 9 mmol/L 5-14 Serum or plasma urea nitrogen measurement (mass/volume) 14 mg/dL 7-18 Serum or plasma creatinine measurement (mass/volume) 0.70 mg/dL 0.60-1.30 Serum or plasma urea nitrogen/creatinine mass ratio 20 NRG Serum or plasma creatinine measurement with calculation of estimated glomerular filtration rate > NRG Serum or plasma glucose measurement (mass/volume) 132 mg/dL 70-105 Serum or plasma calcium measurement (mass/volume) 8.6 mg/dL 8.5-10.1 Magnesium - 06/07/18 07:50 Magnesium 2.0 mg/dL 1.8-2.4 Encounters ACCT No. Visit Date/Time Discharge Status Pt. Type Provider Facility Loc./Unit Complaint [id number] 01/25/2014 08:56:00 01/25/2014 23:59:59 CLS Outpatient MELECIO MATT LESTER Ozzy [id number] 11/23/2013 10:24:00 11/23/2013 23:59:59 CLS Outpatient DON FAULKNER APRN [id number] 07/23/2013 13:33:00 07/23/2013 23:59:59 CLS Outpatient DON FAULKNER APRN [id number] 07/06/2013 14:24:00 07/06/2013 23:59:59 CLS Outpatient DNO FAULKNER APRN [id number] 04/09/2013 12:26:00 04/09/2013 23:59:59 CLS Outpatient DON FAULKNER APRN [id number] 03/23/2013 15:47:00 03/23/2013 23:59:59 CLS Outpatient RADHA RIZO PHD [id number] 03/20/2013 09:48:00 03/20/2013 23:59:59 CLS Outpatient RADHA RIZO PHD [id number] 03/11/2013 08:41:00 03/11/2013 23:59:59 CLS Outpatient RADHA RIZO PHD [id number] 09/08/2012 13:02:00 09/08/2012 23:59:59 CLS Outpatient [id number] 09/02/2012 13:28:00 09/02/2012 23:59:59 CLS Outpatient [id number] 05/19/2012 14:13:00 05/19/2012 23:59:59 CLS Outpatient DON FAULKNER APRN [id number] 10/23/2016 10:10:00 Document Registration [id number] 06/23/2016 07:06:00 Document Registration [id number] 05/21/2017 00:07:44 05/21/2017 03:11:00 DIS ELIN Turcios [facility] [id number] 05/31/2016 07:05:00 Document Registration [id number] 02/16/2016 07:06:00 Document Registration [id number] 05/14/2018 10:00:00 05/14/2018 23:59:59 CLS Outpatient DON FAULKNER APRN [facility] [id number] 12/30/2017 13:00:00 Document Registration [id number] 07/08/2017 10:20:00 Document Registration [id number] 03/14/2017 08:40:00 Document Registration [id number] 06/05/2018 08:09:00 06/05/2018 23:59:59 CLS Outpatient LIV ENGLAND DO Via [facility] 4TH RIGHT INGUINAL HERNIA [id number] 06/03/2018 11:32:00 06/03/2018 13:40:00 DIS Outpatient GENESIS BARRAGAN MD Via [facility] ER GROIN PAIN [id number] 02/24/2018 08:25:00 02/24/2018 12:40:00 DIS Outpatient BONNIE MILLER MD [facility] ENDO SCREENING [id number] 02/20/2018 15:31:00 02/20/2018 15:43:00 DIS Outpatient BONNIE MILLER MD [facility] PREOP COLONOSCOPY [id number] 08/13/2017 13:30:00 08/13/2017 23:59:59 CLS Preadmit JULIO CÉSAR CERVANTES MD [facility] CARD DEMENTIA [id number] 08/13/2017 12:16:00 08/13/2017 23:59:59 CLS Outpatient JULIO CÉSAR CERVANTES MD [facility] RAD DEMENTIA [id number] 07/12/2017 13:04:00 07/12/2017 23:59:59 CLS Outpatient JULIO CÉSAR CERVANTES MD [facility] RAD ANOXIC BRAIN DAMAGE, ALZHEIMERS DISEASE [id number] 07/08/2017 14:19:00 07/08/2017 23:59:59 CLS Preadmit DON FAULKNER [facility] RAD BEHAVIORAL CHANGE [id number] 01/12/2016 14:05:00 01/12/2016 15:31:00 DIS Emergency EDELMIRA BOONE, CHRISTIN Mathur [facility] ER LOWER ABD PAIN [id number] 01/21/2015 21:10:00 01/22/2015 06:00:00 DIS Outpatient NANNETTE CAMERON APRN [facility] SLEEP STEPHON [id number] 04/16/2014 07:13:00 04/16/2014 23:59:59 CLS Outpatient HANNA BLANKENSHIP DO [facility] LAB HEALTH SCREENING MEDICATION MONITORING DM HLP HTN [id number] 12/14/2013 08:48:00 12/14/2013 23:59:59 CLS Outpatient KORINA BOONE, CALIXTO Loya [facility] LAB HYPOPOTASSEMIA [id number] 11/06/2013 19:35:00 11/07/2013 12:10:00 DIS Inpatient ARNOLDO RAMON MD [facility] CSD MALIGNANT HYPERTENSION DIZZINESS [id number] 06/15/2013 21:14:00 06/16/2013 05:05:00 DIS Outpatient DON FAULKNER [facility] SLEEP ISCHEMIC HEART DISEASE,HTN,EXCESSIVE DAYTIME SLEEP [id number] 06/04/2018 13:27:00 Document Registration [id number] 08/12/2017 18:55:00 Document Registration [id number] 05/25/2014 10:42:00 Document Registration [id number] 12/28/2013 08:41:00 Document Registration [id number] 12/23/2009 19:18:00 Document Registration [id number] 12/22/2009 10:45:00 Document Registration [id number] 12/22/2009 10:45:00 Document Registration [id number] 03/15/2017 09:12:00 Document Registration
== END 2018-06-08 12:25 | disposition home or self-care (01) | DRG 329 ==
LOC: 4TH 08:09 → SDC 08:09 → EDSTATUS 09:15 → 4TH 12:45 → SDC 12:45 → 4TH 06-06 13:47 → SDC 06-08 12:25
PROVIDERS: ADMIT Surgery; ATTEND Surgery
PROC: 0DBF0ZZ Excision of Right Large Intestine, Open Approach (ICD-10-PCS; 2018-06-05)
PROC: 0YU50JZ Supplement Right Inguinal Region with Synthetic Substitute, Open Approach (ICD-10-PCS; principal; 2018-06-05 10:01)
DX: K40.30 Unilateral inguinal hernia, with obstruction, without gangrene, not specified as recurrent (principal); J18.9 Pneumonia, unspecified organism; F05 Delirium due to known physiological condition; F03.90 Unspecified dementia, unspecified severity, without behavioral disturbance, psychotic disturbance, mood disturbance, and anxiety; E87.0 Hyperosmolality and hypernatremia; R09.02 Hypoxemia; R33.9 Retention of urine, unspecified; I10 Essential (primary) hypertension; I51.9 Heart disease, unspecified; E11.59 Type 2 diabetes mellitus with other circulatory complications; G47.33 Obstructive sleep apnea (adult) (pediatric); R01.1 Cardiac murmur, unspecified; R53.81 Other malaise; E87.6 Hypokalemia; E83.42 Hypomagnesemia; Z95.1 Presence of aortocoronary bypass graft; Z95.828 Presence of other vascular implants and grafts; Z87.891 Personal history of nicotine dependence; Z86.79 Personal history of other diseases of the circulatory system; Z86.19 Personal history of other infectious and parasitic diseases; Z87.11 Personal history of peptic ulcer disease; Z79.84 Long term (current) use of oral hypoglycemic drugs
CPT/HCPCS: 36415; 71045; 80048; 80053; 81000; 82962; 83735; 84132; 85025; 85027; 87040; 87081; 87088; 88302; 88307; 94640; 94664

== ENCOUNTER 2019-01-21 10:58 | Emergency (ER) | payer MEDICARE ==
[~2019-01-21] VITALS: Ht 167.6 cm; Wt 60.3 kg
[~2019-01-21 10:58] MED LIST changes: +ACHD5005 PO; +AMOX-358 PO; +DOCU-143 PO; +FLUC150T PO; +OMEP20CA13 PO; +SIMV80TA21 PO; +VIT1TABL26 PO
--- OUTSIDE RECORDS SUMMARY | 2019-01-21 11:09 | XMS REPORT | Clinical Summary ---
Author Author Video [facility] Organization [facility] Address Unknown Phone Unavailable Care Team Providers Care Hr Internship Name Role Phone Bradley Bang Team PP Allergies No Known Allergies Medications No known medications Active Problems Not on file Social History Date Tobacco Use Types Packs/Day Years Used Never Smoker Smokeless Tobacco: Never Used Sex Assigned at Date Recorded Not on file Industry Job Start Date Occupation Not on file Not on file Not on file Travel End Travel History Travel Start No recent travel history available. Last Filed Vital Signs Reading Time Taken Comments Vital Sign 170/82 05/21/2017 2:30 AM ENGRAVER LETTER Blood Pressure 73 05/21/2017 2:30 AM ENGRAVER LETTER Pulse 37.1 C (98.7 F) 05/21/2017 12:02 AM ENGRAVER LETTER Temperature 18 05/21/2017 2:30 AM ENGRAVER LETTER Respiratory Rate 97% 05/21/2017 2:30 AM ENGRAVER LETTER Oxygen Saturation - - Inhaled Oxygen Concentration 64.4 kg (142 lb) 05/21/2017 12:02 AM ENGRAVER LETTER Weight 162.6 cm (5' 4") 05/21/2017 12:02 AM ENGRAVER LETTER Height 24.37 05/21/2017 12:02 AM ENGRAVER LETTER Body Mass Index Plan of Treatment Health Maintenance Due Date Last Done Comments Annual Wellness Visit 1945 Hepatitis C Screening 1945 DTaP,Tdap,and Td Vaccines 1964 (1 - Tdap) Colon Cancer Screening 10/26/1995 Zoster Recombinant 10/26/1995 Vaccine (RZV,Shingrix) (1 of 2 - SV 2 Dose Standard) Pneumo-Vaccine: 65+Yrs (1 2010 of 2 - PCV13) Influenza Vaccine (#1) 2019 Pneumo-Vaccine: Peds (0-5 Aged Out No longer eligible based Yrs) & At-Risk Patients on patient's age to (6-64 Yrs) complete this topic Results Not on filefrom Last 3 Months Insurance Type Payer Benefit Subscriber ID Effective Phone Address Plan / Dates Group Medicare MEDICARE MEDICARE xxxxxxxxxx 2009- [phone] [address] [place] [address] [facility] xxxxxxxxx 2016-P [phone] 11 PC SS ADMINISTRA resent [address] [place] [address] [facility] xxxxxxxxx 2017- [phone] 11 PC SS UNAUTHORIZ Present [address] [place] [address] Advance Directives Patient Technical Support Representative Explanation Type Date Recorded Advance Directives and Living Will Power of Underground Electrician
--- OUTSIDE RECORDS SUMMARY | 2019-01-21 11:09 | XMS REPORT ---
Author Author Migration, Doctor Organization [facility] Address Unknown Phone Unavailable Care Team Providers Care Warehouse Laborer Name Role Phone Migration, Doctor Unavailable Unavailable PROBLEMS Type Condition ICD9-CM Code QAF07-BD Code Onset Dates Condition Status SNOMED Code Problem Alzheimers disease, unspecified G30.9 Active 9188132381268 Problem Obstructive sleep apnea G47.33 Active 06720462 Problem Hypercholesterolemia E78.00 Active 98839115 Problem Type 2 diabetes mellitus with diabetic polyneuropathy, unspecified whether snf insulin use E11.42 Active 78488787 Problem Essential hypertension I10 Active 16071105 Problem 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 6139556 Problem Macular degeneration H35.30 Active 709306714 Problem Type 2 diabetes mellitus without complications E11.9 Active 424631424 Problem Hypokalemia E87.6 Active 62635078 ALLERGIES No Information ENCOUNTERS Encounter Location Date Diagnosis [place] [id number] [place] [address] Sep, Encounter for Medicare annual wellness exam Z00.00 ; Type 2 diabetes mellitus without complications E11.9 ; Hypokalemia E87.6 ; Alzheimers disease, unspecified G30.9 ; Essential hypertension I10 and Rhonchi R09.89 [facility] [facility] [id number] [place] [address] Aug, Alzheimers disease, unspecified G30.9 and Type 2 diabetes mellitus with diabetic polyneuropathy, unspecified whether manager terminal insulin use E11.42 [place] [facility] [id number] [place] [address] Aug, Hypokalemia E87.6 [place] [id number] [place] [address] Jul, Hypokalemia E87.6 [place] [id number] [place] [address] [place] [address] Apr, Type 2 diabetes mellitus without complications E11.9 and Alzheimers disease, unspecified G30.9 [facility] [id number] [place] [address] Dec, [facility] [id number] [place] [address] Dec, Type 2 diabetes mellitus without complications E11.9 ; Hypokalemia E87.6 and Alzheimers disease, unspecified G30.9 [facility] [id number] [place] [address] Jul, Alzheimers disease, unspecified G30.9 [facility] [id number] [place] [address] Jul, [facility] [id number] [place] [address] Jul, [facility] [id number] [place] [address] Jun, [facility] [id number] [place] [address] Jun, Alzheimers disease, unspecified G30.9 ; Hypokalemia E87.6 and Behavioral change R46.89 [facility] [id number] [address] Jun, [facility] [id number] [place] [address] May, [facility] [address] [address] Feb, [facility] [id number] [place] [address] Feb, Type 2 diabetes mellitus without complications E11.9 ; Hypokalemia E87.6 and Alzheimers disease, unspecified G30.9 [facility] [id number] [place] [address] Feb, Type 2 diabetes mellitus without complications E11.9 ; Alzheimers disease, unspecified G30.9 and Hypokalemia E87.6 [place] [id number] [place] [address] October, [place] [address] [address] October, Type 2 diabetes mellitus without complications E11.9 ; Hypokalemia E87.6 ; Rhonchi R09.89 and Bilateral impacted cerumen H61.23 [place] [address] [address] October, Hypokalemia E87.6 ; Essential (primary) hypertension I10 and Type 2 diabetes mellitus without complications E11.9 [place] [address] [address] October, Hypokalemia E87.6 ; Type 2 diabetes mellitus without complications E11.9 and Essential (primary) hypertension I10 [place] [id number] [place] [address] Jul, Hypokalemia E87.6 [place] [id number] [place] [address] Jun, Hypokalemia E87.6 [facility] [place] [id number] [place] [address] Jun, Hypokalemia E87.6 [facility] [id number] [place] [address] May, Hypokalemia E87.6 [place] [id number] [place] [address] May, Type 2 diabetes mellitus without complications E11.9 and Hypokalemia E87.6 [place] [id number] [place] [address] Feb, Type 2 diabetes mellitus without complications E11.9 and Alzheimers disease, unspecified G30.9 [place] [facility] [id number] [place] [address] Jan, Hypokalemia E87.6 [place] [id number] [place] [address] Jan, Hypokalemia E87.6 [place] [id number] [place] [address] October, Type 2 diabetes mellitus without complications E11.9 ; Hypokalemia E87.6 ; Macular degeneration H35.30 ; Alzheimers disease, unspecified G30.9 and Essential hypertension I10 [place] [id number] [place] [address] October, Routine health maintenance Z00.00 and Type 2 diabetes mellitus without complications E11.9 [place] [id number] [place] [address] October, Routine health maintenance Z00.00 and Type 2 diabetes mellitus without complications E11.9 [place] [id number] [place] [address] Jul, [place] [id number] [place] [address] Jul, Hypokalemia E87.6 ; Type 2 diabetes mellitus without complications E11.9 and Abnormal CBC R79.89 [place] [address] [place] [address] Jul, Hypokalemia E87.6 ; Type 2 diabetes mellitus without complications E11.9 and Abnormal CBC R79.89 [place] [id number] [place] [address] Jul, [place] [id number] [place] [address] Jul, Abnormal CBC R79.89 and Lymphadenopathy of head and neck region R59.9 [facility] [address] [address] May, [facility] [id number] [place] [address] Apr, [facility] [id number] [place] [address] Apr, [facility] [id number] [place] [address] Apr, [facility] [id number] [place] [address] Apr, [facility] [id number] [place] [address] Mar, Hypokalemia E87.6 [facility] [id number] [place] [address] Mar, [facility] [id number] [place] [address] Mar, Hypokalemia E87.6 ; Type 2 diabetes mellitus without complications E11.9 and Hypokalemia 276.8 [facility] [address] [address] Jan, Hypokalemia 276.8 [facility] [id number] [place] [address] Jan, Hypertension 401.9 [facility] [id number] [place] [address] Jan, [facility] [id number] [place] [address] Nov, Diabetes mellitus without mention of complication, type II or unspecified type, not stated as uncontrolled 250.00 and Hypertension 401.9 [facility] [address], [place] [address] Nov, [facility] [place] [facility] [address] [id number] [place] [address] 14 Sep, 2014 [facility] [place] [facility] [address] [id number] [place] [address] Sep, [facility] [place] [facility] [address] [id number] [place] [address] Jun, [facility] [place] [facility] [address] [id number] [place] [address] Jun, [facility] [place] [facility] [address] [id number] [place] [address] Jan, [facility] [place] [facility] [address] [id number] [place] [address] Jan, [facility] [place] [facility] [address] [id number] [place] [address] Jan, [facility] [place] [facility] [address] [id number] [place] [address] Jan, [facility] [place] [facility] [address] [id number] [place] [address] Jan, [facility] [place] [facility] [address] [id number] [place] [address] Jan, [facility] [place] [facility] [address] [id number] [place] [address] Dec, [facility] [place] [facility] [address] [id number] [place] [address] Nov, [facility] [place] [facility] [address] [id number] [place] [address] Nov, [facility] [place] [facility] [address] [id number] [place] [address] Nov, [facility] [place] [facility] [address] [id number] [place] [address] Nov, [facility] [place] [facility] [address] [id number] [place] [address] October, [facility] [place] [facility] [address] [id number] [place] [address] Jul, [facility] [place] [facility] [address] [id number] [place] [address] Jul, [facility] [place] [facility] [address] [facility] [id number] [place] [address] Jul, [facility] [place] [facility] [address] [id number] [place] [address] Jul, [facility] [place] [facility] [address] [id number] [place] [address] Jul, [facility] [place] [facility] [address] [id number] [place] [address] Jul, [facility] [place] [facility] [address] [id number] [place] [address] Jun, [facility] [place] [facility] [address] [id number] [place] [address] Jun, [facility] [place] [facility] [address] [id number] [place] [address] Jun, [facility] [place] [facility] [address] [facility] [id number] [place] [address] Jun, [facility] [place] [facility] [address] [id number] [place] [address] Jun, [facility] [place] [facility] [address] [id number] [place] [address] Jun, [facility] [place] [facility] [address] [id number] [place] [address] Jun, [facility] [place] [facility] [address] [id number] [place] [address] Apr, [facility] [place] [facility] [address] [id number] [place] [address] Apr, [facility] [place] [facility] [address] [id number] [place] [address] Mar, [facility] [address] [id number] [place] [address] Mar, [facility] [place] [facility] [address] [id number] [place] [address] Mar, [facility] [address] [id number] [place] [address] Mar, [facility] [place] [facility] [address] [id number] [place] [address] Feb, [facility] [address] [id number] [place] [address] Feb, [facility] [place] [facility] [address] [id number] [place] [address] Dec, [facility] [place] [facility] [address] [id number] [place] [address] Aug, [facility] [address] [id number] [place] [address] Aug, [facility] [place] [facility] [address] [id number] [place] [address] Aug, [facility] [address] [facility] [id number] [place] [address] Jul, [facility] [place] [facility] [address] [id number] [place] [address] May, [facility] [address] [id number] [place] [address] May, [facility] [place] [facility] [address] [id number] [place] [address] May, [facility] [place] [facility] [address] [id number] [place] [address] May, [facility] [place] [facility] [address] [id number] [place] [address] Mar, [facility] [place] [facility] [address] [id number] [place] [address] Mar, [facility] [place] [facility] [address] [id number] [place] [address] Sep, [facility] [place] [facility] [address] [id number] [place] [address] Sep, [facility] [place] [facility] [address] [id number] [place] [address] Jun, [facility] [place] [facility] [address] [id number] [place] [address] May, [facility] [place] [facility] [address] [id number] [place] [address] Apr, [facility] [place] [facility] [address] [id number] [place] [address] Apr, [facility] [place] [facility] [address] [id number] [place] [address] Apr, [facility] [place] [facility] [address] [id number] [place] [address] Apr, [facility] [place] [facility] [address] [id number] [place] [address] Mar, [facility] [place] [facility] [address] [id number] [address] Dec, [facility] [place] [facility] [address] [id number], [place] [address] Nov, [facility] [place] [facility] [address] [id number] [place] [address] Mar, [facility] [place] [facility] [address] [id number], [place] [address] 16 Jan, 2010 [facility] [place] [facility] [address] [id number] [place] [address] 24 Apr, 2009 [facility] [place] [facility] [address] [facility] [id number], [place] [address] Apr, [facility] [id number] [address] Apr, [facility] [id number] [address] Apr, [facility] [address], [place] [address] Mar, [facility] [address] [address] Mar, [facility] [address], [place] [address] Mar, [facility] [address] [address] Mar, [facility] [id number] [address] Sep, IMMUNIZATIONS No Known Immunizations SOCIAL HISTORY Never Assessed [place] [place] VITAL SIGNS MEDICATIONS Unknown Medications RESULTS No Results PROCEDURES No Known procedures INSTRUCTIONS MEDICATIONS ADMINISTERED No Known Medications MEDICAL (GENERAL) HISTORY Type Description Date Medical History hypertension Medical History sleep apnea-CPAP 8cm T6K-Tddanc Paykel Eson Nasal Mask Medical History hypokalemia Medical History heart disease-rupture AAA, intrarenal Medical History respiratory disorder 06/16/13 Medical History Srini filter, DVT Medical History hepatitis B Medical History dementia Medical History 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 Medical History Alzheimers disease, unspecified Medical History [facility] - Team [address] Dr[address] Lang Surgical History cardiothoracic surgery-triple bypass-Kee 12/2009 Surgical History Triple A 09/2006 Surgical History cholecystectomy Surgical History Bleeding ulcer Surgical History colonoscopy Recurrent polyps not identified FU in 5 years 02/2018 Surgical History inguinal hernia repair [facility] 05/2019 Hospitalization History Hospitalization for surgery only Hospitalization History hypertension 10/2013 Hospitalization History [facility]where in [facility] May 2017
--- OUTSIDE RECORDS SUMMARY | 2019-01-21 11:09 | XMS REPORT ---
Author Author DON FAULKNER Organization 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 [id number] [place] [address] Aug, Alzheimers disease, unspecified G30.9 and Type 2 diabetes mellitus with diabetic polyneuropathy, unspecified whether prison insulin use E11.42 [facility] [id number] [place] [address] Aug, Hypokalemia E87.6 [facility] [id number] [place] [address] Jul, Hypokalemia E87.6 [facility] [address] [address] Apr, Type 2 diabetes mellitus without complications E11.9 and Alzheimers disease, unspecified G30.9 [facility] [id number] [place] [address] Dec, [facility] [id number] [place] [address] Dec, Type 2 diabetes mellitus without complications E11.9 ; Hypokalemia E87.6 and Alzheimers disease, unspecified G30.9 [facility] [id number] [place] [address] Jul, Alzheimers disease, unspecified G30.9 [facility] [id number] [place] [address] Jul, [facility] [id number] [place] [address] Jul, [facility] [id number] [place] [address] Jun, [facility] [id number] [place] [address] Jun, Alzheimers disease, unspecified G30.9 ; Hypokalemia E87.6 and Behavioral change R46.89 [facility] [address] [address] Jun, [facility] [address] [address] May, [facility] [id number] [place] [address] Feb, [facility] [address] [address] Feb, Type 2 diabetes mellitus without complications E11.9 ; Hypokalemia E87.6 and Alzheimers disease, unspecified G30.9 [facility] [id number] [place] [address] Feb, Type 2 diabetes mellitus without complications E11.9 ; Alzheimers disease, unspecified G30.9 and Hypokalemia E87.6 [facility] [address] [address] October, [facility] [address] [address] October, Type 2 diabetes mellitus without complications E11.9 ; Hypokalemia E87.6 ; Rhonchi R09.89 and Bilateral impacted cerumen H61.23 [facility] [address] [address] October, Hypokalemia E87.6 ; Essential (primary) hypertension I10 and Type 2 diabetes mellitus without complications E11.9 [facility] [address] [address] October, Hypokalemia E87.6 ; Type 2 diabetes mellitus without complications E11.9 and Essential (primary) hypertension I10 [facility] [id number] [place] [address] Jul, Hypokalemia E87.6 [facility] [id number] [place] [address] Jun, Hypokalemia E87.6 [facility] [id number] [place] [address] Jun, Hypokalemia E87.6 [facility] [address] [address] May, Hypokalemia E87.6 [facility] [id number] [place] [address] May, Type 2 diabetes mellitus without complications E11.[address] [facility] [address] [address] Feb, Type 2 diabetes mellitus without complications E11.9 and Alzheimers disease, unspecified G30.9 [facility] [address] [address] Jan, Hypokalemia E87.6 [facility] [id number] [place] [address] Jan, Hypokalemia E87.6 [facility] [id number] [place] [address] October, Type 2 diabetes mellitus without complications E11.9 ; Hypokalemia E87.6 ; Macular degeneration H35.30 ; Alzheimers disease, unspecified G30.9 and Essential hypertension I10 [facility] [id number] [place] [address] October, Routine health maintenance Z00.00 and Type 2 diabetes mellitus without complications E11.9 [facility] [id number] [place] [address] October, Routine health maintenance Z00.00 and Type 2 diabetes mellitus without complications E11.9 [facility] [address] [address] Jul, [facility] [address] [place] [address] Jul, Hypokalemia E87.6 ; Type 2 diabetes mellitus without complications E11.9 and Abnormal CBC R79.89 [facility] [id number] [place] [address] 15 Jul, 2015 Hypokalemia E87.6 ; Type 2 diabetes mellitus without complications E11.9 and Abnormal CBC R79.89 [facility] [address] [address] Jul, [facility] [address] [address] 08 Jul, 2015 Abnormal CBC R79.89 and Lymphadenopathy of head and neck region R59.9 [facility] [id number] [place] [address] May, [facility] [id number] [place] [address] Apr, [facility] [id number] [place] [address] Apr, [facility] [id number] [place] [address] Apr, [facility] [id number] [place] [address] Apr, [facility] [id number] [place] [address] Mar, Hypokalemia E87.6 [facility] [address] [address] Mar, [facility] [id number] [place] [address] Mar, Hypokalemia E87.6 ; Type 2 diabetes mellitus without complications E11.9 and Hypokalemia 276.8 [facility] [id number] [place] [address] Jan, Hypokalemia 276.8 [facility] [address] [address] Jan, Hypertension 401.9 [facility] [id number] [place] [address] Jan, [facility] [address] [address] Nov, Diabetes mellitus without mention of complication, type II or unspecified type, not stated as uncontrolled 250.00 and Hypertension 401.9 [facility] [place] [facility] [address] [id number] [place] [address] 18 Nov, 2014 [facility] [place] [facility] [address] [id number] [place] [address] 14 Sep, 2014 [facility] [place] [facility] [address] [id number] [place] [address] Sep, [facility] [place] [facility] [address] [id number] [place] [address] Jun, [facility] [place] [facility] [address] [id number] [place] [address] Jun, [facility] [place] [facility] [address] [id number] [place] [address] Jan, [facility] [place] [facility] [address] [id number] [place] [address] Jan, [facility] [place] [facility] [address] [id number] [place] [address] Jan, [facility] [place] [facility] [address] [id number] [place] [address] Jan, [facility] [place] [facility] [address] [id number] [place] [address] Jan, [facility] [place] [facility] [address] [id number] [place] [address] Jan, [facility] [place] [facility] [address] [id number] [place] [address] Dec, [facility] [place] [facility] [address] [id number] [place] [address] Nov, [facility] [place] [facility] [address] [id number] [place] [address] Nov, [facility] [place] [facility] [address] [id number] [place] [address] Nov, [facility] [place] [facility] [address] [id number] [place] [address] Nov, [facility] [place] [facility] [address] [id number] [place] [address] October, [facility] [place] [facility] [address] [id number] [place] [address] Jul, [facility] [place] [facility] [address] [id number] [place] [address] Jul, [facility] [place] [facility] [address] [id number] [place] [address] Jul, [facility] [place] [facility] [address] [id number] [place] [address] Jul, [facility] [place] [facility] [address] [id number] [place] [address] Jul, [facility] [place] [facility] [address] [id number] [place] [address] Jul, [facility] [place] [facility] [address] [id number] [place] [address] Jun, [facility] [place] [facility] [address] [id number] [place] [address] Jun, [facility] [place] [facility] [address] [id number] [place] [address] Jun, [facility] [place] [facility] [address] [id number] [place] [address] Jun, [facility] [place] [facility] [address] [id number] [place] [address] Jun, [facility] [place] [facility] [address] [id number] [place] [address] Jun, [facility] [place] [facility] [address] [id number] [place] [address] Jun, [facility] [place] [facility] [address] [id number] [place] [address] Apr, [facility] [place] [facility] [address] [id number] [place] [address] Apr, [facility] [address] [id number] [place] [address] Mar, [facility] [address] [id number] [place] [address] Mar, [facility] [address] [id number] [place] [address] Mar, [facility] [address] [id number] [place] [address] Mar, [facility] [address] [id number] [place] [address] Feb, [facility] [address] [id number] [place] [address] Feb, [facility] [address] [id number] [place] [address] Dec, [facility] [address] [id number] [place] [address] Aug, [facility] [address] [id number] [place] [address] Aug, [facility] [address] [id number] [place] [address] Aug, [facility] [address] [id number] [place] [address] Jul, [facility] [address] [id number] [place] [address] May, [facility] [address] [id number] [place] [address] May, [facility] [address] [id number] [place] [address] May, [facility] [address] [id number] [place] [address] May, [facility] [place] [facility] [address] [id number] [place] [address] Mar, [facility] [place] [facility] [address] [id number] [place] [address] Mar, [facility] [place] [facility] [address] [id number] [place] [address] Sep, [facility] [place] [facility] [address] [id number] [place] [address] Sep, [facility] [place] [facility] [address] [id number] [place] [address] Jun, [facility] [place] [facility] [address] [id number] [place] [address] May, [facility] [place] [facility] [address] [id number] [place] [address] Apr, [facility] [place] [facility] [address] [id number] [place] [address] Apr, [facility] [place] [facility] [address] [id number] [place] [address] Apr, [facility] [place] [facility] [address] [id number] [place] [address] Apr, [facility] [place] [facility] [address] [id number] [place] [address] Mar, [facility] [place] [facility] [address] [id number] [address] Dec, [facility] [place] [facility] [address] [id number] [place] [address] Nov, [facility] [place] [facility] [address] [id number] [place] [address] Mar, [facility] [place] [facility] [address] [id number] [place] [address] Jan, [facility] [place] [facility] [address] [address] Apr, [facility] [address] [address] Apr, [facility] [address] [address] Apr, [facility] [address] [address] Apr, [facility] [address] [address] Mar, [facility] [id number] [place] [address] Mar, [facility] [id number] [place] [address] Mar, [facility] [id number] [place] [address] Mar, [facility] [address] [address] Sep, IMMUNIZATIONS No Known Immunizations SOCIAL HISTORY Never Assessed REASON FOR VISIT Diabetes follow up Lisa BAUTISTA PLAN OF CARE Activity Details Follow Up 4 Weeks Reason:alzheimers VITAL SIGNS Height 66 in 2018-08-27 Weight 139.2 lbs 2018-08-27 Temperature 98.2 degrees Fahrenheit 2018-08-27 Heart Rate 76 bpm 2018-08-27 Respiratory Rate 18 2018-08-27 Oximetry 97 % 2018-08-27 BMI 22.47 kg/m2 2018-08-27 Blood pressure systolic 138 mmHg 2018-08-27 Blood pressure diastolic 72 mmHg 2018-08-27 MEDICATIONS Medication Instructions Dosage Frequency Start Date End Date Duration Status Rivastigmine Tartrate 6 MG Orally Twice a day 1 capsule with food 12h Active Lisinopril 20 MG Orally twice a day 1 tablet 12h Active Multivitamins Orally Once a day 1 capsule 24h Active Namenda XR 28 MG Orally Once a day per [place] Neuro 1 capsule May, Active Potassium Chloride Hanna ER 20 meq Orally 3 times a day 3 tablets 8h Active Atorvastatin Calcium 40 MG Orally Once a day 1 tablet 24h Active Aspirin EC 325 MG Orally Once a day 1 tablet 24h Active Amphetamine-Dextroamphet ER 25 MG Orally Once a day 1 capsule in the morning 24h Aug, 28 days Active Carvedilol Active Metformin HCl 500 MG Orally Twice a day 0.5 tablet with meals 12h Active RESULTS Name Result Date Reference Range A1C (IN HOUSE) A1C IN HOUSE 6.3 4.3 - 5.6 % Previous A1c 6.3 Lot [id number] Exp date 03/2020 PROCEDURES Procedure Date Ordered Result Body Site [facility] VISIT ESTABLISHED PATIENT August 27, 2018 GLYCATED HEMOGLOBIN TEST August 27, 2018 INSTRUCTIONS MEDICATIONS ADMINISTERED No Known Medications MEDICAL (GENERAL) HISTORY Type Description Date Medical History hypertension Medical History sleep apnea-CPAP 8cm [id number] Paykel Eson Nasal Mask Medical History hypokalemia Medical History heart disease-rupture AAA, intrarenal Medical History respiratory disorder 06/16/13 Medical History Millen filter, DVT Medical History hepatitis B Medical History dementia Medical History 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 Medical History Alzheimers disease, unspecified Medical History [facility] - Team 12 Dr. Lang Surgical History cardiothoracic surgery-triple bypass-Kee 12/2009 Surgical History Triple A 09/2006 Surgical History cholecystectomy Surgical History Bleeding ulcer Surgical History colonoscopy Recurrent polyps not identified FU in 5 years 02/2018 Surgical History inguinal hernia repair foam 05/2019 Hospitalization History Hospitalization for surgery only Hospitalization History hypertension 10/2013 Hospitalization History [facility]where in [facility] May 2017
--- OUTSIDE RECORDS SUMMARY | 2019-01-21 11:09 | XMS REPORT ---
Author Author Migration, Doctor Organization [facility] Address Unknown Phone Unavailable Care Team Providers Care Team Cdl Driver Name Role Phone Migration, Doctor Unavailable Unavailable PROBLEMS Type Condition ICD9-CM Code TFD09-CZ Code Onset Dates Condition Status SNOMED Code Problem Alzheimers disease, unspecified G30.9 Active 2038696139426 Problem Obstructive sleep apnea G47.33 Active 54150017 Problem Hypercholesterolemia E78.00 Active 27446932 Problem Type 2 diabetes mellitus with diabetic polyneuropathy, unspecified whether nursing home insulin use E11.42 Active 52982341 Problem Essential hypertension I10 Active 89132212 Problem 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 2872725 Problem Macular degeneration H35.30 Active 064682734 Problem Type 2 diabetes mellitus without complications E11.9 Active 398471769 Problem Hypokalemia E87.6 Active 84447982 ALLERGIES No Information ENCOUNTERS Encounter Location Date Diagnosis [place] [id number] [place] [address] Sep, Encounter for Medicare annual wellness exam Z00.00 ; Type 2 diabetes mellitus without complications E11.9 ; Hypokalemia E87.6 ; Alzheimers disease, unspecified G30.9 ; Essential hypertension I10 and Rhonchi R09.89 [place] [id number] [place] [address] Aug, Alzheimers disease, unspecified G30.9 and Type 2 diabetes mellitus with diabetic polyneuropathy, unspecified whether meterman insulin use E11.42 [place] [id number] [place] [address] Aug, Hypokalemia E87.6 [place] [id number] [place] [address] Jul, Hypokalemia E87.6 [place] [id number] [place] [address] [place] [address] Apr, Type 2 diabetes mellitus without complications E11.9 and Alzheimers disease, unspecified G30.9 [facility] [id number] [place] [address] Dec, [facility] [id number] [place] [address] Dec, Type 2 diabetes mellitus without complications E11.9 ; Hypokalemia E87.6 and Alzheimers disease, unspecified G30.9 [facility] [id number] [place] [address] Jul, Alzheimers disease, unspecified G30.9 [facility] [id number] [place] [address] Jul, [facility] [id number] [place] [address] Jul, [facility] [id number] [place] [address] Jun, [facility] [id number] [place] [address] Jun, Alzheimers disease, unspecified G30.9 ; Hypokalemia E87.6 and Behavioral change R46.89 [facility] [id number] [address] Jun, [facility] [id number] [place] [address] May, [facility] [address], [place] [address] Feb, [facility] [id number] [place] [address] Feb, Type 2 diabetes mellitus without complications E11.9 ; Hypokalemia E87.6 and Alzheimers disease, unspecified G30.9 [facility] [id number] [place] [address] Feb, Type 2 diabetes mellitus without complications E11.9 ; Alzheimers disease, unspecified G30.9 and Hypokalemia E87.6 [place] [id number] [place] [address] October, [place] [address] [address] October, Type 2 diabetes mellitus without complications E11.9 ; Hypokalemia E87.6 ; Rhonchi R09.89 and Bilateral impacted cerumen H61.23 [place] [address] [address] October, Hypokalemia E87.6 ; Essential (primary) hypertension I10 and Type 2 diabetes mellitus without complications E11.9 [place] [address] [address] October, Hypokalemia E87.6 ; Type 2 diabetes mellitus without complications E11.9 and Essential (primary) hypertension I10 [place] [id number] [place] [address] Jul, Hypokalemia E87.6 [place] [id number] [place] [address] Jun, Hypokalemia E87.6 [place] [id number] [place] [address] Jun, Hypokalemia E87.6 [place] [id number] [place] [address] May, Hypokalemia E87.6 [place] [id number] [place] [address] May, Type 2 diabetes mellitus without complications E11.9 and Hypokalemia E87.6 [place] [id number] [place] [address] Feb, Type 2 diabetes mellitus without complications E11.9 and Alzheimers disease, unspecified G30.9 [place] [id number] [place] [address] Jan, Hypokalemia E87.6 [place] [id number] [place] [address] Jan, Hypokalemia E87.6 [place] [id number] [place] [address] October, Type 2 diabetes mellitus without complications E11.9 ; Hypokalemia E87.6 ; Macular degeneration H35.30 ; Alzheimers disease, unspecified G30.9 and Essential hypertension I10 [place] [id number] [place] [address] October, Routine health maintenance Z00.00 and Type 2 diabetes mellitus without complications E11.9 [place] [id number] [place] [address] October, Routine health maintenance Z00.00 and Type 2 diabetes mellitus without complications E11.9 [place] [id number] [place] [address] Jul, [place] [id number] [place] [address] Jul, Hypokalemia E87.6 ; Type 2 diabetes mellitus without complications E11.9 and Abnormal CBC R79.89 [place] [id number] [place] [address] Jul, Hypokalemia E87.6 ; Type 2 diabetes mellitus without complications E11.9 and Abnormal CBC R79.89 [place] [id number] [place] [address] Jul, [place] [id number] [place] [address] Jul, Abnormal CBC R79.89 and Lymphadenopathy of head and neck region R59.9 [facility] [address] [address] May, [facility] [id number] [place] [address] Apr, [facility] [id number] [place] [address] Apr, [facility] [id number] [place] [address] Apr, [facility] [id number] [place] [address] Apr, [facility] [id number] [place] [address] Mar, Hypokalemia E87.6 [facility] [id number] [place] [address] Mar, [facility] [id number] [place] [address] Mar, Hypokalemia E87.6 ; Type 2 diabetes mellitus without complications E11.9 and Hypokalemia 276.8 [facility] [address] [address] Jan, Hypokalemia 276.8 [facility] [id number] [place] [address] Jan, Hypertension 401.9 [facility] [id number] [place] [address] Jan, [facility] [id number] [place] [address] Nov, Diabetes mellitus without mention of complication, type II or unspecified type, not stated as uncontrolled 250.00 and Hypertension 401.9 [facility] [address] [address] Nov, [facility] [place] [facility] [address] [id number] [place] [address] 14 Sep, 2014 [facility] [place] [facility] [address] [id number] [place] [address] Sep, [facility] [place] [facility] [address] [id number] [place] [address] Jun, [facility] [place] [facility] [address] [id number] [place] [address] Jun, [facility] [place] [facility] [address] [id number] [place] [address] Jan, [facility] [place] [facility] [address] [id number] [place] [address] Jan, [facility] [place] [facility] [address] [id number] [place] [address] Jan, [facility] [place] [facility] [address] [id number] [place] [address] Jan, [facility] [place] [facility] [address] [id number] [place] [address] Jan, [facility] [place] [facility] [address] [id number] [place] [address] Jan, [facility] [place] [facility] [address] [id number] [place] [address] Dec, [facility] [place] [facility] [address] [id number] [place] [address] Nov, [facility] [place] [facility] [address] [id number] [place] [address] Nov, [facility] [place] [facility] [address] [id number] [place] [address] Nov, [facility] [place] [facility] [address] [id number] [place] [address] Nov, [facility] [place] [facility] [address] [id number] [place] [address] October, [facility] [place] [facility] [address] [id number] [place] [address] Jul, [facility] [place] [facility] [address] [id number] [place] [address] Jul, [facility] [place] [facility] [address] [facility] [id number] [place] [address] Jul, [facility] [place] [facility] [address] [id number] [place] [address] Jul, [facility] [place] [facility] [address] [id number] [place] [address] Jul, [facility] [place] [facility] [address] [id number] [place] [address] Jul, [facility] [place] [facility] [address] [id number] [place] [address] Jun, [facility] [place] [facility] [address] [id number] [place] [address] Jun, [facility] [place] [facility] [address] [id number] [place] [address] Jun, [facility] [place] [facility] [address] [facility] [id number] [place] [address] Jun, [facility] [place] [facility] [address] [id number] [place] [address] Jun, [facility] [place] [facility] [address] [id number] [place] [address] Jun, [facility] [place] [facility] [address] [id number] [place] [address] Jun, [facility] [place] [facility] [address] [id number] [place] [address] Apr, [facility] [place] [facility] [address] [id number] [place] [address] Apr, [facility] [place] [facility] [address] [id number] [place] [address] Mar, [facility] [address] [id number] [place] [address] Mar, [facility] [place] [facility] [address] [id number] [place] [address] Mar, [facility] [address] [id number] [place] [address] Mar, [facility] [place] [facility] [address] [id number] [place] [address] Feb, [facility] [address] [id number] [place] [address] Feb, [facility] [place] [facility] [address] [id number] [place] [address] Dec, [facility] [place] [facility] [address] [id number] [place] [address] Aug, [facility] [address] [id number] [place] [address] Aug, [facility] [place] [facility] [address] [id number] [place] [address] Aug, [facility] [address] [facility] [id number] [place] [address] Jul, [facility] [place] [facility] [address] [id number] [place] [address] May, [facility] [address] [id number] [place] [address] May, [facility] [place] [facility] [address] [id number] [place] [address] May, [facility] [place] [facility] [address] [id number] [place] [address] May, [facility] [place] [facility] [address] [id number] [place] [address] Mar, [facility] [place] [facility] [address] [id number] [place] [address] Mar, [facility] [place] [facility] [address] [id number] [place] [address] Sep, [facility] [place] [facility] [address] [id number] [place] [address] Sep, [facility] [place] [facility] [address] [id number] [place] [address] Jun, [facility] [place] [facility] [address] [id number] [place] [address] May, [facility] [place] [facility] [address] [id number] [place] [address] Apr, [facility] [place] [facility] [address] [id number] [place] [address] Apr, [facility] [place] [facility] [address] [id number] [place] [address] Apr, [facility] [place] [facility] [address] [id number] [place] [address] Apr, [facility] [place] [facility] [address] [id number] [place] [address] Mar, [facility] [place] [facility] [address] [id number] [address] Dec, [facility] [place] [facility] [address] [id number], [place] [address] Nov, [facility] [place] [facility] [address] [id number] [place] [address] Mar, [facility] [place] [facility] [address] [id number], [place] [address] 16 Jan, 2010 [facility] [place] [facility] [address] [id number] [place] [address] 24 Apr, 2009 [facility] [place] [facility] [address] [facility] [id number], [place] [address] Apr, [facility] [id number] [address] Apr, [facility] [id number] [address] Apr, [facility] [address] [place] [address] Mar, [facility] [address] [place] [address] Mar, [facility] [address], [place] [address] Mar, [facility] [address] [place] [address] Mar, [facility] [id number] [address] Sep, IMMUNIZATIONS No Known Immunizations SOCIAL HISTORY Never Assessed REASON FOR VISIT EMR-[facility] PLAN OF CARE VITAL SIGNS MEDICATIONS Unknown Medications RESULTS No Results PROCEDURES No Known procedures INSTRUCTIONS MEDICATIONS ADMINISTERED No Known Medications MEDICAL (GENERAL) HISTORY Type Description Date Medical History hypertension Medical History sleep apnea-CPAP 8cm [id number]son Nasal Mask Medical History hypokalemia [...] years 02/2018 Surgical History inguinal hernia repair [facility] 05/2019 Hospitalization History Hospitalization for surgery only Hospitalization History hypertension 10/2013 Hospitalization History Somewhere in [facility] May 2017
--- OUTSIDE RECORDS SUMMARY | 2019-01-21 11:10 | XMS REPORT ---
Author Author Migration, Doctor Organization [facility] Address Unknown Phone Unavailable Care Team Providers Care Medical Certification Specialist Name Role Phone Migration, Doctor Unavailable Unavailable PROBLEMS Type Condition ICD9-CM Code [id number] Code Onset Dates Condition Status SNOMED Code Problem Alzheimers disease, unspecified G30.9 Active [id number] Problem Obstructive sleep apnea G47.33 Active 79930873 Problem Hypercholesterolemia E78.00 Active 51640175 Problem Type 2 diabetes mellitus with diabetic polyneuropathy, unspecified whether intermediate insulin use E11.42 Active 85615263 Problem Essential hypertension I10 Active 90186468 Problem 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 4773812 Problem Macular degeneration H35.30 Active 146744888 Problem Type 2 diabetes mellitus without complications E11.9 Active 833074204 Problem Hypokalemia E87.6 Active 08531078 ALLERGIES No Information ENCOUNTERS Encounter Location Date Diagnosis [place] [address] [address] October, [place] [address] [place] [id number] [place] [address] Sep, Encounter for Medicare annual wellness exam Z00.00 ; Type 2 diabetes mellitus without complications E11.9 ; Hypokalemia E87.6 ; Alzheimers disease, unspecified G30.9 ; Essential hypertension I10 and Rhonchi R09.89 [place] [id number] [place] [id number] [place] [address] Aug, Alzheimers disease, unspecified G30.9 and Type 2 diabetes mellitus with diabetic polyneuropathy, unspecified whether intermediate insulin use E11.42 [facility] [address] [place] [id number] [place] [address] Aug, Hypokalemia E87.6 [place] [address] [place] [id number] [place] [address] Jul, Hypokalemia E87.6 [facility] [address], [place] [address] Apr, Type 2 diabetes mellitus without complications E11.9 and Alzheimers disease, unspecified G30.9 [facility] [address] [place] [id number] [place] [address] Dec, [facility] [address] [place] [id number] [place] [address] Dec, Type 2 diabetes mellitus without complications E11.9 ; Hypokalemia E87.6 and Alzheimers disease, unspecified G30.9 [facility] [address] [place] [id number] [place] [address] Jul, Alzheimers disease, unspecified G30.9 [facility] [address] [place] [id number] [place] [address] Jul, [facility] [address] [place] [id number] [place] [address] Jul, [facility] [address] [place] [id number] [place] [address] Jun, [facility] [address] [place] [id number] [place] [address] Jun, Alzheimers disease, unspecified G30.9 ; Hypokalemia E87.6 and Behavioral change R46.89 [facility] [address], [place] [address] Jun, [facility] [address] [address] May, [facility] [address] [place] [id number] [place] [address] Feb, [facility] [address], [place] [address] Feb, Type 2 diabetes mellitus without complications E11.9 ; Hypokalemia E87.6 and Alzheimers disease, unspecified G30.9 [place] [address] [place] [id number] [place] [address] Feb, Type 2 diabetes mellitus without complications E11.9 ; Alzheimers disease, unspecified G30.9 and Hypokalemia E87.6 [place] [address] [address] October, [place] [address] [address] October, Type 2 diabetes mellitus without complications E11.9 ; Hypokalemia E87.6 ; Rhonchi R09.89 and Bilateral impacted cerumen H61.23 [place] [address] [address] October, Hypokalemia E87.6 ; Essential (primary) hypertension I10 and Type 2 diabetes mellitus without complications E11.9 [place] [address] [address] October, Hypokalemia E87.6 ; Type 2 diabetes mellitus without complications E11.9 and Essential (primary) hypertension I10 [place] [address] [place] [id number] [place] [address] Jul, Hypokalemia E87.6 [place] [address] [place] [id number] [place] [address] Jun, Hypokalemia E87.6 [place] [address] [place] [id number] [place] [address] Jun, Hypokalemia E87.6 [place] [address] [address] May, Hypokalemia E87.6 [place] [address] [place] [id number] [place] [address] May, Type 2 diabetes mellitus without complications E11.9 and Hypokalemia E87.6 [place] [address], [place] [address] Feb, Type 2 diabetes mellitus without complications E11.9 and Alzheimers disease, unspecified G30.9 [facility] [address], [place] [address] Jan, Hypokalemia E87.6 [place] [address] [place] [id number] [place] [address] Jan, Hypokalemia E87.6 [place] [address] [place] [id number] [place] [address] October, Type 2 diabetes mellitus without complications E11.9 ; Hypokalemia E87.6 ; Macular degeneration H35.30 ; Alzheimers disease, unspecified G30.9 and Essential hypertension I10 [place] [address] [place] [id number] [place] [address] October, Routine health maintenance Z00.00 and Type 2 diabetes mellitus without complications E11.9 [place] [id number] [place] [address] October, Routine health maintenance Z00.00 and Type 2 diabetes mellitus without complications E11.9 [place] [address] [place] [address] Jul, [place] [address] [place] [address] Jul, Hypokalemia E87.6 ; Type 2 diabetes mellitus without complications E11.9 and Abnormal CBC R79.89 [place] [address] [place] [id number] [place] [address] 15 Jul, 2015 Hypokalemia E87.6 ; Type 2 diabetes mellitus without complications E11.9 and Abnormal CBC R79.89 [place] [address], [place] [address] Jul, [place] [address] [place] [address] [address] 08 Jul, 2015 Abnormal CBC R79.89 and Lymphadenopathy of head and neck region R59.9 [facility] [address] [place] [id number] [place] [address] May, [facility] [address] [place] [id number] [place] [address] Apr, [facility] [address] [place] [id number] [place] [address] Apr, [facility] [address] [place] [id number] [place] [address] Apr, [facility] [address] [place] [id number] [place] [address] Apr, [facility] [address] [place] [id number] [place] [address] Mar, Hypokalemia E87.6 [facility] [address] [place] [id number] [place] [address] Mar, [facility] [address] [place] [id number] [place] [address] Mar, Hypokalemia E87.6 ; Type 2 diabetes mellitus without complications E11.9 and Hypokalemia 276.8 [place] [address] [place] [address] Jan, Hypokalemia 276.8 [facility] [address], [place] [address] Jan, Hypertension 401.9 [facility] [address] [place] [id number] [place] [address] Jan, [facility] [address] [place] [address] Nov, Diabetes mellitus without mention of complication, type II or unspecified type, not stated as uncontrolled 250.00 and Hypertension 401.9 [facility] [place] [facility] [address] [id number] [place] [address] 18 Nov, 2014 [facility] [place] [facility] [address] [id number] [place] [address] 14 Sep, 2014 [facility] [place] [facility] [address] [id number] [place] [address] Sep, [facility] [place] [facility] [address] [id number] [place] [address] Jun, [facility] [place] [facility] [address] [id number] [place] [address] Jun, [facility] [place] [facility] [address] [id number] [place] [address] Jan, [facility] [place] [facility] [address] [id number] [place] [address] Jan, [facility] [place] [facility] [address] [id number] [place] [address] Jan, [facility] [place] [facility] [address] [id number] [place] [address] Jan, [facility] [place] [facility] [address] [id number] [place] [address] Jan, [facility] [place] [facility] [address] [id number] [place] [address] Jan, [facility] [place] [facility] [address] [id number] [place] [address] Dec, [facility] [place] [facility] [address] [id number] [place] [address] Nov, [facility] [place] [facility] [address] [id number] [place] [address] Nov, [facility] [place] [facility] [address] [id number] [place] [address] Nov, [facility] [place] [facility] [address] [id number] [place] [address] Nov, [facility] [place] [facility] [address] [id number] [place] [address] October, [facility] [place] [facility] [address] [id number] [place] [address] Jul, [facility] [place] [facility] [address] [facility] [id number] [place] [address] Jul, [facility] [place] [facility] [address] [id number] [place] [address] Jul, [facility] [place] [facility] [address] [id number] [place] [address] Jul, [facility] [place] [facility] [address] [id number] [place] [address] Jul, [facility] [place] [facility] [address] [id number] [place] [address] Jul, [facility] [place] [facility] [address] [id number] [place] [address] Jun, [facility] [place] [facility] [address] [id number] [place] [address] Jun, [facility] [place] [facility] [address] [facility] [id number] [place] [address] Jun, [facility] [place] [facility] [address] [id number] [place] [address] Jun, [facility] [place] [facility] [address] [id number] [place] [address] Jun, [facility] [place] [facility] [address] [id number] [place] [address] Jun, [facility] [place] [facility] [address] [facility] [id number] [place] [address] Jun, [facility] [place] [facility] [address] [facility] [id number] [place] [address] Apr, [facility] [place] [facility] [address] [id number] [place] [address] Apr, [facility] [address] [id number] [place] [address] Mar, [facility] [place] [facility] [address] [id number] [place] [address] Mar, [facility] [address] [id number] [place] [address] Mar, [facility] [place] [facility] [address] [id number] [place] [address] Mar, [facility] [address] [id number] [place] [address] Feb, [facility] [place] [facility] [address] [id number] [place] [address] Feb, [facility] [place] [facility] [address] [id number] [place] [address] Dec, [facility] [address] [id number] [place] [address] Aug, [facility] [place] [facility] [address] [id number] [place] [address] Aug, [facility] [address] [id number] [place] [address] Aug, [facility] [place] [facility] [address] [id number] [place] [address] Jul, [facility] [address] [id number] [place] [address] May, [facility] [place] [facility] [address] [id number] [place] [address] May, [facility] [place] [facility] [address] [id number] [place] [address] May, [facility] [place] [facility] [address] [id number] [place] [address] May, [facility] [place] [facility] [address] [id number] [place] [address] Mar, [facility] [place] [facility] [address] [id number] [place] [address] Mar, [facility] [place] [facility] [address] [id number] [place] [address] Sep, [facility] [place] [facility] [address] [id number] [place] [address] Sep, [facility] [place] [facility] [address] [id number] [place] [address] Jun, [facility] [place] [facility] [address] [id number] [place] [address] May, [facility] [place] [facility] [address] [id number] [place] [address] Apr, [facility] [place] [facility] [address] [id number] [place] [address] Apr, [facility] [place] [facility] [address] [id number] [place] [address] Apr, [facility] [place] [facility] [address] [id number], [place] [address] Apr, [facility] [place] [facility] [address] [id number], [place] [address] Mar, [facility] [place] [facility] [address] [id number], [place] [address] Dec, [facility] [place] [facility] [address] [id number] [place] [address] Nov, [facility] [place] [facility] [address] [id number], [place] [address] Mar, [facility] [place] [facility] [address] [id number] [place] [address] Jan, [facility] [place] [facility] [address] [place] [address] [id number] [address] Apr, [facility] [id number] [place] [address] Apr, [facility] [address] [id number], [place] [address] Apr, [facility] [address], [place] [address] Apr, [facility] [address], [place] [address] Mar, [facility] [address], [place] [address] Mar, [facility] [address], [place] [address] Mar, [facility] [address], [place] [address] Mar, [facility] [address] [place] [address] [id number] [address] Sep, IMMUNIZATIONS No Known Immunizations SOCIAL HISTORY Never Assessed REASON FOR VISIT [facility] PLAN OF CARE VITAL SIGNS MEDICATIONS Unknown Medications RESULTS No Results PROCEDURES No Known procedures INSTRUCTIONS MEDICATIONS ADMINISTERED No Known Medications MEDICAL (GENERAL) HISTORY Type Description Date Medical History hypertension Medical History sleep apnea-CPAP 8cm [id number] Paykel Eson Nasal Mask Medical History hypokalemia Medical History heart disease-rupture AAA, intrarenal Medical History respiratory disorder 06/16/13 Medical History [place] filter, DVT Medical History hepatitis B Medical History dementia Medical History 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 Medical History Alzheimers disease, unspecified Medical History [facility] - Team [address] Dr[address] Lang Surgical History cardiothoracic surgery-triple bypass-Kee 12/2009 Surgical History Triple A 09/2006 Surgical History cholecystectomy Surgical History Bleeding ulcer Surgical History colonoscopy Recurrent polyps not identified FU in 5 years 02/2018 Surgical History inguinal hernia repair foam 05/2019 Hospitalization History Hospitalization for surgery only Hospitalization History hypertension 10/2013 Hospitalization History [place] [place] May 2017
--- OUTSIDE RECORDS SUMMARY | 2019-01-21 11:10 | XMS REPORT ---
Author Author Migration, Doctor Organization [facility] Address Unknown Phone Unavailable Care Team Providers Care Chemical Lab Supervisor Name Role Phone Migration, Doctor Unavailable Unavailable PROBLEMS Type Condition ICD9-CM Code [id number] Code Onset Dates Condition Status SNOMED Code Problem Alzheimers disease, unspecified G30.9 Active [id number] Problem Obstructive sleep apnea G47.33 Active 75828800 Problem Hypercholesterolemia E78.00 Active 05208130 Problem Type 2 diabetes mellitus with diabetic polyneuropathy, unspecified whether long-term insulin use E11.42 Active 01871799 Problem Essential hypertension I10 Active 17895858 Problem 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 8023206 Problem Macular degeneration H35.30 Active 077935023 Problem Type 2 diabetes mellitus without complications E11.9 Active 635007761 Problem Hypokalemia E87.6 Active 57347826 ALLERGIES No Information ENCOUNTERS Encounter Location Date Diagnosis [place] [id number] [place] [address] Sep, Encounter for Medicare annual wellness exam Z00.00 ; Type 2 diabetes mellitus without complications E11.9 ; Hypokalemia E87.6 ; Alzheimers disease, unspecified G30.9 ; Essential hypertension I10 and Rhonchi R09.89 [place] [id number] [place] [address] Aug, Alzheimers disease, unspecified G30.9 and Type 2 diabetes mellitus with diabetic polyneuropathy, unspecified whether termite helper insulin use E11.42 [place] [id number] [place] [address] Aug, Hypokalemia E87.6 [place] [id number] [place] [address] Jul, Hypokalemia E87.6 [place] [id number] [place] [address] [place] [address] Apr, Type 2 diabetes mellitus without complications E11.9 and Alzheimers disease, unspecified G30.9 [facility] [id number] [place] [address] Dec, [facility] [id number] [place] [address] Dec, Type 2 diabetes mellitus without complications E11.9 ; Hypokalemia E87.6 and Alzheimers disease, unspecified G30.9 [facility] [id number] [place] [address] Jul, Alzheimers disease, unspecified G30.9 [facility] [id number] [place] [address] Jul, [facility] [id number] [place] [address] Jul, [facility] [id number] [place] [address] Jun, [facility] [id number] [place] [address] Jun, Alzheimers disease, unspecified G30.9 ; Hypokalemia E87.6 and Behavioral change R46.89 [facility] [id number] [address] Jun, [facility] [id number] [place] [address] May, [facility] [address] [address] Feb, [facility] [id number] [place] [address] Feb, Type 2 diabetes mellitus without complications E11.9 ; Hypokalemia E87.6 and Alzheimers disease, unspecified G30.9 [facility] [id number] [place] [address] Feb, Type 2 diabetes mellitus without complications E11.9 ; Alzheimers disease, unspecified G30.9 and Hypokalemia E87.6 [place] [id number] [place] [address] October, [place] [address] [address] October, Type 2 diabetes mellitus without complications E11.9 ; Hypokalemia E87.6 ; Rhonchi R09.89 and Bilateral impacted cerumen H61.23 [place] [address] [address] October, Hypokalemia E87.6 ; Essential (primary) hypertension I10 and Type 2 diabetes mellitus without complications E11.9 [place] [address] [address] October, Hypokalemia E87.6 ; Type 2 diabetes mellitus without complications E11.9 and Essential (primary) hypertension I10 [place] [id number] [place] [address] Jul, Hypokalemia E87.6 [place] [id number] [place] [address] Jun, Hypokalemia E87.6 [place] [id number] [place] [address] Jun, Hypokalemia E87.6 [place] [id number] [place] [address] May, Hypokalemia E87.6 [place] [id number] [place] [address] May, Type 2 diabetes mellitus without complications E11.9 and Hypokalemia E87.6 [place] [id number] [place] [address] Feb, Type 2 diabetes mellitus without complications E11.9 and Alzheimers disease, unspecified G30.9 [place] [id number] [place] [address] Jan, Hypokalemia E87.6 [place] [id number] [place] [address] Jan, Hypokalemia E87.6 [place] [id number] [place] [address] October, Type 2 diabetes mellitus without complications E11.9 ; Hypokalemia E87.6 ; Macular degeneration H35.30 ; Alzheimers disease, unspecified G30.9 and Essential hypertension I10 [place] [id number] [place] [address] October, Routine health maintenance Z00.00 and Type 2 diabetes mellitus without complications E11.9 [place] [id number] [place] [address] October, Routine health maintenance Z00.00 and Type 2 diabetes mellitus without complications E11.9 [place] [id number] [place] [address] Jul, [place] [id number] [place] [address] Jul, Hypokalemia E87.6 ; Type 2 diabetes mellitus without complications E11.9 and Abnormal CBC R79.89 [place] [id number] [place] [address] Jul, Hypokalemia E87.6 ; Type 2 diabetes mellitus without complications E11.9 and Abnormal CBC R79.89 [place] [id number] [place] [address] Jul, [place] [id number] [place] [address] Jul, Abnormal CBC R79.89 and Lymphadenopathy of head and neck region R59.9 [facility] [address] [address] May, [facility] [id number] [place] [address] Apr, [facility] [id number] [place] [address] Apr, [facility] [id number] [place] [address] Apr, [facility] [id number] [place] [address] Apr, [facility] [id number] [place] [address] Mar, Hypokalemia E87.6 [facility] [id number] [place] [address] Mar, [facility] [id number] [place] [address] Mar, Hypokalemia E87.6 ; Type 2 diabetes mellitus without complications E11.9 and Hypokalemia 276.8 [facility] [address] [address] Jan, Hypokalemia 276.8 [facility] [id number] [place] [address] Jan, Hypertension 401.9 [facility] [id number] [place] [address] Jan, [facility] [id number] [place] [address] Nov, Diabetes mellitus without mention of complication, type II or unspecified type, not stated as uncontrolled 250.00 and Hypertension 401.9 [facility] [address] [address] Nov, [facility] [place] [facility] [address] [id number] [place] [address] 14 Sep, 2014 [facility] [place] [facility] [address] [id number] [place] [address] Sep, [facility] [place] [facility] [address] [id number] [place] [address] Jun, [facility] [place] [facility] [address] [id number] [place] [address] Jun, [facility] [place] [facility] [address] [id number] [place] [address] Jan, [facility] [place] [facility] [address] [id number] [place] [address] Jan, [facility] [place] [facility] [address] [id number] [place] [address] Jan, [facility] [place] [facility] [address] [id number] [place] [address] Jan, [facility] [place] [facility] [address] [id number] [place] [address] Jan, [facility] [place] [facility] [address] [id number] [place] [address] Jan, [facility] [place] [facility] [address] [id number] [place] [address] Dec, [facility] [place] [facility] [address] [id number] [place] [address] Nov, [facility] [place] [facility] [address] [id number] [place] [address] Nov, [facility] [place] [facility] [address] [id number] [place] [address] Nov, [facility] [place] [facility] [address] [id number] [place] [address] Nov, [facility] [place] [facility] [address] [id number] [place] [address] October, [facility] [place] [facility] [address] [id number] [place] [address] Jul, [facility] [place] [facility] [address] [id number] [place] [address] Jul, [facility] [place] [facility] [address] [facility] [id number] [place] [address] Jul, [facility] [place] [facility] [address] [id number] [place] [address] Jul, [facility] [place] [facility] [address] [id number] [place] [address] Jul, [facility] [place] [facility] [address] [id number] [place] [address] Jul, [facility] [place] [facility] [address] [id number] [place] [address] Jun, [facility] [place] [facility] [address] [id number] [place] [address] Jun, [facility] [place] [facility] [address] [id number] [place] [address] Jun, [facility] [place] [facility] [address] [facility] [id number] [place] [address] Jun, [facility] [place] [facility] [address] [id number] [place] [address] Jun, [facility] [place] [facility] [address] [id number] [place] [address] Jun, [facility] [place] [facility] [address] [id number] [place] [address] Jun, [facility] [place] [facility] [address] [id number] [place] [address] Apr, [facility] [place] [facility] [address] [id number] [place] [address] Apr, [facility] [place] [facility] [address] [id number] [place] [address] Mar, [facility] [address] [id number] [place] [address] Mar, [facility] [place] [facility] [address] [id number] [place] [address] Mar, [facility] [address] [id number] [place] [address] Mar, [facility] [place] [facility] [address] [id number] [place] [address] Feb, [facility] [address] [id number] [place] [address] Feb, [facility] [place] [facility] [address] [id number] [place] [address] Dec, [facility] [place] [facility] [address] [id number] [place] [address] Aug, [facility] [address] [id number] [place] [address] Aug, [facility] [place] [facility] [address] [id number] [place] [address] Aug, [facility] [address] [facility] [id number] [place] [address] Jul, [facility] [place] [facility] [address] [id number] [place] [address] May, [facility] [address] [id number] [place] [address] May, [facility] [place] [facility] [address] [id number] [place] [address] May, [facility] [place] [facility] [address] [id number] [place] [address] May, [facility] [place] [facility] [address] [id number] [place] [address] Mar, [facility] [place] [facility] [address] [id number] [place] [address] Mar, [facility] [place] [facility] [address] [id number] [place] [address] Sep, [facility] [place] [facility] [address] [id number] [place] [address] Sep, [facility] [place] [facility] [address] [id number] [place] [address] Jun, [facility] [place] [facility] [address] [id number] [place] [address] May, [facility] [place] [facility] [address] [id number] [place] [address] Apr, [facility] [place] [facility] [address] [id number] [place] [address] Apr, [facility] [place] [facility] [address] [id number] [place] [address] Apr, [facility] [place] [facility] [address] [id number] [place] [address] Apr, [facility] [place] [facility] [address] [id number] [place] [address] Mar, [facility] [place] [facility] [address] [id number] [address] Dec, [facility] [place] [facility] [address] [id number] [address] Nov, [facility] [place] [facility] [address] [id number] [place] [address] Mar, [facility] [place] [facility] [address] [id number] [address] 16 Jan, 2010 [facility] [place] [facility] [address] [id number] [place] [address] 24 Apr, 2009 [facility] [place] [facility] [address] [facility] [id number] [address] Apr, [facility] [id number] [address] Apr, [facility] [id number] [address] Apr, [facility] [address] [address] Mar, [facility] [address] [address] Mar, [facility] [address] [address] Mar, [facility] [address] [address] Mar, [facility] [id number] [address] Sep, IMMUNIZATIONS No Known Immunizations SOCIAL HISTORY Never Assessed REASON FOR VISIT EMR-[facility] PLAN OF CARE VITAL SIGNS MEDICATIONS Unknown Medications RESULTS No Results PROCEDURES No Known procedures INSTRUCTIONS MEDICATIONS ADMINISTERED No Known Medications MEDICAL (GENERAL) HISTORY Type Description Date Medical History hypertension Medical History sleep apnea-CPAP 8cm [id number]-Ypurjs Paykel Eson Nasal Mask Medical History hypokalemia [...] years 02/2018 Surgical History inguinal hernia repair [facility] [address] 05/2019 Hospitalization History Hospitalization for surgery only Hospitalization History hypertension 10/2013 Hospitalization History [facility]where in [facility] May 2017
--- OUTSIDE RECORDS SUMMARY | 2019-01-21 11:10 | XMS REPORT ---
Author Author Migration, Doctor Organization [facility] Address Unknown Phone Unavailable Care Team Providers Care Director Voice Name Role Phone Migration, Doctor Unavailable Unavailable PROBLEMS Type Condition ICD9-CM Code MLT63-AL Code Onset Dates Condition Status SNOMED Code Problem Alzheimers disease, unspecified G30.9 Active 7491779703206 Problem Obstructive sleep apnea G47.33 Active 81972651 Problem Hypercholesterolemia E78.00 Active 60948732 Problem Type 2 diabetes mellitus with diabetic polyneuropathy, unspecified whether correction insulin use E11.42 Active 35153481 Problem Essential hypertension I10 Active 96167407 Problem 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 5315466 Problem Macular degeneration H35.30 Active 850493287 Problem Type 2 diabetes mellitus without complications E11.9 Active 026225495 Problem Hypokalemia E87.6 Active 98855979 ALLERGIES No Information ENCOUNTERS Encounter Location Date Diagnosis [place] [address] [address] October, [place] [address] [place] [id number] [place] [address] Sep, Encounter for Medicare annual wellness exam Z00.00 ; Type 2 diabetes mellitus without complications E11.9 ; Hypokalemia E87.6 ; Alzheimers disease, unspecified G30.9 ; Essential hypertension I10 and Rhonchi R09.89 [place] [address] [place] [id number] [place] [address] Aug, Alzheimers disease, unspecified G30.9 and Type 2 diabetes mellitus with diabetic polyneuropathy, unspecified whether correction insulin use E11.42 [facility] [address] [place] [id number] [place] [address] Aug, Hypokalemia E87.6 [place] [address] [place] [id number] [place] [address] Jul, Hypokalemia E87.6 [facility] [address], [place] [address] Apr, Type 2 diabetes mellitus without complications E11.9 and Alzheimers disease, unspecified G30.9 [facility] [id number] [place] [address] Dec, [facility] [address] [id number] [place] [address] Dec, Type 2 diabetes mellitus without complications E11.9 ; Hypokalemia E87.6 and Alzheimers disease, unspecified G30.9 [facility] [address] [place] [id number] [place] [address] Jul, Alzheimers disease, unspecified G30.9 [facility] [address] [place] [id number] [place] [address] Jul, [facility] [address] [address] [id number] [place] [address] Jul, [facility] [address] [address] [id number] [place] [address] Jun, [facility] [address] [place] [address] [id number] [place] [address] Jun, Alzheimers disease, unspecified G30.9 ; Hypokalemia E87.6 and Behavioral change R46.89 [facility] [address] [address] Jun, [facility] [address] [address] May, [facility] [address] [place] [id number] [place] [address] Feb, [facility] [address], [place] [address] Feb, Type 2 diabetes mellitus without complications E11.9 ; Hypokalemia E87.6 and Alzheimers disease, unspecified G30.9 [place] [address] [place] [id number] [place] [address] Feb, Type 2 diabetes mellitus without complications E11.9 ; Alzheimers disease, unspecified G30.9 and Hypokalemia E87.6 [place] [address] [address] October, [place] [address] [address] October, Type 2 diabetes mellitus without complications E11.9 ; Hypokalemia E87.6 ; Rhonchi R09.89 and Bilateral impacted cerumen H61.23 [place] [address] [address] October, Hypokalemia E87.6 ; Essential (primary) hypertension I10 and Type 2 diabetes mellitus without complications E11.9 [place] [address] [address] October, Hypokalemia E87.6 ; Type 2 diabetes mellitus without complications E11.9 and Essential (primary) hypertension I10 [place] [address] [place] [id number] [place] [address] Jul, Hypokalemia E87.6 [place] [address] [place] [id number] [place] [address] Jun, Hypokalemia E87.6 [place] [address] [place] [id number] [place] [address] Jun, Hypokalemia E87.6 [place] [address] [address] May, Hypokalemia E87.6 [place] [address] [place] [id number] [place] [address] May, Type 2 diabetes mellitus without complications E11.9 and Hypokalemia E87.6 [place] [address], [place] [address] Feb, Type 2 diabetes mellitus without complications E11.9 and Alzheimers disease, unspecified G30.9 [facility] [address], [place] [address] Jan, Hypokalemia E87.6 [place] [address] [place] [id number] [place] [address] Jan, Hypokalemia E87.6 [place] [address] [place] [id number] [place] [address] October, Type 2 diabetes mellitus without complications E11.9 ; Hypokalemia E87.6 ; Macular degeneration H35.30 ; Alzheimers disease, unspecified G30.9 and Essential hypertension I10 [place] [address] [place] [id number] [place] [address] October, Routine health maintenance Z00.00 and Type 2 diabetes mellitus without complications E11.9 [place] [address] [place] [address] October, Routine health maintenance Z00.00 and Type 2 diabetes mellitus without complications E11.9 [place] [address] [place] [address] Jul, [place] [address] [place] [address] Jul, Hypokalemia E87.6 ; Type 2 diabetes mellitus without complications E11.9 and Abnormal CBC R79.89 [place] [address] [place] [id number] [place] [address] 15 Jul, 2015 Hypokalemia E87.6 ; Type 2 diabetes mellitus without complications E11.9 and Abnormal CBC R79.89 [place] [address] [address] Jul, [place] [address] [place] [id number] [address] 08 Jul, 2015 Abnormal CBC R79.89 and Lymphadenopathy of head and neck region R59.9 [facility] [address] [place] [id number] [place] [address] May, [facility] [address] [place] [id number] [place] [address] Apr, [facility] [address] [place] [id number] [place] [address] Apr, [facility] [address] [place] [id number] [place] [address] Apr, [facility] [address] [place] [id number] [place] [address] Apr, [facility] [address] [place] [id number] [place] [address] Mar, Hypokalemia E87.6 [facility] [address] [place] [id number] [place] [address] Mar, [facility] [address] [place] [id number] [place] [address] Mar, Hypokalemia E87.6 ; Type 2 diabetes mellitus without complications E11.9 and Hypokalemia 276.8 [place] [address] [place] [address] Jan, Hypokalemia 276.8 [facility] [address], [place] [address] Jan, Hypertension 401.9 [facility] [address] [place] [id number] [place] [address] Jan, [facility] [address] [place] [address] Nov, Diabetes mellitus without mention of complication, type II or unspecified type, not stated as uncontrolled 250.00 and Hypertension 401.9 [facility] [place] [facility] [address] [id number] [place] [address] 18 Nov, 2014 [facility] [place] [facility] [address] [id number] [place] [address] 14 Sep, 2014 [facility] [place] [facility] [address] [id number] [place] [address] Sep, [facility] [place] [facility] [address] [id number] [place] [address] Jun, [facility] [place] [facility] [address] [id number] [place] [address] Jun, [facility] [place] [facility] [address] [id number] [place] [address] Jan, [facility] [place] [facility] [address] [id number] [place] [address] Jan, [facility] [place] [facility] [address] [id number] [place] [address] Jan, [facility] [place] [facility] [address] [id number] [place] [address] Jan, [facility] [place] [facility] [address] [id number] [place] [address] Jan, [facility] [place] [facility] [address] [id number] [place] [address] Jan, [facility] [place] [facility] [address] [id number] [place] [address] Dec, [facility] [place] [facility] [address] [id number] [place] [address] Nov, [facility] [place] [facility] [address] [id number] [place] [address] Nov, [facility] [place] [facility] [address] [id number] [place] [address] Nov, [facility] [place] [facility] [address] [id number] [place] [address] Nov, [facility] [place] [facility] [address] [id number] [place] [address] October, [facility] [place] [facility] [address] [id number] [place] [address] Jul, [facility] [place] [facility] [address] [facility] [id number] [place] [address] Jul, [facility] [place] [facility] [address] [id number] [place] [address] Jul, [facility] [place] [facility] [address] [id number] [place] [address] Jul, [facility] [place] [facility] [address] [id number] [place] [address] Jul, [facility] [place] [facility] [address] [id number] [place] [address] Jul, [facility] [place] [facility] [address] [id number] [place] [address] Jun, [facility] [place] [facility] [address] [id number] [place] [address] Jun, [facility] [place] [facility] [address] [facility] [id number] [place] [address] Jun, [facility] [place] [facility] [address] [id number] [place] [address] Jun, [facility] [place] [facility] [address] [id number] [place] [address] Jun, [facility] [place] [facility] [address] [id number] [place] [address] Jun, [facility] [place] [facility] [address] [facility] [id number] [place] [address] Jun, [facility] [place] [facility] [address] [facility] [id number] [place] [address] Apr, [facility] [place] [facility] [address] [id number] [place] [address] Apr, [facility] [address] [id number] [place] [address] Mar, [facility] [place] [facility] [address] [id number] [place] [address] Mar, [facility] [address] [id number] [place] [address] Mar, [facility] [place] [facility] [address] [id number] [place] [address] Mar, [facility] [address] [id number] [place] [address] Feb, [facility] [place] [facility] [address] [id number] [place] [address] Feb, [facility] [place] [facility] [address] [id number] [place] [address] Dec, [facility] [address] [id number] [place] [address] Aug, [facility] [place] [facility] [address] [id number] [place] [address] Aug, [facility] [address] [id number] [place] [address] Aug, [facility] [place] [facility] [address] [id number] [place] [address] Jul, [facility] [address] [id number] [place] [address] May, [facility] [place] [facility] [address] [id number] [place] [address] May, [facility] [place] [facility] [address] [id number] [place] [address] May, [facility] [place] [facility] [address] [id number] [place] [address] May, [facility] [place] [facility] [address] [id number] [place] [address] Mar, [facility] [place] [facility] [address] [id number] [place] [address] Mar, [facility] [place] [facility] [address] [id number] [place] [address] Sep, [facility] [place] [facility] [address] [id number] [place] [address] Sep, [facility] [place] [facility] [address] [id number] [place] [address] Jun, [facility] [place] [facility] [address] [id number] [place] [address] May, [facility] [place] [facility] [address] [id number] [place] [address] Apr, [facility] [place] [facility] [address] [id number] [place] [address] Apr, [facility] [place] [facility] [address] [id number] [place] [address] Apr, [facility] [place] [facility] [address] [id number], [place] [address] Apr, [facility] [place] [facility] [address] [id number], [place] [address] Mar, [facility] [place] [facility] [address] [id number], [place] [address] Dec, [facility] [place] [facility] [address] [id number] [place] [address] Nov, [facility] [place] [facility] [address] [id number], [place] [address] Mar, [facility] [place] [facility] [address] [id number] [place] [address] Jan, [facility] [place] [facility] [address] [place] [address] [id number] [address] Apr, [facility] [address] [place] [id number] [address] Apr, [facility] [address] [place] [id number] [address] Apr, [facility] [address], [place] [address] Apr, [facility] [address], [place] [address] Mar, [facility] [address], [place] [address] Mar, [facility] [address], [place] [address] Mar, [facility] [address], [place] [address] Mar, [facility] [address] [place] [address] [id number] [address] Sep, IMMUNIZATIONS No Known Immunizations SOCIAL HISTORY Never Assessed REASON FOR VISIT [facility] PLAN OF CARE VITAL SIGNS MEDICATIONS Unknown Medications RESULTS No Results PROCEDURES No Known procedures INSTRUCTIONS MEDICATIONS ADMINISTERED No Known Medications MEDICAL (GENERAL) HISTORY Type Description Date Medical History hypertension Medical History sleep apnea-CPAP 8cm [id number]-[id number] Paykel Eson Nasal Mask Medical History hypokalemia Medical History heart disease-rupture AAA, intrarenal Medical History respiratory disorder 06/16/13 Medical History [place] filter, DVT Medical History hepatitis B Medical [...]
--- OUTSIDE RECORDS SUMMARY | 2019-01-21 11:11 | XMS REPORT ---
Author Author Migration, Doctor Organization [facility] Address Unknown Phone Unavailable Care Team Providers Care Hair Mixer Name Role Phone Migration, Doctor Unavailable Unavailable PROBLEMS Type Condition ICD9-CM Code [id number] Code Onset Dates Condition Status SNOMED Code Problem Alzheimers disease, unspecified G30.9 Active 5814600012896 Problem Obstructive sleep apnea G47.33 Active 60332320 Problem Hypercholesterolemia E78.00 Active 04389730 Problem Type 2 diabetes mellitus with diabetic polyneuropathy, unspecified whether snf insulin use E11.42 Active 85946434 Problem Essential hypertension I10 Active 04478589 Problem 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 4413567 Problem Macular degeneration H35.30 Active 844268463 Problem Type 2 diabetes mellitus without complications E11.9 Active 213928355 Problem Hypokalemia E87.6 Active 36490542 ALLERGIES No Information ENCOUNTERS Encounter Location Date Diagnosis [place] [address] [address] October, [place] [address] [place] [id number] [place] [address] Sep, Encounter for Medicare annual wellness exam Z00.00 ; Type 2 diabetes mellitus without complications E11.9 ; Hypokalemia E87.6 ; Alzheimers disease, unspecified G30.9 ; Essential hypertension I10 and Rhonchi R09.89 [place] [address] [place] [address] [id number] [place] [address] Aug, Alzheimers disease, unspecified G30.9 and Type 2 diabetes mellitus with diabetic polyneuropathy, unspecified whether snf insulin use E11.42 [facility] [place] [address] [id number] [place] [address] Aug, Hypokalemia E87.6 [place] [address] [place] [id number] [place] [address] Jul, Hypokalemia E87.6 [facility], [place] [address] [address] Apr, Type 2 diabetes mellitus without complications E11.9 and Alzheimers disease, unspecified G30.9 [facility], [place] [address] [id number] [place] [address] Dec, [facility], [place] [address] [id number] [place] [address] Dec, Type 2 diabetes mellitus without complications E11.9 ; Hypokalemia E87.6 and Alzheimers disease, unspecified G30.9 [facility], [place] [address] [place] [id number] [place] [address] Jul, Alzheimers disease, unspecified G30.9 [facility], [place] [address] [place] [id number] [place] [address] Jul, [facility], [place] [address] [id number] [place] [address] Jul, [facility], [place] [address] [address] [id number] [place] [address] Jun, [facility], [place] [address] [address] [id number] [place] [address] Jun, Alzheimers disease, unspecified G30.9 ; Hypokalemia E87.6 and Behavioral change R46.89 [facility], [place] [address] [address] Jun, [facility], [place] [address] [address] May, [facility], [place] [address] [place] [id number] [place] [address] Feb, [facility], [place] [address], [place] [address] Feb, Type 2 diabetes mellitus without complications E11.9 ; Hypokalemia E87.6 and Alzheimers disease, unspecified G30.9 [place] [address] [place] [id number] [place] [address] Feb, Type 2 diabetes mellitus without complications E11.9 ; Alzheimers disease, unspecified G30.9 and Hypokalemia E87.6 [place] [address] [address] October, [place] [address] [address] October, Type 2 diabetes mellitus without complications E11.9 ; Hypokalemia E87.6 ; Rhonchi R09.89 and Bilateral impacted cerumen H61.23 [place] [address] [address] October, Hypokalemia E87.6 ; Essential (primary) hypertension I10 and Type 2 diabetes mellitus without complications E11.9 [place] [address] [address] October, Hypokalemia E87.6 ; Type 2 diabetes mellitus without complications E11.9 and Essential (primary) hypertension I10 [place] [address] [place] [id number] [place] [address] Jul, Hypokalemia E87.6 [place] [address] [place] [id number] [place] [address] Jun, Hypokalemia E87.6 [place] [address] [place] [id number] [place] [address] Jun, Hypokalemia E87.6 [place] [address] [address] May, Hypokalemia E87.6 [place] [address] [place] [id number] [place] [address] May, Type 2 diabetes mellitus without complications E11.9 and Hypokalemia E87.6 [place] [address] [address] Feb, Type 2 diabetes mellitus without complications E11.9 and Alzheimers disease, unspecified G30.9 [facility], [place] [address] [address] Jan, Hypokalemia E87.6 [place] [address] [place] [id number] [place] [address] Jan, Hypokalemia E87.6 [place] [address] [place] [id number] [place] [address] October, Type 2 diabetes mellitus without complications E11.9 ; Hypokalemia E87.6 ; Macular degeneration H35.30 ; Alzheimers disease, unspecified G30.9 and Essential hypertension I10 [place] [address] [place] [id number] [place] [address] October, Routine health maintenance Z00.00 and Type 2 diabetes mellitus without complications E11.9 [place] [address] [place] [address] October, Routine health maintenance Z00.00 and Type 2 diabetes mellitus without complications E11.9 [place] [address] [place] [address] Jul, [place] [address] [place] [address] Jul, Hypokalemia E87.6 ; Type 2 diabetes mellitus without complications E11.9 and Abnormal CBC R79.89 [place] [address] [place] [id number] [place] [address] 15 Jul, 2015 Hypokalemia E87.6 ; Type 2 diabetes mellitus without complications E11.9 and Abnormal CBC R79.89 [place] [address] [address] Jul, [place] [address] [place] [address] [id number] [address] 08 Jul, 2015 Abnormal CBC R79.89 and Lymphadenopathy of head and neck region R59.9 [facility], [place] [address] [place] [id number] [place] [address] May, [facility], [place] [address] [place] [id number] [place] [address] Apr, [facility], [place] [address] [place] [id number] [place] [address] Apr, [facility], [place] [address] [place] [id number] [place] [address] Apr, [facility], [place] [address] [place] [id number] [place] [address] Apr, [facility], [place] [address] [place] [id number] [place] [address] Mar, Hypokalemia E87.6 [facility], [place] [address] [place] [id number] [place] [address] Mar, [facility], [place] [address] [place] [id number] [place] [address] Mar, Hypokalemia E87.6 ; Type 2 diabetes mellitus without complications E11.9 and Hypokalemia 276.8 [place] [address] [place] [address] Jan, Hypokalemia 276.8 [facility], [place] [address] [address] Jan, Hypertension 401.9 [facility], [place] [address] [place] [id number] [place] [address] Jan, [facility], [place] [address] [place] [address] Nov, Diabetes mellitus without mention of complication, type II or unspecified type, not stated as uncontrolled 250.00 and Hypertension 401.9 [facility] [place] [facility] [address] [id number] [place] [address] 18 Nov, 2014 [facility] [place] [facility] [address] [id number] [place] [address] 14 Sep, 2014 [facility] [place] [facility] [address] [id number] [place] [address] Sep, [facility] [place] [facility] [address] [id number] [place] [address] Jun, [facility] [place] [facility] [address] [id number] [place] [address] Jun, [facility] [place] [facility] [address] [id number] [place] [address] Jan, [facility] [place] [facility] [address] [id number] [place] [address] Jan, [facility] [place] [facility] [address] [id number] [place] [address] Jan, [facility] [place] [facility] [address] [id number] [place] [address] Jan, [facility] [place] [facility] [address] [id number] [place] [address] Jan, [facility] [place] [facility] [address] [id number] [place] [address] Jan, [facility] [place] [facility] [address] [id number] [place] [address] Dec, [facility] [place] [facility] [address] [id number] [place] [address] Nov, [facility] [place] [facility] [address] [id number] [place] [address] Nov, [facility] [place] [facility] [address] [id number] [place] [address] Nov, [facility] [place] [facility] [address] [id number] [place] [address] Nov, [facility] [place] [facility] [address] [id number] [place] [address] October, [facility] [place] [facility] [address] [id number] [place] [address] Jul, [facility] [place] [facility] [address] [facility] [id number] [place] [address] Jul, [facility] [place] [facility] [address] [id number] [place] [address] Jul, [facility] [place] [facility] [address] [id number] [place] [address] Jul, [facility] [place] [facility] [address] [id number] [place] [address] Jul, [facility] [place] [facility] [address] [id number] [place] [address] Jul, [facility] [place] [facility] [address] [id number] [place] [address] Jun, [facility] [place] [facility] [address] [id number] [place] [address] Jun, [facility] [place] [facility] [address] [facility] [id number] [place] [address] Jun, [facility] [place] [facility] [address] [id number] [place] [address] Jun, [facility] [place] [facility] [address] [id number] [place] [address] Jun, [facility] [place] [facility] [address] [id number] [place] [address] Jun, [facility] [place] [facility] [address] [facility] [id number] [place] [address] Jun, [facility] [place] [facility] [address] [facility] [id number] [place] [address] Apr, [facility] [place] [facility] [address] [id number] [place] [address] Apr, [facility] [address] [id number] [place] [address] Mar, [facility] [place] [facility] [address] [id number] [place] [address] Mar, [facility] [address] [id number] [place] [address] Mar, [facility] [place] [facility] [address] [id number] [place] [address] Mar, [facility] [address] [id number] [place] [address] Feb, [facility] [place] [facility] [address] [id number] [place] [address] Feb, [facility] [place] [facility] [address] [id number] [place] [address] Dec, [facility] [address] [id number] [place] [address] Aug, [facility] [place] [facility] [address] [id number] [place] [address] Aug, [facility] [address] [id number] [place] [address] Aug, [facility] [place] [facility] [address] [id number] [place] [address] Jul, [facility] [address] [id number] [place] [address] May, [facility] [place] [facility] [address] [id number] [place] [address] May, [facility] [place] [facility] [address] [id number] [place] [address] May, [facility] [place] [facility] [address] [id number] [place] [address] May, [facility] [place] [facility] [address] [id number] [place] [address] Mar, [facility] [place] [facility] [address] [id number] [place] [address] Mar, [facility] [place] [facility] [address] [id number] [place] [address] Sep, [facility] [place] [facility] [address] [id number] [place] [address] Sep, [facility] [place] [facility] [address] [id number] [place] [address] Jun, [facility] [place] [facility] [address] [id number] [place] [address] May, [facility] [place] [facility] [address] [id number] [place] [address] Apr, [facility] [place] [facility] [address] [id number] [place] [address] Apr, [facility] [place] [facility] [address] [id number] [place] [address] Apr, [facility] [place] [facility] [address] [id number], [place] [address] Apr, [facility] [place] [facility] [address] [id number], [place] [address] Mar, [facility] [place] [facility] [address] [id number], [place] [address] Dec, [facility] [place] [facility] [address] [id number] [place] [address] Nov, [facility] [place] [facility] [address] [id number], [place] [address] Mar, [facility] [place] [facility] [address] [id number] [place] [address] Jan, [facility] [place] [facility] [address] [place] [address] [id number] [address] Apr, [facility] [place] [address] [id number] [address] Apr, [facility] [place] [address] [id number] [address] Apr, [facility] [place] [address] [place] [address] Apr, [facility] [place] [address] [address] Mar, [facility] [place] [address] [address] Mar, [facility] [place] [address] [address] Mar, [facility] [place] [address] [place] [address] Mar, [facility] [place] [address] [id number] [address] Sep, IMMUNIZATIONS No Known Immunizations SOCIAL HISTORY Never Assessed REASON FOR VISIT [facility] PLAN OF CARE VITAL SIGNS MEDICATIONS Unknown Medications RESULTS No Results PROCEDURES No Known procedures INSTRUCTIONS MEDICATIONS ADMINISTERED No Known Medications MEDICAL (GENERAL) HISTORY Type Description Date Medical History hypertension Medical History sleep apnea-CPAP 8cm P6O-Ipklzm Paykel Eson Nasal Mask Medical History hypokalemia Medical History heart disease-rupture AAA, intrarenal Medical History respiratory disorder 06/16/13 Medical History [place] filter, DVT Medical History hepatitis B Medical History dementia Medical History 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 Medical History Alzheimers disease, unspecified Medical History [facility] Team 12 Dr. Lang Surgical History cardiothoracic surgery-triple bypass-Kee 12/2009 Surgical History Triple A 09/2006 Surgical History cholecystectomy Surgical History Bleeding ulcer Surgical History colonoscopy Recurrent polyps not identified FU in 5 years 02/2018 Surgical History inguinal hernia repair foam 05/2019 Hospitalization History Hospitalization for surgery only Hospitalization History hypertension 10/2013 Hospitalization History Somewhere in [facility] May 2017
--- OUTSIDE RECORDS SUMMARY | 2019-01-21 11:11 | XMS REPORT ---
Author Author Migration, Doctor Organization [facility] Address Unknown Phone Unavailable Care Team Providers Care Stone Fabricator Name Role Phone Migration, Doctor Unavailable Unavailable PROBLEMS Type Condition ICD9-CM Code JIX82-NT Code Onset Dates Condition Status SNOMED Code Problem Alzheimers disease, unspecified G30.9 Active 0603460630450 Problem Obstructive sleep apnea G47.33 Active 43012662 Problem Hypercholesterolemia E78.00 Active 97221211 Problem Essential (primary) hypertension I10 Active 28453218 Problem Type 2 diabetes mellitus with diabetic polyneuropathy, unspecified whether meterman insulin use E11.42 Active 58781478 Problem 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 6521195 Problem Macular degeneration H35.30 Active 403431997 Problem Type 2 diabetes mellitus without complications E11.9 Active 644260528 Problem Hypokalemia E87.6 Active 47371586 ALLERGIES No Information ENCOUNTERS Encounter Location Date Diagnosis [place] [id number], [place] [address] October, [place] [address] [place] [id number] [place] [address] Sep, [facility] [address], [place] [address] Aug, Alzheimers disease, unspecified G30.9 and Type 2 diabetes mellitus with diabetic polyneuropathy, unspecified whether meterman insulin use E11.42 [facility] [address], [place] [address] Aug, Hypokalemia E87.6 [facility] [address] [address] [id number] [place] [address] Jul, Hypokalemia E87.6 [facility] [address] [place] [address] Apr, Type 2 diabetes mellitus without complications E11.9 and Alzheimers disease, unspecified G30.9 [facility] [id number] [place] [address] Dec, [facility] [id number] [place] [address] Dec, Type 2 diabetes mellitus without complications E11.9 ; Hypokalemia E87.6 and Alzheimers disease, unspecified G30.9 [facility] [address] [id number] [place] [address] Jul, Alzheimers disease, unspecified G30.9 [facility] [id number] [place] [address] Jul, [facility] [id number] [place] [address] Jul, [facility] [address] [address] [id number] [place] [address] Jun, [facility] [address] [address] [id number] [place] [address] Jun, Alzheimers disease, unspecified G30.9 ; Hypokalemia E87.6 and Behavioral change R46.89 [facility] [address] [address] [id number] [place] [address] Jun, [facility] [address] [address] [id number] [place] [address] May, [facility] [address] [id number] [place] [address] Feb, [facility] [address] [id number] [place] [address] Feb, Type 2 diabetes mellitus without complications E11.9 ; Hypokalemia E87.6 and Alzheimers disease, unspecified G30.9 [facility] [id number] [place] [address] Feb, Type 2 diabetes mellitus without complications E11.9 ; Alzheimers disease, unspecified G30.9 and Hypokalemia E87.6 [place] [address] [place] [id number] [place] [address] October, [place] [address] [place] [id number] [place] [address] October, Type 2 diabetes mellitus without complications E11.9 ; Hypokalemia E87.6 ; Rhonchi R09.89 and Bilateral impacted cerumen H61.23 [place] [address] [id number] [place] [address] October, Hypokalemia E87.6 ; Essential (primary) hypertension I10 and Type 2 diabetes mellitus without complications E11.9 [place] [address] [place] [id number] [place] [address] October, Hypokalemia E87.6 ; Type 2 diabetes mellitus without complications E11.9 and Essential (primary) hypertension I10 [place] [address] [place] [id number] [place] [address] Jul, Hypokalemia E87.6 [place] [address] [place] [id number] [place] [address] Jun, Hypokalemia E87.6 [place] [address] [place] [id number] [place] [address] Jun, Hypokalemia E87.6 [place] [address] [place] [id number] [place] [address] May, Hypokalemia E87.6 [place] [address] [place] [id number] [place] [address] May, Type 2 diabetes mellitus without complications E11.9 and Hypokalemia E87.6 [place] [address] [place] [id number] [place] [address] Feb, Type 2 diabetes mellitus without complications E11.9 and Alzheimers disease, unspecified G30.9 [facility] [address] [place] [address] Jan, Hypokalemia E87.6 [facility] [address] [place] [id number] [place] [address] Jan, Hypokalemia E87.6 [facility] [address] [place] [id number] [place] [address] October, Type 2 diabetes mellitus without complications E11.9 ; Hypokalemia E87.6 ; Macular degeneration H35.30 ; Alzheimers disease, unspecified G30.9 and Essential hypertension I10 [place] [address] [place] [id number] [place] [address] October, Routine health maintenance Z00.00 and Type 2 diabetes mellitus without complications E11.9 [place] [address] [place] [id number] [place] [address] October, Routine health maintenance Z00.00 and Type 2 diabetes mellitus without complications E11.9 [facility] [address] [place] [address] Jul, [facility] [address] [place] [id number] [place] [address] Jul, Hypokalemia E87.6 ; Type 2 diabetes mellitus without complications E11.9 and Abnormal CBC R79.89 [place] [address] [place] [address] 15 Jul, 2015 Hypokalemia E87.6 ; Type 2 diabetes mellitus without complications E11.9 and Abnormal CBC R79.89 [place] [address] [place] [id number] [place] [address] Jul, [place] [address] [place] [address] 08 Jul, 2015 Abnormal CBC R79.89 and Lymphadenopathy of head and neck region R59.9 [place] [address] [place] [address] [id number] [address] May, [facility] [address] [place] [address] Apr, [facility] [address], [place] [address] Apr, [facility] [address] [place] [address] [id number] [place] [address] Apr, [facility] [address] [place] [address] [id number] [place] [address] Apr, [facility] [address] [address] [id number] [place] [address] Mar, Hypokalemia E87.6 [facility] [address] [place] [id number] [place] [address] Mar, [facility] [address] [place] [id number] [place] [address] Mar, Hypokalemia E87.6 ; Type 2 diabetes mellitus without complications E11.9 and Hypokalemia 276.8 [facility] [address] [place] [id number] [place] [address] Jan, Hypokalemia 276.8 [facility] [address], [place] [address] Jan, Hypertension 401.9 [facility] [address] [place] [id number] [place] [address] Jan, [facility] [address] [place] [address] Nov, Diabetes mellitus without mention of complication, type II or unspecified type, not stated as uncontrolled 250.00 and Hypertension 401.9 [facility] [address], [place] [address] Nov, [facility] [address] [place] [id number] [place] [address] Sep, [facility] [place] [facility] [address] [id number] [place] [address] Sep, [facility] [place] [facility] [address] [id number] [place] [address] Jun, [facility] [place] [facility] [address] [id number] [place] [address] Jun, [facility] [place] [facility] [address] [id number] [place] [address] Jan, [facility] [place] [facility] [address] [id number] [place] [address] Jan, [facility] [place] [facility] [address] [id number] [place] [address] Jan, [facility] [place] [facility] [address] [id number] [place] [address] Jan, [facility] [place] [facility] [address] [id number] [place] [address] Jan, [facility] [place] [facility] [address] [id number] [place] [address] Jan, [facility] [place] [facility] [address] [id number] [place] [address] Dec, [facility] [place] [facility] [address] [id number] [place] [address] Nov, [facility] [place] [facility] [address] [id number] [place] [address] Nov, [facility] [place] [facility] [address] [id number] [place] [address] Nov, [facility] [place] [facility] [address] [id number] [place] [address] Nov, [facility] [place] [facility] [address] [id number] [place] [address] October, [facility] [place] [facility] [address] [id number] [place] [address] 12 Jul, 2013 [facility] [place] [facility] [address] [id number] [place] [address] Jul, [facility] [place] [facility] [address] [id number] [place] [address] Jul, [facility] [place] [facility] [address] [id number] [place] [address] Jul, [facility] [place] [facility] [address] [id number] [place] [address] Jul, [facility] [place] [facility] [address] [id number] [place] [address] Jul, [facility] [place] [facility] [address] [id number] [place] [address] Jun, [facility] [place] [facility] [address] [id number] [place] [address] Jun, [facility] [place] [facility] [address] [id number] [place] [address] Jun, [facility] [place] [facility] [address] [id number] [place] [address] Jun, [facility] [place] [facility] [address] [id number] [place] [address] Jun, [facility] [place] [facility] [address] [id number] [place] [address] Jun, [facility] [place] [facility] [address] [id number] [place] [address] Jun, [facility] [place] [facility] [address] [id number] [place] [address] Apr, [facility] [place] [facility] [address] [id number] [place] [address] Apr, [facility] [place] [facility] [address] [id number] [place] [address] Mar, [facility] [address] [id number] [place] [address] Mar, [facility] [place] [facility] [address] [id number] [place] [address] Mar, [facility] [address] [id number] [place] [address] Mar, [facility] [place] [facility] [address] [id number] [place] [address] Feb, [facility] [address] [id number] [place] [address] Feb, [facility] [address] [id number] [place] [address] Dec, [facility] [address] [id number] [place] [address] Aug, [facility] [place] [facility] [address] [id number], [place] [address] Aug, [facility] [address] [id number] [place] [address] Aug, [facility] [place] [facility] [address] [facility] [id number] [address] Jul, [facility] [address] [id number], [place] [address] May, [facility] [place] [facility] [address] [id number], [place] [address] May, [facility] [place] [facility] [address] [id number] [place] [address] May, [facility] [place] [facility] [address] [id number], [place] [address] May, [facility] [place] [facility] [address] [facility] [id number], [place] [address] Mar, [facility] [place] [facility] [address] [id number] [place] [address] Mar, [facility] [place] [facility] [address] [id number] [place] [address] Sep, [facility] [place] [facility] [address] [id number] [place] [address] Sep, [facility] [place] [facility] [address] [id number] [place] [address] Jun, [facility] [place] [facility] [address] [id number] [place] [address] May, [facility] [place] [facility] [address] [id number] [place] [address] Apr, [facility] [place] [facility] [address] [id number] [place] [address] Apr, [facility] [place] [facility] [address] [id number] [place] [address] Apr, [facility] [place] [facility] [address] [id number] [place] [address] Apr, [facility] [place] [facility] [address] [id number] [place] [address] Mar, [facility] [place] [facility] [address] [id number] [place] [address] Dec, [facility] [place] [facility] [address] [id number] [place] [address] Nov, [facility] [place] [facility] [address] [id number] [place] [address] Mar, [facility] [place] [facility] [address] [id number] [place] [address] Jan, [facility] [place] [facility] [address] [id number] [place] [address] 24 Apr, 2009 [facility] [place] [facility] [address] [id number] [place] [address] Apr, [facility] [address] [facility] [id number], [place] [address] Apr, [facility] [address] [place] [id number] [address] Apr, [facility] [id number], [place] [address] Mar, [facility] [address], [place] [address] Mar, [facility] [id number], [place] [address] Mar, [facility] [id number] [address] Mar, [facility] [id number] [address] Sep, IMMUNIZATIONS No Known Immunizations SOCIAL HISTORY Never Assessed REASON FOR VISIT EMR-[facility] PLAN OF CARE VITAL SIGNS MEDICATIONS Unknown Medications RESULTS No Results PROCEDURES No Known procedures INSTRUCTIONS MEDICATIONS ADMINISTERED No Known Medications MEDICAL (GENERAL) HISTORY Type Description Date Medical History hypertension Medical History sleep apnea-CPAP 8cm P3S-WlbgrxEmida Eson Nasal Mask Medical History hypokalemia Medical History heart disease-rupture AAA, intrarenal Medical History respiratory disorder 06/16/13 Medical History Srini filter, DVT Medical History hepatitis B Medical History dementia Medical History 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 Medical History Alzheimers disease, unspecified Medical History [facility] - Team 12 Dr. Lang Surgical History cardiothoracic surgery-triple bypass-Kee 12/2009 Surgical History Triple A 09/2006 Surgical History cholecystectomy Surgical History Bleeding ulcer Surgical History colonoscopy Recurrent polyps not identified FU in 5 years 02/2018 Surgical History inguinal hernia repair foam 05/2019 Hospitalization History Hospitalization for surgery only Hospitalization History hypertension 10/2013 Hospitalization History [place]where in [place] May 2017
--- OUTSIDE RECORDS SUMMARY | 2019-01-21 11:11 | XMS REPORT ---
Author Author Migration, Doctor Organization [facility] Address Unknown Phone Unavailable Care Team Providers Care Automobile Accessories Installer Name Role Phone Migration, Doctor Unavailable Unavailable PROBLEMS Type Condition ICD9-CM Code NQH43-KL Code Onset Dates Condition Status SNOMED Code Problem Alzheimers disease, unspecified G30.9 Active [id number] Problem Obstructive sleep apnea G47.33 Active 20655521 Problem Hypercholesterolemia E78.00 Active 73869265 Problem Essential (primary) hypertension I10 Active 69498575 Problem Type 2 diabetes mellitus with diabetic polyneuropathy, unspecified whether rat exterminator insulin use E11.42 Active 42392078 Problem 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 4603532 Problem Macular degeneration H35.30 Active 797467877 Problem Type 2 diabetes mellitus without complications E11.9 Active 584677691 Problem Hypokalemia E87.6 Active 05445570 ALLERGIES No Information ENCOUNTERS Encounter Location Date Diagnosis [place] [id number], [place] [address] October, [place] [address] [place] [id number] [place] [address] Sep, [facility] [address], [place] [address] Aug, Alzheimers disease, unspecified G30.9 and Type 2 diabetes mellitus with diabetic polyneuropathy, unspecified whether rat exterminator insulin use E11.42 [facility] [address], [place] [address] Aug, Hypokalemia E87.6 [facility] [address] [place] [id number] [place] [address] Jul, Hypokalemia E87.6 [facility] [id number] [place] [address] Apr, Type 2 diabetes mellitus without complications E11.9 and Alzheimers disease, unspecified G30.9 [facility] [id number] [place] [address] Dec, [facility] [id number] [place] [address] Dec, Type 2 diabetes mellitus without complications E11.9 ; Hypokalemia E87.6 and Alzheimers disease, unspecified G30.9 [facility] [id number] [place] [address] Jul, Alzheimers disease, unspecified G30.9 [facility] [id number] [place] [address] Jul, [facility] [id number] [place] [address] Jul, [facility] [id number] [place] [address] Jun, [facility] [id number] [place] [address] Jun, Alzheimers disease, unspecified G30.9 ; Hypokalemia E87.6 and Behavioral change R46.89 [facility] [id number] [place] [address] Jun, [facility] [id number] [place] [address] May, [facility] [id number] [place] [address] Feb, [facility] [id number] [place] [address] Feb, Type 2 diabetes mellitus without complications E11.9 ; Hypokalemia E87.6 and Alzheimers disease, unspecified G30.9 [facility] [id number] [place] [address] Feb, Type 2 diabetes mellitus without complications E11.9 ; Alzheimers disease, unspecified G30.9 and Hypokalemia E87.6 [place] [address] [address] [id number] [place] [address] October, [place] [address] [id number] [place] [address] October, Type 2 diabetes mellitus without complications E11.9 ; Hypokalemia E87.6 ; Rhonchi R09.89 and Bilateral impacted cerumen H61.23 [place] [id number] [place] [address] October, Hypokalemia E87.6 ; Essential (primary) hypertension I10 and Type 2 diabetes mellitus without complications E11.9 [place] [id number] [place] [address] October, Hypokalemia E87.6 ; Type 2 diabetes mellitus without complications E11.9 and Essential (primary) hypertension I10 [place] [address] [id number] [place] [address] Jul, Hypokalemia E87.6 [place] [address] [id number] [place] [address] Jun, Hypokalemia E87.6 [place] [address] [id number] [place] [address] Jun, Hypokalemia E87.6 [place] [address] [address] [id number] [place] [address] May, Hypokalemia E87.6 [place] [address] [address] [id number] [place] [address] May, Type 2 diabetes mellitus without complications E11.9 and Hypokalemia E87.6 [place] [address] [address] [id number] [place] [address] Feb, Type 2 diabetes mellitus without complications E11.9 and Alzheimers disease, unspecified G30.9 [facility] [id number] [place] [address] Jan, Hypokalemia E87.6 [facility] [address] [place] [id number] [place] [address] Jan, Hypokalemia E87.6 [facility] [address] [place] [id number] [place] [address] October, Type 2 diabetes mellitus without complications E11.9 ; Hypokalemia E87.6 ; Macular degeneration H35.30 ; Alzheimers disease, unspecified G30.9 and Essential hypertension I10 [place] [address] [place] [address] [id number] [place] [address] October, Routine health maintenance Z00.00 and Type 2 diabetes mellitus without complications E11.9 [place] [address] [place] [address] [id number] [place] [address] October, Routine health maintenance Z00.00 and Type 2 diabetes mellitus without complications E11.9 [facility] [address] [place] [address] Jul, [facility] [address] [place] [address] [id number] [place] [address] Jul, Hypokalemia E87.6 ; Type 2 diabetes mellitus without complications E11.9 and Abnormal CBC R79.89 [place] [address] [place] [address] 15 Jul, 2015 Hypokalemia E87.6 ; Type 2 diabetes mellitus without complications E11.9 and Abnormal CBC R79.89 [place] [address] [place] [address] [id number] [place] [address] Jul, [place] [id number] [place] [address] 08 Jul, 2015 Abnormal CBC R79.89 and Lymphadenopathy of head and neck region R59.9 [place] [address] [place] [id number] [address] May, [facility] [id number] [place] [address] Apr, [facility] [address], [place] [address] Apr, [facility] [id number] [place] [address] Apr, [facility] [id number] [place] [address] Apr, [facility] [address] [place] [id number] [place] [address] Mar, Hypokalemia E87.6 [facility] [address] [place] [id number] [place] [address] Mar, [facility] [address] [place] [id number] [place] [address] Mar, Hypokalemia E87.6 ; Type 2 diabetes mellitus without complications E11.9 and Hypokalemia 276.8 [facility] [address] [place] [id number] [place] [address] Jan, Hypokalemia 276.8 [facility] [address], [place] [address] Jan, Hypertension 401.9 [facility] [address] [place] [address] [id number] [place] [address] Jan, [facility] [address] [place] [address] Nov, Diabetes mellitus without mention of complication, type II or unspecified type, not stated as uncontrolled 250.00 and Hypertension 401.9 [facility] [address], [place] [address] Nov, [facility] [address] [place] [id number] [place] [address] Sep, [facility] [place] [facility] [address] [id number] [place] [address] Sep, [facility] [place] [facility] [address] [id number] [place] [address] Jun, [facility] [place] [facility] [address] [id number] [place] [address] Jun, [facility] [place] [facility] [address] [id number] [place] [address] Jan, [facility] [place] [facility] [address] [id number] [place] [address] Jan, [facility] [place] [facility] [address] [id number] [place] [address] Jan, [facility] [place] [facility] [address] [id number] [place] [address] Jan, [facility] [place] [facility] [address] [id number] [place] [address] Jan, [facility] [place] [facility] [address] [id number] [place] [address] Jan, [facility] [place] [facility] [address] [id number] [place] [address] Dec, [facility] [place] [facility] [address] [id number] [place] [address] Nov, [facility] [place] [facility] [address] [id number] [place] [address] Nov, [facility] [place] [facility] [address] [id number] [place] [address] Nov, [facility] [place] [facility] [address] [id number] [place] [address] Nov, [facility] [place] [facility] [address] [id number] [place] [address] October, [facility] [place] [facility] [address] [id number] [place] [address] 12 Jul, 2013 [facility] [place] [facility] [address] [id number] [place] [address] Jul, [facility] [place] [facility] [address] [id number] [place] [address] Jul, [facility] [place] [facility] [address] [id number] [place] [address] Jul, [facility] [place] [facility] [address] [id number] [place] [address] Jul, [facility] [place] [facility] [address] [id number] [place] [address] Jul, [facility] [place] [facility] [address] [id number] [place] [address] Jun, [facility] [place] [facility] [address] [id number] [place] [address] Jun, [facility] [place] [facility] [address] [id number] [place] [address] Jun, [facility] [place] [facility] [address] [id number] [place] [address] Jun, [facility] [place] [facility] [address] [id number] [place] [address] Jun, [facility] [place] [facility] [address] [id number] [place] [address] Jun, [facility] [place] [facility] [address] [id number] [place] [address] Jun, [facility] [place] [facility] [address] [id number] [place] [address] Apr, [facility] [place] [facility] [address] [id number] [place] [address] Apr, [facility] [place] [facility] [address] [id number] [place] [address] Mar, [facility] [address] [id number] [place] [address] Mar, [facility] [place] [facility] [address] [id number] [place] [address] Mar, [facility] [address] [id number] [place] [address] Mar, [facility] [place] [facility] [address] [id number] [place] [address] Feb, [facility] [address] [id number] [place] [address] Feb, [facility] [address] [id number] [place] [address] Dec, [facility] [address] [id number] [place] [address] Aug, [facility] [place] [facility] [address] [id number], [place] [address] Aug, [facility] [address] [id number] [place] [address] Aug, [facility] [place] [facility] [address] [facility] [id number], [place] [address] Jul, [facility] [address] [id number], [place] [address] May, [facility] [place] [facility] [address] [id number], [place] [address] May, [facility] [place] [facility] [address] [id number] [place] [address] May, [facility] [place] [facility] [address] [id number], [place] [address] May, [facility] [place] [facility] [address] [facility] [id number], [place] [address] Mar, [facility] [place] [facility] [address] [id number] [place] [address] Mar, [facility] [place] [facility] [address] [id number] [place] [address] Sep, [facility] [place] [facility] [address] [id number] [place] [address] Sep, [facility] [place] [facility] [address] [id number] [place] [address] Jun, [facility] [place] [facility] [address] [id number] [place] [address] May, [facility] [place] [facility] [address] [id number] [place] [address] Apr, [facility] [place] [facility] [address] [id number] [place] [address] Apr, [facility] [place] [facility] [address] [id number] [place] [address] Apr, [facility] [place] [facility] [address] [id number] [place] [address] Apr, [facility] [place] [facility] [address] [id number] [place] [address] Mar, [facility] [place] [facility] [address] [id number] [place] [address] Dec, [facility] [place] [facility] [address] [id number] [place] [address] Nov, [facility] [place] [facility] [address] [id number] [place] [address] Mar, [facility] [place] [facility] [address] [id number] [place] [address] Jan, [facility] [place] [facility] [address] [id number] [place] [address] 24 Apr, 2009 [facility] [place] [facility] [address] [id number] [place] [address] Apr, [facility] [address] [facility] [id number], [place] [address] Apr, [facility] [id number], [place] [address] Apr, [facility] [id number], [place] [address] Mar, [facility] [address], [place] [address] Mar, [facility] [id number], [place] [address] Mar, [facility] [id number], [place] [address] Mar, [facility] [id number], [place] [address] Sep, IMMUNIZATIONS No Known Immunizations SOCIAL HISTORY Never Assessed REASON FOR VISIT EMR-[facility] [place] PLAN OF CARE VITAL SIGNS MEDICATIONS Unknown Medications RESULTS No Results PROCEDURES No Known procedures INSTRUCTIONS MEDICATIONS ADMINISTERED No Known Medications MEDICAL (GENERAL) HISTORY Type Description Date Medical History hypertension Medical History sleep apnea-CPAP 8cm [id number] Eson Nasal Mask Medical History hypokalemia Medical History heart disease-rupture AAA, intrarenal Medical History respiratory disorder 06/16/13 Medical History Srini filter, DVT Medical History hepatitis B Medical History dementia Medical History 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 [...]
--- OUTSIDE RECORDS SUMMARY | 2019-01-21 11:11 | XMS REPORT ---
Author Author Migration, Doctor Organization [facility] Address Unknown Phone Unavailable Care Team Providers Care Bingo Checker Name Role Phone Migration, Doctor Unavailable Unavailable PROBLEMS Type Condition ICD9-CM Code [id number] Code Onset Dates Condition Status SNOMED Code Problem Alzheimers disease, unspecified G30.9 Active [id number] Problem Obstructive sleep apnea G47.33 Active 83421895 Problem Hypercholesterolemia E78.00 Active 91740825 Problem Essential (primary) hypertension I10 Active 31424750 Problem Type 2 diabetes mellitus with diabetic polyneuropathy, unspecified whether intermediate manager insulin use E11.42 Active 66828672 Problem 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 7596872 Problem Macular degeneration H35.30 Active 994067283 Problem Type 2 diabetes mellitus without complications E11.9 Active 940717935 Problem Hypokalemia E87.6 Active [id number] ALLERGIES No Information ENCOUNTERS Encounter Location Date Diagnosis [place] [id number], [place] [address] October, [place] [address] [place] [id number] [place] [address] Sep, [facility] [address], [place] [address] Aug, Alzheimers disease, unspecified G30.9 and Type 2 diabetes mellitus with diabetic polyneuropathy, unspecified whether intermediate manager insulin use E11.42 [facility] [address], [place] [address] Aug, Hypokalemia E87.6 [facility] [address] [id number] [place] [address] Jul, Hypokalemia E87.6 [facility] [id number] [place] [address] Apr, Type 2 diabetes mellitus without complications E11.9 and Alzheimers disease, unspecified G30.9 [facility] [id number] [place] [address] Dec, [facility] [id number] [place] [address] Dec, Type 2 diabetes mellitus without complications E11.9 ; Hypokalemia E87.6 and Alzheimers disease, unspecified G30.9 [facility] [id number] [place] [address] Jul, Alzheimers disease, unspecified G30.9 [facility] [id number] [place] [address] Jul, [facility] [id number] [place] [address] Jul, [facility] [id number] [place] [address] Jun, [facility] [id number] [place] [address] Jun, Alzheimers disease, unspecified G30.9 ; Hypokalemia E87.6 and Behavioral change R46.89 [facility] [id number] [place] [address] Jun, [facility] [id number] [place] [address] May, [facility] [id number] [place] [address] Feb, [facility] [address] [id number] [place] [address] Feb, Type 2 diabetes mellitus without complications E11.9 ; Hypokalemia E87.6 and Alzheimers disease, unspecified G30.9 [facility] [id number] [place] [address] Feb, Type 2 diabetes mellitus without complications E11.9 ; Alzheimers disease, unspecified G30.9 and Hypokalemia E87.6 [place] [address] [id number] [place] [address] October, [place] [address] [address] [id number] [place] [address] October, Type 2 diabetes mellitus without complications E11.9 ; Hypokalemia E87.6 ; Rhonchi R09.89 and Bilateral impacted cerumen H61.23 [place] [address] [address] [id number] [place] [address] October, Hypokalemia E87.6 ; Essential (primary) hypertension I10 and Type 2 diabetes mellitus without complications E11.9 [place] [address] [place] [id number] [place] [address] October, Hypokalemia E87.6 ; Type 2 diabetes mellitus without complications E11.9 and Essential (primary) hypertension I10 [place] [address] [id number] [place] [address] Jul, Hypokalemia E87.6 [place] [address] [place] [address] [id number] [place] [address] Jun, Hypokalemia E87.6 [place] [address] [id number] [place] [address] Jun, Hypokalemia E87.6 [place] [address] [address] [id number] [place] [address] May, Hypokalemia E87.6 [place] [address] [address] [id number] [place] [address] May, Type 2 diabetes mellitus without complications E11.9 and Hypokalemia E87.6 [place] [address] [address] [id number] [place] [address] Feb, Type 2 diabetes mellitus without complications E11.9 and Alzheimers disease, unspecified G30.9 [facility] [address] [place] [address] Jan, Hypokalemia E87.6 [facility] [address] [id number] [place] [address] Jan, Hypokalemia E87.6 [facility] [id number] [place] [address] October, Type 2 diabetes mellitus without complications E11.9 ; Hypokalemia E87.6 ; Macular degeneration H35.30 ; Alzheimers disease, unspecified G30.9 and Essential hypertension I10 [place] [address] [place] [id number] [place] [address] October, Routine health maintenance Z00.00 and Type 2 diabetes mellitus without complications E11.9 [place] [address] [place] [id number] [place] [address] October, Routine health maintenance Z00.00 and Type 2 diabetes mellitus without complications E11.9 [facility] [address] [place] [address] Jul, [facility] [address] [place] [address] [id number] [place] [address] Jul, Hypokalemia E87.6 ; Type 2 diabetes mellitus without complications E11.9 and Abnormal CBC R79.89 [place] [address] [place] [address] 15 Jul, 2015 Hypokalemia E87.6 ; Type 2 diabetes mellitus without complications E11.9 and Abnormal CBC R79.89 [place] [address] [place] [id number] [place] [address] Jul, [place] [address] [place] [address] 08 Jul, 2015 Abnormal CBC R79.89 and Lymphadenopathy of head and neck region R59.9 [place] [address] [place] [id number] [address] May, [facility] [address] [place] [address] Apr, [facility] [address], [place] [address] Apr, [facility] [id number] [place] [address] Apr, [facility] [id number] [place] [address] Apr, [facility] [id number] [place] [address] Mar, Hypokalemia E87.6 [facility] [address] [place] [id number] [place] [address] Mar, [facility] [id number] [place] [address] Mar, Hypokalemia E87.6 ; Type 2 diabetes mellitus without complications E11.9 and Hypokalemia 276.8 [facility] [address] [place] [id number] [place] [address] Jan, Hypokalemia 276.8 [facility] [address], [place] [address] Jan, Hypertension 401.9 [facility] [address] [id number] [place] [address] Jan, [facility] [address] [place] [address] Nov, Diabetes mellitus without mention of complication, type II or unspecified type, not stated as uncontrolled 250.00 and Hypertension 401.9 [facility] [address], [place] [address] Nov, [facility] [address] [place] [id number] [place] [address] Sep, [facility] [place] [facility] [address] [id number] [place] [address] Sep, [facility] [place] [facility] [address] [id number] [place] [address] Jun, [facility] [place] [facility] [address] [id number] [place] [address] Jun, [facility] [place] [facility] [address] [id number] [place] [address] Jan, [facility] [place] [facility] [address] [id number] [place] [address] Jan, [facility] [place] [facility] [address] [id number] [place] [address] Jan, [facility] [place] [facility] [address] [id number] [place] [address] Jan, [facility] [place] [facility] [address] [id number] [place] [address] Jan, [facility] [place] [facility] [address] [id number] [place] [address] Jan, [facility] [place] [facility] [address] [id number] [place] [address] Dec, [facility] [place] [facility] [address] [id number] [place] [address] Nov, [facility] [place] [facility] [address] [id number] [place] [address] Nov, [facility] [place] [facility] [address] [id number] [place] [address] Nov, [facility] [place] [facility] [address] [id number] [place] [address] Nov, [facility] [place] [facility] [address] [id number] [place] [address] October, [facility] [place] [facility] [address] [id number] [place] [address] 12 Jul, 2013 [facility] [place] [facility] [address] [id number] [place] [address] Jul, [facility] [place] [facility] [address] [id number] [place] [address] Jul, [facility] [place] [facility] [address] [id number] [place] [address] Jul, [facility] [place] [facility] [address] [id number] [place] [address] Jul, [facility] [place] [facility] [address] [id number] [place] [address] Jul, [facility] [place] [facility] [address] [id number] [place] [address] Jun, [facility] [place] [facility] [address] [id number] [place] [address] Jun, [facility] [place] [facility] [address] [id number] [place] [address] Jun, [facility] [place] [facility] [address] [id number] [place] [address] Jun, [facility] [place] [facility] [address] [id number] [place] [address] Jun, [facility] [place] [facility] [address] [id number] [place] [address] Jun, [facility] [place] [facility] [address] [id number] [place] [address] Jun, [facility] [place] [facility] [address] [id number] [place] [address] Apr, [facility] [place] [facility] [address] [id number] [place] [address] Apr, [facility] [place] [facility] [address] [id number] [place] [address] Mar, [facility] [address] [id number] [place] [address] Mar, [facility] [place] [facility] [address] [id number] [place] [address] Mar, [facility] [address] [id number] [place] [address] Mar, [facility] [place] [facility] [address] [id number] [place] [address] Feb, [facility] [address] [id number] [place] [address] Feb, [facility] [address] [id number] [place] [address] Dec, [facility] [address] [id number] [place] [address] Aug, [facility] [place] [facility] [address] [id number], [place] [address] Aug, [facility] [address] [id number] [place] [address] Aug, [facility] [place] [facility] [address] [facility] [place] [id number], [place] [address] Jul, [facility] [address] [id number], [place] [address] May, [facility] [place] [facility] [address] [id number], [place] [address] May, [facility] [place] [facility] [address] [id number] [place] [address] May, [facility] [place] [facility] [address] [id number], [place] [address] May, [facility] [place] [facility] [address] [facility] [place] [id number], [place] [address] Mar, [facility] [place] [facility] [address] [id number] [place] [address] Mar, [facility] [place] [facility] [address] [id number] [place] [address] Sep, [facility] [place] [facility] [address] [id number] [place] [address] Sep, [facility] [place] [facility] [address] [id number] [place] [address] Jun, [facility] [place] [facility] [address] [id number] [place] [address] May, [facility] [place] [facility] [address] [id number] [place] [address] Apr, [facility] [place] [facility] [address] [id number] [place] [address] Apr, [facility] [place] [facility] [address] [id number] [place] [address] Apr, [facility] [place] [facility] [address] [id number] [place] [address] Apr, [facility] [place] [facility] [address] [id number] [place] [address] Mar, [facility] [place] [facility] [address] [id number] [place] [address] Dec, [facility] [place] [facility] [address] [id number] [place] [address] Nov, [facility] [place] [facility] [address] [id number] [place] [address] Mar, [facility] [place] [facility] [address] [id number] [place] [address] Jan, [facility] [place] [facility] [address] [id number] [place] [address] 24 Apr, 2009 [facility] [place] [facility] [address] [id number] [place] [address] Apr, [facility] [address] [facility] [place] [id number], [place] [address] Apr, [facility] [id number] [address] Apr, [facility] [id number] [address] Mar, [facility] [address], [place] [address] Mar, [facility] [id number] [place] [address] Mar, [facility] [id number] [address] Mar, [facility] [id number] [place] [address] Sep, IMMUNIZATIONS No Known Immunizations SOCIAL HISTORY Never Assessed REASON FOR VISIT EMR-[facility] PLAN OF CARE VITAL SIGNS MEDICATIONS Unknown Medications RESULTS No Results PROCEDURES No Known procedures INSTRUCTIONS MEDICATIONS ADMINISTERED No Known Medications MEDICAL (GENERAL) HISTORY Type Description Date Medical History hypertension Medical History sleep apnea-CPAP 8cm A8O-[employer] [place] Nasal Mask Medical History hypokalemia Medical History heart disease-rupture AAA, intrarenal Medical History respiratory disorder 06/16/13 Medical History Srini filter, DVT Medical History hepatitis B Medical History dementia Medical History 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 Lang Surgical [...]
--- OUTSIDE RECORDS SUMMARY | 2019-01-21 11:12 | XMS REPORT ---
Author Author Migration, Doctor Organization [facility] Address Unknown Phone Unavailable Care Team Providers Care Hide And Skin Classer Name Role Phone Migration, Doctor Unavailable Unavailable PROBLEMS Type Condition ICD9-CM Code GZX49-MX Code Onset Dates Condition Status SNOMED Code Problem Alzheimers disease, unspecified G30.9 Active [id number] Problem Obstructive sleep apnea G47.33 Active 85569244 Problem Hypercholesterolemia E78.00 Active 08564160 Problem Essential (primary) hypertension I10 Active 30999206 Problem Type 2 diabetes mellitus with diabetic polyneuropathy, unspecified whether terminologist insulin use E11.42 Active 21030032 Problem 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 2666687 Problem Macular degeneration H35.30 Active 420682287 Problem Type 2 diabetes mellitus without complications E11.9 Active 875875039 Problem Hypokalemia E87.6 Active 72138339 ALLERGIES No Information ENCOUNTERS Encounter Location Date Diagnosis [place] [id number] [address] October, [place] [address] [place] [id number] [place] [address] Sep, [facility] [id number] [address] Aug, Alzheimers disease, unspecified G30.9 and Type 2 diabetes mellitus with diabetic polyneuropathy, unspecified whether terminologist insulin use E11.42 [facility] [id number] [address] Aug, Hypokalemia E87.6 [facility] [id number] [place] [address] Jul, Hypokalemia E87.6 [facility] [id number] [address] Apr, Type 2 diabetes mellitus without complications E11.9 and Alzheimers disease, unspecified G30.9 [facility] [id number] [address] Dec, [facility] [id number] [address] Dec, Type 2 diabetes mellitus without complications E11.9 ; Hypokalemia E87.6 and Alzheimers disease, unspecified G30.9 [facility] [id number] [address] Jul, Alzheimers disease, unspecified G30.9 [facility] [id number] [address] Jul, [facility] [id number] [address] Jul, [facility] [id number] [place] [address] Jun, [facility] [id number] [place] [address] Jun, Alzheimers disease, unspecified G30.9 ; Hypokalemia E87.6 and Behavioral change R46.89 [facility] [id number] [address] Jun, [facility] [id number] [address] May, [facility] [id number] [address] Feb, [facility] [id number] [address] Feb, Type 2 diabetes mellitus without complications E11.9 ; Hypokalemia E87.6 and Alzheimers disease, unspecified G30.9 [facility] [id number] [place] [address] Feb, Type 2 diabetes mellitus without complications E11.9 ; Alzheimers disease, unspecified G30.9 and Hypokalemia E87.6 [place] [id number] [address] October, [place] [id number] [address] October, Type 2 diabetes mellitus without complications E11.9 ; Hypokalemia E87.6 ; Rhonchi R09.89 and Bilateral impacted cerumen H61.23 [place] [id number] [address] October, Hypokalemia E87.6 ; Essential (primary) hypertension I10 and Type 2 diabetes mellitus without complications E11.9 [place] [id number] [place] [address] October, Hypokalemia E87.6 ; Type 2 diabetes mellitus without complications E11.9 and Essential (primary) hypertension I10 [place] [id number] [address] Jul, Hypokalemia E87.6 [place] [address] [place] [address] [id number] [address] Jun, Hypokalemia E87.6 [place] [address] [id number] [address] Jun, Hypokalemia E87.6 [place] [address] [address] [id number] [address] May, Hypokalemia E87.6 [place] [id number] [address] May, Type 2 diabetes mellitus without complications E11.9 and Hypokalemia E87.6 [place] [address] [id number] [address] Feb, Type 2 diabetes mellitus without complications E11.9 and Alzheimers disease, unspecified G30.9 [facility] [id number] [place] [address] Jan, Hypokalemia E87.6 [facility] [id number] [address] Jan, Hypokalemia E87.6 [facility] [id number] [address] October, Type 2 diabetes mellitus without complications E11.9 ; Hypokalemia E87.6 ; Macular degeneration H35.30 ; Alzheimers disease, unspecified G30.9 and Essential hypertension I10 [place] [address] [address] [id number] [address] October, Routine health maintenance Z00.00 and Type 2 diabetes mellitus without complications E11.9 [place] [address] [address] [id number] [address] October, Routine health maintenance Z00.00 and Type 2 diabetes mellitus without complications E11.9 [facility] [id number] [place] [address] Jul, [facility] [id number] [address] Jul, Hypokalemia E87.6 ; Type 2 diabetes mellitus without complications E11.9 and Abnormal CBC R79.89 [place] [id number] [place] [address] 15 Jul, 2015 Hypokalemia E87.6 ; Type 2 diabetes mellitus without complications E11.9 and Abnormal CBC R79.89 [place] [address] [id number] [address] Jul, [place] [id number] [address] 08 Jul, 2015 Abnormal CBC R79.89 and Lymphadenopathy of head and neck region R59.9 [place] [id number] [address] May, [facility] [id number] [place] [address] Apr, [facility] [id number], [place] [address] Apr, [facility] [id number] [address] Apr, [facility] [id number] [address] Apr, [facility] [id number] [address] Mar, Hypokalemia E87.6 [facility] [address] [address] [id number] [address] Mar, [facility] [id number] [address] Mar, Hypokalemia E87.6 ; Type 2 diabetes mellitus without complications E11.9 and Hypokalemia 276.8 [facility] [id number] [address] Jan, Hypokalemia 276.8 [facility] [id number], [place] [address] Jan, Hypertension 401.9 [facility] [id number] [address] Jan, [facility] [id number] [place] [address] Nov, Diabetes mellitus without mention of complication, type II or unspecified type, not stated as uncontrolled 250.00 and Hypertension 401.9 [facility] [id number], [place] [address] Nov, [facility] [id number] [address] Sep, [facility] [place] [facility] [address] [id number] [place] [address] Sep, [facility] [place] [facility] [address] [id number] [place] [address] Jun, [facility] [place] [facility] [address] [id number] [place] [address] Jun, [facility] [place] [facility] [address] [id number] [place] [address] Jan, [facility] [place] [facility] [address] [id number] [place] [address] Jan, [facility] [place] [facility] [address] [id number] [place] [address] Jan, [facility] [place] [facility] [address] [id number] [place] [address] Jan, [facility] [place] [facility] [address] [id number] [place] [address] Jan, [facility] [place] [facility] [address] [id number] [place] [address] Jan, [facility] [place] [facility] [address] [id number] [place] [address] Dec, [facility] [place] [facility] [address] [id number] [place] [address] Nov, [facility] [place] [facility] [address] [id number] [place] [address] Nov, [facility] [place] [facility] [address] [id number] [place] [address] Nov, [facility] [place] [facility] [address] [id number] [place] [address] Nov, [facility] [place] [facility] [address] [id number] [place] [address] October, [facility] [place] [facility] [address] [id number] [place] [address] 12 Jul, 2013 [facility] [place] [facility] [address] [id number] [place] [address] Jul, [facility] [place] [facility] [address] [id number] [place] [address] Jul, [facility] [place] [facility] [address] [id number] [place] [address] Jul, [facility] [place] [facility] [address] [id number] [place] [address] Jul, [facility] [place] [facility] [address] [id number] [place] [address] Jul, [facility] [place] [facility] [address] [id number] [place] [address] Jun, [facility] [place] [facility] [address] [id number] [place] [address] Jun, [facility] [place] [facility] [address] [id number] [place] [address] Jun, [facility] [place] [facility] [address] [id number] [place] [address] Jun, [facility] [place] [facility] [address] [id number] [place] [address] Jun, [facility] [place] [facility] [address] [id number] [place] [address] Jun, [facility] [place] [facility] [address] [id number] [place] [address] Jun, [facility] [place] [facility] [address] [id number] [place] [address] Apr, [facility] [place] [facility] [address] [id number] [place] [address] Apr, [facility] [place] [facility] [address] [id number] [place] [address] Mar, [facility] [address] [id number] [place] [address] Mar, [facility] [place] [facility] [address] [id number] [place] [address] Mar, [facility] [address] [id number] [place] [address] Mar, [facility] [place] [facility] [address] [id number] [place] [address] Feb, [facility] [address] [id number] [place] [address] Feb, [facility] [address] [id number] [place] [address] Dec, [facility] [address] [id number] [place] [address] Aug, [facility] [place] [facility] [address] [id number] [address] Aug, [facility] [address] [id number] [place] [address] Aug, [facility] [place] [facility] [address] [facility] [id number], [place] [address] Jul, [facility] [address] [id number], [place] [address] May, [facility] [place] [facility] [address] [id number], [place] [address] May, [facility] [place] [facility] [address] [id number] [place] [address] May, [facility] [place] [facility] [address] [id number], [place] [address] May, [facility] [place] [facility] [address] [facility] [id number], [place] [address] Mar, [facility] [place] [facility] [address] [id number] [place] [address] Mar, [facility] [place] [facility] [address] [id number] [place] [address] Sep, [facility] [place] [facility] [address] [id number] [place] [address] Sep, [facility] [place] [facility] [address] [id number] [place] [address] Jun, [facility] [place] [facility] [address] [id number] [place] [address] May, [facility] [place] [facility] [address] [id number] [place] [address] Apr, [facility] [place] [facility] [address] [id number] [place] [address] Apr, [facility] [place] [facility] [address] [id number] [place] [address] Apr, [facility] [place] [facility] [address] [id number] [place] [address] Apr, [facility] [place] [facility] [address] [id number] [place] [address] Mar, [facility] [place] [facility] [address] [id number] [place] [address] Dec, [facility] [place] [facility] [address] [id number] [place] [address] Nov, [facility] [place] [facility] [address] [id number] [place] [address] Mar, [facility] [place] [facility] [address] [id number] [place] [address] Jan, [facility] [place] [facility] [address] [id number] [place] [address] 24 Apr, 2009 [facility] [place] [facility] [address] [id number] [place] [address] Apr, [facility] [id number] [address] Apr, [facility] [address], [place] [address] Apr, [facility] [id number] [address] Mar, [facility] [id number], [place] [address] Mar, [facility] [id number] [address] Mar, [facility] [id number] [place] [address] Mar, [facility] [id number] [place] [address] Sep, IMMUNIZATIONS No Known Immunizations SOCIAL HISTORY Never Assessed REASON FOR VISIT [facility] [place] PLAN OF CARE VITAL SIGNS MEDICATIONS Medication Instructions Dosage Frequency Start Date End Date Duration Status Cipro 500 mg 1 tablet by Oral route every 12 hours for 3 day(s) Jun, Active Krill Oil 3 a day May, Active metformin 0.5 Tablet by Oral route 1 time per day 500mg daily, 0.5 tab Jun, Active Lasix 40 mg take 1 tablet (40 mg) by oral route once daily Nov, Active Potassium Chloride 20 mEq 1 tablet by Oral route 3 times per day Take 1.5 tablets in AM and 1 noon and 1.5 at PM May, Active RESULTS No Results PROCEDURES No Known procedures INSTRUCTIONS MEDICATIONS ADMINISTERED No Known Medications MEDICAL (GENERAL) HISTORY Type Description Date Medical History hypertension Medical History sleep apnea-CPAP 8cm [id number] Paykel Eson Nasal Mask Medical History hypokalemia Medical History heart disease-rupture AAA, intrarenal Medical History respiratory disorder 06/16/13 Medical History [place] filter, DVT Medical History hepatitis B Medical History dementia Medical History 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 Medical History Alzheimers disease, unspecified Medical History [facility] Team [address] Dr[address] Lang Surgical History cardiothoracic surgery-triple bypass-[place] 12/2009 Surgical History Triple A 09/2006 Surgical History cholecystectomy Surgical History Bleeding ulcer Surgical History colonoscopy Recurrent polyps not identified FU in 5 years 02/2018 Surgical History inguinal hernia repair foam 05/2019 Hospitalization History Hospitalization for surgery only Hospitalization History hypertension 10/2013 Hospitalization History Somewhere in [facility] May 2017
--- OUTSIDE RECORDS SUMMARY | 2019-01-21 11:16 | XMS REPORT | Continuity of Care Document ---
Author Organization Unknown Address Unknown Phone Unavailable Allergies Active Description Code Type Severity Reaction Onset Reported/Identified Relationship to Patient Clinical Status Yes NO NAME AVAILABLE 53111 DRUG N/A N/A Yes NKANo Known Allergies NKA Miscellaneous Allergy Unknown N/A 09/26/2006 Yes No Known Drug Allergies [id number] Drug Allergy Unknown N/A 06/04/2018 Medications There is no data. Problems Date Dx Coded Attending Type Code Diagnosis Diagnosed By 12/24/2007 DON FAULKNER APRN S 294.9 OR COG DIS NOS 12/24/2007 LIDIA FAULKNER APRNNDA S 300.00 An Anxiety Unspec 12/24/2007 294.9 OR COG DIS NOS 12/24/2007 300.00 An Anxiety Unspec 12/24/2007 294.9 OR COG DIS NOS 12/24/2007 300.00 An Anxiety Unspec 12/24/2007 SALLIE ANDERSON, RADHA Mathur 294.9 OR COG DIS NOS 12/24/2007 RADHA RIZO PHD 300.00 An Anxiety Unspec 12/24/2007 RADHA RIZO PHD 294.9 OR COG DIS NOS 12/24/2007 RADHA RIZO PHD 300.00 An Anxiety Unspec 12/24/2007 RADHA RIZO PHD 294.9 OR COG DIS NOS 12/24/2007 RADHA RIZO PHD 300.00 An Anxiety Unspec 12/24/2007 LIDIA FAULKNER [...] S 300.00 An Anxiety Unspec 12/24/2007 MAJANO JAYSON LESTERA K 294.9 OR COG DIS NOS 12/24/2007 MAJANO DOMATT K 300.00 An Anxiety Unspec 01/14/2008 LIDIA FAULKNER APRNNDA S V58.61 Long-term (current) Use Of Anticoagulants 01/14/2008 V58.61 Long-term (current) Use Of Anticoagulants 01/14/2008 V58.61 Long-term (current) Use Of Anticoagulants 01/14/2008 SALLIE ANDERSON, RADHA Mathur V58.61 Long-term (current) Use Of Anticoagulants 01/14/2008 SALLIE ANDERSON, RADHA Mathur V58.61 Long-term (current) Use Of Anticoagulants 01/14/2008 SALLIE ANDERSON, RADHA Mathur V58.61 Long-term (current) Use Of Anticoagulants 01/14/2008 LIDIA FAULKNER APRNNDA S V58.61 Long-term (current) Use Of Anticoagulants 01/14/2008 LIDIA FAULKNER APRNNDA S V58.61 Long-term (current) Use Of Anticoagulants 01/14/2008 LIDIA FAULKNER APRNNDA S V58.61 Long-term (current) Use Of Anticoagulants 01/14/2008 LIDIA FAULKNER APRNNDA S V58.61 Long-term (current) Use Of Anticoagulants 01/14/2008 MAJANO MATT LESTER K V58.61 Long-term (current) Use Of Anticoagulants 01/30/2008 EVA FAULKNER APRNA S 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 01/30/2008 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 01/30/2008 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 01/30/2008 SALLIE ANDERSON, RADHA Mathur 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 01/30/2008 RADHA RIZO [...] 401.1 ESSENTIAL HYPERTENSION BENIGN 03/09/2008 V58.69 Taking High-risk Medication 03/09/2008 401.1 ESSENTIAL HYPERTENSION BENIGN 03/09/2008 V58.69 Taking High-risk Medication 03/09/2008 SALLIE ANDERSON, RADHA Mathur 401.1 ESSENTIAL HYPERTENSION BENIGN 03/09/2008 SALLIE ANDERSON, RADHA Mathur V58.69 Taking High-risk Medication 03/09/2008 SALLIE ANDERSON, RADHA Mathur 401.1 ESSENTIAL HYPERTENSION BENIGN 03/09/2008 SALLIE ANDERSON, RADHA Mathur V58.69 Taking High-risk Medication 03/09/2008 SALLIE ANDERSON, RADHA Mathur 401.1 ESSENTIAL HYPERTENSION BENIGN 03/09/2008 SALLIE ANDERSON, RADHA Mathur V58.69 Taking High-risk Medication 03/09/2008 DON FAULKNER [...] FAULKNER APRN S 309.81 An Ptsd 01/27/2009 LUCIE CLASSIFIED AD CLERK, DON S 310.1 Personality Change Due To [...] DON S 309.81 An Ptsd 01/27/2009 LUCIE CLASSIFIED AD CLERK, DON S 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 01/27/2009 LUCIE PADILLA DON S 309.81 An Ptsd 01/27/2009 LUCIE CLASSIFIED AD CLERK, DON S 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 01/27/2009 LUCIE CLASSIFIED AD CLERK, DON S 309.81 An Ptsd 01/27/2009 LUCIE CLASSIFIED AD CLERK, DON S 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 01/27/2009 LUCIE PADILLA DON S 309.81 An Ptsd 01/27/2009 LUCIE PADILLA, DON S 310.1 Personality Change Due To [...] RIZO PHD 401.9 Unspecified Essential Hypertension 02/15/2009 LUCIE CLASSIFIED AD CLERK, DON S 401.9 Unspecified Essential Hypertension 02/15/2009 LIDIA FAULKNER APRNNDA S 401.9 Unspecified Essential Hypertension 02/15/2009 LIDIA FAULKNER APRNNDA S 401.9 Unspecified Essential Hypertension 02/15/2009 LIDIA FAULKNER APRNNDA S 401.9 Unspecified Essential Hypertension 02/15/2009 MAJANO DOMATT K 401.9 Unspecified Essential Hypertension 12/27/2009 Ot [...] DON FAULKNER APRN 799.02 Hypoxemia 01/30/2010 LUCIE CLASSIFIED AD CLERK, DON S 276.8 HYPOKALEMIA 01/30/2010 LUCIE CLASSIFIED AD CLERK, DON S 799.02 Hypoxemia 01/30/2010 LUCIE CLASSIFIED AD CLERK, DON S 276.8 HYPOKALEMIA 01/30/2010 LUCIE CLASSIFIED AD CLERK, DON S 799.02 Hypoxemia 01/30/2010 LUCIE CLASSIFIED AD CLERK, DON S 276.8 HYPOKALEMIA 01/30/2010 LUCIE CLASSIFIED AD CLERK, DON S 799.02 Hypoxemia 01/30/2010 MAJANO , MATT K 276.8 HYPOKALEMIA 01/30/2010 MAJANO DO, MATT K 799.02 Hypoxemia 11/27/2010 LUCIE PADILLA, DON S 573.3 Hepatitis Unspecified 11/27/2010 573.3 Hepatitis Unspecified 11/27/2010 573.3 Hepatitis Unspecified 11/27/2010 RADHA RIZO PHD 573.3 Hepatitis Unspecified 11/27/2010 RADHA RIZO PHD 573.3 Hepatitis Unspecified 11/27/2010 RADHA RIZO PHD 573.3 Hepatitis Unspecified 11/27/2010 LUCIE CLASSIFIED AD CLERK, DON S 573.3 Hepatitis Unspecified 11/27/2010 LUCIE CLASSIFIED AD CLERK, DON S 573.3 Hepatitis Unspecified 11/27/2010 LUCIE CLASSIFIED AD CLERK, DON S 573.3 Hepatitis Unspecified 11/27/2010 LUCIE CLASSIFIED AD CLERK, DON S 573.3 Hepatitis Unspecified 11/27/2010 MAJANO DO, MATT K 573.3 Hepatitis Unspecified 07/13/2011 LUCIE DUCKWORTHN, DON S 686.9 UNSPECIFIED LOCAL INFECTION OF SKIN AND SUBCUTANEOUS TISSUE 07/13/2011 LUCIE CLASSIFIED AD CLERK, DON S V06.1 TDAP DX 07/13/2011 686.9 UNSPECIFIED LOCAL INFECTION OF SKIN AND SUBCUTANEOUS TISSUE 07/13/2011 V06.1 TDAP DX 07/13/2011 686.9 UNSPECIFIED LOCAL INFECTION OF SKIN AND SUBCUTANEOUS TISSUE 07/13/2011 V06.1 TDAP DX 07/13/2011 RADHA RIZO PHD 686.9 UNSPECIFIED LOCAL INFECTION OF SKIN AND SUBCUTANEOUS TISSUE 07/13/2011 RADHA RIZO PHD V06.1 TDAP DX 07/13/2011 SALLIE ANDERSON, RADHA Mathur 686.9 UNSPECIFIED LOCAL INFECTION OF SKIN AND SUBCUTANEOUS TISSUE 07/13/2011 SALLIE ANDERSON, RADHA Mathur V06.1 TDAP DX 07/13/2011 SALLIE ANDERSON, RADHA Mathru 686.9 UNSPECIFIED LOCAL INFECTION OF SKIN AND SUBCUTANEOUS TISSUE 07/13/2011 SALLIE ADNERSON, RADHA Mathur V06.1 TDAP DX 07/13/2011 LUCIE CLASSIFIED AD CLERK, DON S 686.9 UNSPECIFIED LOCAL INFECTION OF SKIN AND SUBCUTANEOUS TISSUE 07/13/2011 LUCIE CLASSIFIED AD CLERK, DON S V06.1 TDAP DX 07/13/2011 LUCIE CLASSIFIED AD CLERK, DON S 686.9 UNSPECIFIED LOCAL INFECTION OF SKIN AND SUBCUTANEOUS TISSUE 07/13/2011 LUCIE CLASSIFIED AD CLERK, DON S V06.1 TDAP DX 07/13/2011 LUCIE CLASSIFIED AD CLERK, DON S 686.9 UNSPECIFIED LOCAL INFECTION OF SKIN AND SUBCUTANEOUS TISSUE 07/13/2011 LUCIE CLASSIFIED AD CLERK, DON S V06.1 TDAP DX 07/13/2011 LUCIE CLASSIFIED AD CLERK, DON S 686.9 UNSPECIFIED LOCAL INFECTION OF SKIN AND SUBCUTANEOUS TISSUE 07/13/2011 LUICE PADILLA, DON S V06.1 TDAP DX 07/13/2011 MAJANO DO, MATT K 686.9 UNSPECIFIED LOCAL INFECTION OF SKIN AND SUBCUTANEOUS TISSUE 07/13/2011 MAJANO DO, MATT K V06.1 TDAP DX 05/19/2012 LUCIE PADILLA, [...] RADHA Mathur 380.4 IMPACTED CERUMEN 09/08/2012 LUCIE CLASSIFIED AD CLERK, DON S 380.4 IMPACTED CERUMEN 09/08/2012 LUCIE CLASSIFIED AD CLERK, DON S 380.4 IMPACTED CERUMEN 09/08/2012 LUCIE CLASSIFIED AD CLERK, DON S 380.4 IMPACTED CERUMEN 09/08/2012 LUCIE CLASSIFIED AD CLERK, DON S 380.4 IMPACTED CERUMEN 09/08/2012 MELECIO DO, MATT K 380.4 IMPACTED CERUMEN 01/08/2013 RADHA RIZO PHD 780.93 MEMORY LOSS 01/08/2013 RADHA RIZO PHD 780.93 MEMORY LOSS 01/08/2013 RADHA RIZO PHD 780.93 MEMORY LOSS 01/08/2013 LUCIE CLASSIFIED AD CLERK, DON S 780.93 MEMORY LOSS 01/08/2013 LUCIE CLASSIFIED AD CLERK, DON S 780.93 MEMORY LOSS 01/08/2013 LUCIE CLASSIFIED AD CLERK, DON S 780.93 MEMORY LOSS 01/08/2013 LUCIE CLASSIFIED AD CLERK, DON S 780.93 MEMORY LOSS 01/08/2013 MELECIO DO, MATT K 780.93 MEMORY LOSS 03/11/2013 RADHA RIZO PHD 294.8 OR DEMENTIA NOS 03/11/2013 RADHA RIZO PHD 294.8 OR DEMENTIA NOS 03/11/2013 RADHA RIZO PHD 294.8 OR DEMENTIA NOS 03/11/2013 LUCIE CLASSIFIED AD CLERK, DON S 294.8 OR DEMENTIA NOS 03/11/2013 LUCIE CLASSIFIED AD CLERK, DON S 294.8 OR DEMENTIA NOS 03/11/2013 LUCIE CLASSIFIED AD CLERK, DON S 294.8 OR DEMENTIA NOS 03/11/2013 LUCIE CLASSIFIED AD CLERK, DON S 294.8 OR DEMENTIA NOS 03/11/2013 MAJANO DOJAYSONA K 294.8 OR DEMENTIA NOS 04/09/2013 LUCIE CLASSIFIED AD CLERK, DON S 780.79 fatigue 04/09/2013 EVA FAULKNER APRNA S 780.79 fatigue 04/09/2013 EVA FAULKNER APRNA S 780.79 fatigue 04/09/2013 EVA FAULKNER APRNA S 780.79 fatigue 04/09/2013 MATT MAJANO DO 780.79 fatigue 06/16/2013 DON FAULKNER CUB REPORTER Ot 327.23 OBSTRUCTIVE SLEEP APNEA (ADULT) (PEDIATR [...] NEC 02/15/2017 Ot 414.01 CORONARY ATHEROSCLEROSIS OF [place] CORON 02/15/2017 Ot 427.31 ATRIAL FIBRILLATION 02/15/2017 Ot V58.61 ANTICOAGULANTS,LT,CURRENT USE 05/21/2017 ELIN VENTURA V 483088 Psychiatric Evaluation ELIN VENTURA 05/21/2017 ELIN VENTURA [...] Ot 276.8 HYPOPOTASSEMIA 08/12/2017 Ot V58.69 OTH MED,LT,CURRENT USE 08/12/2017 Ot V58.83 ENCOUNTER FOR THERAPEUTIC DRUG MONITORIN 08/12/2017 KRZYSZTOF LESTER HANNA Ot 250.00 DIAB JEREMIAH WO COMPL, TYPE II OR UNSPEC TY 08/12/2017 KRZYSZTOF DO HANNA Ot 272.4 HYPERLIPIDEMIA NEC/NOS 08/12/2017 BLANKENSHIP DO HANNA Ot 285.9 ANEMIA NOS 08/12/2017 KRZYSZTOF DO HANNA Ot 401.9 HYPERTENSION NOS 08/12/2017 KRZYSZTOF LESTER HANNA Ot V70.0 ROUTINE MEDICAL EXAM 08/12/2017 [...] Loya Ot 276.8 HYPOPOTASSEMIA 02/24/2018 Ot V58.69 [facility] MED,LT,CURRENT USE 02/24/2018 Ot V58.83 ENCOUNTER FOR THERAPEUTIC DRUG MONITORIN 02/24/2018 HANNA BLANKENSHIP DO Ot 250.00 DIAB JEERMIAH WO COMPL, TYPE II OR UNSPEC TY [...] NE 02/24/2018 BONNIE MILLER MD Ot Z79.84 ADJUNCT ART HISTORY INSTRUCTOR (CURRENT) USE OF ORAL HYPOGLYC 02/24/2018 BONNIE [...] LG INT W/O PERFORATION OR AB 02/25/2018 BONNEI MILLER MD Ot Z12.11 ENCOUNTER FOR SCREENING FOR MALIGNANT NE 02/25/2018 BONNIE MILLER MD Ot Z79.84 CUSTODIAL (CURRENT) USE OF ORAL HYPOGLYC 02/25/2018 BONNIE MILLER MD Ot Z79.899 OTHER CUSTODIAL (CURRENT) DRUG THERAPY [...] Ot 276.8 HYPOPOTASSEMIA 06/03/2018 Ot V58.69 OT MED,LT,CURRENT USE 06/03/2018 Ot V58.83 ENCOUNTER FOR THERAPEUTIC [...] CÉSAR CERVANTES MD Ot R40.1 STUPOR 06/03/2018 GENESIS BARRAGAN MD Ot E78.00 PURE HYPERCHOLESTEROLEMIA, UNSPECIFIED 06/03/2018 GENESIS BARRAGAN MD Ot F03.90 UNSPECIFIED DEMENTIA WITHOUT BEHAVIORAL 06/03/2018 GENESIS BARRAGAN MD Ot G47.30 SLEEP APNEA, UNSPECIFIED 06/03/2018 GENESIS BARRAGAN MD Ot I10 ESSENTIAL (PRIMARY) HYPERTENSION 06/03/2018 GENESIS BARRAGAN MD Ot K40.90 UNIL INGUINAL HERNIA, W/O OBST OR GANGR, 06/03/2018 GENESIS BARRAGAN MD Ot N50.89 OTHER SPECIFIED DISORDERS OF THE MALE GE 06/03/2018 GENESIS BARRAGAN MD Ot Z79.82 ADJUNCT ART HISTORY INSTRUCTOR (CURRENT) USE OF ASPIRIN 06/03/2018 GENESIS BARRAGAN MD Ot Z79.84 ADJUNCT ART HISTORY INSTRUCTOR (CURRENT) USE OF ORAL HYPOGLYC 06/03/2018 GENESIS BARRAGAN MD Ot Z86.010 PERSONAL HISTORY OF COLONIC POLYPS 06/03/2018 GENESIS BARRAGAN MD Ot Z87.19 PERSONAL HISTORY OF OTHER DISEASES OF TH 06/03/2018 GENESIS BARRAGAN MD Ot Z87.891 PERSONAL HISTORY OF NICOTINE DEPENDENCE 06/03/2018 GENESIS BARRAGAN MD Ot Z95.1 PRESENCE OF AORTOCORONARY BYPASS GRAFT 06/03/2018 GENESIS BARRAGAN MD Ot Z98.890 OTHER SPECIFIED POSTPROCEDURAL STATES 06/04/2018 Ot Z01.818 ENCOUNTER FOR OTHER PREPROCEDURAL EXAMIN 06/05/2018 GENESIS BARRAGAN MD Ot E78.00 PURE HYPERCHOLESTEROLEMIA, UNSPECIFIED 06/05/2018 GENESIS BARRAGAN MD Ot F03.90 UNSPECIFIED DEMENTIA WITHOUT BEHAVIORAL 06/05/2018 GENESIS BARRAGAN MD Ot G47.30 SLEEP APNEA, UNSPECIFIED 06/05/2018 GENESIS BARRAGAN MD Ot I10 ESSENTIAL (PRIMARY) HYPERTENSION 06/05/2018 GENESIS BARRGAAN MD Ot K40.90 UNIL INGUINAL HERNIA, W/O OBST OR GANGR, 06/05/2018 GENESIS BARRAGAN MD Ot N50.89 OTHER SPECIFIED DISORDERS OF THE MALE GE 06/05/2018 GENESIS BARRAGAN MD Ot Z79.82 CUSTODIAL (CURRENT) USE OF ASPIRIN 06/05/2018 GENESIS BARRAGAN MD Ot Z79.84 CUSTODIAL (CURRENT) USE OF ORAL HYPOGLYC 06/05/2018 GENESIS [...] Ot Z01.818 ENCOUNTER FOR OTHER PREPROCEDURAL EXAMIN 06/08/2018 LIV ENGLAND DO Ot E11.59 TYPE 2 DIABETES MELLITUS WITH OTH CIRCUL 06/08/2018 LIV ENGLAND DO Ot E83.42 HYPOMAGNESEMIA 06/08/2018 LIV ENGLAND DO Ot E87.0 HYPEROSMOLALITY AND HYPERNATREMIA 06/08/2018 LIV ENGLAND DO Ot E87.6 HYPOKALEMIA 06/08/2018 LIV ENGLAND DO Ot F03.90 UNSPECIFIED DEMENTIA WITHOUT BEHAVIORAL 06/08/2018 LIV ENGLAND DO Ot F05 DELIRIUM DUE TO KNOWN PHYSIOLOGICAL COND 06/08/2018 LIV ENGLAND DO Ot G47.33 OBSTRUCTIVE SLEEP APNEA (ADULT) (PEDIATR 06/08/2018 LIV ENGLAND DO Ot I10 ESSENTIAL (PRIMARY) HYPERTENSION 06/08/2018 LIV ENGLAND DO Ot I51.9 HEART DISEASE, UNSPECIFIED 06/08/2018 LIV ENGLAND DO Ot J18.9 PNEUMONIA, UNSPECIFIED ORGANISM 06/08/2018 LIV ENGLAND DO Ot K40.30 UNIL INGUINAL HERNIA, W OBST, W/O GANGR, 06/08/2018 LIV ENGLAND DO Ot R01.1 CARDIAC MURMUR, UNSPECIFIED 06/08/2018 LIV ENGLAND DO Ot R09.02 HYPOXEMIA 06/08/2018 LIV ENGLAND DO Ot R33.9 RETENTION OF URINE, UNSPECIFIED 06/08/2018 LIV ENGLAND DO Ot R53.81 OTHER MALAISE 06/08/2018 LIV ENGLAND DO Ot Z79.84 CUSTODIAL (CURRENT) USE OF ORAL HYPOGLYC 06/08/2018 LIV ENGLAND DO Ot Z86.19 PERSONAL HISTORY OF OTHER INFECTIOUS AND 06/08/2018 LIV ENGLAND DO Ot Z86.79 PERSONAL HISTORY OF OTHER DISEASES OF TH 06/08/2018 LIV ENGLAND DO Ot Z87.11 PERSONAL HISTORY OF PEPTIC ULCER DISEASE 06/08/2018 LIV ENGLAND DO Ot Z87.891 PERSONAL HISTORY OF NICOTINE DEPENDENCE 06/08/2018 LIV ENGLAND DO Ot Z95.1 PRESENCE OF AORTOCORONARY BYPASS GRAFT 06/08/2018 LIV ENGLAND DO Ot Z95.828 PRESENCE OF OTHER VASCULAR IMPLANTS AND Procedures Code Description Performed By Performed On 45.16 ESOPHAGOGASTRODUODENOSCOPY [EGD] W/CLOSE 12/24/2009 72440 ROUTINE VENIPUNCTURE 05/19/2012 72722 CBC 05/19/2012 83727 CMP 05/19/2012 3932248 GFR CALC (RESULT ONLY) 05/19/2012 94510 LIPID PANEL 05/19/2012 34573 EAR LAVAGE 09/08/2012 17411 PSYCH DIAGNOSTIC EVALUATION 03/12/2013 13057 PSYCHO TESTING 1 HR W TECH 03/23/2013 50530 PSYTX PT&/FAMILY 30 MINUTES 03/24/2013 59487 SLEEP STUDY 05/07/2013 48805 ROUTINE VENIPUNCTURE 07/23/2013 20060 T4 FREE 07/23/2013 29231 TSH 07/23/2013 50180 VIT B 12 07/23/2013 62418 HOMOCYSTINE 07/23/2013 90936 SYPHILLIS TEST 07/24/2013 66952 METHYLMELONIC 07/29/2013 47769 ROUTINE VENIPUNCTURE 01/25/2014 0273570 GFR CALC (RESULT ONLY) 01/25/2014 19770 BMP 01/25/2014 [id number] EXCISION OF RIGHT LARGE INTESTINE, OPEN 06/05/2018 [id number] SUPPLEMENT R INGUINAL REGION WITH SYNTH 06/05/2018 Results Test Result Range CMP - 03/14/17 09:06 Glucose, Serum 118 [...] IU/L 0-40 ALT (SGPT) 15 IU/L 0-44 CBC WITH AUTO DIFFERENTIAL - 05/21/17 00:41 [...] RED CELL DISTRIBUTION WIDTH 13.3 % 11.8-15.6 3013358 13.3 10E9/L 3.5-10.5 7171800 1.80 10E9/L 0.90-2.90 2246621 1.33 10E9/L 0.30-0.90 8880063 0.25 10E9/L 0.05-0.50 8142180 9.82 10E9/L 1.70-7.00 2004630 0.06 10E9/L 0.00-0.30 5144528 0 % COMPREHENSIVE METABOLIC PANEL - 05/21/17 [...] 7-25 CREATININE 0.78 mg/dL 0.70-1.18 eGFR NON-AFR. ARMENIAN 91 mL/min/1.73m2 > OR=60 eGFR 105 mL/min/1.73m2 [...] glucose measurement by glucometer (mass/volume) - 02/24/18 08:52 Capillary blood glucose measurement by glucometer (mass/volume) [...] Automated erythrocyte mean corpuscular hemoglobin concentration measurement (mass/volume) 34 g/dL 32-36 Automated erythrocyte distribution width ratio 14.5 % 10.0- 14.5 Automated blood platelet count (count/volume) 212 10*3/uL [...] Blood monocytes automated count (number/volume) 1.1 10*3 0.0- 1.0 Automated eosinophil count 0.1 10*3/uL 0.0-0.3 Automated [...] Serum or plasma aspartate aminotransferase measurement (enzymatic activity/volume) 26 U/L 5-34 Serum or plasma alanine aminotransferase measurement (enzymatic activity/volume) 20 U/L 0-55 Serum or plasma protein measurement (mass/volume) 7.4 g/dL 6.4-8.2 Serum or plasma albumin measurement (mass/volume) 3.9 g/dL 3.2-4.5 CALCIUM CORRECTED 9.3 mg/dL 8.5-10.1 Magnesium - 06/03/18 12:30 Magnesium 1.9 mg/dL 1.8-2.4 Methicillin resistant Staphylococcus aureus (MRSA) screening culture - 06/05/18 08:24 Methicillin resistant Staphylococcus aureus (MRSA) screening culture NEG NRG Capillary blood glucose measurement by glucometer (mass/volume) - 06/05/18 08:46 Capillary blood glucose measurement by glucometer (mass/volume) [...] Automated erythrocyte mean corpuscular hemoglobin concentration measurement (mass/volume) 33 g/dL 32-36 Automated erythrocyte distribution width ratio 15.0 % 10.0- 14.5 Automated blood platelet count (count/volume) 210 10*3/uL [...] gravity of urine by test strip 1.010 1.016-1.022 Urine protein assay by test strip, semi-quantitative [...] sediment leukocyte count by microscopy (number/high power field) [HPF] NRG Bacteria detection in urine sediment [...] Automated erythrocyte mean corpuscular hemoglobin concentration measurement (mass/volume) 33 g/dL 32-36 Automated erythrocyte distribution width ratio 15.2 % 10.0- 14.5 Automated blood platelet count (count/volume) 211 10*3/uL [...] Blood monocytes automated count (number/volume) 1.2 10*3 0.0- 1.0 Automated eosinophil count 0.2 10*3/uL 0.0-0.3 Automated [...] - 06/07/18 07:50 Magnesium 2.0 mg/dL 1.8-2.4 Automated blood complete blood count (hemogram) panel - 06/08/18 07:50 Blood leukocytes automated count (number/volume) 12.2 10*3/uL 4.3-11.0 Blood erythrocytes automated count (number/volume) 4.32 10*6/uL 4.35-5.85 Venous blood hemoglobin measurement (mass/volume) 12.5 g/dL 13.3-17.7 Blood hematocrit (volume fraction) 38 % 40-54 Automated erythrocyte mean corpuscular volume 88 [foz_us] 80-99 Automated erythrocyte mean corpuscular hemoglobin (mass per erythrocyte) 29 pg 25-34 Automated erythrocyte mean corpuscular hemoglobin concentration measurement (mass/volume) 33 g/dL 32-36 Automated erythrocyte distribution width ratio 15.1 % 10.0- 14.5 Automated blood platelet count (count/volume) 232 10*3/uL 130-400 Automated blood platelet mean volume measurement 9.7 [foz_us] 7.4-10.4 Comprehensive metabolic panel - 06/08/18 07:50 Serum or plasma sodium measurement (moles/volume) 146 mmol/L 135-145 Serum or plasma potassium measurement (moles/volume) 4.0 mmol/L 3.6-5.0 Serum or plasma chloride measurement (moles/volume) 112 mmol/L 98-107 Carbon dioxide 24 mmol/L 21-32 Serum or plasma anion gap determination (moles/volume) 10 mmol/L 5-14 Serum or plasma urea nitrogen measurement (mass/volume) 17 mg/dL 7-18 Serum or plasma creatinine measurement (mass/volume) 0.73 mg/dL 0.60-1.30 Serum or plasma urea nitrogen/creatinine mass ratio 23 NRG Serum or plasma creatinine measurement with calculation of estimated glomerular filtration rate > NRG Serum or plasma glucose measurement (mass/volume) 138 mg/dL 70-105 Serum or plasma calcium measurement (mass/volume) 9.1 mg/dL 8.5-10.1 Serum or plasma total bilirubin measurement (mass/volume) 1.1 mg/dL 0.1-1.0 Serum or plasma alkaline phosphatase measurement (enzymatic activity/volume) 104 U/L 40-136 Serum or plasma aspartate aminotransferase measurement (enzymatic activity/volume) 21 U/L 5-34 Serum or plasma alanine aminotransferase measurement (enzymatic activity/volume) 21 U/L 0-55 Serum or plasma protein measurement (mass/volume) 6.6 g/dL 6.4-8.2 Serum or plasma albumin measurement (mass/volume) 3.3 g/dL 3.2-4.5 CALCIUM CORRECTED 9.7 mg/dL 8.5-10.1 - 08/15/18 14:03 GLUCOSE 113 mg/dL 65-99 UREA NITROGEN (BUN) 21 mg/dL 7-25 CREATININE 0.83 mg/dL 0.70-1.18 eGFR NON-AFR. ARMENIAN 88 mL/min/1.73m2 > OR=60 eGFR 102 mL/min/1.73m2 > OR=60 BUN/CREATININE RATIO NOT APPLICABLE (calc) 6-22 SODIUM 143 mmol/L 135-146 POTASSIUM 3.8 mmol/L 3.5-5.3 CHLORIDE 105 mmol/L 98-110 CARBON DIOXIDE 33 mmol/L 20-32 CALCIUM 9.1 mg/dL 8.6-10.3 Encounters ACCT No. Visit Date/Time Discharge Status Pt. Type Provider Facility Loc./Unit Complaint [id number] 01/25/2014 08:56:00 01/25/2014 23:59:59 CLS Outpatient MATT MAJANO DO [id number] 11/23/2013 10:24:00 11/23/2013 23:59:59 CLS Outpatient DON FAULKNER APRN S [id number] 07/23/2013 13:33:00 07/23/2013 23:59:59 CLS Outpatient DON FAULKNER APRN S [id number] 07/06/2013 14:24:00 07/06/2013 23:59:59 CLS Outpatient DON FAULKNER APRN S [id number] 04/09/2013 12:26:00 04/09/2013 23:59:59 CLS Outpatient DON FAULKNER APRN S [id number] 03/23/2013 15:47:00 03/23/2013 23:59:59 CLS Outpatient RADHA RIZO PHD [id number] 03/20/2013 09:48:00 03/20/2013 23:59:59 CLS Outpatient RADHA RIZO PHD [id number] 03/11/2013 08:41:00 03/11/2013 23:59:59 CLS Outpatient RADHA RIZO PHD [id number] 09/08/2012 13:02:00 09/08/2012 23:59:59 CLS Outpatient [id number] 09/02/2012 13:28:00 09/02/2012 23:59:59 CLS Outpatient [id number] 05/19/2012 14:13:00 05/19/2012 23:59:59 CLS Outpatient DON FAULKNER APRN [id number] 06/05/2018 08:09:00 06/08/2018 12:25:00 DIS Inpatient LIV ENGLAND DO [facility] 4TH RIGHT INGUINAL HERNIA [id number] 06/03/2018 11:32:00 06/03/2018 13:40:00 DIS Emergency YUNG BOONE, GENESIS Loya [facility] ER GROIN PAIN [id number] 02/24/2018 08:25:00 02/24/2018 12:40:00 DIS Outpatient BONNIE MILLER MD [facility] ENDO SCREENING [id number] 02/20/2018 15:31:00 02/20/2018 15:43:00 DIS Outpatient BONNIE MILLER MD [facility] PREOP COLONOSCOPY [id number] 08/13/2017 13:30:00 08/13/2017 23:59:59 CLS Preadmit JULIO CÉSAR CERVANTES MD [facility] CARD DEMENTIA [id number] 08/13/2017 12:16:00 08/13/2017 23:59:59 CLS Outpatient JULIO CÉSAR CERVANTES MD [facility] RAD DEMENTIA [id number] 07/12/2017 13:04:00 07/12/2017 23:59:59 CLS Outpatient JULIO CÉSAR CERVANTES MD [facility] RAD ANOXIC BRAIN DAMAGE, ALZHEIMERS DISEASE [id number] 07/08/2017 14:19:00 07/08/2017 23:59:59 CLS Preadmit DON FAULKNER [facility] RAD BEHAVIORAL CHANGE [id number] 01/12/2016 14:05:00 01/12/2016 15:31:00 DIS Emergency CHRISTIN HICKEY MD [facility] ER LOWER ABD PAIN [id number] 01/21/2015 21:10:00 01/22/2015 06:00:00 DIS Outpatient NANNETTE CAMERON APRN [facility] SLEEP STEPHON [id number] 04/16/2014 07:13:00 04/16/2014 23:59:59 CLS Outpatient HANNA BLANKENSHIP DO [facility] LAB HEALTH SCREENING MEDICATION MONITORING DM HLP HTN [id number] 12/14/2013 08:48:00 12/14/2013 23:59:59 CLS Outpatient CALIXTO HUI MD [facility] LAB HYPOPOTASSEMIA [id number] 11/06/2013 19:35:00 11/07/2013 12:10:00 DIS Inpatient ARNOLDO RAMON MD [facility] CSD MALIGNANT HYPERTENSION DIZZINESS [id number] 06/15/2013 21:14:00 06/16/2013 05:05:00 DIS Outpatient DON FAULKNER [facility] SLEEP ISCHEMIC HEART DISEASE,HTN,EXCESSIVE DAYTIME SLEEP [id number] 06/04/2018 13:27:00 Document Registration [id number] 08/12/2017 18:55:00 Document Registration [id number] 05/25/2014 10:42:00 Document Registration [id number] 12/28/2013 08:41:00 Document Registration [id number] 12/23/2009 19:18:00 Document Registration [id number] 12/22/2009 10:45:00 Document Registration [id number] 12/22/2009 10:45:00 Document Registration [id number] 05/21/2017 00:07:44 05/21/2017 03:11:00 DIS Emergency VENTURAELIN GARCIA [facility] [id number] 10/01/2018 09:00:00 10/01/2018 23:59:59 [facility] Outpatient DON FAULKNER APRN [facility] [id number] 08/15/2018 14:00:00 Document Registration [id number] 12/30/2017 13:00:00 Document Registration [id number] 07/08/2017 10:20:00 Document Registration [id number] 03/14/2017 08:40:00 Document Registration
--- NOTE | 2019-01-21 11:39 | ED Cough/URI ---
General Chief Complaint: Cough/Cold/Flu Symptoms Stated Complaint: COUGH Source: patient, family () Exam Limitations: no limitations History of Present Illness Date Seen by Provider: Jan 21, 2019 Time Seen by Provider: 11:37 Initial Comments 73-year-old male who was brought into the emergency room by his for complaints of a mild cough that started this morning. His is very concerned because she is currently undergoing chemotherapy and does not want him to give her something. The patient is in no acute distress on arrival to the emergency room and has not coughed since he's been here. He voices no complaints. Timing/Duration: this morning Associated Symptoms: cough Allergies and Home Medications Allergies Coded Allergies: No Known Drug Allergies (Unverified , 06/04/18) Home Medications Amoxicillin/Potassium Clav 1 Each Tablet, 1 EACH PO BID Prescribed by: LANCE MONTEMAYOR on 06/08/18 1129 Aspirin 325 Mg Tablet, 325 MG PO 1500, (Reported) Carvedilol 12.5 Mg Tablet, 6.25 MG PO BID, (Reported) TAKES 1/2 (12.5MG) TABLET Docusate Sodium 100 Mg Capsule, 100 MG PO DAILY Prescribed by: LIV ENGLAND on 06/06/18 0747 Fluconazole 150 Mg Tablet, 150 MG PO DAILY Prescribed by: LANCE MONTEMAYOR on 06/08/18 1129 Furosemide 20 Mg Tablet, 20 MG PO DAILY, (Reported) Hydrocodone Bit/Acetaminophen 1 Tab Tab, 1-2 TAB PO Q6H PRN for PAIN-MODERATE Prescribed by: LIV ENGLAND on 06/06/18 0747 Lisinopril 20 Mg Tablet, 20 MG PO DAILY, (Reported) Memantine HCl 28 Mg Cap.spr.24, 28 MG PO 1500, (Reported) Metformin HCl 500 Mg Tablet, 250 MG PO DAILY, (Reported) TAKES 1/2 (500MG) TABLET Omeprazole 20 Mg Capsule.dr, 20 MG PO BID, (Reported) Potassium Chloride 20 Meq Tablet.er, 50 MEQ PO TID, (Reported) TAKES 2 & 1/2 (20MEQ) TABLETS Rivastigmine Tartrate 6 Mg Capsule, 6 MG PO BID, (Reported) Simvastatin 80 Mg Tablet, 40 MG PO HS, (Reported) TAKES 1/2 (80MG) TABLET Vit A,C & E/Lutein/Minerals 1 Each Tablet, 1 TAB PO BID, (Reported) Patient Home Medication List Home Medication List Reviewed: Yes Review of Systems Review of Systems Constitutional: see HPI; No chills, No fever Respiratory: see HPI, cough; No short of breath, No wheezing All Other Systems Reviewed Negative Unless Noted: Yes Past Hyjzbja-Iticly-Arfprr Hx Past Med/Social Hx: Reviewed Nursing Past Med/Soc Hx Patient Social History Former Smoker, Quit: Dec 15, 2006 Recent Hopitalizations: No Immunizations Up To Date Date of Pneumonia Vaccine: Mar 26, 2016 Date of Influenza Vaccine: Mar 24, 2018 Seasonal Allergies Seasonal Allergies: No Past Medical History Surgeries: Yes (TRIPPLE A, TRIPPLE BYPASS) CABG, Gallbladder, Vascular Surgery Respiratory: Yes Sleep Apnea Currently Using CPAP: Yes Cardiac: Yes Aneurysm, Hypertension Neurological: Yes Dementia Reproductive Disorders: No Gastrointestinal: Yes Gastrointestinal Bleed, Hepatitis, Polyps, Ulcer Musculoskeletal: No Endocrine: Yes HEENT: No Cancer: No Psychosocial: No Integumentary: No Blood Disorders: No Adverse Reaction/Blood Tranf: No (HAS HAD BLOOD WITH NO REACTION) Family Medical History Reviewed Nursing Family Hx No Pertinent Family Hx Physical Exam Capillary Refill : Height: 5'6.00" Weight: 133lbs. 0.0oz. [id number]; 21.5 BMI Method:Stated General Appearance: WD/WN, no apparent distress Respiratory: chest non-tender, lungs clear, normal breath sounds, no respiratory distress, no accessory muscle use, respiratory distress Cardiovascular: normal peripheral pulses, regular rate, rhythm, no edema, no gallop, no JVD, no murmur Gastrointestinal: normal bowel sounds, non tender, soft, no organomegaly, no pulsatile mass Extremities: normal capillary refill Neurologic/Psychiatric: alert, normal mood/affect, oriented x 3 Skin: normal color, warm/dry Progress/Results/Core Measures Suspected Sepsis SIRS Temperature: Pulse: Respiratory Rate: Blood Pressure / Mean: Results/Orders My Orders Orders - YURIDIA JOLLY Chest Pa/Lat (2 View) (01/21/19 11:21) Vital Signs/I&O Capillary Refill : Departure Impression Primary Impression: Cough Disposition: 01 HOME, SELF-CARE Condition: Stable/Unchanged Departure-Patient Inst. Decision time for Depature: 11:51 Referrals: MATT MAJANO DO (PCP) Primary Care Physician DON FAULKNER (Family) Primary Care Physician Patient Instructions: Cough, Adult (DC) Add. Discharge Instructions: You may use [id number] cough medication as needed as directed by the packaging. Follow-up with your primary care provider within 1 week for recheck. Return back to the emergency room for worsening symptoms or concerns as needed. All discharge instructions reviewed with patient and/or family. Voiced understanding. YURIDIA JOLLY Jan 21, 2019 11:39
--- NOTE | 2019-01-21 11:48 | Diagnostic Imaging Report ---
INDICATION: Cough. EXAMINATION: PA and lateral chest. FINDINGS: There are postop changes from CABG surgery. Heart size and pulmonary vascularity are normal. Lungs are clear. There are no effusions or pneumothoraces. IMPRESSION: Negative chest. Dictated by: Dictated on workstation # [id number]
[2019-01-21 12:03] VITALS: BP 159/85
== END 2019-01-21 12:12 | disposition home or self-care (01) ==
LOC: EDUNIT# 10:58 → ER 10:59
DX: R05 Cough (principal); I10 Essential (primary) hypertension; F03.90 Unspecified dementia, unspecified severity, without behavioral disturbance, psychotic disturbance, mood disturbance, and anxiety; G47.30 Sleep apnea, unspecified; Z99.89 Dependence on other enabling machines and devices; Z79.82 Long term (current) use of aspirin; Z87.19 Personal history of other diseases of the digestive system; Z79.84 Long term (current) use of oral hypoglycemic drugs; Z87.891 Personal history of nicotine dependence; Z95.1 Presence of aortocoronary bypass graft
CPT/HCPCS: 71046